=== PATIENT | female | born 1940 | race Caucasian/White ===

== ENCOUNTER 2019-09-17 11:35 | Outpatient (CLI) | payer MEDICARE, SELFPAY ==
[2019-09-17 11:57] LABS: Basophils Absolute Auto 0.03 K/mm3 (0.00-0.10); Basophils Percent Auto 0.5 % (0.0-1.0); Eosinophils Absolute Auto 0.06 K/mm3 (0.02-0.50); Hematocrit 37.1 % (35.0-42.0); Hemoglobin 12.6 g/dL (11.7-13.8); Immature Granulocyte Absolute 0.01 K/mm3 (0.00-0.00); Immature Granulocyte Percent A 0.2 % (0.0-0.0); Lymphocytes Absolute Auto 1.56 K/mm3 (1.10-4.50); Lymphocytes Percent Auto 24.7 % (18.0-42.0); Mean Corpuscular Hemoglobin 31.2 pg (27.0-31.0); Mean Corpuscular Volume 91.8 fL (78.0-102.0); Monocytes Percent Auto 7.9 % (2.0-11.0); Neutrophils Absolute Auto 4.2 K/mm3 (1.7-7.2); Neutrophils Percent Auto 65.7 % (50.0-70.0); Platelet Count Result 191 K/mm3 (150-420); Red Blood Count 4.04 M/mm3 (4.20-5.40); Red Cell Distribution Width 16.2 % (11.6-14.4); White Blood Count 6.3 K/mm3 (4.8-10.8)
[2019-09-17 12:44] LABS: Albumin Level 4.3 g/dL (3.4-5.0); Anion Gap 12.1 mmol/L (7-16); Blood Urea Nitrogen 23 mg/dL (7-18); Calcium 9.8 mg/dL (8.5-10.1); Carbon Dioxide 33 mmol/L (21-32); Chloride 103 mmol/L (98-108); Cholesterol 160 mg/dL (0-200); Estimated Glomerular Filt Rate 40; HDL Direct 60 mg/dL (40-60); LDL Cholesterol Calculated 82 mg/dL (<130); Phosphorus 3.5 mg/dL (2.6-4.7); Potassium 4.1 mmol/L (3.5-5.1); Sodium 144 mmol/L (136-145); Triglycerides 92 mg/dL (0-150)
[2019-09-17 12:50] LABS: Hemoglobin A1C 5.8 % (<5.7)
[2019-09-17 12:52] LABS: Osmolality Calculated 298 mOsm/kg (285-295)
[2019-09-17 12:58] LABS: Glucose 38 mg/dL (70-99)
[2019-09-17 12:59] LABS: Free T4 Free Thyroxine Reflex 1.03 ng/dL (0.76-1.46); Thyroid Stimulating Hormone Reflex 4.49 u/IU/mL (0.36-3.74)
[2019-09-17 14:35] LABS: Microalbumin Urine Random 43.3 mg/L
[2019-09-22 10:00] LABS: Vitamin D 25 Hydroxy 42 ng/mL (30-100)
== END 2019-09-17 11:36 | disposition home or self-care (01) ==
LOC: CHSLAB 11:41
DX: E55.9 Vitamin D deficiency, unspecified (principal); E03.9 Hypothyroidism, unspecified; E78.5 Hyperlipidemia, unspecified; E11.42 Type 2 diabetes mellitus with diabetic polyneuropathy; N18.2 Chronic kidney disease, stage 2 (mild); R60.9 Edema, unspecified; I12.9 Hypertensive chronic kidney disease with stage 1 through stage 4 chronic kidney disease, or unspecified chronic kidney disease
CPT/HCPCS: 36415; 80061; 80069; 82043; 82306; 83036; 84439; 84443; 85025

== ENCOUNTER 2019-10-28 11:00 | Outpatient (CLI) | payer MEDICARE, SELFPAY ==
--- NOTE | ~2019-10-28 | US_ITS ---
EXAMINATION:US venous doppler LE RT INDICATION:Right leg pain. DVT right leg. TECHNIQUE: Multiple grayscale, color flow and Doppler images of the right lower extremity deep venous systems were obtained and reviewed. COMPARISON:No prior studies for comparison. FINDINGS: The common femoral, superficial femoral and popliteal veins demonstrate normal respiratory variation, augmentation and compressibility. Color flow is also seen within the posterior tibial, pe roneal, greater saphenous and profunda veins. IMPRESSION: 1: No lower extremity deep venous thrombosis. Reviewed, dictated and finalized at location A.
[2019-10-28 13:00] LABS: Magnesium 1.9 mg/dL (1.8-2.4)
== END 2019-10-28 11:01 | disposition home or self-care (01) ==
PROVIDERS: Visit Provider Podiatrist Foot & Ankle Surgery
DX: I82.401 Acute embolism and thrombosis of unspecified deep veins of right lower extremity (principal); R26.81 Unsteadiness on feet; M79.10 Myalgia, unspecified site; G20 Parkinson's disease
CPT/HCPCS: 36415; 83735; 93971

== ENCOUNTER 2019-11-07 18:20 | Inpatient (IN) | payer MEDICARE, SELFPAY ==
--- NOTE | ~2019-11-07 | XR_ITS ---
EXAMINATION: XR chest 2V 11/08/2019 10:41 INDICATION: Syncope. Recurrent falls. PROCEDURE: 2 view chest COMPARISON: 11/14/2017 FINDINGS: The lungs are clear. The lungs are hyperinflated which is consistent with, but not diagnost ic of chronic obstructive pulmonary disease. The cardiomediastinal silhouette is within normal limits . There are no pleural effusions. There is no pneumothorax suspected. IMPRESSION: 1: NO ACUTE CARDIOPULMONARY DISEASE. Reviewed, dictated and finalized at location A.
--- NOTE | ~2019-11-07 | US_ITS ---
EXAMINATION: US arterial ankle brachial ind DATE: 11/11/2019 13:43 INDICATION: Persistent ulcer at the right lower limb TECHNIQUE: Segmental pressures and plethysmographic and Doppler waveforms of the brachial and lower e xtremity arteries were obtained. COMPARISON: None. FINDINGS: Right and left brachial artery pressures of 134 mm Hg and 118 mm Hg, respectively, are concordant (no rmal difference <= 30 mmHg). The right ankle-brachial index (CHARLES) is 1.07 (normal >= 0.9-1.0). Arterial Doppler waveforms are trip hasic with brisk systolic upstrokes at both the right posterior tibial and dorsalis pedis arteries. The left CHARLES is 1.15. Arterial Doppler waveforms are triphasic with brisk systolic upstrokes of both the left posterior tibial and dorsalis pedis arteries. IMPRESSION: 1. No significant arterial occlusive disease to either lower limb with normal bilateral ABIs. Reviewed, dictated and finalized at location A. IMPRESSION: 1. No significant arterial occlusive disease to either lower limb with normal b ilateral ABIs.
--- NOTE | 2019-11-07 19:00 | ADMGEN ---
This patient, Hortencia Nettles, was admitted to 2nd Floor Room 204-1. Patient oriented to hospital policies and general routines including ID bracelet, bed and alarms, visiting hours, pain management, procedures, bathroom and other care routines, personal items, smoking policy, room service/diet, and visiting hours. Information on how to activate the Rapid Response Team has been discussed. Patient encouraged to report perceived risks to care and to ask questions if they do not understand what they are told or what they should do.
[2019-11-07 19:15] VITALS: BP 129/59; PULSE 71; RESP 16; TEMP 36.7; O2SAT 100
[2019-11-07 20:22] LABS: Glucose Point of Care 136 (65-105)
[2019-11-07] MEDS: CLONAZEPAM 0.5 MG TAB PO (21:19)
--- NOTE | 2019-11-07 21:45 | PC.NURSE ---
pt assisted to bathroom with walker and stand by assist, steady gait, tolerated well
[2019-11-07 23:02] VITALS: BP 123/52; PULSE 68; RESP 18; TEMP 36.8; O2SAT 98
--- NOTE | 2019-11-08 01:34 | PC.NURSE ---
pt sleeping, respirations even and regular, no evidence of distress noted.
--- NOTE | 2019-11-08 05:00 | PC.NURSE ---
pt attempted to ambulate to the bathroom, she began to feel dizzy, assisted her back to bed, sat on side of bed for approx 5 min then pt stated she was feeling better. pt ambulated to bathroom without difficulty at this time.
[2019-11-08] MEDS: LEVOTHYROXINE SODIUM 112 MCG TABLET PO (05:30)
[2019-11-08 07:30] VITALS: BP 138/62; PULSE 78; RESP 18; TEMP 36.4; O2SAT 97
[2019-11-08 08:09] LABS: Glucose Point of Care 131 (65-105)
[2019-11-08] MEDS: SENNA/DOCUSATE SODIUM TABLET 1 TAB PO (09:42)
[2019-11-08] MEDS: MAGNESIUM OXIDE 400 MG TABLET PO ×2 (09:43→16:53)
[2019-11-08] MEDS: CHOLECALCIFEROL 1,000 UNIT TABLET 1000 UNITS PO (09:43)
[2019-11-08] MEDS: GABAPENTIN 300 MG CAPSULE 600 MG PO ×4 (09:44→21:57)
[2019-11-08] MEDS: glipiZIDE 5 MG TABLET PO (09:44)
[2019-11-08] MEDS: DULOXETINE HCL 30 MG CAPSULE.DR PO (09:44)
[2019-11-08] MEDS: CARBIDOPA/LEVODOPA 25/100 MG TABLET 1 TABLET PO ×3 (09:45→16:53)
[2019-11-08] MEDS: amantadine HCL 100 MG CAPSULE PO ×2 (09:45→16:53)
[2019-11-08] MEDS: lisinopriL 2.5 MG TABLET PO (09:46)
[2019-11-08 10:22] LABS: Hemoglobin 12.2 g/dL (11.7-13.8); Mean Corpuscular HGB Conc 33.9 g/dL (32.0-36.0); Mean Corpuscular Volume 91.6 fL (78.0-102.0); Platelet Count Result 147 K/mm3 (150-420); Red Blood Count 3.93 M/mm3 (4.20-5.40); Red Cell Distribution Width 14.4 % (11.6-14.4); White Blood Count 3.9 K/mm3 (4.8-10.8)
[2019-11-08 10:40] LABS: Alanine Aminotransferase 9 U/L (14-59); Albumin Level 3.8 g/dL (3.4-5.0); Alkaline Phosphatase 49 U/L (46-116); Anion Gap 12.2 mmol/L (7-16); Aspartate Amino Transferase 20 U/L (15-37); Bilirubin,Total 0.6 mg/dL (0.00-1.00); Blood Urea Nitrogen 17 mg/dL (7-18); Carbon Dioxide 29 mmol/L (21-32); Chloride 100 mmol/L (98-108); Estimated CRCL calculation 36 ml/min; Estimated Glomerular Filt Rate 45; Glucose 234 mg/dL (70-99); Osmolality Calculated 293 mOsm/kg (285-295); Potassium 4.2 mmol/L (3.5-5.1); Sodium 137 mmol/L (136-145); Total Protein 6.9 g/dL (6.4-8.2)
[2019-11-08 10:47] LABS: Thyroid Stimulating Hormone 1.97 uIU/mL (0.36-3.74)
[2019-11-08 11:10] VITALS: BP 121/53; PULSE 78
[2019-11-08 11:12] VITALS: BP 124/52; PULSE 79
[2019-11-08 11:15] VITALS: BP 90/44; PULSE 101
[2019-11-08 12:47] LABS: Glucose Point of Care 177 (65-105)
--- NOTE | 2019-11-08 13:10 | PM.IMHP ---
H&P: HPI History of Present Illness Chief complaint: inpatient rehab Narrative: Hortencia Nettles is a 79 year old female THAT WAS ADMITTED IN TO [facility] IN [place] WITH ACUTE KIDNEY INJURY WITH ACUTE TUBULAR NECROSIS, MULTIPLE RECURRENT FALLS UNSTABLE GAIT, LIGHTHEADEDNESS, DIZZINESS WITH POSTURAL CHANGE FOUND TO BE DEHYDRATION . PATIENT HAS A PAST MEDICAL HISTORY OF CANCER, DIABETES, GERD, GOUT, KIDNEY DISEASE, PARKINSON'S DISEASE, RHEUMATOID FEVER, RESTLESS LEG SYNDROME,SHINGLES. 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 SHE WAS LAST SEEN ON OCTOBER 26, 2019DURING THESE FALLS PATIENT CARBIDOPA/LEVODOPA WAS INCREASED DUE TO HER RESTLESS LEGS SYNDROME. HER RESTLESS LEG SYNDROME IMPROVED HOWEVER SHE STARTED TO FEEL MORE UNSTEADY AND LIGHTHEADED WHEN TRYING TO STAND FROM LYING AND SITTING POSITIONS. AT THAT POINT HER CARBIDOPA LEVODOPA MEDICATION WAS REDUCED AGAIN. PATIENT EXPERIENCES LIGHTHEADEDNESS AND DIZZINESS AND LOWER EXTREMITY WEAKNESS AND HAD A NEAR SYNCOPE EPISODE PREVIOUSLY TO BEING ADMITTED IN TO [facility]. DURING HER STAY AT [facility] PATIENT CONDITION IMPROVED AND IT WAS RECOMMENDED THAT SHE DISCHARGE TO A REHABILITATION CENTER. 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 Review of Systems Review of Systems: Narrative: CONSTITUTIONAL :NO WEIGHT LOSS, FEVER, CHILLS, WEAKNESS OR FATIGUE.: HEENT: EYES: NO DIPLOPIA OR BLURRED VISION. ENT: NO EARACHE, SORE THROAT OR RUNNY NOSE. CARDIOVASCULAR: NO PRESSURE, SQUEEZING, STRANGLING, TIGHTNESS, HEAVINESS OR ACHING ABOUT THE CHEST, NECK, AXILLA OR EPIGASTRIUM. RESPIRATORY: NO COUGH, SHORTNESS OF BREATH, PND OR ORTHOPNEA. GASTROINTESTINAL: NO NAUSEA, VOMITING OR DIARRHEA. GENITOURINARY: NO DYSURIA, FREQUENCY OR URGENCY. MUSCULOSKELETAL: NO MUSCLE, BACK PAIN, JOINT PAIN OR STIFFNESS. SKIN: NO CHANGE IN SKIN, HAIR OR NAILS. PATIENT HAS A SCAB OVER QUARTER-SIZED ULCER TO THE RIGHT LOWER EXTREMITY INNER CALF WITH A SMALL AMOUNT ERYTHEMA AND TENDER TO TOUCH NEUROLOGIC: NO PARESTHESIAS, FASCICULATIONS, SEIZURES OR WEAKNESS. PSYCHIATRIC: NO DISORDER OF THOUGHT OR MOOD. ENDOCRINE: NO HEAT OR COLD INTOLERANCE, POLYURIA OR POLYDIPSIA. HEMATOLOGICAL: NO EASY BRUISING OR BLEEDING. [facility] Past Medical History Medical History (Updated 11/08/19 @ 13:48 by BERTO Ortega) Cancer JAW MOUTH AND CHIN GERD (gastroesophageal reflux disease) Gout Kidney disease Orthostatic hypotension Parkinsons Rheumatic fever Shingles Type 2 diabetes mellitus Surgical History Surgical History (Updated 11/08/19 @ 13:28 by BERTO Ortega) History of cardiac cath History of cholecystectomy History of total knee arthroplasty S/P repair of ventral hernia Status post gastroplasty Family History Family History (Updated 11/08/19 @ 13:33 by BERTO Ortega) Sibling Pancreatic cancer Breast cancer Sibling Kidney disease Mother Cancer Pancreatic cancer Father COPD (chronic obstructive pulmonary disease) Son Diabetes mellitus Social History Social History Smoking status: Never smoker Alcohol intake: never Substance use: never Gender identity (if verbalized by the patient): Female Spiritual care concerns: No Meds Home Medications and Allergies Home Medications Medication Instructions Recorded Confirmed Type amantadine HCl 100 mg PO BID 11/07/19 11/07/19 History carbidopa-levodopa [Sinemet] 1 tablet PO TIDWM 11/07/19 11/07/19 History carbidopa-levodopa [Sinemet] 2 tablet PO HS 11/07/19 11/07/19 History cholecalciferol (vitamin D3) 50 mcg PO DAILY 11/07/19 11/07/19 History clonazepam 0.5 mg PO BID PRN 11/07/19 11/07/19 History duloxetine [Cymbalta] 30 mg PO DAILY 11/07/19 11/07/19 History gabapentin 600 mg PO TID 11/07/19 11/07/19 History glipizide 5 mg PO D
[2019-11-08] MEDS: PHARMACIST COMMUNICATION ORDER 1 EACH XX (13:41)
[2019-11-08 15:45] VITALS: BP 121/61; PULSE 79; RESP 18; TEMP 37.2; O2SAT 98
[2019-11-08 16:58] LABS: Glucose Point of Care 130 (65-105)
--- NOTE | 2019-11-08 18:20 | PC.NURSE ---
Patient resting in bed with hob elevated. Denies any needs. Call paul and belongings at side.
--- NOTE | 2019-11-08 19:25 | PC.NURSE ---
pt assisted to bathroom then returned to reclining chair, walker with sba, tolerated well, denies any needs or complaints at this time
--- NOTE | 2019-11-08 20:42 | PC.NURSE ---
pt ambulated 2 laps around the nursing floor, with ww and gait belt, sba, pt tolerated well, no episode of dizziness or weakness
[2019-11-08] MEDS: MELATONIN 5 MG TABLET PO (21:57)
[2019-11-08] MEDS: CARBIDOPA/LEVODOPA 25/100 MG TABLET 2 TABLET PO (21:57)
[2019-11-08] MEDS: CLONAZEPAM 0.5 MG TAB PO (21:57)
[2019-11-08 22:21] LABS: Glucose Point of Care 223 (65-105)
[2019-11-08 23:36] VITALS: BP 116/56; PULSE 68; RESP 18; TEMP 36.2; O2SAT 99
--- NOTE | 2019-11-09 02:21 | PC.NURSE ---
pt sleeping, respirations even and regular, no evidence of distress noted at this time.
[2019-11-09] MEDS: LEVOTHYROXINE SODIUM 112 MCG TABLET PO (05:51)
[2019-11-09 07:36] LABS: Glucose Point of Care 201 (65-105)
[2019-11-09 08:00] VITALS: BP 120/71; PULSE 76; RESP 14; O2SAT 100
--- NOTE | 2019-11-09 08:00 | ECG_ITS ---
Measurements Intervals Emmons Rate: 70 P: -70 NH: 194 QRS: -11 QRSD: 98 T: 55 QT: 412 QTc: 445 Interpretive Statements ECTOPIC ATRIAL RHYTHM LOW QRS VOLTAGE IN LIMB LEADS CANNOT RULE OUT SEPTAL INFARCT, AGE INDETERMINATE ABNORMAL ECG Electronically Signed On 11-09-2019 11:27:34 CDT by Ashu Santos D.O.
[2019-11-09 08:30] VITALS: BP 90/42; PULSE 88; RESP 18; O2SAT 99
[2019-11-09 08:31] VITALS: BP 101/49; PULSE 88; RESP 18; O2SAT 96
[2019-11-09] MEDS: CARBIDOPA/LEVODOPA 25/100 MG TABLET 1 TABLET PO ×3 (08:42→16:44)
[2019-11-09] MEDS: ENOXAPARIN 40 MG/0.4 ML SYRINGE SUB-Q (08:43)
[2019-11-09] MEDS: glipiZIDE 5 MG TABLET PO (08:43)
[2019-11-09] MEDS: GABAPENTIN 300 MG CAPSULE 600 MG PO ×3 (08:43→21:03)
[2019-11-09] MEDS: CHOLECALCIFEROL 1,000 UNIT TABLET 1000 UNITS PO (08:43)
[2019-11-09] MEDS: DULOXETINE HCL 30 MG CAPSULE.DR PO (08:52)
[2019-11-09] MEDS: MAGNESIUM OXIDE 400 MG TABLET PO ×2 (08:52→16:43)
[2019-11-09] MEDS: amantadine HCL 100 MG CAPSULE PO ×2 (08:54→16:44)
[2019-11-09] MEDS: lisinopriL 5 MG TABLET 2.5 MG PO (08:54)
[2019-11-09 09:00] VITALS: BP 122/69; PULSE 72; RESP 14
[2019-11-09 09:05] VITALS: BP 114/60; PULSE 80; RESP 14
[2019-11-09] MEDS: PSYLLIUM POWDER PACKET 1 PACKET PO (09:13)
[2019-11-09 11:28] LABS: Glucose Point of Care 209 (65-105)
--- NOTE | 2019-11-09 13:15 | PC.NURSE ---
OT working with patient in room
--- NOTE | 2019-11-09 14:06 | PC.NURSE ---
1400 PT just finished working with patient
[2019-11-09 15:17] VITALS: BP 119/59; PULSE 70; RESP 18; TEMP 37; O2SAT 99
[2019-11-09] MEDS: SENNA/DOCUSATE SODIUM TABLET 1 TAB PO (16:43)
[2019-11-09 16:50] LABS: Glucose Point of Care 113 (65-105)
--- NOTE | 2019-11-09 17:40 | PC.NURSE ---
sitting up has been to chair and back to bed and up on side of bed for dinner, tolerating activity well, no light headed feeling this evening
[2019-11-09] MEDS: PANTOPRAZOLE SOD SESQUIHYDRATE 20 MG TAB 40 MG PO (21:03)
[2019-11-09] MEDS: MELATONIN 5 MG TABLET PO (21:04)
[2019-11-09] MEDS: CARBIDOPA/LEVODOPA 25/100 MG TABLET 2 TABLET PO (21:08)
[2019-11-09 23:30] LABS: Glucose Point of Care 180 (65-105)
[2019-11-10] VITALS (7 sets, daily range): BP systolic 74–123; BP diastolic 43–51; PULSE 56–75; RESP 18–20; TEMP 36–36.9; O2SAT 99–100
[2019-11-10] MEDS: LEVOTHYROXINE SODIUM 112 MCG TABLET PO (05:33)
[2019-11-10 07:46] LABS: Glucose Point of Care 221 (65-105)
[2019-11-10] MEDS: SENNA/DOCUSATE SODIUM TABLET 1 TAB PO ×2 (08:35→17:54)
[2019-11-10] MEDS: amantadine HCL 100 MG CAPSULE PO ×2 (08:35→17:54)
[2019-11-10] MEDS: GABAPENTIN 300 MG CAPSULE 600 MG PO ×3 (08:35→21:06)
[2019-11-10] MEDS: CARBIDOPA/LEVODOPA 25/100 MG TABLET 1 TABLET PO ×3 (08:35→17:54)
[2019-11-10] MEDS: ENOXAPARIN 40 MG/0.4 ML SYRINGE SUB-Q (08:36)
[2019-11-10] MEDS: glipiZIDE 5 MG TABLET PO (08:36)
[2019-11-10] MEDS: CHOLECALCIFEROL 1,000 UNIT TABLET 2000 UNITS PO (08:59)
[2019-11-10 11:21] LABS: Glucose Point of Care 174 (65-105)
[2019-11-10] MEDS: lisinopriL 5 MG TABLET 2.5 MG PO (11:32)
[2019-11-10] MEDS: MAGNESIUM OXIDE 400 MG TABLET PO ×2 (11:35→17:57)
[2019-11-10] MEDS: DULOXETINE HCL 30 MG CAPSULE.DR PO (11:35)
--- NOTE | 2019-11-10 11:58 | PM.IMPN ---
Progress Note: A&P Assessment and Plan (1) Orthostatic hypotension: Code(s): I95.1 - Orthostatic hypotension Status: Acute Assessment and Plan: intermittent occasions of lightheadedness for many months to years history of Parkinsons Disease consider stopping 2.5 mg Lisinopril started the 2.5mg TID Midodrine checking orthostatic BPs and HRs after Midodrine dosing for the first 2 days treat orthostatic hypotension with midodrine dosing, titrate as needed, while avoiding excessive hypertension while lying patient and patient's daughter educated regarding the risk of midodrine, including hypertension and stroke, also educated about not taking midodrine after 6:00 p.m. patient educated and practicing pausing to rest between each position change. ambulating with PT/OT discussed with and agreed upon by her PCP Dr.Swapna Abbott, her PCP in [place], [place] and Dany Mason, Neurologist CONTINUOUS PILLOWCASE CUTTER called and left message for her government affairs researcher Dr. Brenda Coronel Monitoring I/O's, daily weights, and weekly labs. PT/OT care plan meeting is scheduled for this Saturday. (2) Kidney disease: Code(s): N28.9 - Disorder of kidney and ureter, unspecified Status: Acute Assessment and Plan: continue her low dose 2.5 mg Lisinopril daily improve her BPs to improve renal perfusion Monitoring I/O's, daily weights, and weekly labs. Restarting her metformin prior to discharge encourage oral hydration and push fluids checking labs on Saturday. November 07 labs show a creatinine of 1.16, a normal BUN of 17, a GFR that has improved to 45. repeating labs tomorrow morning (3) Type 2 diabetes mellitus: Code(s): E11.9 - Type 2 diabetes mellitus without complications Status: Acute Assessment and Plan: patient's blood sugars are between 130 and 200 continue bedside glucose checks and sliding scale with hypoglycemic protocol continue glipizide Restarting her metformin checking labs on Saturday. on September 16, her A1c was 5.8 diabetic diet continue lisinopril for renal protection and encourage adequate daily oral hydration (4) Parkinsons: Code(s): G20 - Parkinson's disease Status: Acute Assessment and Plan: continue Carbidopa- levodopa 25-100 ( 1 tab TID) as well as Carbidopa- levodopa 25-100 ER or CR (2 tabs at bedtime) continue Gabapentin 600mg TID and Amantadine 100 mg BID consulted with her neurologist at [facility] in [facility] Dany Mason NP and patient is to Follow up with her after discharge. Monitoring I/O's, encourage oral hydration treat orthostatic hypotension with midodrine dosing, titrate as needed, while avoiding excessive hypertension while lying daily weights, weekly labs. PT/OT care plan meeting is scheduled for this Saturday. (5) Weakness: Code(s): R53.1 - Weakness Status: Acute Assessment and Plan: patient will exhibit tolerance to physical activity and maintain normal vital signs patient will be able to perform activities of daily living independently patient will take in adequate nutrition for healing and strength patient will use appropriate DME to prevent falls continue PT/OT Subjective Date/time seen: 11/10/19 11:58 Mrs. Clarke son is doing well today she ambulated quite far with PT this morning, using her 2 wheeled walker. She does have intermittent occasions of lightheadedness, especially when she quickly moves to grab the phone or to get up. I reviewed her notes from [facility], the neurologist mentioned to the patient and her daughter starting Hortencia on midodrine to treat her orthostatic hypotension , but she had not received the medication at [facility]. She appears to be well hydrated with intake >1.5L for last 2 days, and her November 07 labs show a creatinine of 1.16, a normal BUN of 17, a GFR that has improved to 45. Her lying/sitting BPs have been stable (SBPs 90-100s), but t
[2019-11-10] MEDS: MIDODRINE HCL 2.5 MG TABLET PO ×2 (13:01→17:57)
[2019-11-10 16:45] LABS: Glucose Point of Care 89 (65-105)
--- NOTE | 2019-11-10 20:43 | PM.EVENT ---
Event Note Event Note Event Note: Patient denies any complaints. States that she has some lightheadedness if she stands up rapidly. Continues to participate in physical therapy. Alert oriented. No distress. Regular rate rhythm with good distal pulses. Lungs clear to auscultation bilaterally. Extremities warm dry and pink. Orthostatics hypotension continues. We will try a low dose of midodrine and monitor closely. I have examined the patient and be the chart. I discussed the patient's care with A Bryon TEJEDA and agree with her assessment plan.
[2019-11-10 20:58] LABS: Glucose Point of Care 263 (65-105)
[2019-11-10] MEDS: CARBIDOPA/LEVODOPA 25/100 MG CR TABLET 2 TABLET PO (21:05)
[2019-11-10] MEDS: MELATONIN 5 MG TABLET PO (21:08)
[2019-11-10] MEDS: PANTOPRAZOLE SOD SESQUIHYDRATE 20 MG TAB 40 MG PO (21:11)
[2019-11-10] MEDS: CLONAZEPAM 0.5 MG TAB PO (21:22)
[2019-11-11] VITALS (10 sets, daily range): BP systolic 82–139; BP diastolic 38–69; PULSE 63–114; RESP 16–20; TEMP 36.8–37.2; O2SAT 96–98
[2019-11-11 05:36] LABS: Basophils Absolute Auto 0.02 K/mm3 (0.00-0.10); Basophils Percent Auto 0.5 % (0.0-1.0); Eosinophils Absolute Auto 0.09 K/mm3 (0.02-0.50); Eosinophils Percent Auto 2.2 % (1.0-6.0); Hemoglobin 12.7 g/dL (11.7-13.8); Immature Granulocyte Absolute 0.01 K/mm3 (0.00-0.00); Immature Granulocyte Percent A 0.2 % (0.0-0.0); Lymphocytes Percent Auto 37.1 % (18.0-42.0); Mean Corpuscular HGB Conc 34.3 g/dL (32.0-36.0); Mean Corpuscular Hemoglobin 31.6 pg (27.0-31.0); Mean Platelet Volume 8.4 fl (9.2-11.8); Monocytes Absolute Auto 0.39 K/mm3 (0.10-0.90); Monocytes Percent Auto 9.7 % (2.0-11.0); Neutrophils Percent Auto 50.3 % (50.0-70.0); Platelet Count Result 149 K/mm3 (150-420); Red Blood Count 4.02 M/mm3 (4.20-5.40); Red Cell Distribution Width 14.6 % (11.6-14.4)
[2019-11-11 05:56] LABS: BNP 51.6 pg/mL (0-100)
[2019-11-11 05:58] LABS: Alanine Aminotransferase 12 U/L (14-59); Albumin Level 3.9 g/dL (3.4-5.0); Alkaline Phosphatase 47 U/L (46-116); Anion Gap 12.3 mmol/L (7-16); Aspartate Amino Transferase 42 U/L (15-37); Bilirubin,Total 0.7 mg/dL (0.00-1.00); Blood Urea Nitrogen 23 mg/dL (7-18); Calcium 9.2 mg/dL (8.5-10.1); Carbon Dioxide 31 mmol/L (21-32); Chloride 99 mmol/L (98-108); Estimated CRCL calculation 39 ml/min; Estimated Glomerular Filt Rate 49; Glucose 190 mg/dL (70-99); Osmolality Calculated 294 mOsm/kg (285-295); Potassium 4.3 mmol/L (3.5-5.1); Sodium 138 mmol/L (136-145); Total Protein 7.2 g/dL (6.4-8.2)
[2019-11-11] MEDS: MIDODRINE HCL 2.5 MG TABLET PO ×3 (06:05→17:10)
[2019-11-11] MEDS: LEVOTHYROXINE SODIUM 112 MCG TABLET PO (06:05)
[2019-11-11] MEDS: SENNA/DOCUSATE SODIUM TABLET 1 TAB PO ×2 (09:01→17:10)
[2019-11-11] MEDS: GABAPENTIN 300 MG CAPSULE 600 MG PO ×3 (09:02→20:21)
[2019-11-11] MEDS: CHOLECALCIFEROL 1,000 UNIT TABLET 2000 UNITS PO (09:02)
[2019-11-11] MEDS: glipiZIDE 5 MG TABLET PO (09:02)
[2019-11-11] MEDS: ENOXAPARIN 40 MG/0.4 ML SYRINGE SUB-Q (09:02)
[2019-11-11] MEDS: CARBIDOPA/LEVODOPA 25/100 MG TABLET 1 TABLET PO ×3 (09:02→17:11)
[2019-11-11] MEDS: polyethylene glycoL 3350 17 GM POWD.PACK PO (09:03)
[2019-11-11] MEDS: amantadine HCL 100 MG CAPSULE PO ×2 (09:03→17:11)
--- NOTE | 2019-11-11 09:21 | PC.NURSE ---
Patient light headed. Had to sit down. . Tabby PARHAM notified.
[2019-11-11] MEDS: metFORMIN HCL 500 MG TABLET PO ×2 (09:30→17:11)
[2019-11-11 11:35] LABS: Glucose Point of Care 253 (65-105)
[2019-11-11] MEDS: lisinopriL 5 MG TABLET 2.5 MG PO (11:46)
[2019-11-11] MEDS: DULOXETINE HCL 30 MG CAPSULE.DR PO (11:46)
[2019-11-11] MEDS: MAGNESIUM OXIDE 400 MG TABLET PO ×2 (11:47→17:11)
[2019-11-11 17:41] LABS: Glucose Point of Care 102 (65-105)
[2019-11-11] MEDS: MELATONIN 5 MG TABLET PO (20:22)
[2019-11-11] MEDS: PANTOPRAZOLE SOD SESQUIHYDRATE 20 MG TAB 40 MG PO (20:22)
[2019-11-11] MEDS: CARBIDOPA/LEVODOPA 25/100 MG CR TABLET 2 TABLET PO (20:22)
[2019-11-11 20:36] LABS: Glucose Point of Care 121 (65-105)
[2019-11-12] VITALS (8 sets, daily range): BP systolic 77–119; BP diastolic 35–61; PULSE 71–97; RESP 18; TEMP 36.2–36.7; O2SAT 99
--- NOTE | 2019-11-12 05:33 | PC.NURSE ---
Patient reporting having restless legs and wanting to walk in the halls. She walked about one and a half laps around the nurses station with stand by assist and a walker.
[2019-11-12] MEDS: MIDODRINE HCL 2.5 MG TABLET PO ×3 (05:42→17:02)
[2019-11-12] MEDS: LEVOTHYROXINE SODIUM 112 MCG TABLET PO (05:43)
--- NOTE | 2019-11-12 06:50 | PC.NURSE ---
Blood pressure rechecked after receiving morning dose of Midodrine. Sitting blood pressure was 107/38 in the left arm Standing was 77/38 in the left arm. Patient reports feeling slightly light headed. Charge nurse notified.
[2019-11-12 08:24] LABS: Glucose Point of Care 197 (65-105)
[2019-11-12] MEDS: metFORMIN HCL 500 MG TABLET PO ×2 (08:39→17:01)
[2019-11-12] MEDS: CHOLECALCIFEROL 1,000 UNIT TABLET 2000 UNITS PO (08:39)
[2019-11-12] MEDS: CARBIDOPA/LEVODOPA 25/100 MG TABLET 1 TABLET PO ×3 (08:39→17:01)
[2019-11-12] MEDS: ENOXAPARIN 40 MG/0.4 ML SYRINGE SUB-Q (08:40)
[2019-11-12] MEDS: amantadine HCL 100 MG CAPSULE PO ×2 (08:40→17:02)
[2019-11-12] MEDS: glipiZIDE 5 MG TABLET PO (08:40)
[2019-11-12] MEDS: SENNA/DOCUSATE SODIUM TABLET 1 TAB PO (08:40)
[2019-11-12] MEDS: GABAPENTIN 300 MG CAPSULE 600 MG PO ×3 (08:42→21:04)
[2019-11-12] MEDS: DOCUSATE SODIUM 100 MG CAPSULE PO ×2 (09:58→21:04)
[2019-11-12] MEDS: polyethylene glycoL 3350 17 GM POWD.PACK PO (09:58)
[2019-11-12] MEDS: DULOXETINE HCL 30 MG CAPSULE.DR PO (11:42)
[2019-11-12] MEDS: MAGNESIUM OXIDE 400 MG TABLET PO ×2 (11:46→17:02)
--- NOTE | 2019-11-12 11:53 | P.PN_ITS ---
Progress Note: A&P Assessment and Plan (1) Orthostatic hypotension: Code(s): I95.1 - Orthostatic hypotension Status: Acute Assessment and Plan: * possibly secondary to Parkinson's disease * patient blood pressure this a.m. 77/33 repeat BP readings standing 94/41 and sitting 110/49 * intermittent occasions of lightheadedness for many months to years * continue 2.5mg TID Midodrine * patient's primary care physician and neurologist updated current treatment * physical metallurgist Dr. Brenda Coronel return call agrees with the discontinuation lisinopril * PT/OT care plan meeting is scheduled for this Saturday. * patient will need to discharge home with family members for the 1st week (2) Kidney disease: Code(s): N28.9 - Disorder of kidney and ureter, unspecified Status: Acute Assessment and Plan: * physical metallurgist agrees to discontinue the use of lisinopril * improve her BPs to improve renal perfusion * I/O's, daily weights, review * encourage oral hydration and push fluids * creatinine improved to 1.07 . (3) Type 2 diabetes mellitus: Code(s): E11.9 - Type 2 diabetes mellitus without complications Status: Acute Assessment and Plan: * patient's blood sugars below 200 * continue bedside glucose checks and sliding scale with hypoglycemic protocol * continue glipizide and metformin * A1c was 5.8 * continue diabetic diet (4) Parkinsons: Code(s): G20 - Parkinson's disease Status: Acute Assessment and Plan: * continue Carbidopa- levodopa 25-100 ( 1 tab TID) as well as Carbidopa- levodopa 25-100 ER or CR (2 tabs at bedtime) * consulted with her neurologist at [facility] in [facility] Dany Mason NP and patient is to Follow up with her after discharge. * continue PT/OT. (5) Weakness: Code(s): R53.1 - Weakness Status: Acute Assessment and Plan: * patient will exhibit tolerance to physical activity and maintain normal vital signs * patient will be able to perform activities of daily living independently * patient will take in adequate nutrition for healing and strength * patient will use appropriate DME to prevent falls * continue PT/OT Review of Systems Review of Systems: Narrative: CONSTITUTIONAL :No weight loss, fever, chills, weakness or fatigue.: HEENT: Eyes: No diplopia or blurred vision. ENT: No earache, sore throat or runny nose. CARDIOVASCULAR: No pressure, squeezing, strangling, tightness, heaviness or aching about the chest, neck, axilla or epigastrium. RESPIRATORY: No cough, shortness of breath, PND or orthopnea. GASTROINTESTINAL: No nausea, vomiting or diarrhea. patient does complain of constipation. only 1 bowel movement since her admission into the swing bed. GENITOURINARY: No dysuria, frequency or urgency. MUSCULOSKELETAL: No muscle, back pain, joint pain or stiffness. SKIN: small improving ulcer to right lowers leg NEUROLOGIC: No paresthesias, fasciculations, seizures or weakness. PSYCHIATRIC: No disorder of thought or mood. ENDOCRINE: No heat or cold intolerance, polyuria or polydipsia. HEMATOLOGICAL: No easy bruising or bleeding. Exam Narrative: Exam Narrative: General: A well-developed, well-nourished female sitting up in bed no acute distress. HEENT: Normocephalic, atraumatic. PERRL, EOMI. Sclerae anicteric. Oral mucosa moist. Oropharynx clear. Neck: Supple. Respiratory: Lungs are clear to auscultation bilaterally. Cardiovascular: Regular rate and rhythm with S
--- NOTE | 2019-11-12 11:53 | WPDPN ---
Progress Note: A&P Assessment and Plan (1) Orthostatic hypotension: Code(s): I95.1 - Orthostatic hypotension Status: Acute Assessment and Plan: possibly secondary to Parkinson's disease patient blood pressure this a.m. 77/33 repeat BP readings standing 94/41 and sitting 110/49 intermittent occasions of lightheadedness for many months to years continue 2.5mg TID Midodrine patient's primary care physician and neurologist updated current treatment rework machine operator Dr. Brenda Coronel return call agrees with the discontinuation lisinopril PT/OT care plan meeting is scheduled for this Saturday. patient will need to discharge home with family members for the 1st week (2) Kidney disease: Code(s): N28.9 - Disorder of kidney and ureter, unspecified Status: Acute Assessment and Plan: rework machine operator agrees to discontinue the use of lisinopril improve her BPs to improve renal perfusion I/O's, daily weights, review encourage oral hydration and push fluids creatinine improved to 1.07 . (3) Type 2 diabetes mellitus: Code(s): E11.9 - Type 2 diabetes mellitus without complications Status: Acute Assessment and Plan: patient's blood sugars below 200 continue bedside glucose checks and sliding scale with hypoglycemic protocol continue glipizide and metformin A1c was 5.8 continue diabetic diet (4) Parkinsons: Code(s): G20 - Parkinson's disease Status: Acute Assessment and Plan: continue Carbidopa- levodopa 25-100 ( 1 tab TID) as well as Carbidopa- levodopa 25-100 ER or CR (2 tabs at bedtime) consulted with her neurologist at [facility] in [facility] Dany Mason NP and patient is to Follow up with her after discharge. continue PT/OT. (5) Weakness: Code(s): R53.1 - Weakness Status: Acute Assessment and Plan: patient will exhibit tolerance to physical activity and maintain normal vital signs patient will be able to perform activities of daily living independently patient will take in adequate nutrition for healing and strength patient will use appropriate DME to prevent falls continue PT/OT Review of Systems Review of Systems: Narrative: CONSTITUTIONAL :No weight loss, fever, chills, weakness or fatigue.: HEENT: Eyes: No diplopia or blurred vision. ENT: No earache, sore throat or runny nose. CARDIOVASCULAR: No pressure, squeezing, strangling, tightness, heaviness or aching about the chest, neck, axilla or epigastrium. RESPIRATORY: No cough, shortness of breath, PND or orthopnea. GASTROINTESTINAL: No nausea, vomiting or diarrhea. patient does complain of constipation. only 1 bowel movement since her admission into the swing bed. GENITOURINARY: No dysuria, frequency or urgency. MUSCULOSKELETAL: No muscle, back pain, joint pain or stiffness. SKIN: small improving ulcer to right lowers leg NEUROLOGIC: No paresthesias, fasciculations, seizures or weakness. PSYCHIATRIC: No disorder of thought or mood. ENDOCRINE: No heat or cold intolerance, polyuria or polydipsia. HEMATOLOGICAL: No easy bruising or bleeding. Exam Narrative: Exam Narrative: General: A well-developed, well-nourished female sitting up in bed no acute distress. HEENT: Normocephalic, atraumatic. PERRL, EOMI. Sclerae anicteric. Oral mucosa moist. Oropharynx clear. Neck: Supple. Respiratory: Lungs are clear to auscultation bilaterally. Cardiovascular: Regular rate and rhythm with S1-S2. Gastrointestinal: Abdomen is soft, nontender, and nondistended with positive bowel sounds. No organomegaly. Skin: Warm, dry, and slightly pale.. lesion to the left lower extremity no signs and symptoms and of infection noted. tender upon palpation Extremities: No cyanosis, clubbing, or edema. Radial and pedal pulses intact. Neurological: Alert. Cranial nerves 2-12 are grossly intact. No gross focal deficits to ca
[2019-11-12 11:57] LABS: Glucose Point of Care 185 (65-105)
--- NOTE | 2019-11-12 15:55 | PC.NURSE ---
pt walking the floor with Josh from PT
[2019-11-12 16:28] LABS: Glucose Point of Care 136 (65-105)
[2019-11-12] MEDS: PANTOPRAZOLE SOD SESQUIHYDRATE 20 MG TAB 40 MG PO (21:03)
[2019-11-12] MEDS: MELATONIN 5 MG TABLET PO (21:04)
[2019-11-12] MEDS: CARBIDOPA/LEVODOPA 25/100 MG CR TABLET 2 TABLET PO (21:04)
[2019-11-12] MEDS: CLONAZEPAM 0.5 MG TAB PO (21:08)
[2019-11-12 21:14] LABS: Glucose Point of Care 217 (65-105)
[2019-11-13] VITALS (8 sets, daily range): BP systolic 101–129; BP diastolic 44–54; PULSE 42–94; RESP 16–18; TEMP 36.1–36.9; O2SAT 98–100
[2019-11-13] MEDS: LEVOTHYROXINE SODIUM 112 MCG TABLET PO (06:32)
[2019-11-13] MEDS: MIDODRINE HCL 2.5 MG TABLET PO ×3 (06:32→16:35)
[2019-11-13 07:55] LABS: Glucose Point of Care 233 (65-105)
[2019-11-13] MEDS: polyethylene glycoL 3350 17 GM POWD.PACK PO (08:55)
[2019-11-13] MEDS: CARBIDOPA/LEVODOPA 25/100 MG TABLET 1 TABLET PO ×3 (08:55→16:36)
[2019-11-13] MEDS: amantadine HCL 100 MG CAPSULE PO ×2 (08:55→16:35)
[2019-11-13] MEDS: ENOXAPARIN 40 MG/0.4 ML SYRINGE SUB-Q (08:55)
[2019-11-13] MEDS: DOCUSATE SODIUM 100 MG CAPSULE PO ×2 (08:56→20:59)
[2019-11-13] MEDS: glipiZIDE 5 MG TABLET PO (08:56)
[2019-11-13] MEDS: GABAPENTIN 300 MG CAPSULE 600 MG PO ×3 (08:56→20:58)
[2019-11-13] MEDS: metFORMIN HCL 500 MG TABLET PO (08:56)
[2019-11-13] MEDS: CHOLECALCIFEROL 1,000 UNIT TABLET 2000 UNITS PO (08:56)
[2019-11-13] MEDS: MAGNESIUM OXIDE 400 MG TABLET PO ×2 (11:50→16:36)
[2019-11-13] MEDS: DULOXETINE HCL 30 MG CAPSULE.DR PO (11:51)
--- NOTE | 2019-11-13 14:22 | PC.NURSE ---
Patient called out states she feels shaky . Blood sugar 68. Gave patient ice cream and 4 small candy bars.
[2019-11-13 14:27] LABS: Glucose Point of Care 67 (65-105)
--- NOTE | 2019-11-13 14:35 | PC.NURSE ---
Checked blood sugar. 73
[2019-11-13 14:39] LABS: Glucose Point of Care 71 (65-105)
--- NOTE | 2019-11-13 14:45 | PM.EVENT ---
Event Note Event Note Event Note: patient blood sugar dropped in the 60 today. will hold the glipizide and metformin and continue sliding scale
[2019-11-13 15:41] LABS: Glucose Point of Care 43 (65-105)
[2019-11-13 15:41] LABS: Glucose Point of Care 84 (65-105)
[2019-11-13 16:55] LABS: Glucose Point of Care 99 (65-105)
[2019-11-13] MEDS: MELATONIN 5 MG TABLET PO (20:59)
[2019-11-13] MEDS: PANTOPRAZOLE SOD SESQUIHYDRATE 20 MG TAB 40 MG PO (20:59)
[2019-11-13] MEDS: CLONAZEPAM 0.5 MG TAB PO (20:59)
--- NOTE | 2019-11-13 21:00 | PC.NURSE ---
Patient requested/given PRN Clonazepam for complaint of anxiety and restless legs.
[2019-11-13] MEDS: CARBIDOPA/LEVODOPA 25/100 MG CR TABLET 2 TABLET PO (21:03)
[2019-11-13 21:13] LABS: Glucose Point of Care 229 (65-105)
--- NOTE | 2019-11-13 23:40 | PC.NURSE ---
Patient requested PRN Tramadol for restless pain to BLE's. Patient says her legs just won't hold still and they're jumping constantly.
[2019-11-14] VITALS (8 sets, daily range): BP systolic 71–131; BP diastolic 36–61; PULSE 65–98; RESP 14–18; TEMP 36.6–36.9; O2SAT 97–98
[2019-11-14 00:10] LABS: Glucose Point of Care 237 (65-105)
--- NOTE | 2019-11-14 00:35 | PC.NURSE ---
Patient says the Tramadol has helped some but not much. Patient reports her legs still won't hold still and still hurt.
--- NOTE | 2019-11-14 01:23 | PC.NURSE ---
Patient still awake and says her legs have gotten worse, they won't hold still and are hurting bad. Charge nurse notified and will notify .
--- NOTE | 2019-11-14 01:25 | PC.NURSE ---
Call placed to Dr Nichole regarding pt pain and restlessness in bilateral legs, states he will call back, no orders at this time
--- NOTE | 2019-11-14 01:40 | PC.NURSE ---
Dr Nichole returned call, will put in a med order of one time dose at this time.
[2019-11-14] MEDS: CLONAZEPAM 0.5 MG TAB PO ×2 (01:44→21:00)
--- NOTE | 2019-11-14 01:46 | PC.NURSE ---
Patient given PRN Clonazepam as ordered by Dr Nichole. When nurse entered room patient was standing @ sink with her book on the counter and stepping/moving her legs still.
--- NOTE | 2019-11-14 02:29 | PC.NURSE ---
Patient's legs still moving a little bit but patient appears to be sleeping and did not answer when nurse spoke her name. Respirations even and unlabored. No distress noted. Call light in reach.
--- NOTE | 2019-11-14 03:16 | PC.NURSE ---
Patient appears to be sleeping by the rise and fall of her chest. Respirations even and unlabored. Legs still. No distress noted. Call light in reach.
[2019-11-14] MEDS: MIDODRINE HCL 2.5 MG TABLET PO ×2 (06:04→13:02)
[2019-11-14] MEDS: LEVOTHYROXINE SODIUM 112 MCG TABLET PO (06:04)
--- NOTE | 2019-11-14 07:49 | P.PN_ITS ---
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 agrees with the discontinuation lisinopril * continue PT/OT * patient will need to discharge home with family members for the 1st week on Saturday11/16/2019 <BERTO Ortega - Last Filed: 11/14/19 08:05> (2) Kidney disease: Code(s): N28.9 - Disorder of kidney and ureter, unspecified <BERTO Ortega - Last Filed: 11/14/19 08:05> Status: Acute <BERTO Ortega - Last Filed: 11/14/19 08:05> Assessment and Plan: * level vial setter agrees to discontinue the use of lisinopril * improve her BPs to improve renal perfusion * I/O's, daily weights, review * encourage oral hydration and push fluids * creatinine improved to 1.07 . <BERTO Ortega - Last Filed: 11/14/19 08:05> (3) Type 2 diabetes mellitus: Code(s): E11.9 - Type 2 diabetes mellitus without complications <BERTO Ortega - Last Filed: 11/14/19 08:05> Status: Acute <BERTO Ortega - Last Filed: 11/14/19 08:05> Assessment and Plan: * patient's blood sugars below 200 * patient was hypoglycemic episode yesterday treated per protocol * continue bedside glucose checks and sliding scale with hypoglycemic protocol * discontinue use glipizide and metformin due to hypoglycemic episode * A1c was 5.8 * continue diabetic diet <BERTO Ortega - Last Filed: 11/14/19 08:05> (4) Parkinsons: Code(s): G20 - Parkinson's disease <Carlos Amin BERTO Hayes - Last Filed: 11/14/19 08:05> Status: Acute <Carlos Amin BERTO Hayes - Last Filed: 11/14/19 08:05> Assessment and Plan: * continue Carbidopa- levodopa 25-100 ( 1 tab TID) as well as Carbidopa- levodopa 25-100 ER or CR (2 tabs at bedtime) * consulted with her neurologist at [facility] in [facility] Dany Mason NP and patient is to Follow up with her after discharge. * continue PT/OT. <BERTO Ortega - Last Filed: 11/14/19 08:05> (5) Weakness: Code(s): R53.1 - Weakness <SaqibBERTO Kincaid - Last Filed: 11/14/19 08:05> Status: Acute <Carlos Amin BERTO Hayes - Last Filed: 11/14/19 08:05> Assessment and Plan: * patient will exhibit tolerance to physical activity and maintain normal vital signs * patient will be able to perform activities of daily living independently * patient will take in adequate nutrition for healing and strength * patient will use appropriate DME to prevent falls * continue PT/OT <BERTO Ortega - Last Filed: 11/14/19 08:05> Review of Systems Review of Systems: Narrative: CONSTITUTIONAL : fatigue due to lack of sleep overnight, alert orientated x3 HEENT: Eyes: No diplopia or blurred vision. ENT: No earache, sore throat or runny nose. CARDIOVASCULAR: No pressure, squeezing, strangling, tightness, heaviness or aching about the chest, neck, axilla or epigastrium. RESPIRATORY: No cough, shortness of breath, PND or orthopnea. GASTROINTESTINAL: compl
--- NOTE | 2019-11-14 07:49 | WPDPN ---
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 <BERTO Ortega - Last Filed: 11/14/19 08:05> (3) Type 2 diabetes mellitus: Code(s): E11.9 - Type 2 diabetes mellitus without complications <BERTO Ortega - Last Filed: 11/14/19 08:05> Status: Acute <BERTO Ortega - Last Filed: 11/14/19 08:05> Assessment and Plan: patient's blood sugars below 200 patient was hypoglycemic episode yesterday treated per protocol continue bedside glucose checks and sliding scale with hypoglycemic protocol discontinue use glipizide and metformin due to hypoglycemic episode A1c was 5.8 continue diabetic diet <BERTO Ortega - Last Filed: 11/14/19 08:05> (4) Parkinsons: Code(s): G20 - Parkinson's disease <BERTO Ortega - Last Filed: 11/14/19 08:05> Status: Acute <BERTO Ortega - Last Filed: 11/14/19 08:05> Assessment and Plan: continue Carbidopa- levodopa 25-100 ( 1 tab TID) as well as Carbidopa- levodopa 25-100 ER or CR (2 tabs at bedtime) consulted with her neurologist at [facility] in [facility] Dany Mason, DIONE and patient is to Follow up with her after discharge. continue PT/OT. <BERTO Ortega - Last Filed: 11/14/19 08:05> (5) Weakness: Code(s): R53.1 - Weakness <BERTO Ortega - Last Filed: 11/14/19 08:05> Status: Acute <BERTO Ortega - Last Filed: 11/14/19 08:05> Assessment and Plan: patient will exhibit tolerance to physical activity and maintain normal vital signs patient will be able to perform activities of daily living independently patient will take in adequate nutrition for healing and strength patient will use appropriate DME to prevent falls continue PT/OT <BERTO Ortega - Last Filed: 11/14/19 08:05> Review of Systems Review of Systems: Narrative: CONSTITUTIONAL : fatigue due to lack of sleep overnight, alert orientated x3 HEENT: Eyes: No diplopia or blurred vision. ENT: No earache, sore throat or runny nose. CARDIOVASCULAR: No pressure, squeezing, strangling, tightness, heaviness or aching about the chest, neck, axilla or epigastrium. RESPIRATORY: No cough, shortness of breath, PND or orthopnea. GASTROINTESTINAL: complains of constipation,No nausea, vomiting or diarrhea. GENITOURINARY: No dysuria, frequency or urgency. MUSCULOSKELETAL: No muscle, back pain, joint pain or stiffness. SKIN: No change in skin, hair or nails. NEUROLOGIC: over active lower extremity movement No paresthesias, fasciculations, seizures or weakness. PSYCHIATRIC: No disorder of thought or mood. ENDOCRINE: N
[2019-11-14 07:51] LABS: Glucose Point of Care 244 (65-105)
[2019-11-14] MEDS: ENOXAPARIN 40 MG/0.4 ML SYRINGE SUB-Q (09:18)
[2019-11-14] MEDS: polyethylene glycoL 3350 17 GM POWD.PACK PO (09:19)
[2019-11-14] MEDS: metFORMIN HCL 500 MG TABLET PO ×2 (09:19→17:00)
[2019-11-14] MEDS: GABAPENTIN 300 MG CAPSULE 600 MG PO ×3 (09:19→20:51)
[2019-11-14] MEDS: CARBIDOPA/LEVODOPA 25/100 MG TABLET 1 TABLET PO ×3 (09:20→17:00)
[2019-11-14] MEDS: CHOLECALCIFEROL 1,000 UNIT TABLET 2000 UNITS PO (09:20)
[2019-11-14] MEDS: BISACODYL 10 MG SUPPOSITORY RECTAL (09:20)
[2019-11-14] MEDS: glipiZIDE 5 MG TABLET PO (09:20)
[2019-11-14] MEDS: DOCUSATE SODIUM 100 MG CAPSULE PO (09:20)
[2019-11-14] MEDS: amantadine HCL 100 MG CAPSULE PO ×2 (09:26→17:02)
[2019-11-14 11:34] LABS: Hemoglobin A1C 6.1 % (<5.7)
[2019-11-14 11:49] LABS: Glucose Point of Care 165 (65-105)
[2019-11-14] MEDS: MAGNESIUM OXIDE 400 MG TABLET PO ×2 (13:02→17:00)
[2019-11-14] MEDS: DULOXETINE HCL 30 MG CAPSULE.DR PO (13:03)
[2019-11-14] MEDS: MIDODRINE HCL 2.5 MG TABLET 5 MG PO (17:01)
[2019-11-14 17:04] LABS: Glucose Point of Care 192 (65-105)
[2019-11-14] MEDS: SENNA/DOCUSATE SODIUM TABLET 1 TAB PO (20:50)
[2019-11-14] MEDS: PANTOPRAZOLE SOD SESQUIHYDRATE 20 MG TAB 40 MG PO (20:52)
[2019-11-14] MEDS: CARBIDOPA/LEVODOPA 25/100 MG CR TABLET 2 TABLET PO (20:52)
[2019-11-14] MEDS: MELATONIN 5 MG TABLET PO (20:52)
[2019-11-15] VITALS (8 sets, daily range): BP systolic 85–121; BP diastolic 36–55; PULSE 66–100; RESP 14–18; TEMP 36.5–36.9; O2SAT 97–98
[2019-11-15] MEDS: MIDODRINE HCL 2.5 MG TABLET 5 MG PO ×3 (06:26→16:58)
[2019-11-15] MEDS: LEVOTHYROXINE SODIUM 112 MCG TABLET PO (06:26)
[2019-11-15] MEDS: ENOXAPARIN 40 MG/0.4 ML SYRINGE SUB-Q (09:53)
[2019-11-15] MEDS: polyethylene glycoL 3350 17 GM POWD.PACK PO (09:53)
[2019-11-15] MEDS: CHOLECALCIFEROL 1,000 UNIT TABLET 2000 UNITS PO (09:54)
[2019-11-15] MEDS: DOCUSATE SODIUM 100 MG CAPSULE PO (09:54)
[2019-11-15] MEDS: GABAPENTIN 300 MG CAPSULE 600 MG PO ×3 (09:56→20:58)
[2019-11-15] MEDS: CARBIDOPA/LEVODOPA 25/100 MG TABLET 1 TABLET PO ×3 (09:56→16:56)
[2019-11-15] MEDS: amantadine HCL 100 MG CAPSULE PO ×2 (09:56→16:56)
[2019-11-15 11:40] LABS: Glucose Point of Care 276 (65-105)
[2019-11-15] MEDS: DULOXETINE HCL 30 MG CAPSULE.DR PO (11:49)
[2019-11-15] MEDS: MAGNESIUM OXIDE 400 MG TABLET PO ×2 (11:49→16:57)
[2019-11-15] MEDS: metFORMIN HCL 500 MG TABLET PO (16:57)
[2019-11-15 17:06] LABS: Glucose Point of Care 184 (65-105)
[2019-11-15] MEDS: MELATONIN 5 MG TABLET PO (20:59)
[2019-11-15] MEDS: PANTOPRAZOLE SOD SESQUIHYDRATE 20 MG TAB 40 MG PO (20:59)
[2019-11-15] MEDS: SENNA/DOCUSATE SODIUM TABLET 1 TAB PO (20:59)
[2019-11-15] MEDS: CARBIDOPA/LEVODOPA 25/100 MG CR TABLET 2 TABLET PO (20:59)
[2019-11-15] MEDS: CLONAZEPAM 0.5 MG TAB PO ×2 (21:00→23:45)
[2019-11-16] VITALS: BP 84/38; PULSE 73; RESP 14; TEMP 36.5; O2SAT 97
[2019-11-16 05:48] LABS: Hematocrit 33.7 % (35.0-42.0); Hemoglobin 11.4 g/dL (11.7-13.8); Mean Corpuscular HGB Conc 33.8 g/dL (32.0-36.0); Mean Corpuscular Hemoglobin 31.1 pg (27.0-31.0); Mean Corpuscular Volume 92.1 fL (78.0-102.0); Mean Platelet Volume 9.4 fl (9.2-11.8); Platelet Count Result 118 K/mm3 (150-420); Red Blood Count 3.66 M/mm3 (4.20-5.40); Red Cell Distribution Width 14.7 % (11.6-14.4)
[2019-11-16 06:11] LABS: Alanine Aminotransferase 13 U/L (14-59); Albumin Level 3.8 g/dL (3.4-5.0); Alkaline Phosphatase 45 U/L (46-116); Anion Gap 9.7 mmol/L (7-16); Aspartate Amino Transferase 17 U/L (15-37); Bilirubin,Total 0.5 mg/dL (0.00-1.00); Blood Urea Nitrogen 15 mg/dL (7-18); Calcium 9.2 mg/dL (8.5-10.1); Carbon Dioxide 31 mmol/L (21-32); Chloride 101 mmol/L (98-108); Estimated CRCL calculation 43 ml/min; Estimated Glomerular Filt Rate 56; Glucose 194 mg/dL (70-99); Osmolality Calculated 291 mOsm/kg (285-295); Potassium 3.7 mmol/L (3.5-5.1); Sodium 138 mmol/L (136-145); Total Protein 6.4 g/dL (6.4-8.2)
[2019-11-16] MEDS: LEVOTHYROXINE SODIUM 112 MCG TABLET PO (06:24)
[2019-11-16] MEDS: MIDODRINE HCL 2.5 MG TABLET 5 MG PO ×2 (06:24→11:46)
[2019-11-16 08:00] VITALS: BP 124/54; PULSE 80; RESP 18; TEMP 37.1; O2SAT 98
[2019-11-16 09:00] VITALS: BP 124/54; PULSE 80
[2019-11-16] MEDS: GABAPENTIN 300 MG CAPSULE 600 MG PO (09:10)
[2019-11-16] MEDS: ENOXAPARIN 40 MG/0.4 ML SYRINGE SUB-Q (09:10)
[2019-11-16] MEDS: CHOLECALCIFEROL 1,000 UNIT TABLET 2000 UNITS PO (09:10)
[2019-11-16] MEDS: CARBIDOPA/LEVODOPA 25/100 MG TABLET 1 TABLET PO ×2 (09:10→11:47)
[2019-11-16] MEDS: DOCUSATE SODIUM 100 MG CAPSULE PO (09:10)
[2019-11-16] MEDS: polyethylene glycoL 3350 17 GM POWD.PACK PO (09:11)
[2019-11-16] MEDS: amantadine HCL 100 MG CAPSULE PO (09:11)
[2019-11-16 10:32] VITALS: BP 80/41; BP 94/41; PULSE 85; PULSE 99
[2019-11-16 11:44] LABS: Glucose Point of Care 158 (65-105)
[2019-11-16] MEDS: DULOXETINE HCL 30 MG CAPSULE.DR PO (11:47)
[2019-11-16] MEDS: MAGNESIUM OXIDE 400 MG TABLET PO (11:47)
--- NOTE | 2019-11-16 13:12 | P.DS_ITS ---
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 (3) Type 2 diabetes mellitus: Code(s): E11.9 - Type 2 diabetes mellitus without complications Status: Acute Assessment and Plan: * patient's blood sugars below 200 * continue bedside glucose checks and sliding scale with hypoglycemic protocol * discontinue use glipizide and due to hypoglycemic episode * PATIENT WILL CONTINUE THE USE OF METFORMIN * * A1c 6.1 (4) Parkinsons: Code(s): G20 - Parkinson's disease Status: Acute Assessment and Plan: * continue Carbidopa- levodopa 25-100 ( 1 tab TID) as well as Carbidopa- levodopa 25-100 ER or CR (2 tabs at bedtime) * consulted with her neurologist at [facility] in [facility] Dany Mason NP and patient is to Follow up with her after discharge. * continue PT/OT. (5) Weakness: Code(s): R53.1 - Weakness Status: Acute Assessment and Plan: * patient will exhibit tolerance to physical activity and maintain normal vital signs * patient will be able to perform activities of daily living independently * patient will take in adequate nutrition for healing and strength * patient will use appropriate DME to prevent falls * continue PT/OT OUTPATIENT * PATIENT'S SUCCESSFULLY COMPLETED PROGRAM DS: Summary Hospital Course Hospital Course: Hortencia Nettles is a 79 year old female THAT WAS ADMITTED IN TO [facility] IN [place] WITH ACUTE KIDNEY INJURY WITH ACUTE TUBULAR NECROSIS, MULTIPLE RECURRENT FALLS UNSTABLE GAIT, LIGHTHEADEDNESS, DIZZINESS WITH POSTURAL CHANGE FOUND TO BE DEHYDRATION . PATIENT HAS A PAST MEDICAL HISTORY OF CANCER, DIABETES, GERD, GOUT, KIDNEY DISEASE, PARKINSON'S DISEASE, RHEUMATOID FEVER, RESTLESS LEG SYNDROME,SHINGLES. PATIENT NEUROLOGIST IS AT [facility] DOCTOR ADDI , SHE IS SEEN BY GUSTABO(DIONE). SHE WAS LAST SEEN ON OCTOBER 26, 2019DURING THESE FALLS PATIENT CARBIDOPA/LEVODOPA WAS INCREASED DUE TO HER RESTLESS LEGS SYNDROME. HER RESTLESS LEG SYNDROME IMPROVED HOWEVER SHE STARTED TO FEEL MORE UNSTEADY AND LIGHTHEADED WHEN TRYING TO STAND FROM LYING AND SITTING POSITIONS. AT THAT POINT HER CARBIDOPA LEVODOPA MEDICATION WAS REDUCED AGAIN. PATIENT EXPERIENCES LIGHTHEADEDNESS AND DIZZINESS AND LOWER EXTREMITY WEAKNESS AND HAD A NEAR SYNCOPE EPISODE PREVIOUSLY TO BEING ADMITTED IN TO [facility]. DURING HER STAY AT [facility] PATIENT CONDITION IMPROVED AND IT WAS RECOMMENDED THAT SHE DISCHARGE TO A REHABILITATION CENTER. PATIENT ADMITTED IN SWING BED FOR REHABILIT
--- NOTE | 2019-11-16 13:12 | PM.DS ---
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 (3) Type 2 diabetes mellitus: Code(s): E11.9 - Type 2 diabetes mellitus without complications Status: Acute Assessment and Plan: patient's blood sugars below 200 continue bedside glucose checks and sliding scale with hypoglycemic protocol discontinue use glipizide and due to hypoglycemic episode PATIENT WILL CONTINUE THE USE OF METFORMIN A1c 6.1 (4) Parkinsons: Code(s): G20 - Parkinson's disease Status: Acute Assessment and Plan: continue Carbidopa- levodopa 25-100 ( 1 tab TID) as well as Carbidopa- levodopa 25-100 ER or CR (2 tabs at bedtime) consulted with her neurologist at [facility] in [facility] Dany Mason NP and patient is to Follow up with her after discharge. continue PT/OT. (5) Weakness: Code(s): R53.1 - Weakness Status: Acute Assessment and Plan: patient will exhibit tolerance to physical activity and maintain normal vital signs patient will be able to perform activities of daily living independently patient will take in adequate nutrition for healing and strength patient will use appropriate DME to prevent falls continue PT/OT OUTPATIENT PATIENT'S SUCCESSFULLY COMPLETED PROGRAM DS: Summary Hospital Course Hospital Course: Hortencia Nettles is a 79 year old female THAT WAS ADMITTED IN TO [facility] IN [place] WITH ACUTE KIDNEY INJURY WITH ACUTE TUBULAR NECROSIS, MULTIPLE RECURRENT FALLS UNSTABLE GAIT, LIGHTHEADEDNESS, DIZZINESS WITH POSTURAL CHANGE FOUND TO BE DEHYDRATION . PATIENT HAS A PAST MEDICAL HISTORY OF CANCER, DIABETES, GERD, GOUT, KIDNEY DISEASE, PARKINSON'S DISEASE, RHEUMATOID FEVER, RESTLESS LEG SYNDROME,SHINGLES. PATIENT NEUROLOGIST IS AT [facility] DOCTOR ADDI , SHE IS SEEN BY GUSTABO(DIONE). SHE WAS LAST SEEN ON OCTOBER 26, 2019DURING THESE FALLS PATIENT CARBIDOPA/LEVODOPA WAS INCREASED DUE TO HER RESTLESS LEGS SYNDROME. HER RESTLESS LEG SYNDROME IMPROVED HOWEVER SHE STARTED TO FEEL MORE UNSTEADY AND LIGHTHEADED WHEN TRYING TO STAND FROM LYING AND SITTING POSITIONS. AT THAT POINT HER CARBIDOPA LEVODOPA MEDICATION WAS REDUCED AGAIN. PATIENT EXPERIENCES LIGHTHEADEDNESS AND DIZZINESS AND LOWER EXTREMITY WEAKNESS AND HAD A NEAR SYNCOPE EPISODE PREVIOUSLY TO BEING ADMITTED IN TO [facility]. DURING HER STAY AT [facility] PATIENT CONDITION IMPROVED AND IT WAS RECOMMENDED THAT SHE DISCHARGE TO A REHABILITATION CENTER. 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 PATIENT HAS COMPLETED REHAB THERAPY AND WILL DISCHARGE TODAY. PATIENT ABLE TO TOLERATE ALL MEALS , SLEPT WELL AND AMBULATE AT BASELINE. PATIENT DENIES SOB, CP, PALPITATION, EXTREMITY NUMBNESS, LIGHTHEADNESS, DIZZINESS, CONSTIPATION, DIARRHEA, CHILLS OR FEVER. PATIENT AGREE THAT THE
[2019-11-17 08:58] LABS: Glucose Point of Care 229 (65-105)
[2019-11-17 08:58] LABS: Glucose Point of Care 218 (65-105)
[2019-11-17 08:58] LABS: Glucose Point of Care 239 (65-105)
[2019-11-17 08:58] LABS: Glucose Point of Care 208 (65-105)
== END 2019-11-16 13:00 | disposition home or self-care (01) | DRG 57 ==
PROVIDERS: Nurse Practitioner; Admitting Provider Family Medicine; Visit Provider Family Medicine
DX: G20 Parkinson's disease (principal); R26.9 Unspecified abnormalities of gait and mobility; R53.1 Weakness; I95.1 Orthostatic hypotension; E11.649 Type 2 diabetes mellitus with hypoglycemia without coma; G25.81 Restless legs syndrome; K21.9 Gastro-esophageal reflux disease without esophagitis; N28.9 Disorder of kidney and ureter, unspecified; Z91.81 History of falling; Z96.659 Presence of unspecified artificial knee joint
CPT/HCPCS: 36415; 71046; 80053; 83036; 83735; 83880; 84443; 85025; 85027; 93005; 93922; 97110; 97116; 97161; 97165; 97530; 97535; A9270; J1650; J1815

== ENCOUNTER 2019-11-23 13:49 | Outpatient (RCR) | payer MEDICARE, SELFPAY ==
--- NOTE | 2019-11-23 15:03 | PTOPEVAL ---
Thank you for referring Hortencia Nettles to [facility]. Please review, sign, date and return this plan of care YEN. I agree with and certify that the following plan of care is medically necessary. Referring Physician Date Admitting Provider: Attending Provider: PHYSICIAN NOT ON STAFF Referring Provider: *PT Outpatient Evaluation Start: 11/23/19 14:04 Freq: Status: Active Protocol: Document 11/23/19 14:04 TAMRA (Rec: 11/23/19 14:48 TAMRA [id number]) Therapy Assessment Status Assessment Status Assessment Status Evaluation Outpatient Past Medical History Neurological History Hx Parkinson's Disease Yes Cardiovascular History Hx Hypertension Yes Respiratory History Hx Respiratory Disorders No Significant History Gastrointestinal History Hx Cholecystectomy Yes Hx Gall Bladder Disease Yes Hx Gastric Bypass Surgery Yes Hx Gastroesophageal Reflux Disease Yes Genitourinary History Hx Renal Disease Yes: stage 2 Musculoskeletal History Hx Back Pain Yes Endocrine History Hx Diabetes Yes Hx Hypothyroidism Yes HEENT History Hx Cataracts Yes Reproductive History Hx Post Menopausal Yes Other History Hx Cancer Yes: skin cancer Evaluation Information Problem Diagnosis gait instability, parkinsons disease Onset 10/26/19 Subjective Information Pt. reports that she has had Query Text:As Reported By Patient/ several falls in the past Family couple months. She reports that she was to begin OP therapy about 3-4 weeks ago, but fell and was hospitalized. She reports she was released from the hospital last week. She states that she has no episodes of dizziness since being out of the hospital. She reports that she has been using her walker. she states that she is now by herself at home. She reports she has not returned to driving since returning home. She report that her goal is to be able to walk without an AD. Prior Level of Function Activity Level (Last 3 Months) Occupation retired Hand Dominance Right Activity of Daily Living Ability Independent [employer]
== END 2019-12-23 17:00 | disposition home or self-care (01) ==
LOC: CHSPT 13:49
PROVIDERS: PCP Family Medicine
DX: R26.81 Unsteadiness on feet (principal); G20 Parkinson's disease
CPT/HCPCS: 97110; 97112; 97116; 97161; 97530

== ENCOUNTER 2019-12-29 09:41 | Outpatient (CLI) | payer MEDICARE, SELFPAY ==
[2019-12-29 09:50] LABS: Basophils Absolute Auto 0.02 K/mm3 (0.00-0.10); Basophils Percent Auto 0.4 % (0.0-1.0); Eosinophils Absolute Auto 0.06 K/mm3 (0.02-0.50); Eosinophils Percent Auto 1.1 % (1.0-6.0); Hematocrit 37.8 % (35.0-42.0); Hemoglobin 12.8 g/dL (11.7-13.8); Immature Granulocyte Absolute 0.01 K/mm3 (0.00-0.00); Immature Granulocyte Percent A 0.2 % (0.0-0.0); Lymphocytes Absolute Auto 1.47 K/mm3 (1.10-4.50); Lymphocytes Percent Auto 26.6 % (18.0-42.0); Mean Corpuscular HGB Conc 33.9 g/dL (32.0-36.0); Mean Corpuscular Hemoglobin 31.1 pg (27.0-31.0); Mean Platelet Volume 8.9 fl (9.2-11.8); Monocytes Percent Auto 7.2 % (2.0-11.0); Neutrophils Absolute Auto 3.6 K/mm3 (1.7-7.2); Neutrophils Percent Auto 64.5 % (50.0-70.0); Platelet Count Result 166 K/mm3 (150-420); Red Blood Count 4.11 M/mm3 (4.20-5.40); Red Cell Distribution Width 14.6 % (11.6-14.4); White Blood Count 5.5 K/mm3 (4.8-10.8)
[2019-12-29 10:27] LABS: Creatinine Urine 157.85 mg/dL (40-278)
[2019-12-29 10:43] LABS: Albumin Level 4.2 g/dL (3.4-5.0); Anion Gap 6 mmol/L (8-16); Blood Urea Nitrogen 20 mg/dL (7-18); Calcium 9.6 mg/dL (8.5-10.1); Carbon Dioxide 32 mmol/L (21-32); Chloride 102 mmol/L (98-108); Estimated Glomerular Filt Rate 44; Glucose 90 mg/dL (70-99); Osmolality Calculated 292 mOsm/kg (285-295); Phosphorus 3.9 mg/dL (2.6-4.7); Potassium 4.3 mmol/L (3.5-5.1); Sodium 140 mmol/L (136-145)
[2019-12-29 11:00] LABS: MALB Creatinine Ratio 34.8 mg/g (0-30)
== END 2019-12-29 09:42 | disposition home or self-care (01) ==
LOC: CHSLAB 09:42
PROVIDERS: PCP Family Medicine; Visit Provider Internal Medicine Nephrology
DX: N18.2 Chronic kidney disease, stage 2 (mild) (principal)
CPT/HCPCS: 36415; 80069; 82043; 85025

== ENCOUNTER 2020-03-05 10:58 | Emergency (ER) | payer MEDICARE, SELFPAY ==
[2020-03-05 11:12] VITALS: BP 137/53; PULSE 81; RESP 20; TEMP 36.6; O2SAT 98
--- NOTE | 2020-03-05 11:22 | ED.UPPEXIN ---
HPI - Extremity Injury (Upper) General Chief Complaint: Skin/Abscess/Foreign Body Stated Complaint: swollen left hand/arm Time Seen by Provider: 03/05/20 11:22 Source: patient and RN notes reviewed Mode of arrival: ambulatory Limitations: no limitations History of Present Illness HPI narrative: 80-year-old female presents with concern for left arm, hand swelling that started this morning. She reports several days ago she fell causing an abrasion to the back of the left hand. Reports no swelling at the time of the fall. Denies bruising, pain in the hand, digits, arm, wrist. Reports this morning she woke up with swelling in the hand, wrist, arm. Reports swelling has improved with some movement and elevation, however has not resolved. Denies any current pain. Denies fever, malaise. Reports she is having cataract surgery on . MD complaint: injury to: left and hand Related Data Home Medications Medication Instructions Recorded Confirmed amantadine HCl 100 mg PO BID 11/07/19 12/25/19 carbidopa-levodopa [Sinemet] 2 tablet PO HS 11/07/19 12/25/19 magnesium oxide 400 mg PO BID 11/07/19 12/25/19 metformin 1,000 mg PO BID 11/07/19 12/25/19 sennosides-docusate sodium 1 tab-cap PO BID 11/07/19 12/25/19 [Senokot-S] Allergies Allergy/AdvReac Type Severity Reaction Status Date / Time meperidine [From Demerol] AdvReac Other Verified 12/25/19 11:41 metoclopramide [From Reglan] AdvReac Other Verified 12/25/19 11:41 Review of Systems Review of Systems: Narrative: CONSTITUTIONAL: Denies malaise, chills, sweats, or fever. CARDIOVASCULAR: Denies chest pain, palpitations RESPIRATORY: Denies cough or dyspnea. SKIN: Denies rash or itching. Reports scab on the dorsal aspect of the left hand, left hand, wrist, arm swelling MUSCULOSKELETAL: Denies arm pain, hand pain, wrist pain. Denies myalgia. All systems reviewed & are unremarkable except as noted in HPI and below PMFSH Past Medical History Medical History (Updated 03/05/20 @ 11:35 by Brianna Foy NP) Cancer JAW MOUTH AND CHIN GERD (gastroesophageal reflux disease) Gout Kidney disease Orthostatic hypotension Parkinsons Rheumatic fever Shingles Type 2 diabetes mellitus Surgical History Surgical History History of cardiac cath History of cholecystectomy History of total knee arthroplasty S/P repair of ventral hernia Status post gastroplasty Family History Family History Sibling Pancreatic cancer Breast cancer Sibling Kidney disease Mother Cancer Pancreatic cancer Father COPD (chronic obstructive pulmonary disease) Son Diabetes mellitus Social History Social History Smoking status: Never smoker Alcohol intake: never Substance use: never Gender identity (if verbalized by the patient): Female Spiritual care concerns: No Comments At time of signature, agree with nursing past medical, surgical, social and family history. There is no relevant family history pertinent to the presenting complaint Exam Narrative: Exam Narrative: GENERAL: Well-appearing, well-nourished, and in no acute distress. HEAD: Normocephalic EYES: PERRLA, conjunctivae clear NECK: Supple. CHEST: Speaks in full sentences. No respiratory distress. HEART: Regular rate and rhythm. Normal and equal peripheral pulses. EXTREMITIES: Right arm, hand, digits of right hand have normal strength and sensation, normal range of motion. Mild nonpitting edema noted to the dorsal aspect of the hand no ecchymosis. 5/5 strength with digit and wrist flexion and extension. Normal sensation with sensitivity to light touch and pain. No skin tenting, no devitalized tissue or atrophy, no trophic changes, no obvious deformity, alignment normal, no point tenderness, no generalized tenderness, nearby joints and structur
== END 2020-03-05 12:02 | disposition home or self-care (01) ==
PROVIDERS: Emergency Provider Nurse Practitioner; PCP Family Medicine
DX: L03.114 Cellulitis of left upper limb (principal); K21.9 Gastro-esophageal reflux disease without esophagitis; M10.9 Gout, unspecified; G20 Parkinson's disease; Z85.828 Personal history of other malignant neoplasm of skin; I12.9 Hypertensive chronic kidney disease with stage 1 through stage 4 chronic kidney disease, or unspecified chronic kidney disease; E11.22 Type 2 diabetes mellitus with diabetic chronic kidney disease; N18.2 Chronic kidney disease, stage 2 (mild)
CPT/HCPCS: 99213; G0463

== ENCOUNTER 2020-03-14 15:19 | Outpatient (CLI) | payer MEDICARE, SELFPAY ==
--- NOTE | ~2020-03-14 | XR_ITS ---
EXAMINATION: XR wrist LT w scaphoid DATE: 03/14/2020 15:38 INDICATION: Left hand swelling and fusion post laceration 3-4 weeks prior TECHNIQUE: Posteroanterior, ulnar deviation, oblique, and lateral views of the left wrist were obtain ed. COMPARISON: 06/11/2011 FINDINGS: The prior distal left radial fracture has healed with residual posterior impaction resulting in 20 de grees dorsal tilt of the distal articular surface. No acute fracture. Severe osteoarthritis at the fi rst carpometacarpal joint. Mild osteoarthritis at the wrist, midcarpal, triscaphe and minimal osteoar thritis at the metacarpophalangeal joints. Diffuse osteopenia. No cortical erosions or periosteal silvio ction. Soft tissues are unremarkable with no soft tissue gas or radiopaque foreign bodies. IMPRESSION: 1. Old healed distal left radial fracture with 20 degrees dorsal tilt of the distal articular surface . 2. 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 3. Diffuse osteopenia. No findings to suggest osteomyelitis. Reviewed, dictated and finalized at location B. IMPRESSION: 1. Old healed distal left radial fracture with 20 degrees dorsal tilt of the di stal articular surface. 2. 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 3. Diffuse osteopenia. No findings to suggest osteomyelitis.
[2020-03-14 15:50] LABS: BNP 136 pg/mL (0-100)
[2020-03-14 16:03] LABS: Alanine Aminotransferase 12 U/L (14-59); Albumin Level 4.3 g/dL (3.4-5.0); Alkaline Phosphatase 80 U/L (46-116); Anion Gap 9 mmol/L (8-16); Aspartate Amino Transferase 16 U/L (15-37); Bilirubin,Total 0.6 mg/dL (0.00-1.00); Blood Urea Nitrogen 20 mg/dL (7-18); Calcium 9.9 mg/dL (8.5-10.1); Carbon Dioxide 32 mmol/L (21-32); Chloride 102 mmol/L (98-108); Estimated Glomerular Filt Rate 53; Glucose 71 mg/dL (70-99); Osmolality Calculated 296 mOsm/kg (285-295); Potassium 3.7 mmol/L (3.5-5.1); Sodium 143 mmol/L (136-145); Total Protein 7.6 g/dL (6.4-8.2)
== END 2020-03-14 15:20 | disposition home or self-care (01) ==
LOC: CHSLAB 15:22
PROVIDERS: PCP Family Medicine; Visit Provider Family Medicine
DX: M25.432 Effusion, left wrist (principal); R60.0 Localized edema
CPT/HCPCS: 36415; 73110; 80053; 83880

== ENCOUNTER 2020-03-25 08:51 | Outpatient (CLI) | payer MEDICARE, SELFPAY ==
[2020-03-25 09:07] LABS: Basophils Absolute Auto 0.06 K/mm3 (0.00-0.10); Basophils Percent Auto 1.1 % (0.0-1.0); Eosinophils Absolute Auto 0.15 K/mm3 (0.02-0.50); Eosinophils Percent Auto 2.8 % (1.0-6.0); Hematocrit 37.8 % (35.0-42.0); Hemoglobin 11.9 g/dL (11.7-13.8); Immature Granulocyte Absolute 0.02 K/mm3 (0.00-0.00); Immature Granulocyte Percent A 0.4 % (0.0-0.0); Lymphocytes Absolute Auto 1.32 K/mm3 (1.10-4.50); Lymphocytes Percent Auto 24.7 % (18.0-42.0); Mean Corpuscular HGB Conc 31.5 g/dL (32.0-36.0); Mean Corpuscular Volume 95.2 fL (78.0-102.0); Mean Platelet Volume 9.3 fl (9.2-11.8); Monocytes Absolute Auto 0.46 K/mm3 (0.10-0.90); Monocytes Percent Auto 8.6 % (2.0-11.0); Neutrophils Absolute Auto 3.3 K/mm3 (1.7-7.2); Neutrophils Percent Auto 62.4 % (50.0-70.0); Platelet Count Result 198 K/mm3 (150-420); Red Blood Count 3.97 M/mm3 (4.20-5.40); Red Cell Distribution Width 14.3 % (11.6-14.4); White Blood Count 5.4 K/mm3 (4.8-10.8)
[2020-03-25 09:20] LABS: Creatinine Urine 207.46 mg/dL (40-278); MALB Creatinine Ratio 20.2 mg/g (0-30)
[2020-03-25 10:10] LABS: Albumin Level 4.1 g/dL (3.4-5.0); Anion Gap 6 mmol/L (8-16); Blood Urea Nitrogen 19 mg/dL (7-18); Calcium 9.6 mg/dL (8.5-10.1); Carbon Dioxide 33 mmol/L (21-32); Chloride 103 mmol/L (98-108); Estimated Glomerular Filt Rate 48; Glucose 83 mg/dL (70-99); Osmolality Calculated 295 mOsm/kg (285-295); Phosphorus 4.1 mg/dL (2.6-4.7); Potassium 4.3 mmol/L (3.5-5.1); Sodium 142 mmol/L (136-145); Vitamin B12 287 pg/mL (193-986)
[2020-03-25 10:35] LABS: Thyroid Stimulating Hormone Reflex 2.51 u/IU/mL (0.36-3.74)
[2020-03-30 07:44] LABS: Vitamin D 25 Hydroxy 42 ng/mL (30-100)
[2020-03-30 14:20] LABS: Parathyroid Intact 24 pg/mL (14-64)
== END 2020-03-25 08:52 | disposition home or self-care (01) ==
LOC: CHSLAB 08:53
PROVIDERS: PCP Family Medicine; Visit Provider Internal Medicine Nephrology
DX: N18.2 Chronic kidney disease, stage 2 (mild) (principal); E55.9 Vitamin D deficiency, unspecified; E11.21 Type 2 diabetes mellitus with diabetic nephropathy
CPT/HCPCS: 36415; 80069; 82043; 82306; 82607; 83970; 84443; 85025

== ENCOUNTER 2020-04-29 08:08 | Outpatient (CLI) | payer MEDICARE, SELFPAY ==
[2020-04-29 23:21] LABS: SARS-CoV-2 RNA PCR Positive
== END 2020-04-29 08:09 | disposition home or self-care (01) ==
LOC: CHSLAB 08:11
PROVIDERS: PCP Family Medicine; Visit Provider Family Medicine
DX: U07.1 COVID-19 (principal)
CPT/HCPCS: 87635; C9803; U0003

== ENCOUNTER 2020-05-16 21:41 | Observation (INO) | payer MEDICARE, SELFPAY ==
--- NOTE | ~2020-05-16 | CT_ITS ---
EXAMINATION: CT brain wo con INDICATION: Slurred speech and left-sided weakness COMPARISON: None TECHNIQUE: Standard unenhanced head CT. The dose-length product (DLP) was 605.33 mGy-cm. The mA was a djusted according to patient size. Iterative reconstruction technique was employed. FINDINGS: There is no acute intraparenchymal hemorrhage. No evidence of mass lesion. No evidence of a cute infarction. 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 There is mild periventri cular and subcortical hypodensity probably related to small vessel ischemic disease. There is mild pr ominence of the sulci and ventricles related to cerebral atrophy. Intracranial calcified cerebral ath erosclerosis is noted. There are no extra-axial collections. There is no mass effect or midline shift . Changes in the globes are likely from ocular lens surgery. The visualized sinuses and mastoid air cells are well aerated. IMPRESSION: 1. No acute intracranial abnormality. 2. Age related findings. Reviewed, dictated and finalized at location A. 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
--- NOTE | ~2020-05-16 | MR_ITS ---
EXAMINATION: MR brain/brain stem wo/w con EXAM DATE: 05/18/2020 10:35 INDICATION: r/o CVA, speech difficulty headache and slurred speech . TECHNIQUE: Magnetic resonance imaging (MRI) of the brain/brain stem obtained without contrast. Sagit leslee T1, axial diffusion, gradient echo (T2*), T1, T2, FLAIR sequences obtained. Patient was then inj ected with 12 cc intravenous Multihance contrast. Axial and coronal postcontrast T1 weighted sequence s obtained. Correlation is made to head CT from yesterday. FINDINGS: There are no areas of restricted diffusion to suggest acute infarction. There is no acute hemorrhage seen on the T2*, a hemosiderin sensitive sequence. Mild microangiopathy and cerebral atrop hy. No intraparenchymal brain mass. The ventricles are normal in size. There are no extra-axial treasure ections. Flow voids are seen in the cerebral arteries on the T2-weighted sequences consistent with t heir expected patency. The orbits are unremarkable. Soft tissue is unremarkable. There are no are as of abnormal enhancement on the postcontrast images. IMPRESSION: 1. No acute intracranial findings. 2. Mild age-related findings. Reviewed, dictated and finalized at location B. 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
--- NOTE | ~2020-05-16 | US_ITS ---
EXAMINATION: US carotid duplex BI DATE: 05/17/2020 16:03 INDICATION: Slurred speech TECHNIQUE: Grayscale, color Doppler, and pulsed Doppler images of the cervical carotid arteries were obtained. The degree of vessel stenosis is placed in one of the following categories: normal, <50%, 5 0-69%, >=70% but less than near-occlusion, near-occlusion, or total occlusion. Note that percent sten osis relative to normal distal artery lumen diameter is indirectly measured from velocity measurement s as described by Morgan, et al. Radiology 2003; 229:340-346. COMPARISON: None. FINDINGS: RIGHT: The right common carotid artery (CCA) peak systolic velocity (PSV) is 62 cm/s. The right internal car otid artery (ICA) PSV is 80 cm/s. The right ICA end-diastolic velocity (EDV) is 18 cm/s. The right IC A/CCA PSV ratio is 1.3. Grayscale and color Doppler images yield an estimate of less than 50% diamete r reduction from plaque in the ICA. The external carotid artery (ECA) PSV is 77 cm/s. There is antegr stella flow in the right vertebral artery. LEFT: The left CCA PSV is 72 cm/s. The left ICA PSV is 75 cm/s. The left ICA EDV is 19 cm/s. The left ICA/C CA PSV ratio is 1.0. Grayscale and color Doppler images yield an estimate of less than 50% diameter r eduction from plaque in the ICA. The ECA PSV is 69 cm/s. There is antegrade flow in the left vertebra l artery. IMPRESSION: 1. <50% stenosis in the right internal carotid artery. 2. <50% stenosis in the left internal carotid artery. Reviewed, dictated and finalized at location A. 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
[2020-05-16 21:41] VITALS: BP 130/52; PULSE 75; RESP 11; TEMP 37.2; O2SAT 100
[2020-05-16 22:09] VITALS: PULSE 77; RESP 11
[2020-05-16 22:15] VITALS: PULSE 76; RESP 13
--- NOTE | 2020-05-16 22:17 | ECG_ITS ---
Measurements Intervals [place] Rate: 74 P: 71 NC: 194 QRS: -12 QRSD: 101 T: 53 QT: 423 QTc: 471 Interpretive Statements SINUS RHYTHM FREQUENT VENTRICULAR PREMATURE COMPLEXES BASELINE ARTIFACT- II, III, AVF ABNORMAL ECG Electronically Signed On 05-17-2020 7:32:02 [employer] by Ashu Santos D.O.
--- NOTE | 2020-05-16 22:21 | ED.GENADULT ---
HPI - General Adult General Chief complaint: Headache Stated complaint: shivering,headache,not drinking, confused speech Source: patient Mode of arrival: ambulatory Limitations: no limitations History of Present Illness HPI narrative: Hortencia is a 80F with a PMH of DMII, Parkinsons, GERD, CKD and recent COVID infection (off isolation for a week) that presented to the ED for a headache and slurred speech. She was last normal 24 hours ago then started having the headache and symptoms. Throughout today she has had a constant pounding FREDERICK in her whole head. She is also slurring some of her speech. No photo/phonophobia, N/V or abdominal pain. No CP, SOB or syncope/near-syncope. Related Data Home Medications Medication Instructions Recorded Confirmed amantadine HCl 100 mg PO BID 11/07/19 05/16/20 carbidopa-levodopa [Sinemet] 2 tablet PO HS 11/07/19 05/16/20 magnesium oxide 400 mg PO BID 11/07/19 05/16/20 metformin 1,000 mg PO BID 11/07/19 05/16/20 sennosides-docusate sodium 1 tab-cap PO BID 11/07/19 05/16/20 [Senokot-S] Allergies Allergy/AdvReac Type Severity Reaction Status Date / Time meperidine [From Demerol] AdvReac Other Verified 03/14/20 10:28 metoclopramide [From Reglan] AdvReac Other Verified 03/14/20 10:28 Review of Systems Constitutional: Constitutional: Reports chills, Reports fatigue, Denies fever(s) and Reports weakness Eyes: Eyes: Reports no additional eye complaints ENT: Reports system reviewed and no additional complaints, except as documented Cardiovascular: Cardiovascular: Reports no additional cardiovascular complaints Respiratory: Respiratory: Reports no additional respiratory complaints Gastrointestinal: Gastrointestinal: Reports no additional gastrointestinal complaints Genitourinary: Genitourinary: Reports no additional female genitourinary complaints Musculoskeletal: Musculoskeletal: Reports no additional musculoskeletal complaints Integumentary/Breasts: Skin/Breast: Reports system reviewed and no additional complaints, except as docu Neurologic: Reports as per HPI Psychiatric: Psychiatric: Reports no additional psychiatric complaints Endocrine: Endocrine: Reports no additional endocrine complaints Hematologic/Lymphatic: Hematologic/Lymphatic: Reports no additional hematologic/lymphatic complaints Allergic/Immunologic: Allergic/Immunologic: Reports no additional allergic/immunologic complaints PMFSH Past Medical History Medical History (Updated 05/17/20 @ 00:18 by Samuel Huerta DO) Cancer JAW MOUTH AND CHIN GERD (gastroesophageal reflux disease) Gout Kidney disease Orthostatic hypotension Parkinsons Rheumatic fever Shingles Type 2 diabetes mellitus Surgical History Surgical History History of cardiac cath History of cholecystectomy History of total knee arthroplasty S/P repair of ventral hernia Status post gastroplasty Family History Family History Sibling Pancreatic cancer Breast cancer Sibling Kidney disease Mother Cancer Pancreatic cancer Father COPD (chronic obstructive pulmonary disease) Son Diabetes mellitus Social History Social History Smoking status: Never smoker Alcohol intake: never Substance use: never Gender identity (if verbalized by the patient): Female Spiritual care concerns: No Exam Const: General: no acute distress and alert Orientation/consciousness: patient oriented x3 HENMT: Other: Normocephalic, atraumatic, EOMI Eyes: Conjunctivae: conjunctivae normal Pupils: Equal, round and reactive pupils present Neck: Neck: normal visual inspection Chest: Chest palpation & inspection: normal inspection of the chest Resp: Effort & Inspection: normal respiratory effort, not labored and no retractions Auscultation: clear to auscultation bi
[2020-05-16 23:02] LABS: Basophils Absolute Auto 0.02 K/mm3 (0.00-0.10); Basophils Percent Auto 0.3 % (0.0-1.0); Eosinophils Absolute Auto 0.02 K/mm3 (0.02-0.50); Eosinophils Percent Auto 0.3 % (1.0-6.0); Hematocrit 33.7 % (35.0-42.0); Immature Granulocyte Absolute 0.03 K/mm3 (0.00-0.00); Immature Granulocyte Percent A 0.5 % (0.0-0.0); Lymphocytes Absolute Auto 1.41 K/mm3 (1.10-4.50); Lymphocytes Percent Auto 22.5 % (18.0-42.0); Mean Corpuscular HGB Conc 32.6 g/dL (32.0-36.0); Mean Corpuscular Hemoglobin 28.4 pg (27.0-31.0); Mean Corpuscular Volume 87.1 fL (78.0-102.0); Mean Platelet Volume 9.1 fl (9.2-11.8); Monocytes Absolute Auto 0.39 K/mm3 (0.10-0.90); Monocytes Percent Auto 6.2 % (2.0-11.0); Neutrophils Absolute Auto 4.4 K/mm3 (1.7-7.2); Neutrophils Percent Auto 70.2 % (50.0-70.0); Platelet Count Result 195 K/mm3 (150-420); Red Blood Count 3.87 M/mm3 (4.20-5.40); White Blood Count 6.3 K/mm3 (4.8-10.8)
[2020-05-16 23:15] LABS: Prothrombin Time 11.4 Seconds (9.50-12.10)
[2020-05-16 23:25] LABS: Add Urine Microscopic? YES; Appearance Urine Clear (Clear); Bilirubin Urine Negative (Negative); Blood Urine Negative (Negative); Color Urine Yellow (Yellow); Glucose Urine UA Trace (Negative); Ketones Urine Trace (Negative); Leukocyte Esterase Ur Negative (Negative); Nitrate Urine Negative (Negative); Protein Urine Negative (Negative); Specific Grav Ur 1.025 (1.010-1.020); Urobilinogen Urine 0.2 mg/dL (0.2-1.0); pH Urine 5.5 (5.0-8.0)
[2020-05-16 23:26] LABS: Alanine Aminotransferase 9 U/L (14-59); Albumin Level 3.5 g/dL (3.4-5.0); Alkaline Phosphatase 58 U/L (46-116); Anion Gap 7 mmol/L (8-16); Aspartate Amino Transferase 14 U/L (15-37); BNP 215 pg/mL (0-100); Bilirubin,Total 0.5 mg/dL (0.00-1.00); Blood Urea Nitrogen 17 mg/dL (7-18); Calcium 9.2 mg/dL (8.5-10.1); Carbon Dioxide 29 mmol/L (21-32); Chloride 96 mmol/L (98-108); Estimated CRCL calculation 36 ml/min; Estimated Glomerular Filt Rate 46; Glucose 230 mg/dL (70-99); Magnesium 1.4 mg/dL (1.8-2.4); Osmolality Calculated 282 mOsm/kg (285-295); Potassium 3.8 mmol/L (3.5-5.1); Sodium 132 mmol/L (136-145); Thyroid Stimulating Hormone 0.97 uIU/mL (0.36-3.74); Total Protein 6.9 g/dL (6.4-8.2); Troponin I 9.4 ng/L (0.00-60.4)
[2020-05-16] MEDS: HYDROcodone/acetaminophen (*CRX) 5-325 MG TABLET 1 TAB PO (23:29)
[2020-05-16 23:31] LABS: Amphetamine Screen Urine Negative (Negative); Barbiturate Screen Urine Negative (Negative); Benzodiazepines Screen Urine Negative (Negative); Cannabinoid Screen Urine Negative (Negative); Cocaine Screen Urine Negative (Negative); Methadone Screen Urine Negative (Negative); Opiate Screen Urine Negative (Negative); Phencyclidine Screen Urine Negative (Negative)
[2020-05-16 23:32] LABS: Bacteria Urine None seen /hpf; RBC Urine 0-2 /hpf (0-2); Squamous Epithelial Cell Urine Rare /hpf (Few); WBC Urine 0-3 /hpf (0-3)
[2020-05-16] MEDS: KETOROLAC 30 MG/ML VIAL (*BKC) IM (23:34)
[2020-05-16] MEDS: MAGNESIUM SULF 2 GM/WATER 50ML 2 GM/50 ML BAG IVPB (23:53)
[2020-05-16] MEDS: SODIUM CHLORIDE 0.9% IV 500 ML 999 ML IV CONT (23:53)
--- NOTE | 2020-05-16 23:57 | PC.NURSE ---
ERP in discussing POC c pt. and pts. daughter. Discussed neuro status and neg. head CT. Pt. stands per self unassisted and helps to change clothing s difficulty. Mon. continues to show SR c occasional bigeminy rythym. Pt. remains A&Ox3 c occasional confusion.
[2020-05-17] VITALS (10 sets, daily range): BP systolic 103–131; BP diastolic 44–71; PULSE 70–84; RESP 16–20; TEMP 36.2–36.9; O2SAT 94–99; BMI 21.7
[2020-05-17] MEDS: PANTOPRAZOLE SOD SESQUIHYDRATE 20 MG TAB PO ×2 (01:32→20:45)
[2020-05-17] MEDS: clonazePAM (*CRX) 0.5 MG TABLET PO ×2 (03:22→20:45)
[2020-05-17] MEDS: LEVOTHYROXINE SODIUM 112 MCG TABLET PO (05:29)
--- NOTE | 2020-05-17 07:32 | PM.IMHP ---
H&P: HPI History of Present Illness Date/Time: 05/17/20 07:32 Chief Complaint: Difficulty formulating words. Narrative: Hortencia Nettles is a 80 year old female with a history of left-sided weakness and left-sided facial droop presented to the ER with severe headache and difficulty formulating her words. Patient denies any chest pain difficulty breathing changes in vision or hearing. Review of Systems Constitutional: Constitutional: Reports no additional constitutional complaints, Denies body ache(s), Denies chills, Denies fatigue, Denies fever(s) and Reports headache(s) Eyes: Comments: left eyelid drooping not a new finding Cardiovascular: Cardiovascular: Reports no additional cardiovascular complaints, Denies chest pain, Denies chest pain at rest and Denies chest pain with activity Respiratory: Respiratory: Reports no additional respiratory complaints, Denies dyspnea and Denies dyspnea on exertion Gastrointestinal: Gastrointestinal: Reports no additional gastrointestinal complaints Musculoskeletal: Musculoskeletal: Reports muscle weakness (left-side not new) [facility] Past Medical History Medical History (Updated 05/17/20 @ 09:11 by RIVKA Shabazz) Cancer JAW MOUTH AND CHIN GERD (gastroesophageal reflux disease) Gout Kidney disease Orthostatic hypotension Parkinsons Rheumatic fever Shingles Type 2 diabetes mellitus Surgical History Surgical History History of cardiac cath History of cholecystectomy History of total knee arthroplasty S/P repair of ventral hernia Status post gastroplasty Family History Family History Sibling Pancreatic cancer Breast cancer Sibling Kidney disease Mother Cancer Pancreatic cancer Father COPD (chronic obstructive pulmonary disease) Son Diabetes mellitus Social History Social History Smoking status: Never smoker Alcohol intake: never Substance use: never Gender identity (if verbalized by the patient): Female Spiritual care concerns: No Meds Home Medications and Allergies Home Medications Medication Instructions Recorded Confirmed Type amantadine HCl 100 mg PO BID 11/07/19 05/16/20 History carbidopa-levodopa [Sinemet] 2 tablet PO HS 11/07/19 05/16/20 History magnesium oxide 400 mg PO BID 11/07/19 05/16/20 History metformin 1,000 mg PO BID 11/07/19 05/16/20 History sennosides-docusate sodium 1 tab-cap PO BID 11/07/19 05/16/20 History [Senokot-S] docusate sodium 100 mg PO DAILY #30 cap 11/15/19 05/16/20 Rx polyethylene glycol 3350 [Miralax] 17 g PO QAM #30 ea 11/15/19 05/16/20 Rx cholecalciferol (vitamin D3) 50 50 mcg PO DAILY 30 Days #30 tablet 12/25/19 05/16/20 Rx mcg (2,000 unit) tablet clonazepam 0.5 mg tablet 0.5 mg PO .qhs #30 tablet 12/25/19 05/16/20 Rx duloxetine 30 mg capsule,delayed 30 mg PO DAILY 30 Days #30 cap 12/25/19 05/16/20 Rx release gabapentin 300 mg capsule 600 mg PO TID 30 Days #180 cap 12/25/19 05/16/20 Rx levothyroxine 112 mcg tablet 112 mcg PO DAILY #30 tablet 12/25/19 05/16/20 Rx pantoprazole 20 mg tablet,delayed 40 mg PO HS 30 Days #60 tablet 12/25/19 05/16/20 Rx release carbidopa 25 mg-levodopa 100 mg 1 tablet PO TIDWM #90 tablet 12/28/19 05/16/20 Rx tablet cephalexin 500 mg PO QID 5 Days #20 cap 03/05/20 05/16/20 Rx diclofenac sodium 1 % topical gel 2 g TOPICAL QID #100 g 03/15/20 05/16/20 Rx midodrine 5 mg tablet 5 mg PO TID #180 tablet 03/24/20 05/16/20 Rx insulin aspart U-100 [Novolog See Rx Instructions .ROUTE .COMPLEX 05/17/20 05/17/20 History U-100 Insulin aspart] insulin detemir U-100 [Levemir 4 unit SUBCUT HS 05/17/20 05/17/20 History U-100 Insulin] Allergies Allergy/AdvReac Type Severity Reaction Status Date / Time meperidine [From Demerol] AdvReac Other Verified 03/14/20 10:28 metoclopramide [From
[2020-05-17] MEDS: metFORMIN HCL 500 MG TABLET 1000 MG PO ×2 (08:37→16:28)
[2020-05-17] MEDS: ENOXAPARIN 40 MG/0.4 ML SYRINGE SUB-Q (08:37)
[2020-05-17] MEDS: MIDODRINE HCL 2.5 MG TABLET 5 MG PO ×3 (08:37→16:27)
[2020-05-17] MEDS: polyethylene glycoL 3350 17 GM POWD.PACK PO (08:37)
[2020-05-17] MEDS: DULoxetine HCL 30 MG CAPSULE.DR PO (08:38)
[2020-05-17] MEDS: GABAPENTIN 300 MG CAPSULE 600 MG PO ×3 (08:38→16:27)
[2020-05-17] MEDS: MAGNESIUM OXIDE 400 MG TABLET PO ×2 (08:38→16:28)
[2020-05-17] MEDS: CARBIDOPA/LEVODOPA 25/100 MG TABLET 1 TABLET PO ×3 (08:38→16:28)
[2020-05-17] MEDS: amantadine HCL 100 MG CAPSULE PO ×2 (08:39→16:26)
[2020-05-17] MEDS: SENNA/DOCUSATE SODIUM TABLET 1 TAB PO ×2 (08:39→16:33)
--- NOTE | 2020-05-17 09:21 | ECHO_ITS ---
Patient Info Name: Hortencia Nettles Age: 80 years : 1940 Gender: Female Ht: 69 in Wt: 147 lbs BSA: 1.80 m2 HR: 76 bpm BP: 113 / 44 mmHg Technical Quality: Good Exam Date: 05/17/2020 2:49 PM Exam Location: [facility] Patient Status: Outpatient Admit Date: 05/17/2020 Staff Ordering Physician: Davion Morales Glass Bulb Machine Adjuster: Virginia Bermudez RDCS Attending Provider: Samuel Huerta DO Referring Physician: Andrew SMITH; Exam Type: CA echo doppler color flow Study Info Indications I63.239 - Cerebral infarction due to unspecified occlusion or stenosis of unspecified carotid arteries I49.8 - Other specified cardiac arrhythmias Complete two-dimensional, color flow and Doppler transthoracic echocardiogram is performed. Strain analysis performed. History/Risk Factors Hypertension: No Dyslipidemia: No Congenital Heart Disease (CHD): No Diabetic Therapy: Oral Chronic Lung Disease: No Obesity: No Renal Disease: Yes Coronary Artery Disease (CAD) Yes Cardiomyopathy/LV Systolic Dysfunction: No Diabetes Mellitus: Type II Tobacco Use: Never Cerebrovascular Disease: CVA Family History: Diabetes Mellitus Frailty Scale (CSHA): 4: Vulnerable Cardiac Arrest: No Summary 1. Complete two-dimensional, color flow and Doppler transthoracic echocardiogram is performed. 2. Left ventricular chamber dimension is normal. 3. Left ventricular systolic function is normal, estimated at 55-60%. 4. The left ventricular diastolic function is grade I diastolic dysfunction. 5. E/e' 10 is mildly elevated. 6. Global longitudinal strain is abnormal at -13.7%. 7. Left atrial chamber dimension is mildly enlarged. 8. There is mild to moderate aortic valve regurgitation. 9. The mitral valve has moderately calcified annulus. 10. There is mild mitral valve regurgitation. 11. There is trace tricuspid valve regurgitation. 12. Mild pulmonary hypertension, estimated pulmonary arterial systolic pressure is 46 mmHg. 13. Dilated inferior vena cava with >50% collapse upon inspiration consistent with elevated right atrial pressure, 10 mmHg. Recommendations * Continue medical therapy for diabetes. Left Ventricle E/e' 10 is mildly elevated. Global longitudinal strain is abnormal at -13.7%. Left ventricular chamber dimension is normal. Left ventricular systolic function is normal, estimated at 55-60%. The left ventricular diastolic function is grade I diastolic dysfunction. Right Ventricle Right ventricular chamber dimension is normal. Right ventricular systolic function is normal. Left Atria Left atrial chamber dimension is mildly enlarged. Right Atria Right atrial chamber dimension is normal. Aortic Valve The aortic valve is trileaflet. There is no aortic valve stenosis. There is mild to moderate aortic valve regurgitation. Pulmonic Valve There is no pulmonic regurgitation. Mitral Valve The mitral valve has moderately calcified annulus. There is no mitral valve stenosis. There is mild mitral valve regurgitation. Tricuspid Valve There is trace tricuspid valve regurgitation. Mild pulmonary hypertension, estimated pulmonary arterial systolic pressure is 46 mmHg. Pericardium/Pleural There is no pericardial effusion. Inferior Vena Cava Dilated inferior vena cava with >50% collapse upon inspiration consistent with elevated right atrial pressure, 10 mmHg. Aorta The aortic root s
[2020-05-17] MEDS: ACETAMINOPHEN 325 MG TABLET 650 MG PO ×2 (16:27→23:17)
[2020-05-17 17:12] LABS: Glucose Point of Care 170 (65-105)
[2020-05-17] MEDS: CARBIDOPA/LEVODOPA 25/100 MG TABLET 2 TABLET PO (20:44)
[2020-05-17] MEDS: CARBIDOPA/LEVODOPA 25/100 MG TABLET 0.5 TABLET PO (20:44)
[2020-05-17 20:58] LABS: Glucose Point of Care 148 (65-105)
[2020-05-17] MEDS: INSULIN GLARGINE (*BKC) 100 UNITS/ML SUB-Q (20:58)
[2020-05-18] VITALS: BP 127/76; PULSE 61; RESP 16; TEMP 36.7; O2SAT 98
[2020-05-18 03:44] VITALS: PULSE 78
[2020-05-18] MEDS: LEVOTHYROXINE SODIUM 112 MCG TABLET PO (05:37)
[2020-05-18 05:41] LABS: Hematocrit 35.4 % (35.0-42.0); Hemoglobin 11.7 g/dL (11.7-13.8); Mean Corpuscular HGB Conc 33.1 g/dL (32.0-36.0); Mean Corpuscular Hemoglobin 28.7 pg (27.0-31.0); Mean Corpuscular Volume 86.8 fL (78.0-102.0); Mean Platelet Volume 8.9 fl (9.2-11.8); Platelet Count Result 183 K/mm3 (150-420); Red Blood Count 4.08 M/mm3 (4.20-5.40); White Blood Count 4.4 K/mm3 (4.8-10.8)
[2020-05-18] MEDS: ACETAMINOPHEN 325 MG TABLET 650 MG PO (05:43)
[2020-05-18 05:52] LABS: Anion Gap 8 mmol/L (8-16); Blood Urea Nitrogen 18 mg/dL (7-18); Carbon Dioxide 30 mmol/L (21-32); Chloride 100 mmol/L (98-108); Estimated CRCL calculation 45 ml/min; Estimated Glomerular Filt Rate > 60; Glucose 135 mg/dL (70-99); Osmolality Calculated 289 mOsm/kg (285-295); Potassium 3.8 mmol/L (3.5-5.1); Sodium 138 mmol/L (136-145)
[2020-05-18 07:59] LABS: Glucose Point of Care 149 (65-105)
[2020-05-18 08:00] VITALS: BP 126/74; PULSE 80; RESP 18; TEMP 36.8; O2SAT 98
[2020-05-18] MEDS: ENOXAPARIN 40 MG/0.4 ML SYRINGE SUB-Q (09:15)
[2020-05-18] MEDS: polyethylene glycoL 3350 17 GM POWD.PACK PO (09:15)
[2020-05-18] MEDS: GABAPENTIN 300 MG CAPSULE 600 MG PO ×2 (09:16→12:39)
[2020-05-18] MEDS: CARBIDOPA/LEVODOPA 25/100 MG TABLET 1 TABLET PO ×2 (09:17→11:45)
[2020-05-18] MEDS: ASPIRIN 81 MG ENTERIC TABLET PO (09:18)
[2020-05-18] MEDS: metFORMIN HCL 500 MG TABLET 1000 MG PO (09:18)
[2020-05-18] MEDS: DULoxetine HCL 30 MG CAPSULE.DR PO (09:18)
[2020-05-18] MEDS: MIDODRINE HCL 2.5 MG TABLET 5 MG PO ×2 (09:19→12:39)
[2020-05-18] MEDS: MAGNESIUM OXIDE 400 MG TABLET PO (09:19)
[2020-05-18] MEDS: SENNA/DOCUSATE SODIUM TABLET 1 TAB PO (09:27)
[2020-05-18] MEDS: amantadine HCL 100 MG CAPSULE PO (09:44)
--- NOTE | 2020-05-18 10:46 | PM.DS ---
DS: Admitting Diagnosis Admitting Diagnosis Admitting Diagnosis: Left sided weakness <Davion NgoziTAY WatsonC - Last Filed: 05/18/20 11:04> DS: Discharge Diagnosis Discharge Diagnosis (1) Difficulty with speech: Code(s): R47.9 - Unspecified speech disturbances <Davion NgoziRIVKA Watson - Last Filed: 05/18/20 11:04> Status: Acute <Davion NgoziRIVKA Watson - Last Filed: 05/18/20 11:04> Assessment and Plan: 05/17/2020 radiology reading of head CT shows 1. No acute intracranial abnormality, 2. Age related findings, further plan is to obtain MRI echocardiogram and carotid Doppler, neuro checks Q6H 05/18/2020 Reading of MRI brain pending at this time, report states: 1. No acute intracranial findings. 2. Mild age-related findings. <RIVKA Shabazz - Last Filed: 05/18/20 11:04> (2) Frequent PVCs: Code(s): I49.3 - Ventricular premature depolarization <TAY ShabazzC - Last Filed: 05/18/20 11:04> Status: Acute <Davion Morales APN-Abisai - Last Filed: 05/18/20 11:04> Assessment and Plan: 05/17/2020 cardiac monitoring, echocardiogram, hold beta-blockers this time 05/18/2020 Pt has not had any issues with light headedness, dizziness, recurrent speech issues, would benefit with f/u with PCP/Retread Supervisor <RIVKA Shabazz - Last Filed: 05/18/20 11:04> (3) Type 2 diabetes mellitus: Code(s): E11.9 - Type 2 diabetes mellitus without complications <RIVKA Shabazz - Last Filed: 05/18/20 11:04> Status: Acute <RIVKA Shabazz - Last Filed: 05/18/20 11:04> Assessment and Plan: 05/17/2020 continue metformin, change Levemir to Lantus per our formulary, Accu-Cheks, SSI, hypoglycemic protocols in place 05/18/2020 continue home medications on DC home <RIVKA Shabazz - Last Filed: 05/18/20 11:04> (4) Parkinsons: Code(s): G20 - Parkinson's disease <Davion ChavezTAY briggsC - Last Filed: 05/18/20 11:04> Status: Acute <Davion ChavezTAY briggsC - Last Filed: 05/18/20 11:04> Assessment and Plan: 05/17/2020 continue home medications 05/18/2020 Continue home medications on DC home <Davion MelvinTAY WatsonC - Last Filed: 05/18/20 11:04> (5) Orthostatic hypotension: Code(s): I95.1 - Orthostatic hypotension <Davion MelvinRIVKA Watson - Last Filed: 05/18/20 11:04> Status: Acute <Davion MelvinShelia Morales APNDariaC - Last Filed: 05/18/20 11:04> Assessment and Plan: 05/17/2020 continue midodrine, monitor vital signs 05/18/2020 no issues while hospitalized <Davion MelvinTAY WatsonC - Last Filed: 05/18/20 11:04> (6) Mood disorder: Code(s): F39 - Unspecified mood [affective] disorder <Davion MelvinTAY WatsonC - Last Filed: 05/18/20 11:04> Status: Acute <Davion MelvinTAY WatsonC - Last Filed: 05/18/20 11:04> Assessment and Plan: 05/17/2020 continue duloxetine and clonazepam 05/18/2020 continue medication on DC home <Davion MelvinTAY WatsonC - Last Filed: 05/18/20 11:04> (7) Hypothyroidism: Code(s): E03.9 - Hypothyroidism, unspecified <Davion MelvinShelia Morales APN-C - Last Filed: 05/18/20 11:04> Status: Acute <Davion MelvinShelia Morales APN-C - Last Filed: 05/18/20 11:04> Assessment and Plan: 05/17/2020 continue levothyroxine 112 mcg daily 05/18/2020 continue medications on DC home and f/u with PCP if you need hormone levels checked. <RIVKA Shabazz - Last Filed: 05/18/20 11:04> DS: Summary Hospital Course Hospital Course: Pt does not have any more speech issues at this time. She is neurologically sound. <RIVKA Shabazz - Last Filed: 05/18/20 11:04> Time Spent with Patient Time attestation: Total time spent providing and/or coordinating discharge services: < 30 Minutes <RIVKA Shabazz - Last Filed: 05/18/20 11:04> Exam Const: General: cooperative, comfortable, no acute di
[2020-05-20 04:45] LABS: Ionized Calcium 5.3 mg/dL (4.8-5.6)
[2020-05-23 10:30] LABS: Glucose Point of Care 199 (65-105)
[2020-05-23 10:30] LABS: Glucose Point of Care 204 (65-105)
[2020-05-23 10:39] LABS: Glucose Point of Care 239 (65-105)
--- NOTE | 2020-05-26 11:36 | PCDIET ---
Unable to contact for discharge call back.
== END 2020-05-18 14:00 | disposition home or self-care (01) ==
LOC: CHSED 05-17 00:18 → CHS2ND 05-17 07:20
PROVIDERS: Nurse Practitioner Family; Admitting Provider Family Medicine; Emergency Provider Family Medicine; PCP Family Medicine; Visit Provider Family Medicine
DX: R47.81 Slurred speech (principal); R51.9 Headache, unspecified; E83.42 Hypomagnesemia; I95.9 Hypotension, unspecified; I49.3 Ventricular premature depolarization; I08.0 Rheumatic disorders of both mitral and aortic valves; I27.20 Pulmonary hypertension, unspecified; E11.22 Type 2 diabetes mellitus with diabetic chronic kidney disease; N18.9 Chronic kidney disease, unspecified; K21.9 Gastro-esophageal reflux disease without esophagitis; G20 Parkinson's disease; M10.9 Gout, unspecified; F39 Unspecified mood [affective] disorder; Z96.659 Presence of unspecified artificial knee joint; Z86.19 Personal history of other infectious and parasitic diseases; Z79.899 Other long term (current) drug therapy
CPT/HCPCS: 36415; 70450; 70553; 80048; 80053; 80307; 81001; 82330; 83735; 83880; 84443; 84484; 85025; 85027; 85610; 93005; 93306; 93880; 96365; 96372; 99285; A9270; A9577; G0378; J1650; J1815; J1885; J3475; J7040

== ENCOUNTER 2020-05-23 16:57 | Outpatient (CLI) | payer MEDICARE, SELFPAY ==
[2020-05-25 17:42] LABS: SARS-CoV-2 RNA PCR Negative
== END 2020-05-23 16:58 | disposition home or self-care (01) ==
LOC: CHSLAB 17:00
PROVIDERS: PCP Family Medicine; Visit Provider Family Medicine
DX: Z20.822 Contact with and (suspected) exposure to COVID-19 (principal)
CPT/HCPCS: C9803; U0003

== ENCOUNTER 2020-05-30 14:56 | Outpatient (RCR) | payer MEDICARE, SELFPAY ==
--- NOTE | 2020-05-30 15:24 | PTOPEVAL ---
Thank you for referring Hortencia Nettles to [facility].? The patient is scheduled to be seen for therapy? ____x/week for ___ weeks. Please review, sign, date and return this plan of care YEN. I agree with and certify that the following plan of care is medically necessary. Referring Physician Date Admitting Provider: Attending Provider: Dany Mason Referring Provider: *PT Outpatient Evaluation Start: 05/30/20 14:13 Freq: Status: Active Protocol: Document 05/30/20 14:13 [facility] (Rec: 05/30/20 15:20 [facility] [id number]) Therapy Assessment Status Assessment Status Assessment Status Evaluation Outpatient Past Medical History Neurological History Hx Parkinson's Disease Yes Cardiovascular History Hx Hypertension Yes Hx Other Cardiac Disorders Yes: ORTHOSTATIC HYPOTENSION Respiratory History Hx Respiratory Disorders No Significant History Gastrointestinal History Hx Cholecystectomy Yes Hx Gall Bladder Disease Yes Hx Gastric Bypass Surgery Yes Hx Gastroesophageal Reflux Disease Yes Genitourinary History Hx Renal Disease Yes: stage 2 Musculoskeletal History Hx Back Pain Yes Hx Crutches or Walker Use Yes: wheeled walker Query Text:If Yes, Enter Crutches, Walker, or Both in the Comment Endocrine History Hx Diabetes Yes Hx Hypothyroidism Yes HEENT History Hx Cataracts Yes Reproductive History Hx Post Menopausal Yes Other History Hx Cancer Yes: skin cancer Evaluation Information Problem Diagnosis weakness, unsteady gait Onset 05/26/20 Subjective Information patient reports she is seeking Query Text:As Reported By Patient/ skilled PT evaluation and Family treatment for weakness and unsteady gait. she reports she has had a stent in the hospital recently from ID- . she reports she was tested her for a few days for fear of a TIA. she reports she has had no lopez. she reports she has had about 25 falls in the last year. she reports she reports she lives alone in a house. she reports she has steps to get up and down the basement. she reports she owns a rollator walker, wheeled walker, and cane. she reports she will use a walker
--- NOTE | 2020-06-24 13:06 | PTOPEVAL ---
Thank you for referring Hortencia Nettles to [facility].? The patient is scheduled to be seen for therapy? ____x/week for ___ weeks. Please review, sign, date and return this plan of care YEN. I agree with and certify that the following plan of care is medically necessary. Referring Physician Date Admitting Provider: Attending Provider: Dany Mason Referring Provider: DEEDEE Outpatient Evaluation Start: 05/30/20 14:13 Freq: Status: Active Protocol: Document 06/24/20 11:00 [facility] (Rec: 06/24/20 13:06 [facility] [id number]) Therapy Assessment Status Assessment Status Assessment Status Re-evaluation Outpatient Past Medical History Neurological History Hx Parkinson's Disease Yes Cardiovascular History Hx Hypertension Yes Hx Other Cardiac Disorders Yes: ORTHOSTATIC HYPOTENSION Respiratory History Hx Respiratory Disorders No Significant History Gastrointestinal History Hx Cholecystectomy Yes Hx Gall Bladder Disease Yes Hx Gastric Bypass Surgery Yes Hx Gastroesophageal Reflux Disease Yes Genitourinary History Hx Renal Disease Yes: stage 2 Musculoskeletal History Hx Back Pain Yes Hx Crutches or Walker Use Yes: wheeled walker Query Text:If Yes, Enter Crutches, Walker, or Both in the Comment Endocrine History Hx Diabetes Yes Hx Hypothyroidism Yes HEENT History Hx Cataracts Yes Reproductive History Hx Post Menopausal Yes Other History Hx Cancer Yes: skin cancer Evaluation Information Problem Diagnosis weakness, unsteady gait Onset 05/26/20 Subjective Information patient reports she feels Query Text:As Reported By Patient/ alrigkiran this date. she Family reports she has had 3 falls in the last 3 weeks. she reports one fall she was on the ground unable to get up for nearly 3 hours. she reports she has not called or used her life alert buttons because she is scare of telling her kids about her falls. she reports she is using a rollator at home, but trips over the wheels or pushes it to the side to do a task and then falls. she reports she uses a cane in the community becuase she does not want to use a walker. Pain Assessment
--- NOTE | 2020-07-20 17:52 | PTOPEVAL ---
Thank you for referring Hortencia Nettles to [facility].? The patient is scheduled to be seen for therapy? ____x/week for ___ weeks. Please review, sign, date and return this plan of care YEN. I agree with and certify that the following plan of care is medically necessary. Referring Physician Date Admitting Provider: Attending Provider: Dany Mason Referring Provider: *PT Outpatient Evaluation Start: 05/30/20 14:13 Freq: Status: Active Protocol: Document 07/20/20 16:02 ACR (Rec: 07/20/20 17:46 ACR [id number]) Therapy Assessment Status Assessment Status Assessment Status Re-evaluation Outpatient Past Medical History Neurological History Hx Parkinson's Disease Yes Hx Transient Ischemic Attacks (TIA) Yes Cardiovascular History Hx Hypertension Yes Hx Other Cardiac Disorders Yes: ORTHOSTATIC HYPOTENSION Respiratory History Hx Other Respiratory Disorders Yes: hx of COVID April 2020 Gastrointestinal History Hx Cholecystectomy Yes Hx Gall Bladder Disease Yes Hx Gastric Bypass Surgery Yes Hx Gastroesophageal Reflux Disease Yes Genitourinary History Hx Renal Disease Yes: stage 2 Musculoskeletal History Hx Back Pain Yes Endocrine History Hx Diabetes Yes Hx Hypothyroidism Yes HEENT History Hx Cataracts Yes Reproductive History Hx Post Menopausal Yes Other History Hx Cancer Yes: skin cancer Evaluation Information Problem Diagnosis weakness, unsteady gait Onset 05/26/20 Subjective Information Patient reports no falls Query Text:As Reported By Patient/ recently. She reports since Family the beginning of therapy, she is about 40% improved. She continues to feel unsteady and catches her balance on the diamond at her home. Patient states that she continues to use her rollator at home and is being more cautious so she does not trip on it as often. Pain Assessment Timing of Pain Assessment Timing of Pain Assessment Pre-Treatment Self Report Self Report Pain Level 0 Pain Score Pain Score 0: Self Report Lower Extremity Muscle Strength Testing Hip Strength Right Hip Flexion Strength 3+ Fair + Hip Abduction Strength 4- Good - Hip Adduction Strength 4 Good Left Hip Flexion Strength 4- Good - Hip Abduction Strength 4 Good Hip Adduction Strength 4 Good Knee Strength Right
== END 2020-07-20 13:52 | disposition home or self-care (01) ==
LOC: CHSPT 14:56
DX: R26.81 Unsteadiness on feet (principal)
CPT/HCPCS: 97110; 97112; 97116; 97161; 97530

== ENCOUNTER 2020-07-01 07:40 | Outpatient (CLI) | payer MEDICARE, SELFPAY ==
--- NOTE | ~2020-07-01 | XR_ITS ---
MODIFIED ESOPHAGRAM HISTORY: Dysphagia with Parkinson's TECHNIQUE: Modified barium esophagram was performed by speech pathologist under radiologist fluorosco pic guidance. This was recorded on tape. The exam was reviewed on the. The DAP for this procedure was 1.37 Gycm2. Fluoroscopy time is 2.5 minutes. FINDINGS: Lateral projection of the cervical spine demonstrates prominent ventral osteophytes at mu ltiple levels.. There is premature spill into the pharynx with all consistencies. There is laryngeal penetration with thin liquids. Aspiration is identified with large bolus which was silent. There is v allecular residue with all consistencies.. IMPRESSION: 1: Laryngeal penetration with aspiration. 2: Please refer to speech pathologist report for additional detail. Reviewed, dictated and finalized at location B. [employer]
--- NOTE | 2020-07-01 09:05 | PCSTNOTE ---
Please refer to the Modified Barium Swallow Evaluation in the EMR. Completed 07-01-20.
--- NOTE | 2020-07-01 09:58 | STOPEVAL ---
MODIFIED BARIUM SWALLOW STUDY Thank you for referring Hortenica Nettles to [facility].? Referring Physician Date Admitting Provider: Attending Provider: Chava Mo MD Referring Provider: VIRGILIO Outpatient Evaluation Start: 07/01/20 09:05 Freq: Status: Active Protocol: Document 07/01/20 09:06 DAVID (Rec: 07/01/20 09:58 DAVID [email or web address]) Therapy Assessment Status Assessment Status Assessment Status Evaluation Outpatient Past Medical History Past Medical History Source of Past Medical History Patient,Family/Significant Other Neurological History Hx Parkinson's Disease Yes Hx Transient Ischemic Attacks (TIA) Yes Cardiovascular History Hx Hypertension Yes Hx Other Cardiac Disorders Yes: ORTHOSTATIC HYPOTENSION Respiratory History Hx Other Respiratory Disorders Yes: hx of COVID April 2020 Gastrointestinal History Hx Cholecystectomy Yes Hx Gall Bladder Disease Yes Hx Gastric Bypass Surgery Yes Hx Gastroesophageal Reflux Disease Yes Genitourinary History Hx Renal Disease Yes: stage 2 Musculoskeletal History Hx Back Pain Yes Endocrine History Hx Diabetes Yes Hx Hypothyroidism Yes HEENT History Hx Cataracts Yes Reproductive History Hx Post Menopausal Yes Other History Hx Cancer Yes: skin cancer Prior Level of Function Medications Home Meds (Include: OTC, RX, Vitamins, Patient reports that she takes Herbals, Dose, Route,and Frequency) a lot of medication and has Query Text:Home Med Entries Will No some difficulty swallowing the Longer Recall From Past Visits. Home pills. Meds Must Be Re-entered With Each Visit. Home Setting Mobility Assistive Devices (Used Last 3 Cane Months) Prior Swallow Level Prior Intake Method Oral Prior Diet Regular (Level 7 Diet) Prior Liquid Consistency Thin (Level 0 Diet) Comments Additional Prior Level of Function Patient and daughter were Comments present during the study. They reported increased difficulty tolerating thin fluids and difficulty swallowing pills. Pain Assessment Timing of Pain Assessment Timing of Pain Assessment Assessment Self Report Self Report Pain Level 0 Pain Score Pain Score 0: Self Report Modified Barium Swallow Evaluation Recent Swallowing History Reports Dysphagia Yes Onset of Dysphagia Over past few months. Patient has lost 26 lbs since November 06
== END 2020-07-01 07:41 | disposition home or self-care (01) ==
LOC: CHSIMG 07:42
PROVIDERS: PCP Family Medicine; Visit Provider Family Medicine
DX: I69.391 Dysphagia following cerebral infarction (principal)
CPT/HCPCS: 92611

== ENCOUNTER 2020-07-11 12:03 | Outpatient (CLI) | payer MEDICARE, SELFPAY ==
[2020-07-11 12:19] LABS: Basophils Absolute Auto 0.03 K/mm3 (0.00-0.10); Basophils Percent Auto 0.5 % (0.0-1.0); Eosinophils Absolute Auto 0.11 K/mm3 (0.02-0.50); Hematocrit 37.8 % (35.0-42.0); Hemoglobin 12.4 g/dL (11.7-13.8); Immature Granulocyte Absolute 0.02 K/mm3 (0.00-0.00); Immature Granulocyte Percent A 0.4 % (0.0-0.0); Lymphocytes Absolute Auto 1.46 K/mm3 (1.10-4.50); Lymphocytes Percent Auto 25.9 % (18.0-42.0); Mean Corpuscular HGB Conc 32.8 g/dL (32.0-36.0); Mean Corpuscular Hemoglobin 29.7 pg (27.0-31.0); Mean Corpuscular Volume 90.4 fL (78.0-102.0); Mean Platelet Volume 9.2 fl (9.2-11.8); Monocytes Absolute Auto 0.33 K/mm3 (0.10-0.90); Monocytes Percent Auto 5.9 % (2.0-11.0); Neutrophils Absolute Auto 3.7 K/mm3 (1.7-7.2); Neutrophils Percent Auto 65.3 % (50.0-70.0); Platelet Count Result 164 K/mm3 (150-420); Red Blood Count 4.18 M/mm3 (4.20-5.40); Red Cell Distribution Width 15.7 % (11.6-14.4); White Blood Count 5.6 K/mm3 (4.8-10.8)
[2020-07-11 12:26] LABS: Creatinine Urine 136.39 mg/dL (40-278); MALB Creatinine Ratio 27.4 mg/g (0-30); Microalbumin Urine Random 37.5 mg/L
[2020-07-11 12:28] LABS: Hemoglobin A1C 6.7 % (<5.7)
[2020-07-11 13:03] LABS: Anion Gap 7 mmol/L (8-16); Blood Urea Nitrogen 18 mg/dL (7-18); Calcium 9.4 mg/dL (8.5-10.1); Carbon Dioxide 34 mmol/L (21-32); Chloride 100 mmol/L (98-108); Cholesterol 167 mg/dL (0-200); Estimated Glomerular Filt Rate 58; Glucose 155 mg/dL (70-99); HDL Direct 74 mg/dL (40-60); LDL Cholesterol Calculated 79 mg/dL (<130); Osmolality Calculated 296 mOsm/kg (285-295); Potassium 4.1 mmol/L (3.5-5.1); Sodium 141 mmol/L (136-145); Triglycerides 70 mg/dL (0-150)
== END 2020-07-11 12:04 | disposition home or self-care (01) ==
PROVIDERS: PCP Family Medicine; Visit Provider Internal Medicine Endocrinology, Diabetes & Metabolism
DX: E11.21 Type 2 diabetes mellitus with diabetic nephropathy (principal); N18.2 Chronic kidney disease, stage 2 (mild)
CPT/HCPCS: 36415; 80061; 80069; 82043; 83036; 85025

== ENCOUNTER 2020-09-05 07:33 | Outpatient (CLI) | payer MEDICARE, SELFPAY ==
--- NOTE | 2020-09-05 16:56 | WPDCARIOSTRE ---
Nuclear Stress Test INDICATIONS Indications: Abnormal EKG, Hypertension PROCEDURE Procedure Performed: Myocardial Perf Spect-Multi Procedure: Patient underwent a lexiscan stress test and immediately after the bolus, patient was injected with 33.4 mCi of cardiolyte. Multiple tomographic images were obtained. These are of good quality. There is evidence of a moderate size and moderate severity anterior and apical perfusion defects. A separate resting images were obtained after patient was injected with 10.6 mCi of cardiolyte. Multiple tomographic images were obtained. These are of good quality. There is evidence of a moderate size, moderate severity anterior perfusion defect. CONCLUSION Conclusion: 1. Abnormal myocardial perfusion imaging demonstrating a moderate size, moderate severity apical perfusion defect during stress imaging suggestive of reversible ischemia. In addition, there is a fixed moderate size, moderate severity anterior perfusion defects suggestive of breast attenuation artifact. 2. Left ventriculogram demonstrates normal ejection fraction measured at 57%. No wall motion abnormalities. 3. TID score is normal at 0.94.
== END 2020-09-05 07:34 | disposition home or self-care (01) ==
PROVIDERS: PCP Family Medicine
DX: I49.3 Ventricular premature depolarization (principal); R94.31 Abnormal electrocardiogram [ECG] [EKG]
CPT/HCPCS: 78452; 93017; A9502; J2785

== ENCOUNTER 2020-10-05 13:03 | Outpatient (CLI) | payer MEDICARE, SELFPAY ==
[2020-10-05 13:26] LABS: Anion Gap 6 mmol/L (8-16); Blood Urea Nitrogen 20 mg/dL (7-18); Calcium 8.9 mg/dL (8.5-10.1); Carbon Dioxide 33 mmol/L (21-32); Chloride 101 mmol/L (98-108); Estimated Glomerular Filt Rate 57; Glucose 111 mg/dL (70-99); Osmolality Calculated 293 mOsm/kg (285-295); Potassium 3.7 mmol/L (3.5-5.1); Sodium 140 mmol/L (136-145)
== END 2020-10-05 13:04 | disposition home or self-care (01) ==
PROVIDERS: PCP Family Medicine
DX: N28.9 Disorder of kidney and ureter, unspecified (principal)
CPT/HCPCS: 36415; 80048

== ENCOUNTER 2020-12-06 09:39 | Outpatient (CLI) | payer MEDICARE, SELFPAY ==
[2020-12-06 10:33] LABS: Hemoglobin A1C 6.3 % (<5.7)
[2020-12-06 11:14] LABS: Anion Gap 9 mmol/L (8-16); Blood Urea Nitrogen 21 mg/dL (7-18); Calcium 9.3 mg/dL (8.5-10.1); Carbon Dioxide 33 mmol/L (21-32); Chloride 103 mmol/L (98-108); Estimated Glomerular Filt Rate 56; Glucose 86 mg/dL (70-99); Osmolality Calculated 302 mOsm/kg (285-295); Potassium 3.9 mmol/L (3.5-5.1); Sodium 145 mmol/L (136-145); Vitamin B12 273 pg/mL (193-986)
== END 2020-12-06 09:40 | disposition home or self-care (01) ==
LOC: CHSLAB 09:41
PROVIDERS: PCP Family Medicine; Visit Provider Internal Medicine Endocrinology, Diabetes & Metabolism
DX: E11.21 Type 2 diabetes mellitus with diabetic nephropathy (principal)
CPT/HCPCS: 36415; 80048; 82607; 83036

== ENCOUNTER 2020-12-12 04:11 | Emergency (ER) | payer MEDICARE, SELFPAY ==
--- NOTE | ~2020-12-12 | CT_ITS ---
EXAMINATION: CT brain wo con DATE: 12/12/2020 04:50 INDICATION: Status post fall. Trauma to the head. Headache and bruising. TECHNIQUE: Computed tomography (CT) of the head was performed without intravenous contrast. The dose- length product was 605.33 mGy-cm. Automated exposure control and iterative reconstruction technique w ere employed. COMPARISON: CT dated 05/16/2020 FINDINGS: Mild generalized atrophy. There are scattered mild periventricular and subcortical white ma tter changes, most likely related to small vessel ischemic disease (microangiopathy). No ventriculome michael or midline shift. Basilar cisterns are patent. Paranasal sinuses and mastoids are pneumatized. N o depressed skull fractures. Left parietal scalp hematoma. IMPRESSION: 1. No acute intracranial abnormality. Reviewed, dictated and finalized at location A.
[2020-12-12 04:11] VITALS: BP 142/70; PULSE 67; RESP 20; TEMP 36.3; O2SAT 99
--- NOTE | 2020-12-12 05:07 | ED.HEATRA ---
HPI - Head Injury General Chief complaint: Head Injury Stated complaint: fall Source: patient and RN notes reviewed Mode of arrival: ambulatory Limitations: no limitations History of Present Illness Complaint: head injury Onset (ago): minute(s) (10) Mechanism of Injury: fall Place: home Loss of Consciousness: no Location of injury: occipital Severity: moderate Quality: dull and aching Radiation: none Other Injuries: none Associated symptoms: denies other symptoms Related Data Home Medications Medication Instructions Recorded Confirmed amantadine HCl 100 mg PO BID 11/07/19 09/23/20 carbidopa-levodopa [Sinemet] 2 tablet PO HS 11/07/19 09/23/20 magnesium oxide 400 mg PO BID 11/07/19 09/23/20 metformin 1,000 mg PO BID 11/07/19 09/23/20 sennosides-docusate sodium 1 tab-cap PO BID 11/07/19 09/23/20 [Senokot-S] Levemir U-100 Insulin 4 unit SUBCUT HS 05/17/20 09/23/20 insulin aspart U-100 [Novolog See Rx Instructions .ROUTE .COMPLEX 05/17/20 09/23/20 U-100 Insulin aspart] Allergies Allergy/AdvReac Type Severity Reaction Status Date / Time meperidine [From Demerol] AdvReac Other Verified 09/23/20 08:13 metoclopramide [From Reglan] AdvReac Other Verified 09/23/20 08:13 Review of Systems Review of Systems: All systems reviewed & are unremarkable except as noted in HPI and below Constitutional: Constitutional: Denies chills and Denies fever(s) PMFSH Past Medical History Medical History 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) GERD (gastroesophageal reflux disease) Gout Hypothyroidism Kidney disease Orthostatic hypotension Parkinsons Rheumatic fever Shingles TIA (transient ischemic attack) Type 2 diabetes mellitus Surgical History Surgical History History of cardiac cath History of cholecystectomy History of total knee arthroplasty S/P repair of ventral hernia Status post gastroplasty Family History Family History Sibling Pancreatic cancer Breast cancer Sibling Kidney disease Mother Cancer Pancreatic cancer Father COPD (chronic obstructive pulmonary disease) Son Diabetes mellitus Social History Social History Smoking status: Never smoker Alcohol intake: never Substance use: never Gender identity (if verbalized by the patient): Female Spiritual care concerns: No Exam Const: General: healthy appearing, no acute distress and alert Nutritional Appearance: well nourished and thin Orientation/consciousness: patient oriented x3 HENMT: Head: normal to inspection and hematoma left occipital 1.5 cm Ears: external ears normal General nose exam: Normal external nose present Face and sinus: normal facial exam Mouth: Yes moist mucous membranes Eyes: Pupils: Equal, round and reactive pupils present EOM: EOMs intact bilaterally Neck: Neck: normal visual inspection Resp: Effort & Inspection: normal respiratory effort Auscultation: clear to auscultation bilaterally Cardio: Rate: regular rate Rhythm: abnormal rhythm irregularly irregular GI: GI Palp: Yes Soft to palpation and No Tenderness to palpation present (GI) Auscultation: normal bowel sounds Back/Spine/Pelvis: Cervical Spine: cervical ROM normal Thoracic/Lumbar Spine: thoraco-lumbar ROM normal Skin: General skin exam: normal color Rashes: no rashes Wounds: wounds noted (abrasion) left posterior occipital region size (1 cm) Neuro: General: patient oriented x3, moves all extremities and no focal motor deficits Speech: normal speech Extrem: General: normal to inspection and no clubbing, cyanosis or edema Psych: Appearance: grossly normal and well kempt Mental Status: mental status grossly normal Affect: normal affect Attitude: cooperative Thought
[2020-12-12 05:12] VITALS: BP 121/71; PULSE 64; RESP 20; TEMP 36.3; O2SAT 97
== END 2020-12-12 05:32 | disposition home or self-care (01) ==
PROVIDERS: Emergency Provider Emergency Medicine; PCP Family Medicine
DX: S00.03XA Contusion of scalp, initial encounter (principal); W19.XXXA Unspecified fall, initial encounter
CPT/HCPCS: 70450; 99282; 99284

== ENCOUNTER 2021-01-12 10:43 | Outpatient (CLI) | payer MEDICARE, SELFPAY ==
[2021-01-12 11:03] LABS: Hematocrit 37.2 % (35.0-42.0); Hemoglobin 12.3 g/dL (11.7-13.8); Mean Corpuscular HGB Conc 33.1 g/dL (32.0-36.0); Mean Corpuscular Hemoglobin 30.8 pg (27.0-31.0); Mean Platelet Volume 8.8 fl (9.2-11.8); Platelet Count Result 158 K/mm3 (150-420); Red Cell Distribution Width 14.9 % (11.6-14.4); White Blood Count 4.2 K/mm3 (4.8-10.8)
[2021-01-12 11:30] LABS: Creatinine Urine 135.18 mg/dL (40-278); MALB Creatinine Ratio 65.3 mg/g (0-30); Microalbumin Urine Random 88.4 mg/L
[2021-01-12 12:21] LABS: Albumin Level 4.1 g/dL (3.4-5.0); Anion Gap 9 mmol/L (8-16); Blood Urea Nitrogen 19 mg/dL (7-18); Calcium 9.3 mg/dL (8.5-10.1); Carbon Dioxide 31 mmol/L (21-32); Chloride 103 mmol/L (98-108); Estimated Glomerular Filt Rate 54; Glucose 188 mg/dL (70-99); Osmolality Calculated 303 mOsm/kg (285-295); Phosphorus 3.5 mg/dL (2.6-4.7); Potassium 3.9 mmol/L (3.5-5.1); Sodium 143 mmol/L (136-145)
[2021-01-15 18:00] LABS: Parathyroid Intact 42 pg/mL (14-64)
[2021-01-17 12:10] LABS: Vitamin D 25 Hydroxy 38 ng/mL (30-100)
== END 2021-01-12 10:44 | disposition home or self-care (01) ==
LOC: CHSLAB 10:45
PROVIDERS: PCP Family Medicine; Visit Provider Internal Medicine Nephrology
DX: I12.9 Hypertensive chronic kidney disease with stage 1 through stage 4 chronic kidney disease, or unspecified chronic kidney disease (principal); N18.2 Chronic kidney disease, stage 2 (mild); R60.9 Edema, unspecified; Z79.899 Other long term (current) drug therapy
CPT/HCPCS: 36415; 80069; 82043; 82306; 83970; 85027

== ENCOUNTER 2021-02-03 10:24 | Outpatient (CLI) | payer MEDICARE, SELFPAY ==
--- NOTE | ~2021-02-03 | CT_ITS ---
EXAMINATION: CT brain wo con EXAM DATE: 02/03/2021 11:04 INDICATION: gait instability off/on headaches with severe dizziness x 6 mo. TECHNIQUE: Spiral CT of the head was performed without contrast. Axial, coronal and sagittal images were reviewed. The dose-length product (DLP) for this examination was 605.33 mGy-cm. The exposure w as tailored according to patient size, and iterative reconstruction (ASIR) was used as additional dos e reduction technique. Comparison is made to prior examination from 12/12/2020. FINDINGS: There is no acute intraparenchymal hemorrhage. No evidence of intraparenchymal brain mass lesion. No evidence of acute infarction. Please note that initial head CT has limited sensitivity f or small or acute infarctions. There is mild periventricular and subcortical hypodensity, nonspecific but probably related to small vessel ischemic disease. There is mild prominence of the sulci and v entricles related to cerebral atrophy. There is intracranial carotid arteriosclerosis. There are n o extra-axial collections. There is no mass effect or midline shift. Patient has had bilateral ocul ar lens surgery. Soft tissue is unremarkable. The visualized sinuses and mastoid air cells are well aerated. IMPRESSION: 1. No acute intracranial findings. 2. Chronic age related findings. Reviewed, dictated and finalized at location B.
== END 2021-02-03 10:25 | disposition home or self-care (01) ==
LOC: CHSIMG 10:26
PROVIDERS: PCP Family Medicine
DX: R26.81 Unsteadiness on feet (principal)
CPT/HCPCS: 70450

== ENCOUNTER 2021-02-15 13:05 | Outpatient (RCR) | payer MEDICARE, SELFPAY ==
--- NOTE | 2021-02-15 14:10 | PTOPEVAL ---
Thank you for referring Hortencia Nettles to [facility].? The patient is scheduled to be seen for therapy? ____x/week for ___ weeks. Please review, sign, date and return this plan of care YEN. I agree with and certify that the following plan of care is medically necessary. Referring Physician Date Admitting Provider: Attending Provider: YU MONTEJO Referring Provider: *PT Outpatient Evaluation Start: 02/15/21 13:06 Freq: Status: Active Protocol: Document 02/15/21 13:06 [facility] (Rec: 02/15/21 14:07 [facility] [id number]) Therapy Assessment Status Assessment Status Assessment Status Evaluation Outpatient Past Medical History Neurological History Hx Parkinson's Disease Yes Hx Transient Ischemic Attacks (TIA) Yes Cardiovascular History Hx Hypertension Yes Hx Other Cardiac Disorders Yes: ORTHOSTATIC HYPOTENSION Respiratory History Hx Other Respiratory Disorders Yes: hx of COVID April 2020 Gastrointestinal History Hx Cholecystectomy Yes Hx Gall Bladder Disease Yes Hx Gastric Bypass Surgery Yes Hx Gastroesophageal Reflux Disease Yes Genitourinary History Hx Renal Disease Yes: stage 2 Musculoskeletal History Hx Back Pain Yes Hx Crutches or Walker Use Yes: cane Query Text:If Yes, Enter Crutches, Walker, or Both in the Comment Hx Orthopedic Surgery Yes: jacques knees Endocrine History Hx Diabetes Yes Hx Hypothyroidism Yes HEENT History Hx Cataracts Yes Reproductive History Hx Post Menopausal Yes Other History Hx Cancer Yes: skin cancer, oral cancer Evaluation Information Problem Diagnosis unsteady gait, frequent falls Onset 01/31/21 Subjective Information patient reports she is Query Text:As Reported By Patient/ returning to therapy for her Family balance and falls. she reports she is losing her balance more. she reports she fell a few days ago. she reports she lives alone. she reports she has family who lives in [place]. she reports she does drives. she reports she is going to balance class and parkinsons class. she reports she has fallen 10-12 times since her therapy ended in july. she reports when she falls she is not tripping on things very often but just
--- NOTE | 2021-03-14 16:13 | PTOPEVAL ---
Thank you for referring Hortencia Nettles to [facility].? The patient is scheduled to be seen for therapy? ____x/week for ___ weeks. Please review, sign, date and return this plan of care YEN. I agree with and certify that the following plan of care is medically necessary. Referring Physician Date Admitting Provider: Attending Provider: YU MONTEJO Referring Provider: *PT Outpatient Evaluation Start: 02/15/21 13:06 Freq: Status: Active Protocol: Document 03/14/21 15:01 ACR (Rec: 03/14/21 16:12 ACR [id number]) Therapy Assessment Status Assessment Status Assessment Status Progress Outpatient Past Medical History Neurological History Hx Parkinson's Disease Yes Hx Transient Ischemic Attacks (TIA) Yes Cardiovascular History Hx Hypertension Yes Hx Other Cardiac Disorders Yes: ORTHOSTATIC HYPOTENSION Respiratory History Hx Other Respiratory Disorders Yes: hx of COVID April 2020 Gastrointestinal History Hx Cholecystectomy Yes Hx Gall Bladder Disease Yes Hx Gastric Bypass Surgery Yes Hx Gastroesophageal Reflux Disease Yes Genitourinary History Hx Renal Disease Yes: stage 2 Musculoskeletal History Hx Back Pain Yes Hx Crutches or Walker Use Yes: cane Query Text:If Yes, Enter Crutches, Walker, or Both in the Comment Hx Orthopedic Surgery Yes: jacques knees Endocrine History Hx Diabetes Yes Hx Hypothyroidism Yes HEENT History Hx Cataracts Yes Reproductive History Hx Post Menopausal Yes Other History Hx Cancer Yes: skin cancer, oral cancer Evaluation Information Problem Diagnosis unsteady gait, frequent falls Onset 02/03/21 Subjective Information Patient states that she is Query Text:As Reported By Patient/ unsure how she will feel one Family day to the next. She has not had any falls since she started this round of therapy. Patient states that she goes to a parkinson's class and they do a lot of stretching but not as much balance that she feels she needs. She states that she would like to continue because she needs to work on her balance more. Pain Assessment Timing of Pain Assessment Timing of Pain Assessment Assessment Self Report Self Report Pain Level 0 Pain Score Pain Score 0: Self Report Lower Extremity Muscle Strength Testing Hip Strength Left
--- NOTE | 2021-04-24 15:59 | PTOPEVAL ---
Thank you for referring Hortencia Nettles to [facility].? The patient is scheduled to be seen for therapy? __2__x/week for 4 visits. Please review, sign, date and return this plan of care YEN. I agree with and certify that the following plan of care is medically necessary. Referring Physician Date Admitting Provider: Attending Provider: YU MONTEJO Referring Provider: *PT Outpatient Evaluation Start: 02/15/21 13:06 Freq: Status: Active Protocol: Document 04/24/21 15:18 [facility] (Rec: 04/24/21 15:59 [facility] [id number]) Therapy Assessment Status Assessment Status Assessment Status Progress Outpatient Past Medical History Neurological History Hx Parkinson's Disease Yes Hx Transient Ischemic Attacks (TIA) Yes Cardiovascular History Hx Hypertension Yes Hx Other Cardiac Disorders Yes: ORTHOSTATIC HYPOTENSION Respiratory History Hx Other Respiratory Disorders Yes: hx of COVID April 2020 Gastrointestinal History Hx Cholecystectomy Yes Hx Gall Bladder Disease Yes Hx Gastric Bypass Surgery Yes Hx Gastroesophageal Reflux Disease Yes Genitourinary History Hx Renal Disease Yes: stage 2 Musculoskeletal History Hx Back Pain Yes Hx Crutches or Walker Use Yes: cane Query Text:If Yes, Enter Crutches, Walker, or Both in the Comment Hx Orthopedic Surgery Yes: jacques knees Endocrine History Hx Diabetes Yes Hx Hypothyroidism Yes HEENT History Hx Cataracts Yes Reproductive History Hx Post Menopausal Yes Other History Hx Cancer Yes: skin cancer, oral cancer Evaluation Information Problem Diagnosis unsteady gait, frequent falls Subjective Information Pt. reports that she has Query Text:As Reported By Patient/ noticed less frequent falls Family since beginning therapy. She reports that she had not fallen for a long time, until last week, when she had a fall at home. She reports that prior to beginning therapy she was falling multiple times a week, but only recalls one falling episode in the past 6- 8 weeks. She reports that she has been doing better with therapy and would like to continue to pariticipate in treatment. Pain Assessment Timing of Pain Assessment Timing of Pain Assessment Pre-Treatment Self Report Self Report Pain Level
== END 2021-05-18 23:59 | disposition home or self-care (01) ==
LOC: CHSPT 13:05
PROVIDERS: PCP Family Medicine
DX: R26.81 Unsteadiness on feet (principal)
CPT/HCPCS: 97110; 97112; 97161; 97530

== ENCOUNTER 2021-03-22 13:16 | Outpatient (CLI) | payer MEDICARE, SELFPAY ==
--- NOTE | ~2021-03-22 | XR_ITS ---
XR chest 2V DATE: 03/22/2021 13:34 INDICATION: Sternal chest pain, cough TECHNIQUE: 2 views COMPARISON: 11/08/2019 2 view chest FINDINGS: Normal heart size. Is aortic calcification and mild tortuosity. No hilar or mediastinal enl argement. The lungs are moderately hyperinflated but clear of infiltrate or consolidation. No pleural effusion or pulmonary vascular congestion or pneumothorax. Diffuse osteopenia. Diffuse idiopathic skeletal hyperostosis of the thoracic spine. Probable old fracture deformity of the right scapula. IMPRESSION: Moderate hyperinflation; no active cardiopulmonary disease Aortic atherosclerosis Reviewed, dictated and finalized at location A.
== END 2021-03-22 13:17 | disposition home or self-care (01) ==
LOC: CHSIMG 13:19
PROVIDERS: PCP Family Medicine; Visit Provider Family Medicine
DX: J06.9 Acute upper respiratory infection, unspecified (principal)
CPT/HCPCS: 71046

== ENCOUNTER 2021-05-01 12:11 | Outpatient (RCR) | payer MEDICARE, SELFPAY | END 2021-05-31 23:59 | disposition home or self-care (01) | LOC: CHSWOUND 12:11 | PROVIDERS: PCP Nurse Practitioner Family | DX: S61.232D Puncture wound without foreign body of right middle finger without damage to nail, subsequent encounter (principal); L08.9 Local infection of the skin and subcutaneous tissue, unspecified; I73.00 Raynaud's syndrome without gangrene; E03.9 Hypothyroidism, unspecified; E11.22 Type 2 diabetes mellitus with diabetic chronic kidney disease; N18.2 Chronic kidney disease, stage 2 (mild); G20 Parkinson's disease | CPT/HCPCS: 99211; G0463 ==

== ENCOUNTER 2021-06-07 09:14 | Outpatient (CLI) | payer MEDICARE, SELFPAY ==
[2021-06-07 10:02] LABS: Hemoglobin A1C 6.5 % (<5.7)
[2021-06-07 10:21] LABS: Alanine Aminotransferase 9 U/L (14-59); Alkaline Phosphatase 57 U/L (46-116); Anion Gap 8 mmol/L (8-16); Aspartate Amino Transferase 15 U/L (15-37); Bilirubin,Total 0.6 mg/dL (0.00-1.00); Blood Urea Nitrogen 17 mg/dL (7-18); Calcium 9.5 mg/dL (8.5-10.1); Carbon Dioxide 34 mmol/L (21-32); Chloride 99 mmol/L (98-108); Cholesterol 181 mg/dL (0-200); Estimated Glomerular Filt Rate > 60; Glucose 54 mg/dL (70-99); HDL Direct 84 mg/dL (40-60); LDL Cholesterol Calculated 79 mg/dL (<130); Osmolality Calculated 291 mOsm/kg (285-295); Potassium 3.5 mmol/L (3.5-5.1); Sodium 141 mmol/L (136-145); Total Protein 7.1 g/dL (6.4-8.2); Triglycerides 88 mg/dL (0-150)
[2021-06-07 10:28] LABS: Free T4 Free Thyroxine Reflex 0.97 ng/dL (0.76-1.46); Thyroid Stimulating Hormone Reflex 4.92 u/IU/mL (0.36-3.74)
== END 2021-06-07 09:15 | disposition home or self-care (01) ==
LOC: CHSLAB 09:17
PROVIDERS: PCP Family Medicine; Visit Provider Internal Medicine Endocrinology, Diabetes & Metabolism
DX: E11.21 Type 2 diabetes mellitus with diabetic nephropathy (principal)
CPT/HCPCS: 36415; 80053; 80061; 83036; 84439; 84443

== ENCOUNTER 2021-08-21 08:33 | Outpatient (CLI) | payer MEDICARE, SELFPAY ==
[2021-08-21 08:47] LABS: Hematocrit 35.4 % (35.0-42.0); Mean Corpuscular HGB Conc 31.1 g/dL (32.0-36.0); Mean Corpuscular Hemoglobin 29.3 pg (27.0-31.0); Mean Corpuscular Volume 94.4 fL (78.0-102.0); Mean Platelet Volume 8.6 fl (9.2-11.8); Platelet Count Result 173 K/mm3 (150-420); Red Blood Count 3.75 M/mm3 (4.20-5.40)
[2021-08-21 09:02] LABS: Creatinine Urine 95.25 mg/dL (40-278); MALB Creatinine Ratio 59.2 mg/g (0-30); Microalbumin Urine Random 56.4 mg/L
[2021-08-21 09:26] LABS: Albumin Level 3.7 g/dL (3.4-5.0); Anion Gap 7 mmol/L (8-16); Blood Urea Nitrogen 13 mg/dL (7-18); Calcium 8.8 mg/dL (8.5-10.1); Carbon Dioxide 34 mmol/L (21-32); Chloride 102 mmol/L (98-108); Estimated Glomerular Filt Rate > 60; Glucose 86 mg/dL (70-99); Osmolality Calculated 295 mOsm/kg (285-295); Phosphorus 3.8 mg/dL (2.6-4.7); Potassium 3.6 mmol/L (3.5-5.1); Sodium 143 mmol/L (136-145)
[2021-08-21 16:06] LABS: NT Pro B Type Natriuretic Pept 3374 pg/mL (0-450)
== END 2021-08-21 08:34 | disposition home or self-care (01) ==
LOC: CHSLAB 08:36
PROVIDERS: Nurse Practitioner Family; PCP Family Medicine; Visit Provider Internal Medicine Nephrology
DX: N18.2 Chronic kidney disease, stage 2 (mild) (principal); I50.9 Heart failure, unspecified
CPT/HCPCS: 36415; 80069; 82043; 83880; 85027

== ENCOUNTER 2021-09-27 14:59 | Inpatient (IN) | payer MEDICARE, SELFPAY ==
--- NOTE | ~2021-09-27 | XR_ITS ---
EXAMINATION: XR chest 1V portable Exam Date/Time: 10/04/2021 19:35 CDT HISTORY: chest pains Comparison: 03/22/2021. RESULT: Lines, tubes, and devices: None. Lungs and pleura: Peripheral reticular and ground glass opacities in the mid and lower lungs. Cardiomediastinal silhouette: Stable cardiomediastinal silhouette. Other: No acute osseous or upper abdominal finding. IMPRESSION: Pulmonary findings may reflect atypical/viral pneumonia versus interstitial edema. Reviewed, dictated and finalized at location K. IMPRESSION: Pulmonary findings may reflect atypical/viral pneumonia versus interstitial radha
--- NOTE | ~2021-09-27 | XR_ITS ---
XR chest 1V portable 10/05/2021 08:53 Indication: Fever Procedure: AP portable chest Comparison: Comparison to multiple prior studies sequentially, with oldest reviewed study dated 11/14. Findings: Borderline heart size. No focal air space disease, pulmonary edema, pleural effusion or alec pected pneumothorax. Generalized osteopenia. There are cholecystectomy clips. No acute osseous abnorm ality. Impression: 1: No acute cardiopulmonary disease. Reviewed, dictated and finalized at location B. Impression: 1: No acute cardiopulmonary disease.
[2021-09-27 15:59] VITALS: BP 112/78; PULSE 86; RESP 18; TEMP 36.9; O2SAT 94
--- NOTE | 2021-09-27 16:08 | ADMGEN ---
1099 This patient, Hortencia Nettles, was admitted to 2nd Floor Room 208-2 for skilled swing bed for weakness d/t uti. admitted from [facility] [place]. Patient/family oriented to hospital policies and general routines including ID bracelet, bed and alarms, visiting hours, pain management, procedures, bathroom and other care routines, personal items, smoking policy, room service/diet, and visiting hours. Information on how to activate the Rapid Response Team has been discussed. Patient/Family are encouraged to report perceived risks to care and to ask questions if they do not understand what they are told or what they should do.
[2021-09-27 16:11] VITALS: BMI 25.3
[2021-09-27 16:42] LABS: Glucose Point of Care 174 mg/dl (65-105)
[2021-09-27] MEDS: CARBIDOPA/LEVODOPA 25/100 MG TABLET 2 TABLET PO ×2 (18:00→21:14)
[2021-09-27] MEDS: metFORMIN HCL 500 MG TABLET 1000 MG PO (18:10)
[2021-09-27] MEDS: MAGNESIUM OXIDE 400 MG TABLET PO (18:10)
[2021-09-27] MEDS: GABAPENTIN 300 MG CAPSULE PO (18:10)
[2021-09-27] MEDS: AMANTADINE HCL 100 MG CAPSULE PO (20:26)
[2021-09-27] MEDS: CARBIDOPA/LEVODOPA 25/100 MG CR TABLET 2 TABLET PO (21:14)
[2021-09-27] MEDS: INSULIN DETEMIR 100 UNITS/ML 8 UNITS SUB-Q (21:14)
[2021-09-27] MEDS: AMOXICILLIN 500 MG CAPSULE BY MOUTH (21:16)
[2021-09-28] VITALS: BP 132/100; PULSE 91; RESP 18; TEMP 36.1; O2SAT 90
[2021-09-28] MEDS: AMOXICILLIN 500 MG CAPSULE BY MOUTH ×3 (06:12→21:08)
[2021-09-28] MEDS: LEVOTHYROXINE SODIUM 112 MCG TABLET PO (06:12)
[2021-09-28 08:00] VITALS: BP 136/93; PULSE 83; RESP 17; TEMP 36.6; O2SAT 100
--- NOTE | 2021-09-28 08:00 | PC.NURSE ---
Blood sugar on pt freestyle device is 73. Pt refused 4u of insulin with breakfast.
[2021-09-28] MEDS: metFORMIN HCL 500 MG TABLET 1000 MG PO (09:05)
[2021-09-28] MEDS: AMANTADINE HCL 100 MG CAPSULE PO ×2 (09:05→21:08)
[2021-09-28] MEDS: FUROSEMIDE 40 MG TABLET PO (09:05)
[2021-09-28] MEDS: CHOLECALCIFEROL 1,000 UNITS TABLET 2000 UNITS PO (09:05)
[2021-09-28] MEDS: CARBIDOPA/LEVODOPA 25/100 MG TABLET 2 TABLET PO ×4 (09:05→21:08)
[2021-09-28] MEDS: GABAPENTIN 300 MG CAPSULE PO ×3 (09:06→17:41)
[2021-09-28] MEDS: DULoxetine HCL 30 MG CAPSULE.DR PO (09:06)
[2021-09-28] MEDS: MAGNESIUM OXIDE 400 MG TABLET PO ×2 (09:06→17:41)
[2021-09-28] MEDS: FLUDROCORTISONE ACETATE 0.1 MG TABLET PO (09:06)
--- NOTE | 2021-09-28 09:34 | PM.IMHP ---
H&P: HPI History of Present Illness Date/Time: 09/28/21 09:34 this is a 81-year-old female that was admitted into the hospital at [facility] in [facility] with acute kidney injury was found to have a urinary tract infection. Patient previously has been having some weakness with staying with her family for approximately 6 weeks. Patient has a past medical history of cancer, diabetes, GERD, gout, kidney disease, Parkinson's disease, lightheadedness, dizziness with posterior changes Patient is on Xarelto for A. fib, CHF, type 2 diabetes, neurogenic orthostatic hypotension. Patient reported that her weakness was been ongoing for a long time however prior to going to the hospital she got Acutely weaker and confused. According to patient she has been hallucinating and seeing things that have not been there for a while patient denies any abdominal pain she has chronic constipation and takes MiraLAX denies any fever no hematuria or dysuria. Patient was diagnosed approximately 6 weeks ago with atrial fibrillation she has been taking Lasix twice a day lost 30 pounds. Patient has been admitted here due to weakness she is here for physical therapy patient will be seen by physical therapy and we will plan care for her accordingly. Chief Complaint: Weakness, UtI, Parkinson Review of Systems Review of Systems: Weakness, urinary tract infection All systems reviewed & are unremarkable except as noted in HPI and below PMFSH Past Medical History Medical History Abrasion of right middle finger Acute sinusitis 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) GERD (gastroesophageal reflux disease) Gout Hypothyroidism Kidney disease Orthostatic hypotension Parkinsons Raynauds phenomenon Rheumatic fever Shingles TIA (transient ischemic attack) Type 2 diabetes mellitus Viral upper respiratory illness Surgical History Surgical History History of cardiac cath History of cholecystectomy History of total knee arthroplasty S/P repair of ventral hernia Status post gastroplasty Family History Family History Sibling Pancreatic cancer Breast cancer Sibling Kidney disease Mother Cancer Pancreatic cancer Father COPD (chronic obstructive pulmonary disease) Son Diabetes mellitus Social History Social History Smoking status: Never smoker Alcohol intake: never Substance use: never Gender identity (if verbalized by the patient): Female Spiritual care concerns: No Comments At time as signature, I have reviewed and agree with nursing past medical, social, surgical and family history. Please see nursing chart for further information. There is no relevant family history pertinent to the presenting complaint. Meds Home Medications and Allergies Home Medications Medication Instructions Recorded Confirmed Type amantadine HCl 100 mg PO BID 11/07/19 09/27/21 History magnesium oxide 400 mg PO BID 11/07/19 09/27/21 History metformin 1,000 mg PO BID 11/07/19 09/27/21 History cholecalciferol (vitamin D3) 50 50 mcg PO DAILY 30 Days #30 tablet 12/25/19 09/27/21 Rx mcg (2,000 unit) tablet Levemir U-100 Insulin 8 unit SUBCUT HS 05/17/20 09/27/21 History insulin aspart U-100 [Novolog 4 unit SUBCUT TIDWMEAL 05/17/20 09/27/21 History U-100 Insulin aspart] levothyroxine 112 mcg tablet 112 mcg PO DAILY #30 tablet 04/10/21 09/27/21 Rx carbidopa 25 mg-levodopa 100 mg 2 tablet PO QID tablet 04/19/21 09/27/21 History tablet fludrocortisone 0.1 mg tablet 0.1 mg PO DAILY 04/28/21 09/27/21 History duloxetine 30 mg capsule,delayed 30 mg PO DAILY 90 Days #90 cap 08/21/21 09/27/21 Rx release amoxicillin 500 mg BYMOUTH TID MDD for 10 days 09/27/21 09/27/21 History ca
--- NOTE | 2021-09-28 11:52 | PC.NURSE ---
Pt blood sugar 146 per freestyle device.
[2021-09-28 16:00] VITALS: BP 128/84; PULSE 84; RESP 18; TEMP 36.6; O2SAT 100
--- NOTE | 2021-09-28 17:06 | PC.NURSE ---
Pt blood sugar 67 on pts freestyle device. Pt asymptomatic and supper tray given.
[2021-09-28] MEDS: RIVAROXABAN 15 MG TABLET PO (17:41)
[2021-09-28] MEDS: CARBIDOPA/LEVODOPA 25/100 MG CR TABLET 2 TABLET PO (21:08)
[2021-09-28] MEDS: INSULIN DETEMIR 100 UNITS/ML 8 UNITS SUB-Q (21:14)
[2021-09-28 23:04] VITALS: BP 123/74; PULSE 100; RESP 19; TEMP 37; O2SAT 91
[2021-09-29] MEDS: AMOXICILLIN 500 MG CAPSULE BY MOUTH ×3 (06:43→21:27)
[2021-09-29] MEDS: LEVOTHYROXINE SODIUM 112 MCG TABLET PO (06:43)
--- NOTE | 2021-09-29 07:45 | PC.NURSE ---
Pt blood glucose 77 per freestyle device.
[2021-09-29 08:00] VITALS: BP 130/88; PULSE 96; RESP 17; TEMP 36.3; O2SAT 96
[2021-09-29] MEDS: CARBIDOPA/LEVODOPA 25/100 MG TABLET 2 TABLET PO ×4 (08:54→21:26)
[2021-09-29] MEDS: CHOLECALCIFEROL 1,000 UNITS TABLET 2000 UNITS PO (08:54)
[2021-09-29] MEDS: GABAPENTIN 300 MG CAPSULE PO ×3 (08:54→17:11)
[2021-09-29] MEDS: FLUDROCORTISONE ACETATE 0.1 MG TABLET PO (08:55)
[2021-09-29] MEDS: DULoxetine HCL 30 MG CAPSULE.DR PO (08:55)
[2021-09-29] MEDS: AMANTADINE HCL 100 MG CAPSULE PO ×2 (08:55→21:27)
[2021-09-29] MEDS: FUROSEMIDE 40 MG TABLET PO (08:55)
[2021-09-29] MEDS: MAGNESIUM OXIDE 400 MG TABLET PO ×2 (08:55→17:11)
--- NOTE | 2021-09-29 11:35 | PC.NURSE ---
Pt blood glucose 107 on freestyle device.
[2021-09-29 16:00] VITALS: BP 129/84; PULSE 104; RESP 17; TEMP 36.1; O2SAT 92
[2021-09-29] MEDS: RIVAROXABAN 15 MG TABLET PO (17:10)
--- NOTE | 2021-09-29 17:14 | PC.NURSE ---
Pt blood glucose 129 on freestyle device.
[2021-09-29] MEDS: CARBIDOPA/LEVODOPA 25/100 MG CR TABLET 2 TABLET PO (21:26)
[2021-09-29] MEDS: INSULIN DETEMIR 100 UNITS/ML 8 UNITS SUB-Q (21:27)
--- NOTE | 2021-09-29 21:30 | PC.NURSE ---
Patient scanned her freestyle meter again and blood glucose is 166.
[2021-09-29 23:45] VITALS: BP 126/84; PULSE 71; RESP 20; TEMP 36.3; O2SAT 95
[2021-09-30] MEDS: AMOXICILLIN 500 MG CAPSULE BY MOUTH ×4 (06:08→21:24)
[2021-09-30] MEDS: LEVOTHYROXINE SODIUM 112 MCG TABLET PO (06:08)
[2021-09-30 07:31] LABS: Glucose Point of Care < 33 mg/dl (65-105)
--- NOTE | 2021-09-30 07:44 | PCAUD ---
Patient's blood glucose at 30 on our monitor and 60 on her glucose monitor. Patient was asymptomatic. Juice administered. Will reassess in 15 min.
[2021-09-30 07:51] VITALS: BP 114/72; PULSE 98; RESP 16; TEMP 36.4; O2SAT 94
--- NOTE | 2021-09-30 07:56 | PC.NURSE ---
Patient blood glucose at 65. AIRPORT TOWER CONTROLLER aware and stated to wait until breakfast in 5 min.
--- NOTE | 2021-09-30 08:15 | PC.NURSE ---
Patient's blood glucose at 87.
[2021-09-30] MEDS: DULoxetine HCL 30 MG CAPSULE.DR PO (08:21)
[2021-09-30] MEDS: CHOLECALCIFEROL 1,000 UNITS TABLET 2000 UNITS PO (08:21)
[2021-09-30] MEDS: FUROSEMIDE 40 MG TABLET PO (08:21)
[2021-09-30] MEDS: AMANTADINE HCL 100 MG CAPSULE PO ×2 (08:22→21:23)
[2021-09-30] MEDS: MAGNESIUM OXIDE 400 MG TABLET PO ×2 (08:22→17:11)
[2021-09-30] MEDS: GABAPENTIN 300 MG CAPSULE PO ×3 (08:22→17:24)
[2021-09-30] MEDS: CARBIDOPA/LEVODOPA 25/100 MG TABLET 2 TABLET PO ×4 (08:22→21:17)
[2021-09-30] MEDS: FLUDROCORTISONE ACETATE 0.1 MG TABLET PO (08:23)
--- NOTE | 2021-09-30 11:39 | PC.NURSE ---
Patient blood glucose 179 per patient's monitor.
[2021-09-30 16:00] VITALS: BP 122/75; PULSE 80; RESP 16; TEMP 37.2; O2SAT 95
--- NOTE | 2021-09-30 17:09 | PC.NURSE ---
Patient's blood glucose 174 at dinner per her monitor.
[2021-09-30] MEDS: RIVAROXABAN 15 MG TABLET PO (17:18)
--- NOTE | 2021-09-30 18:20 | PC.NURSE ---
Patient's daughter Wilfred here to visit and began questioning caption writer about changes made to patient's medication for diabetes. Wilfred stated that they were upset because Kasa had taken patient off metformin and increased levemir at hs. Supervisor [employer] explained that it is the responsibility of the LABOR CUSTODIAN to make those decision, and that caption writer would make sure that the LABOR CUSTODIAN and charge nurse were notified of her concerns. Supervisor [employer] Storage notified charge nurse and charge nurse called LABOR CUSTODIAN to address the concerns. LABOR CUSTODIAN called hospital and spoke directly to Wilfred at length about the changes made. LABOR CUSTODIAN ordered levemir to be changed to 6 units at hs and ordered a 2 am acu-check, as well as a lab draw for glucose in am. Wilfred then, after speaking with LABOR CUSTODIAN, told caption writer that she wanted to go over patient's night medications with caption writer. Supervisor [employer] Storage took computer and discharge orders from [place] into room and discussed hs meds. Wilfred told caption writer that she had 2 more medications on her list that her mother was supposed to be getting at bedtime. Supervisor [employer] explained that one of the medications was ordered 3 times daily and that the times were just different, and the other medication was ordered PRN for anxiety and would only be given to patient if there were signs of anxiety or patient requested medication for anxiety, per the way the medication is ordered. Wilfred voiced understanding, and explained to caption writer that they have a set way of giving patient's medication at home, complete with am medication, late am medication, noon medication, supper medication and bedtime medication, and that she would like to see us stick to that as closely as possible as so patient gets the best results. Wilfred then changed the subject to therapy, asking caption writer if there is no therapy on the weekend, mother is not ALLOWED to walk unless it's to and from the bathroom? Supervisor [employer] explained that anytime patient asks to go for a walk, nursing staff will be glad to walk with her at our earliest convenience. Wilfred also addressed showering, asking if mother could have a shower tonight. Supervisor [employer] assured Wilfred that patient had had a sponge bath and oral care this am and if patient wanted a shower we would do that at our earliest convenience. Wilfred then asked if she was allowed to walk her mother in the roth. Supervisor [employer] stated that we encourage family to participate safely in care, and instructed Wilfred on use of a gait belt.
[2021-09-30] MEDS: CARBIDOPA/LEVODOPA 25/100 MG CR TABLET 2 TABLET PO (21:18)
[2021-09-30] MEDS: INSULIN DETEMIR 100 UNITS/ML 6 UNITS SUB-Q (21:19)
[2021-09-30 21:23] LABS: Glucose Point of Care 116 mg/dl (65-105)
[2021-09-30] MEDS: clonazePAM (*CRX) 0.5 MG TABLET PO (21:24)
[2021-10-01] VITALS: BP 129/86; PULSE 97; RESP 18; TEMP 36.7; O2SAT 92
[2021-10-01 04:31] LABS: Glucose Point of Care 78 mg/dl (65-105)
[2021-10-01 05:09] LABS: Hematocrit 35.7 % (35.0-42.0); Hemoglobin 11.1 g/dL (11.7-13.8); Mean Corpuscular HGB Conc 31.1 g/dL (32.0-36.0); Mean Corpuscular Hemoglobin 28.1 pg (27.0-31.0); Mean Corpuscular Volume 90.4 fL (78.0-102.0); Mean Platelet Volume 9.2 fl (9.2-11.8); Platelet Count Result 139 K/mm3 (150-420); Red Blood Count 3.95 M/mm3 (4.20-5.40); White Blood Count 3.9 K/mm3 (4.8-10.8)
[2021-10-01 05:18] LABS: Anion Gap 5 mmol/L (8-16); Blood Urea Nitrogen 23 mg/dL (7-18); Carbon Dioxide 37 mmol/L (21-32); Chloride 99 mmol/L (98-108); Estimated CRCL calculation 35 ml/min; Estimated Glomerular Filt Rate 49; Glucose 81 mg/dL (70-99); Osmolality Calculated 294 mOsm/kg (285-295); Potassium 3.2 mmol/L (3.5-5.1); Sodium 141 mmol/L (136-145)
[2021-10-01] MEDS: LEVOTHYROXINE SODIUM 112 MCG TABLET PO (06:27)
[2021-10-01] MEDS: AMOXICILLIN 500 MG CAPSULE BY MOUTH ×3 (06:27→21:12)
[2021-10-01 08:00] VITALS: BP 119/67; PULSE 89; RESP 16; TEMP 36.5; O2SAT 92
[2021-10-01] MEDS: DULoxetine HCL 30 MG CAPSULE.DR PO (08:18)
[2021-10-01] MEDS: GABAPENTIN 300 MG CAPSULE PO ×3 (08:18→17:28)
[2021-10-01] MEDS: CHOLECALCIFEROL 1,000 UNITS TABLET 2000 UNITS PO (08:18)
[2021-10-01] MEDS: CARBIDOPA/LEVODOPA 25/100 MG TABLET 2 TABLET PO ×4 (08:22→21:11)
[2021-10-01] MEDS: MAGNESIUM OXIDE 400 MG TABLET PO ×2 (08:23→17:29)
[2021-10-01] MEDS: FLUDROCORTISONE ACETATE 0.1 MG TABLET PO (08:23)
[2021-10-01] MEDS: AMANTADINE HCL 100 MG CAPSULE PO ×2 (08:24→21:12)
[2021-10-01] MEDS: POTASSIUM CHLORIDE 20 MEQ TABLET PO (08:28)
[2021-10-01] MEDS: FUROSEMIDE 20 MG TABLET PO (08:28)
--- NOTE | 2021-10-01 08:28 | PM.EVENT ---
Event Note Event Note Event Note: Spoke with Wilfred last night as she is concerned that we are not giving the medication the way they give medication at home. I did explain to Wilfred we will not be giving all the mediations the way they give at home as we are a hospital and when they return home they can resume the way they normally give at home. I also explained to Wilfred that I would call Dr Galindo and we would discuss what the lasix dosage he wants . I also explained to Wilfred that I could not take a order from her.
--- NOTE | 2021-10-01 08:40 | PC.NURSE ---
Patient's blood glucose 82 per her glucometer.
--- NOTE | 2021-10-01 12:01 | PC.NURSE ---
Patient's blood glucose 100 per her glucometer.
[2021-10-01 16:00] VITALS: BP 121/72; PULSE 81; RESP 18; TEMP 37.1; O2SAT 93
--- NOTE | 2021-10-01 16:40 | PC.NURSE ---
Patient's blood glucose 146 per her glucometer.
[2021-10-01] MEDS: RIVAROXABAN 15 MG TABLET PO (17:28)
[2021-10-01] MEDS: CARBIDOPA/LEVODOPA 25/100 MG CR TABLET 2 TABLET PO (21:11)
[2021-10-01] MEDS: INSULIN DETEMIR 100 UNITS/ML SUB-Q (21:12)
[2021-10-01] MEDS: clonazePAM (*CRX) 0.5 MG TABLET PO (21:12)
--- NOTE | 2021-10-01 21:30 | PC.NURSE ---
Patient's blood glucose level was 210 at 2110 according to her freestyle Priscila.
[2021-10-02] VITALS: BP 100/72; PULSE 87; RESP 18; TEMP 37.1; O2SAT 94
[2021-10-02] MEDS: LEVOTHYROXINE SODIUM 112 MCG TABLET PO (06:15)
[2021-10-02] MEDS: AMOXICILLIN 500 MG CAPSULE BY MOUTH ×3 (06:15→21:06)
[2021-10-02 08:00] VITALS: BP 122/74; PULSE 94; RESP 16; TEMP 36.3; O2SAT 96
[2021-10-02] MEDS: CHOLECALCIFEROL 1,000 UNITS TABLET 2000 UNITS PO (08:34)
[2021-10-02] MEDS: polyethylene glycoL 3350 17 GM POWD.PACK PO (08:34)
[2021-10-02] MEDS: DULoxetine HCL 30 MG CAPSULE.DR PO (08:34)
[2021-10-02] MEDS: GABAPENTIN 300 MG CAPSULE PO ×3 (08:35→17:14)
[2021-10-02] MEDS: POTASSIUM CHLORIDE 20 MEQ TABLET PO (08:35)
[2021-10-02] MEDS: MAGNESIUM OXIDE 400 MG TABLET PO ×2 (08:35→17:14)
[2021-10-02] MEDS: CARBIDOPA/LEVODOPA 25/100 MG TABLET 2 TABLET PO ×4 (08:35→21:07)
[2021-10-02] MEDS: FUROSEMIDE 20 MG TABLET PO (08:35)
[2021-10-02] MEDS: FLUDROCORTISONE ACETATE 0.1 MG TABLET PO (08:36)
[2021-10-02] MEDS: AMANTADINE HCL 100 MG CAPSULE PO ×2 (08:36→21:06)
[2021-10-02 16:00] VITALS: BP 127/73; PULSE 86; RESP 16; TEMP 37.4; O2SAT 92
--- NOTE | 2021-10-02 16:50 | PC.NURSE ---
Patient's blood glucose 154 per patient's glucometer.
[2021-10-02] MEDS: RIVAROXABAN 15 MG TABLET PO (17:15)
[2021-10-02] MEDS: CARBIDOPA/LEVODOPA 25/100 MG CR TABLET 2 TABLET PO (21:06)
[2021-10-02] MEDS: clonazePAM (*CRX) 0.5 MG TABLET PO (21:06)
[2021-10-02] MEDS: INSULIN DETEMIR 100 UNITS/ML SUB-Q (21:09)
[2021-10-02 23:11] VITALS: BP 141/84; PULSE 78; RESP 17; TEMP 37.2; O2SAT 93
[2021-10-03] MEDS: LEVOTHYROXINE SODIUM 112 MCG TABLET PO (06:11)
[2021-10-03] MEDS: AMOXICILLIN 500 MG CAPSULE BY MOUTH ×3 (06:11→21:16)
[2021-10-03 08:00] VITALS: BP 112/60; PULSE 102; RESP 14; TEMP 36.9; O2SAT 97
[2021-10-03] MEDS: POTASSIUM CHLORIDE 20 MEQ TABLET PO (08:00)
[2021-10-03] MEDS: CHOLECALCIFEROL 1,000 UNITS TABLET 2000 UNITS PO (09:02)
[2021-10-03] MEDS: CARBIDOPA/LEVODOPA 25/100 MG TABLET 2 TABLET PO ×4 (09:03→21:15)
[2021-10-03] MEDS: MAGNESIUM OXIDE 400 MG TABLET PO ×2 (09:03→17:30)
[2021-10-03] MEDS: GABAPENTIN 300 MG CAPSULE PO ×3 (09:03→17:29)
[2021-10-03] MEDS: FUROSEMIDE 20 MG TABLET PO (09:03)
[2021-10-03] MEDS: DULoxetine HCL 30 MG CAPSULE.DR PO (09:04)
[2021-10-03] MEDS: FLUDROCORTISONE ACETATE 0.1 MG TABLET PO (09:04)
[2021-10-03] MEDS: AMANTADINE HCL 100 MG CAPSULE PO ×2 (09:12→21:15)
[2021-10-03 10:15] LABS: Hematocrit 34.5 % (35.0-42.0); Hemoglobin 10.9 g/dL (11.7-13.8); Mean Corpuscular HGB Conc 31.6 g/dL (32.0-36.0); Mean Corpuscular Volume 91.8 fL (78.0-102.0); Mean Platelet Volume 9.3 fl (9.2-11.8); Platelet Count Result 149 K/mm3 (150-420); Red Blood Count 3.76 M/mm3 (4.20-5.40); Red Cell Distribution Width 16.1 % (11.6-14.4); White Blood Count 4.2 K/mm3 (4.8-10.8)
[2021-10-03 10:23] LABS: Anion Gap 5 mmol/L (8-16); Blood Urea Nitrogen 22 mg/dL (7-18); Carbon Dioxide 33 mmol/L (21-32); Chloride 100 mmol/L (98-108); Estimated CRCL calculation 32 ml/min; Estimated Glomerular Filt Rate 44; Glucose 187 mg/dL (70-99); Osmolality Calculated 294 mOsm/kg (285-295); Potassium 3.9 mmol/L (3.5-5.1); Sodium 138 mmol/L (136-145)
--- NOTE | 2021-10-03 10:34 | PM.EVENT ---
Event Note Event Note Event Note: Patient potassium today is 4.0 we will recheck levels in a few days. Patient labs have been drawn some acute kidney injury we will continue with 20 of lasix and not increase dosage I will place patient back on her ARUNA hose to assist with decreasing swelling.
--- NOTE | 2021-10-03 11:07 | PC.NURSE ---
ARUNA knee high hose placed on pt. Pt used her sock device and needed only a small amount of assistance. Pt feels the ARUNA hose will help her.
--- NOTE | 2021-10-03 11:10 | PC.NURSE ---
Knee high TEDS applied by pt , using her Sock device . Pt did very well. Medium knee high fit very well.
--- NOTE | 2021-10-03 16:11 | PM.EVENT ---
Event Note Event Note Event Note: Mrs Nettles is in need of a 2 wheeled walker as she has a significant impaired mobility requiring a walker to safely do ADL at home . This is necessary to reduce risk of injury with performing ADL at home. Mrs Nettles is Alert and able to safely use walker to resolve this mobility deficit
[2021-10-03 16:40] VITALS: BP 136/85; PULSE 101; RESP 18; TEMP 36.5; O2SAT 96
--- NOTE | 2021-10-03 16:50 | PC.NURSE ---
Patients blood glucose 131 per freestyle monitor.
[2021-10-03] MEDS: RIVAROXABAN 15 MG TABLET PO (17:30)
[2021-10-03] MEDS: polyethylene glycoL 3350 17 GM POWD.PACK PO (18:39)
[2021-10-03] MEDS: CARBIDOPA/LEVODOPA 25/100 MG CR TABLET 2 TABLET PO (21:15)
[2021-10-03] MEDS: clonazePAM (*CRX) 0.5 MG TABLET PO (21:16)
[2021-10-03] MEDS: INSULIN DETEMIR 100 UNITS/ML SUB-Q (21:17)
[2021-10-03 23:04] VITALS: BP 124/85; PULSE 98; RESP 17; TEMP 37.3; O2SAT 100
[2021-10-04] VITALS (7 sets, daily range): BP systolic 108–126; BP diastolic 74–87; PULSE 92–118; RESP 16–18; TEMP 36.6–39.5; O2SAT 93–98
[2021-10-04] MEDS: AMOXICILLIN 500 MG CAPSULE BY MOUTH ×2 (06:40→22:44)
[2021-10-04] MEDS: LEVOTHYROXINE SODIUM 112 MCG TABLET PO (06:40)
[2021-10-04] MEDS: POTASSIUM CHLORIDE 20 MEQ TABLET PO (08:13)
[2021-10-04] MEDS: CARBIDOPA/LEVODOPA 25/100 MG TABLET 2 TABLET PO ×4 (09:10→22:43)
[2021-10-04] MEDS: MAGNESIUM OXIDE 400 MG TABLET PO ×2 (09:14→19:55)
[2021-10-04] MEDS: DULoxetine HCL 30 MG CAPSULE.DR PO (09:14)
[2021-10-04] MEDS: GABAPENTIN 300 MG CAPSULE PO ×3 (09:14→19:55)
[2021-10-04] MEDS: CHOLECALCIFEROL 1,000 UNITS TABLET 2000 UNITS PO (09:15)
[2021-10-04] MEDS: FUROSEMIDE 20 MG TABLET PO ×2 (09:15→22:44)
[2021-10-04] MEDS: FLUDROCORTISONE ACETATE 0.1 MG TABLET PO (09:15)
[2021-10-04] MEDS: AMANTADINE HCL 100 MG CAPSULE PO ×2 (09:15→20:56)
--- NOTE | 2021-10-04 19:18 | ECG_ITS ---
Measurements Intervals [place] Rate: 116 P: [place]: 0 QRS: 201 QRSD: 145 T: 159 QT: 355 QTc: 494 Interpretive Statements ATRIAL FIBRILLATION WITH RAPID VENTRICULAR RESPONSE FREQUENT VENTRICULAR PREMATURE COMPLEXES RIGHT AXIS DEVIATION IVCD, FEATURES OF BOTH RBBB/LBBB BASELINE ARTIFACT- I, II, AVR ABNORMAL ECG Electronically Signed On 10-04-2021 20:12:28 CDT by Ashu Santos D.O.
--- NOTE | 2021-10-04 19:22 | PC.NURSE ---
1630 patient sleeping in bed. alert and orient when asked to wake up. claims she is tired and does not want out of bed or supper. bs from her device is 110. kv rn 1710 still sleeping arouses but will not open eyes. claims she is to tired. claims she will not get up. will not eat dinner and will not take meds at this time. kv rn 1740 still claims she will not get up. asks what for dinner, claims sounds good and when she wakes up later she will eat and take meds. denies any c/o besides being tired. kv rn 183 still says she is not hungry and will get up later. vs [id number]/70-95% ra. denies anything but being tired. claims give me a little longer and I will eat and take meds then. kv rn 1900 family here. explained that she refuses to get up, eat , or take meds. claims she is tired. patient agrees with nurse. daughter questions patient several times and finally she claims she is having chest pains that started several hours ago. TUBE BUILDING MACHINE OPERATOR aware of and new orders rec'd. kv rn 0 lab, xray and cardio here. ant waters 1944 103.1 -118-20-108/74-93% ra. daughter remains. prn tyl being given. ant waters
[2021-10-04 19:34] LABS: Basophils Absolute Auto 0.02 K/mm3 (0.00-0.10); Basophils Percent Auto 0.3 % (0.0-1.0); Eosinophils Absolute Auto 0.01 K/mm3 (0.02-0.50); Eosinophils Percent Auto 0.1 % (1.0-6.0); Hematocrit 31.8 % (35.0-42.0); Hemoglobin 10.1 g/dL (11.7-13.8); Immature Granulocyte Absolute 0.02 K/mm3 (0.00-0.00); Immature Granulocyte Percent A 0.3 % (0.0-0.0); Lymphocytes Percent Auto 5.4 % (18.0-42.0); Mean Corpuscular HGB Conc 31.8 g/dL (32.0-36.0); Mean Corpuscular Hemoglobin 29.1 pg (27.0-31.0); Mean Corpuscular Volume 91.6 fL (78.0-102.0); Mean Platelet Volume 9.2 fl (9.2-11.8); Monocytes Absolute Auto 0.56 K/mm3 (0.10-0.90); Monocytes Percent Auto 7.6 % (2.0-11.0); Neutrophils Absolute Auto 6.4 K/mm3 (1.7-7.2); Neutrophils Percent Auto 86.3 % (50.0-70.0); Platelet Count Result 144 K/mm3 (150-420); Red Blood Count 3.47 M/mm3 (4.20-5.40); Red Cell Distribution Width 16.4 % (11.6-14.4); White Blood Count 7.4 K/mm3 (4.8-10.8)
[2021-10-04 19:50] LABS: Alanine Aminotransferase 8 U/L (14-59); Albumin Level 3.3 g/dL (3.4-5.0); Alkaline Phosphatase 77 U/L (46-116); Anion Gap 9 mmol/L (8-16); Aspartate Amino Transferase 21 U/L (15-37); Bilirubin,Total 1.1 mg/dL (0.00-1.00); Blood Urea Nitrogen 19 mg/dL (7-18); Calcium 8.9 mg/dL (8.5-10.1); Carbon Dioxide 28 mmol/L (21-32); Chloride 99 mmol/L (98-108); Estimated CRCL calculation 39 ml/min; Estimated Glomerular Filt Rate 56; Glucose 146 mg/dL (70-99); Osmolality Calculated 287 mOsm/kg (285-295); Sodium 136 mmol/L (136-145); Total Protein 6.6 g/dL (6.4-8.2)
[2021-10-04] MEDS: ACETAMINOPHEN 325 MG TABLET 650 MG PO (19:52)
[2021-10-04] MEDS: RIVAROXABAN 15 MG TABLET PO (19:55)
--- NOTE | 2021-10-04 20:13 | PC.NURSE ---
patient did take supper meds. drowsy does open eyes when spoke to then closes them. still has pain in mid chest sternum when asked and then rubs. drinks diet cola. temp now 102.3 daughter still at bedside.----ant waters
[2021-10-04 20:14] LABS: Troponin I 22.8 ng/L (0.00-60.4)
--- NOTE | 2021-10-04 20:44 | PC.NURSE ---
Charge nurse updated DIONE Lloyd/Hospitalist, on patient's status. New orders received for Covid test and Influenza A&B. Lab notified.
[2021-10-04] MEDS: clonazePAM (*CRX) 0.5 MG TABLET PO (20:56)
[2021-10-04 20:57] LABS: Influenza Control Valid (Valid)
[2021-10-04 20:57] LABS: SARS-CoV-2 Ag Negative (Negative)
[2021-10-04] MEDS: dilTIAZem HCL 30 MG TABLET 60 MG PO (20:57)
--- NOTE | 2021-10-04 21:22 | PC.NURSE ---
patient is more alert and sits on side of bed. still does not want dinner but eats 2 sherberts. did use bsc due to not feeling well. daughter remains. labs work looking good and she is aware. ant waters
--- NOTE | 2021-10-04 21:27 | PC.NURSE ---
Order received to do follow up EKG 6hours after Cardizem is given. Order placed for EKG at 0300. Resp Therapy notified.
[2021-10-04] MEDS: INSULIN DETEMIR 100 UNITS/ML SUB-Q (22:04)
[2021-10-04] MEDS: CARBIDOPA/LEVODOPA 25/100 MG CR TABLET 2 TABLET PO (22:44)
[2021-10-05] VITALS (12 sets, daily range): BP systolic 88–111; BP diastolic 53–96; PULSE 88–106; RESP 18; TEMP 36.7–37.8; O2SAT 94–96
--- NOTE | 2021-10-05 00:05 | PC.NURSE ---
Upon assessment of pt c rounding, pt. is noted to be very lethargic and will awaken c voice. Pt. has some incontinence in depends, pt cooperates to turn and change into new depends, but then will fall asleep again very easily, she reports feeling very tired and weak . BP noted to be 88/57 in Lt arm and retaken in Rt arm at 77/47. Pt will answer short questions and then doze off to sleep again. HR noted 110 at this time. Charge nurse notified to call hospitalist SILVERWARE BUFFER and new orders received.
--- NOTE | 2021-10-05 00:22 | PC.NURSE ---
Notified Susu Hayes about pt's low blood pressure; New orders received and noted.
[2021-10-05] MEDS: SODIUM CHLORIDE 0.9% IV 1,000 ML 75 ML IV CONT (00:42)
--- NOTE | 2021-10-05 00:45 | PC.NURSE ---
IV initiated in Rt. FA and fluids running at controlled rate of 75ml/hr per order. Pt tolerated well, president & ceo [employer] in place c AFIb noted and rate of 93 at this time. Call paul within pt reach.
--- NOTE | 2021-10-05 03:00 | ECG_ITS ---
Measurements Intervals [place] Rate: 90 P: NE: 0 QRS: -19 QRSD: 153 T: 15 QT: 418 QTc: 514 Interpretive Statements ATRIAL FIBRILLATION FREQUENT VENTRICULAR PREMATURE COMPLEXES RIGHT BUNDLE BRANCH BLOCK ABNORMAL ECG Electronically Signed On 10-05-2021 6:46:05 CDT by Ashu Santos D.O.
--- NOTE | 2021-10-05 04:19 | PC.NURSE ---
Upon rounding, pt. noted to still be somewhat lethargic and drowsy, will awaken easily c voice and is able to follow all commands but then will fall asleep again. BP remains soft at 92/54, RR 18, even and nonlabored, Pt. is A&O x3 and answers questions appropriately. NS infusing as per order, monitor continues to show AFib. Call paul within pt reach and verbalizes understanding of use if needed.
[2021-10-05] MEDS: AMOXICILLIN 500 MG CAPSULE BY MOUTH (05:57)
--- NOTE | 2021-10-05 06:05 | PC.NURSE ---
Pt is more awake and alert at this time, pt. asking to use restroom, pt assisted c SBA x2 and use of gait belt and walker to BR, pt. tolerated very well. Pt assisted back to bed, explained POC to pt. and that her daughter is coming to check on her this morning. Pt reports wanting to forget about yesterday . VSS at this time, pt. tolerating fluids well, IVF infusing as per order and pt resting in comfortable position, call paul in reach of pt and she verbalizes understanding.
[2021-10-05] MEDS: LEVOTHYROXINE SODIUM 112 MCG TABLET PO (06:29)
--- NOTE | 2021-10-05 08:07 | PC.NURSE ---
Patient's blood glucose 207 per patient's meter. Patient remains lethargic with T 100.1 temporal. Patient in chair at daughter's request for breakfast. NS continues at 75 ml/hr. IV site WNL.
[2021-10-05] MEDS: CHOLECALCIFEROL 1,000 UNITS TABLET 2000 UNITS PO (08:16)
[2021-10-05] MEDS: DULoxetine HCL 30 MG CAPSULE.DR PO (08:16)
[2021-10-05] MEDS: GABAPENTIN 300 MG CAPSULE PO (08:17)
[2021-10-05] MEDS: POTASSIUM CHLORIDE 20 MEQ TABLET PO (08:17)
[2021-10-05] MEDS: MAGNESIUM OXIDE 400 MG TABLET PO (08:19)
[2021-10-05] MEDS: FLUDROCORTISONE ACETATE 0.1 MG TABLET PO (08:19)
[2021-10-05] MEDS: CARBIDOPA/LEVODOPA 25/100 MG TABLET 2 TABLET PO (08:20)
[2021-10-05] MEDS: FUROSEMIDE 20 MG TABLET PO (08:20)
[2021-10-05] MEDS: AMANTADINE HCL 100 MG CAPSULE PO (08:21)
--- NOTE | 2021-10-05 08:21 | ECG_ITS ---
Measurements Intervals [place] Rate: 91 P: NE: 0 QRS: 87 QRSD: 150 T: 21 QT: 411 QTc: 508 Interpretive Statements ATRIAL FIBRILLATION VENTRICULAR BIGEMINY RIGHT BUNDLE BRANCH BLOCK ABNORMAL ECG Electronically Signed On 10-05-2021 9:27:51 CDT by Ashu Santos D.O.
[2021-10-05] MEDS: ACETAMINOPHEN 325 MG TABLET 650 MG PO (08:23)
--- NOTE | 2021-10-05 08:49 | PC.NURSE ---
10/05/21 08:46 - Nurse Note by Jade Salmeron RN Acct Num: [id number] : 06/17/1934 Patient Age: 87 IV fluids and telemetry removed per MP order. Patient HR converted to sinus rhythm per medication. Hat placed in toilet to collect repeat UA. Tylenol administered for T 100.1 and c/o body aches. Daughter at bedside. Repeat CXR in progress. Initialized on 10/05/21 08:46 - END OF NOTE
--- NOTE | 2021-10-05 09:25 | PC.NURSE ---
Patient T at 99.1 post tylenol and Patient still c/o neck pain.
--- NOTE | 2021-10-05 09:45 | PC.NURSE ---
Metal Moulder went into patient's room and healthcare POA was in room and questioning junior copywriter as to what we are doing to get patient better with the pneumonia. Metal Moulder attempted to explain to POA that there is no specific treatment for viral pneumonia, and that we will be treating the symptoms. POA suggested that we should be doing more, such as fluids. Metal Moulder attempted to explain that with CHF it is imperative to monitor fluid intake carefully. POJef stated, I am FULLY aware! , and dismissed junior copywriter. Metal Moulder offered to get FRONT COUNTER CLERK to explain further. POJef asked for junior copywriter's name in a manor that made junior copywriter feel as though PB was going to report to my superior.
--- NOTE | 2021-10-05 10:32 | WPDPN ---
Progress Note: A&P Assessment and Plan (1) Hypothyroidism: Code(s): E03.9 - Hypothyroidism, unspecified Status: Acute Assessment and Plan: continue your home medication stable (2) Weakness: Code(s): R53.1 - Weakness Status: Acute Assessment and Plan: patient will exhibit tolerance to physical activity and maintain normal vital signs patient will be able to perform activities of daily living independently patient will take in adequate nutrition for healing and strength patient will use appropriate DME to prevent falls (3) GERD (gastroesophageal reflux disease): Code(s): K21.9 - Gastro-esophageal reflux disease without esophagitis Status: Acute (4) Type 2 diabetes mellitus: Code(s): E11.9 - Type 2 diabetes mellitus without complications Status: Acute Assessment and Plan: patient's blood sugars below 200 patient was hypoglycemic episode yesterday treated per protocol continue bedside glucose checks and sliding scale with hypoglycemic protocol 6 units long acting and 4 unit prior to meals discontinue use glipizide and metformin due to hypoglycemic episode A1c was 5.8 last time checked in 2020 continue diabetic diet Hold oral antiglycimic (5) Parkinsons: Code(s): G20 - Parkinson's disease Status: Acute Assessment and Plan: Hallucination monitor continue Carbidopa- levodopa 25-100 ( 1 tab TID) as well as Carbidopa- levodopa 25-100 ER or CR (2 tabs at bedtime) Keep any neurologist at [facility] in [facility] Dany Mason,appointments you may have continue PT/OT. (6) UTI (urinary tract infection): Code(s): N39.0 - Urinary tract infection, site not specified Status: Acute (7) A-fib: Code(s): I48.91 - Unspecified atrial fibrillation Status: Acute Assessment and Plan: Patient followed by Dr. Galindo Per conductor orchestra continue anticoagulant patient is not a candidate for beta-jayla due to severe cardiac ischemia EKG 10/04/2021 indicates A. fib with RVR with a heart rate of 118. Carvedilol 60 mg 1 time given repeat EKG A. fib with a heart rate in the 90s(controlled) According to conductor orchestra patient has a history of going into A. fib with RVR that resolves on its own (8) PNA (pneumonia): Code(s): J18.9 - Pneumonia, unspecified organism Status: Acute Assessment and Plan: Chest x-ray on 10/04/2021 indicate possible viral atypical pneumonia versus edema. Repeat chest x-ray no acute findings WBCs within normal limits Patient febrile continue Tylenol Blood culture and UA culture pending Will continue to monitor Additional Plan I/O's, daily weights, encourage oral hydration Continue oral antibiotics Subjective Date/time seen: 10/05/21 10:32 received a call from nursing overnight that patient seemed to be more fatigued and complained of chest discomfort. EKG indicated that patient was in A. fib with RVR, carvedilol 60 mg given one-time. Repeat EKG indicates A. fib. Spoke with patient's conductor orchestra Dr. Galindo, according to conductor orchestra patient was not placed on beta-jayla due to her hx severe cardiac ischemia. It was advised against starting a beta-jayla. It was also reported by patient's cardiology that she occasionally has A. fib with RVR that resolves on its own. Patient's chest x-ray also indicated viral pneumonia versus edema repeat no acute findings, patient's WBCs troponins, influenza, COVID negative, blood culture and UA culture pending .overnight patient was placed on telemetry given a one-time dose of carvedilol. Due to carvedilol patient's blood pressure slightly dropped ,IV fluids started at a slow rate due to her history of congestive heart failure. Repeat x-ray in the a.m. does not indicate pulmonary edema. It was explained to patient's family members x2 what we were doing to resolve the situation. I printed out patient's
--- NOTE | 2021-10-05 11:53 | PM.DS ---
DS: Admitting Diagnosis Discharge Date 10/05/2021 Admitting Diagnosis Rehab DS: Discharge Diagnosis Discharge Diagnosis (1) Hypothyroidism: Code(s): E03.9 - Hypothyroidism, unspecified Status: Acute Assessment and Plan: continue your home medication stable (2) Weakness: Code(s): R53.1 - Weakness Status: Acute Assessment and Plan: patient will exhibit tolerance to physical activity and maintain normal vital signs patient will be able to perform activities of daily living independently patient will take in adequate nutrition for healing and strength patient will use appropriate DME to prevent falls (3) GERD (gastroesophageal reflux disease): Code(s): K21.9 - Gastro-esophageal reflux disease without esophagitis Status: Acute (4) Type 2 diabetes mellitus: Code(s): E11.9 - Type 2 diabetes mellitus without complications Status: Acute Assessment and Plan: patient's blood sugars below 200 patient was hypoglycemic episode yesterday treated per protocol continue bedside glucose checks and sliding scale with hypoglycemic protocol 6 units long acting and 4 unit prior to meals discontinue use glipizide and metformin due to hypoglycemic episode A1c was 5.8 last time checked in 2020 continue diabetic diet Hold oral antiglycimic (5) Parkinsons: Code(s): G20 - Parkinson's disease Status: Acute Assessment and Plan: Hallucination monitor continue Carbidopa- levodopa 25-100 ( 1 tab TID) as well as Carbidopa- levodopa 25-100 ER or CR (2 tabs at bedtime) Keep any neurologist at [facility] in [facility] Dany Mason,appointments you may have continue PT/OT. (6) UTI (urinary tract infection): Code(s): N39.0 - Urinary tract infection, site not specified Status: Acute (7) A-fib: Code(s): I48.91 - Unspecified atrial fibrillation Status: Acute Assessment and Plan: Patient followed by Dr. Galindo Per sanitary engineering teacher continue anticoagulant patient is not a candidate for beta-jayla due to severe cardiac ischemia EKG 10/04/2021 indicates A. fib with RVR with a heart rate of 118. Carvedilol 60 mg 1 time given repeat EKG A. fib with a heart rate in the 90s(controlled) According to sanitary engineering teacher patient has a history of going into A. fib with RVR that resolves on its own (8) PNA (pneumonia): Code(s): J18.9 - Pneumonia, unspecified organism Status: Acute Assessment and Plan: Chest x-ray on 10/04/2021 indicate possible viral atypical pneumonia versus edema. Repeat chest x-ray no acute findings WBCs within normal limits Patient febrile continue Tylenol Blood culture and UA culture pending Will continue to monitor (9) Mood disorder: Code(s): F39 - Unspecified mood [affective] disorder Status: Acute DS: Summary Hospital Course Reason for hospitalization: Rehab Hospital Course: 10:32 received a call from nursing overnight that patient seemed to be more fatigued and complained of chest discomfort. EKG indicated that patient was in A. fib with RVR, carvedilol 60 mg given one-time. Repeat EKG indicates A. fib. Spoke with patient's sanitary engineering teacher Dr. Galindo, according to sanitary engineering teacher patient was not placed on beta-jayla due to her hx severe cardiac ischemia. It was advised against starting a beta-jayla. It was also reported by patient's cardiology that she occasionally has A. fib with RVR that resolves on its own. Patient's chest x-ray also indicated viral pneumonia versus edema repeat no acute findings, patient's WBCs troponins, influenza, COVID negative, blood culture and UA culture pending .overnight patient was placed on telemetry given a one-time dose of carvedilol. Due to carvedilol patient's blood pressure slightly dropped ,IV fluids started at a slow rate due to her history of congestive heart failure. Repeat x-ray in the a.m. does not indicate
--- NOTE | 2021-10-05 11:53 | PC.NURSE ---
1140 called to room per pt . patient sitting on side of bed. head slumped over. drowsy but will respond. bp 174/144 and hr 170 per data scope. retaken and bp 86/43 and hr 130. manually 90/60 and hr 100. patient is lying down at this time. skin is warm and pale. will talk but not open eyes. sonda aware and is at bedside. ant waters 1145 patient is now dc from skilled swing and is now obs with tele. ant waters
--- NOTE | 2021-10-05 12:34 | PC.NURSE ---
Patient's blood glucose at 1130 was 176 per patient's glucometer.
== END 2021-10-05 11:44 | disposition short-term general hospital (02) | DRG 947 ==
PROVIDERS: Nurse Practitioner; Nurse Practitioner Family; Admitting Provider Internal Medicine; PCP Family Medicine; Visit Provider Internal Medicine
DX: R53.1 Weakness (principal); J12.9 Viral pneumonia, unspecified; N39.0 Urinary tract infection, site not specified; I48.20 Chronic atrial fibrillation, unspecified; G90.3 Multi-system degeneration of the autonomic nervous system; I50.9 Heart failure, unspecified; N18.9 Chronic kidney disease, unspecified; E11.22 Type 2 diabetes mellitus with diabetic chronic kidney disease; E03.9 Hypothyroidism, unspecified; I73.00 Raynaud's syndrome without gangrene; I69.391 Dysphagia following cerebral infarction; K21.9 Gastro-esophageal reflux disease without esophagitis; G20 Parkinson's disease; M10.9 Gout, unspecified; R42 Dizziness and giddiness; Z96.659 Presence of unspecified artificial knee joint; Z20.822 Contact with and (suspected) exposure to COVID-19; Z79.01 Long term (current) use of anticoagulants
CPT/HCPCS: 36415; 71045; 80048; 80053; 82948; 84484; 85025; 85027; 87040; 87426; 87804; 93005; 97110; 97161; 97165; 97530; 97535; A9270; C9803; J1815; J7030

== ENCOUNTER 2021-10-05 11:46 | Observation (INO) | payer MEDICARE, SELFPAY ==
--- NOTE | 2021-10-05 13:00 | PM.IMHP ---
H&P: HPI History of Present Illness Date/Time: 10/05/21 13:0010:32 received a call from nursing overnight that patient seemed to be more fatigued and complained of chest discomfort. EKG indicated that patient was in A. fib with RVR, carvedilol 60 mg given one-time. Repeat EKG indicates A. fib. Spoke with patient's education associate Dr. Galindo, according to education associate patient was not placed on beta-jayla due to her hx severe cardiac ischemia. It was advised against starting a beta-jayla. It was also reported by patient's cardiology that she occasionally has A. fib with RVR that resolves on its own. Patient's chest x-ray also indicated viral pneumonia versus edema repeat no acute findings, patient's WBCs troponins, influenza, COVID negative, blood culture and UA culture pending .overnight patient was placed on telemetry given a one-time dose of carvedilol. Due to carvedilol patient's blood pressure slightly dropped ,IV fluids started at a slow rate due to her history of congestive heart failure. Repeat x-ray in the a.m. does not indicate pulmonary edema. It was explained to patient's family members x2 what we were doing to resolve the situation. I printed out patient's lab results along with her imaging results from yesterday and repeat and informed him that her condition has improved according to diagnostic testing. Patient is due to discharge tomorrow family is concerned about her discharging in her condition. I explained to family that patient is not having any shortness of breath, or chest pain her only symptom is fatigue which is probably due to her viral infection. It was explained to them that the remedy to treat fatigue is resting. Also informed family that medically we do not have a reason to keep patients but we will reevaluate tomorrow and referred her to case management for further answers. 11:56-according to physical therapy patient blood pressure reading was extremely high and notes that her heart rate went into 130s repeat blood pressure reading indicated hypotension patient also reports of lightheadedness. Patient will transition from swing bed to a inpatient observation with telemetry in place. Chief Complaint: Lightheaded, fatigue Review of Systems Review of Systems: A 14 organ system Review of Systems was performed and pertinent positives included in the HPI, otherwise remaining ROS is negative. [facility] Past Medical History Medical History Abrasion of right middle finger Acute sinusitis 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) GERD (gastroesophageal reflux disease) Gout Hypothyroidism Kidney disease Orthostatic hypotension Parkinsons Raynauds phenomenon Rheumatic fever Shingles TIA (transient ischemic attack) Type 2 diabetes mellitus Viral upper respiratory illness Surgical History Surgical History History of cardiac cath History of cholecystectomy History of total knee arthroplasty S/P repair of ventral hernia Status post gastroplasty Family History Family History Sibling Pancreatic cancer Breast cancer Sibling Kidney disease Mother Cancer Pancreatic cancer Father COPD (chronic obstructive pulmonary disease) Son Diabetes mellitus Social History Social History Smoking status: Never smoker Alcohol intake: never Substance use: never Gender identity (if verbalized by the patient): Female Spiritual care concerns: No Meds Home Medications and Allergies Home Medications Medication Instructions Recorded Confirmed Type amantadine HCl 100 mg PO BID 11/07/19 10/05/21 History magnesium oxide 400 mg PO BID 11/07/19 09/27/21 History cholecalciferol (vitamin D3) 50 50 mcg PO DAILY 30 Days #30 tablet 12/25/19
[2021-10-05 13:22] VITALS: BMI 26.4
[2021-10-05] MEDS: CARBIDOPA/LEVODOPA 25/100 MG TABLET 2 TABLET PO ×3 (13:57→21:10)
[2021-10-05] MEDS: AMOXICILLIN 500 MG CAPSULE PO ×2 (14:06→21:09)
[2021-10-05] MEDS: GABAPENTIN 300 MG CAPSULE PO ×2 (14:07→17:32)
--- NOTE | 2021-10-05 14:47 | PHAR ---
CONFIRMED PT.'S HOME CARBIDOPA/LEVIDOPA REGIMEN WITH [facility]. SHE TAKES A 25MG/100MG IR TAB, 2 TABS QID. AND ALSO TAKES AN ER TAB 50MG/200MG QHS. TLS
[2021-10-05] MEDS: FLUDROCORTISONE ACETATE 0.1 MG TABLET PO (15:46)
[2021-10-05] MEDS: ACETAMINOPHEN 325 MG TABLET 650 MG PO (15:46)
[2021-10-05 15:59] LABS: SARS-CoV-2 RNA PCR Negative (Negative)
[2021-10-05 16:00] VITALS: BP 101/41; PULSE 81; PULSE 83; RESP 16; TEMP 37.2; O2SAT 93
[2021-10-05] MEDS: MAGNESIUM OXIDE 400 MG TABLET PO (17:32)
[2021-10-05] MEDS: DOCUSATE SODIUM 100 MG CAPSULE PO (17:33)
--- NOTE | 2021-10-05 19:07 | PC.NURSE ---
Drapery Maker attempted to administer rocephin IV to patient. Family refused and demanded that we call [employer] and find out why med was ordered. Drapery Maker spoke with [employer] and [employer] said that she would D/C the order, that it was meant to be preventative d/t elevated temperature and recent hx of UTI, but will wait until blood cultures return.
--- NOTE | 2021-10-05 19:17 | PC.NURSE ---
Family has been transferring patient to and from toilet, chair and bed.
[2021-10-05 20:00] VITALS: BP 90/46; BP 90/65; PULSE 95; RESP 16; TEMP 36.8; O2SAT 95
[2021-10-05 20:05] VITALS: BP 110/70
[2021-10-05 20:15] VITALS: BP 110/70
[2021-10-05] MEDS: CARBIDOPA/LEVODOPA 25/100 MG CR TABLET 2 TABLET PO (21:09)
[2021-10-05] MEDS: clonazePAM (*CRX) 0.5 MG TABLET PO (21:10)
[2021-10-05] MEDS: AMANTADINE HCL 100 MG CAPSULE PO (21:11)
--- NOTE | 2021-10-05 21:30 | PC.NURSE ---
Patient Blood glucose 146. 143 at 1999. Patient 's usual dose of HS levemir is not on the MAR. Charge nurse checking on status of medication
[2021-10-05] MEDS: INSULIN DETEMIR 100 UNITS/ML SUB-Q (21:59)
[2021-10-05 22:29] LABS: Add Urine Microscopic? YES; Appearance Urine Clear (Clear); Bilirubin Urine Negative (Negative); Blood Urine Negative (Negative); Color Urine Yellow (Yellow); Glucose Urine UA Negative (Negative); Ketones Urine Negative (Negative); Leukocyte Esterase Ur Trace LEU/UL (Negative); Nitrate Urine Negative (Negative); Protein Urine Negative (Negative); Urobilinogen Urine 0.2 mg/dL (0.2-1.0)
[2021-10-05 22:45] LABS: Bacteria Urine Trace /hpf; RBC Urine 0-2 /hpf (0-2); Squamous Epithelial Cell Urine Rare /hpf (Few); WBC Urine 0-3 /hpf (0-3)
[2021-10-06] VITALS: BP 93/65; PULSE 92; PULSE 95; RESP 18; TEMP 37.2; O2SAT 94
--- NOTE | 2021-10-06 00:15 | PC.NURSE ---
Pt resting comfortably, awakens easily to voice and follows commands, answers questions appropriately, VSS at this time, monitor continues to show AFib, pt. voices no c/o or discomfort at this time. Call paul within pt reach.
[2021-10-06 03:54] VITALS: PULSE 96
[2021-10-06 04:00] VITALS: BP 98/53; PULSE 96; RESP 20; TEMP 37; O2SAT 95
[2021-10-06] MEDS: AMOXICILLIN 500 MG CAPSULE PO ×2 (06:01→13:10)
[2021-10-06] MEDS: LEVOTHYROXINE SODIUM 112 MCG TABLET PO (06:30)
--- NOTE | 2021-10-06 06:32 | PC.NURSE ---
Pt awake, A&O x3, reports feeling better, TV turned on and pt repositioned herself in bed. No c/o at this time, call paul at pt side.
[2021-10-06 08:00] VITALS: BP 118/64; PULSE 113; RESP 20; TEMP 37.7; O2SAT 94
[2021-10-06] MEDS: CARBIDOPA/LEVODOPA 25/100 MG TABLET 2 TABLET PO ×3 (08:33→16:59)
[2021-10-06] MEDS: CHOLECALCIFEROL 1,000 UNITS TABLET 2000 UNITS PO (08:33)
[2021-10-06] MEDS: DULoxetine HCL 30 MG CAPSULE.DR PO (08:33)
[2021-10-06] MEDS: MAGNESIUM OXIDE 400 MG TABLET PO ×2 (08:33→16:58)
[2021-10-06] MEDS: GABAPENTIN 300 MG CAPSULE PO ×3 (08:33→16:58)
[2021-10-06] MEDS: FLUDROCORTISONE ACETATE 0.1 MG TABLET 0.2 MG PO (08:34)
[2021-10-06] MEDS: FUROSEMIDE 40 MG TABLET PO (08:34)
[2021-10-06] MEDS: AMANTADINE HCL 100 MG CAPSULE PO (08:34)
[2021-10-06] MEDS: POTASSIUM CHLORIDE 20 MEQ TABLET PO (08:34)
[2021-10-06] MEDS: DOCUSATE SODIUM 100 MG CAPSULE PO ×2 (08:34→16:59)
[2021-10-06] MEDS: RIVAROXABAN 15 MG TABLET PO (08:35)
[2021-10-06 08:49] LABS: Lactic Acid Reflex 1.1 mmol/L (0.7-2.0)
--- NOTE | 2021-10-06 12:13 | P.PN_ITS ---
Progress Note: A&P Assessment and Plan (1) PNA (pneumonia): Code(s): J18.9 - Pneumonia, unspecified organism Status: Acute Assessment and Plan: * Chest x-ray on 10/04/2021 indicate possible viral atypical pneumonia versus edema. Repeat chest x-ray no acute findings * WBCs within normal limits * Patient febrile continue Tylenol * Blood culture and UA culture pending * Will continue to monitor * Lactic acid 1. * Attempted to give patient 1 dose of Rocephin yesterday family members refuse (2) A-fib: Code(s): I48.91 - Unspecified atrial fibrillation Status: Acute Assessment and Plan: * Patient followed by Dr. Galindo * Per novelty candy maker continue anticoagulant patient is not a candidate for beta- jayla due to severe cardiac ischemia * EKG 10/04/2021 indicates A. fib with RVR with a heart rate of 118. Carvedilol 60 mg 1 time given repeat EKG A. fib with a heart rate in the 90s(controlled) * According to novelty candy maker patient has a history of going into A. fib with RVR that resolves on its own * Continue telemetry (3) UTI (urinary tract infection): Code(s): N39.0 - Urinary tract infection, site not specified Status: Acute Assessment and Plan: * Patient discharged from [facility] due to UTI * Unsure of the organism * Repeat UA does not indicate UTI (4) Raynauds phenomenon: Code(s): I73.00 - Raynaud's syndrome without gangrene Status: Acute (5) Hypothyroidism: Code(s): E03.9 - Hypothyroidism, unspecified Status: Acute Assessment and Plan: * Continue home medication (6) Orthostatic hypotension: Code(s): I95.1 - Orthostatic hypotension Status: Acute Assessment and Plan: * Chronic * 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 per family member * Will start orthostatics blood pressure readings * Will increase fludrocortisone from 0.1>0.2 (7) Kidney disease: Code(s): N28.9 - Disorder of kidney and ureter, unspecified Status: Acute Assessment and Plan: * Stable * BUN23 creatinine1.17 baseline within normal limit * Avoid nephrotoxic agent * Will renal dose medication (8) GERD (gastroesophageal reflux disease): Code(s): K21.9 - Gastro-esophageal reflux disease without esophagitis Status: Acute Assessment and Plan: * Started pantoprazole (9) Type 2 diabetes mellitus: Code(s): E11.9 - Type 2 diabetes mellitus without complications Status: Acute Assessment and Plan: * Stable * Continue home medication along with Accu-Cheks sliding scale hypoglycemic protocol * Will adjust medication as needed (10) Parkinsons: Code(s): G20 - Parkinson's disease Status: Acute Assessment and Plan: * Continue carbo levodopa (11) Febrile: Code(s): R50.9 - Fever, unspecified Status: Acute Assessment and Plan: * Possibly secondary to viral pneumonia versus viral illness * Received report from nursing staff the patient has recent exposure to COVID * COVID rapid negative, COVID PCR negative * Continue Tylenol * Blood culture pending * WBCs within normal limits * Lactic acid within normal limits * Patient on amoxicillin until Saturday for UTI Subjective Date/time seen: 10/06/21 12:13 patient is at baseline today she is up talking and does not appear to be as fatigued as the previous day. Family members was informed that once patient is discharged she will more than likely need 24-hour care. I was informed by her daughter that her novelty candy maker also told her that 2
--- NOTE | 2021-10-06 12:13 | WPDPN ---
Progress Note: A&P Assessment and Plan (1) PNA (pneumonia): Code(s): J18.9 - Pneumonia, unspecified organism Status: Acute Assessment and Plan: Chest x-ray on 10/04/2021 indicate possible viral atypical pneumonia versus edema. Repeat chest x-ray no acute findings WBCs within normal limits Patient febrile continue Tylenol Blood culture and UA culture pending Will continue to monitor Lactic acid 1. Attempted to give patient 1 dose of Rocephin yesterday family members refuse (2) A-fib: Code(s): I48.91 - Unspecified atrial fibrillation Status: Acute Assessment and Plan: Patient followed by Dr. Galindo Per blower and compressor assembler continue anticoagulant patient is not a candidate for beta-jayla due to severe cardiac ischemia EKG 10/04/2021 indicates A. fib with RVR with a heart rate of 118. Carvedilol 60 mg 1 time given repeat EKG A. fib with a heart rate in the 90s(controlled) According to blower and compressor assembler patient has a history of going into A. fib with RVR that resolves on its own Continue telemetry (3) UTI (urinary tract infection): Code(s): N39.0 - Urinary tract infection, site not specified Status: Acute Assessment and Plan: Patient discharged from [facility] due to UTI Unsure of the organism Repeat UA does not indicate UTI (4) Raynauds phenomenon: Code(s): I73.00 - Raynaud's syndrome without gangrene Status: Acute (5) Hypothyroidism: Code(s): E03.9 - Hypothyroidism, unspecified Status: Acute Assessment and Plan: Continue home medication (6) Orthostatic hypotension: Code(s): I95.1 - Orthostatic hypotension Status: Acute Assessment and Plan: Chronic 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 per family member Will start orthostatics blood pressure readings Will increase fludrocortisone from 0.1>0.2 (7) Kidney disease: Code(s): N28.9 - Disorder of kidney and ureter, unspecified Status: Acute Assessment and Plan: Stable BUN23 creatinine1.17 baseline within normal limit Avoid nephrotoxic agent Will renal dose medication (8) GERD (gastroesophageal reflux disease): Code(s): K21.9 - Gastro-esophageal reflux disease without esophagitis Status: Acute Assessment and Plan: Started pantoprazole (9) Type 2 diabetes mellitus: Code(s): E11.9 - Type 2 diabetes mellitus without complications Status: Acute Assessment and Plan: Stable Continue home medication along with Accu-Cheks sliding scale hypoglycemic protocol Will adjust medication as needed (10) Parkinsons: Code(s): G20 - Parkinson's disease Status: Acute Assessment and Plan: Continue carbo levodopa (11) Febrile: Code(s): R50.9 - Fever, unspecified Status: Acute Assessment and Plan: Possibly secondary to viral pneumonia versus viral illness Received report from nursing staff the patient has recent exposure to COVID COVID rapid negative, COVID PCR negative Continue Tylenol Blood culture pending WBCs within normal limits Lactic acid within normal limits Patient on amoxicillin until Saturday for UTI Subjective Date/time seen: 10/06/21 12:13 patient is at baseline today she is up talking and does not appear to be as fatigued as the previous day. Family members was informed that once patient is discharged she will more than likely need 24-hour care. I was informed by her daughter that her blower and compressor assembler also told her that 2 weeks ago. In the past placement has been discussed with family members and declined. It was discussed once again and apparently family needs more time to make arrangements before discharge. Although patient has been here for several weeks there is still med adjustment changes be made per family request. PT has approved for patient to remain for additional weeks. She will transition back to swing bed tomorrow. The patient denies SOB, CP, palpitati
--- NOTE | 2021-10-06 13:05 | PCPTNOTE ---
10/06/21 - patient was seen under observation status this date. she is transitioning to a skilled swing bed again tomorrow and thus no POC written under the observation. PETER
--- NOTE | 2021-10-06 15:45 | PC.NURSE ---
family requesting pt transfer to [facility] for cardiac per dr fernando, message left for sonda by charge nurse, 2 visitors in room at this time
[2021-10-06 16:00] VITALS: BP 112/76; PULSE 95; RESP 16; TEMP 37.4; O2SAT 94
--- NOTE | 2021-10-06 16:18 | PC.NURSE ---
1600 family at nurse station on their cell phone wanting to talk with tabby about having mom transferred to her child development specialist. they have child development specialist's nurse on their phone. call out raffi mcnair. tabby called back and given info and the # the family wants us to call given to her. ant waters [id number] tabby called back and has talked with will take her after we go through [facility]. tabby is is setting that up. family aware that she will be transferred when everything is set up and bed assigned to us. family asking if it has to be tonight, can it be tomorrow, explained to them that she will need to go by ambulance and we will need to send her when they assign us a bed. This may happen quickly and then it may take some time and the steps of transfer explained. informed we will keep them abreast of movement in transfer. ant waters
--- NOTE | 2021-10-06 16:30 | P.DS_ITS ---
DS: Admitting Diagnosis Discharge Date 10/06/21 Admitting Diagnosis afib with rvr DS: Discharge Diagnosis Discharge Diagnosis (1) PNA (pneumonia): Code(s): J18.9 - Pneumonia, unspecified organism Status: Acute Assessment and Plan: * Chest x-ray on 10/04/2021 indicate possible viral atypical pneumonia versus edema. Repeat chest x-ray no acute findings * WBCs within normal limits * Patient febrile continue Tylenol * Blood culture and UA culture pending * Will continue to monitor * Lactic acid 1. * Attempted to give patient 1 dose of Rocephin yesterday family members refuse (2) A-fib: Code(s): I48.91 - Unspecified atrial fibrillation Status: Acute Assessment and Plan: * controlled * Patient followed by Dr. Galindo * Per assorter continue anticoagulant patient is not a candidate for beta- jayla due to severe cardiac ischemia * EKG 10/04/2021 indicates A. fib with RVR with a heart rate of 118. Carvedilol 60 mg 1 time given repeat EKG A. fib with a heart rate in the 90s(controlled) * According to assorter patient has a history of going into A. fib with RVR that resolves on its own * Continue telemetry (3) UTI (urinary tract infection): Code(s): N39.0 - Urinary tract infection, site not specified Status: Acute Assessment and Plan: * Patient discharged from [facility] due to UTI * Unsure of the organism * Repeat UA does not indicate UTI (4) Raynauds phenomenon: Code(s): I73.00 - Raynaud's syndrome without gangrene Status: Acute (5) Hypothyroidism: Code(s): E03.9 - Hypothyroidism, unspecified Status: Acute Assessment and Plan: * Continue home medication (6) Orthostatic hypotension: Code(s): I95.1 - Orthostatic hypotension Status: Acute Assessment and Plan: * Chronic * 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 per family member * Will start orthostatics blood pressure readings * Will increase fludrocortisone from 0.1>0.2 (7) Kidney disease: Code(s): N28.9 - Disorder of kidney and ureter, unspecified Status: Acute Assessment and Plan: * Stable * BUN23 creatinine1.17 baseline within normal limit * Avoid nephrotoxic agent * Will renal dose medication (8) GERD (gastroesophageal reflux disease): Code(s): K21.9 - Gastro-esophageal reflux disease without esophagitis Status: Acute Assessment and Plan: * Started pantoprazole (9) Type 2 diabetes mellitus: Code(s): E11.9 - Type 2 diabetes mellitus without complications Status: Acute Assessment and Plan: * Stable * Continue home medication along with Accu-Cheks sliding scale hypoglycemic protocol * Will adjust medication as needed (10) Parkinsons: Code(s): G20 - Parkinson's disease Status: Acute Assessment and Plan: * Continue carbo levodopa (11) Febrile: Code(s): R50.9 - Fever, unspecified Status: Acute Assessment and Plan: * Possibly secondary to viral pneumonia versus viral illness * Received report from nursing staff the patient has recent exposure to COVID * COVID rapid negative, COVID PCR negative * Continue Tylenol * Blood culture pending * WBCs within normal limits * Lactic acid within normal limits * Patient on amoxicillin until Saturday for UTI DS: Summary Hospital Course Hospital Course: patient is at baseline today she is up talking and does not appear to be as fatigued as the previous day. Family members was informed that once patient
--- NOTE | 2021-10-06 16:30 | PM.DS ---
DS: Admitting Diagnosis Discharge Date 10/06/21 Admitting Diagnosis afib with rvr DS: Discharge Diagnosis Discharge Diagnosis (1) PNA (pneumonia): Code(s): J18.9 - Pneumonia, unspecified organism Status: Acute Assessment and Plan: Chest x-ray on 10/04/2021 indicate possible viral atypical pneumonia versus edema. Repeat chest x-ray no acute findings WBCs within normal limits Patient febrile continue Tylenol Blood culture and UA culture pending Will continue to monitor Lactic acid 1. Attempted to give patient 1 dose of Rocephin yesterday family members refuse (2) A-fib: Code(s): I48.91 - Unspecified atrial fibrillation Status: Acute Assessment and Plan: controlled Patient followed by Dr. Galindo Per paving and surfacing labourer continue anticoagulant patient is not a candidate for beta-jayla due to severe cardiac ischemia EKG 10/04/2021 indicates A. fib with RVR with a heart rate of 118. Carvedilol 60 mg 1 time given repeat EKG A. fib with a heart rate in the 90s(controlled) According to paving and surfacing labourer patient has a history of going into A. fib with RVR that resolves on its own Continue telemetry (3) UTI (urinary tract infection): Code(s): N39.0 - Urinary tract infection, site not specified Status: Acute Assessment and Plan: Patient discharged from [facility] due to UTI Unsure of the organism Repeat UA does not indicate UTI (4) Raynauds phenomenon: Code(s): I73.00 - Raynaud's syndrome without gangrene Status: Acute (5) Hypothyroidism: Code(s): E03.9 - Hypothyroidism, unspecified Status: Acute Assessment and Plan: Continue home medication (6) Orthostatic hypotension: Code(s): I95.1 - Orthostatic hypotension Status: Acute Assessment and Plan: Chronic 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 per family member Will start orthostatics blood pressure readings Will increase fludrocortisone from 0.1>0.2 (7) Kidney disease: Code(s): N28.9 - Disorder of kidney and ureter, unspecified Status: Acute Assessment and Plan: Stable BUN23 creatinine1.17 baseline within normal limit Avoid nephrotoxic agent Will renal dose medication (8) GERD (gastroesophageal reflux disease): Code(s): K21.9 - Gastro-esophageal reflux disease without esophagitis Status: Acute Assessment and Plan: Started pantoprazole (9) Type 2 diabetes mellitus: Code(s): E11.9 - Type 2 diabetes mellitus without complications Status: Acute Assessment and Plan: Stable Continue home medication along with Accu-Cheks sliding scale hypoglycemic protocol Will adjust medication as needed (10) Parkinsons: Code(s): G20 - Parkinson's disease Status: Acute Assessment and Plan: Continue carbo levodopa (11) Febrile: Code(s): R50.9 - Fever, unspecified Status: Acute Assessment and Plan: Possibly secondary to viral pneumonia versus viral illness Received report from nursing staff the patient has recent exposure to COVID COVID rapid negative, COVID PCR negative Continue Tylenol Blood culture pending WBCs within normal limits Lactic acid within normal limits Patient on amoxicillin until Saturday for UTI DS: Summary Hospital Course Hospital Course: patient is at baseline today she is up talking and does not appear to be as fatigued as the previous day. Family members was informed that once patient is discharged she will more than likely need 24-hour care. I was informed by her daughter that her paving and surfacing labourer also told her that 2 weeks ago. In the past placement has been discussed with family members and declined. It was discussed once again and apparently family needs more time to make arrangements before discharge. Although patient has been here for several weeks there is still med adjustment changes be made per family request. PT has approved for patient to remain fo
--- NOTE | 2021-10-06 17:21 | PC.NURSE ---
[address] back and dr. shen has excepted and now waiting for bed assignment. [facility]
--- NOTE | 2021-10-06 18:54 | PC.NURSE ---
report given to juan rn, nurse requests family not come up until tomorrow unless medically necessary, family is aware of this and that their visiting hours are 8-8, daughter will take belongings home and walker
--- NOTE | 2021-10-06 19:27 | PC.NURSE ---
1829 peru called for report. going to room# [id number] called for [facility] transfer. family made aware. [facility] 1924 eliza here and report given to them and care turned over. [facility]
== END 2021-10-06 19:25 | disposition short-term general hospital (02) ==
PROVIDERS: Nurse Practitioner; Admitting Provider Internal Medicine; PCP Family Medicine; Visit Provider Internal Medicine
DX: I48.20 Chronic atrial fibrillation, unspecified (principal); R50.9 Fever, unspecified; I95.1 Orthostatic hypotension; I50.9 Heart failure, unspecified; N18.9 Chronic kidney disease, unspecified; E11.22 Type 2 diabetes mellitus with diabetic chronic kidney disease; I69.391 Dysphagia following cerebral infarction; R13.10 Dysphagia, unspecified; K21.9 Gastro-esophageal reflux disease without esophagitis; I73.00 Raynaud's syndrome without gangrene; E03.9 Hypothyroidism, unspecified; M10.9 Gout, unspecified; G20 Parkinson's disease; Z20.822 Contact with and (suspected) exposure to COVID-19; Z96.659 Presence of unspecified artificial knee joint
CPT/HCPCS: 36415; 81001; 83605; 97161; 97165; A9270; C9803; G0378; G0379; J1815; U0003; U0005

== ENCOUNTER 2021-10-11 17:08 | Inpatient (IN) | payer MEDICARE, SELFPAY ==
[2021-10-11 17:25] VITALS: BP 130/50; PULSE 80; RESP 16; TEMP 36.1; O2SAT 94
--- NOTE | 2021-10-11 17:25 | ADMGEN ---
This patient, Hortencia Nettles, was admitted to 2nd Floor Room 209-1. Patient/family oriented to hospital policies and general routines including ID bracelet, bed and alarms, visiting hours, pain management, procedures, bathroom and other care routines, personal items, smoking policy, room service/diet, and visiting hours. Information on how to activate the Rapid Response Team has been discussed. Patient/Family are encouraged to report perceived risks to care and to ask questions if they do not understand what they are told or what they should do. Pt son at bedside. Pt eating dinner. No complaints. No distress.
[2021-10-11 18:21] VITALS: BP 130/50; PULSE 80; RESP 16; TEMP 36.1; O2SAT 94
[2021-10-11 22:49] VITALS: PULSE 60
[2021-10-11] MEDS: AMIODARONE HCL 200 MG TABLET 400 MG PO (22:49)
[2021-10-11] MEDS: CARBIDOPA/LEVODOPA 25/100 MG TABLET 2 TABLET PO (22:50)
[2021-10-11] MEDS: AMANTADINE HCL 100 MG CAPSULE PO (22:51)
[2021-10-11] MEDS: INSULIN DETEMIR 100 UNITS/ML SUB-Q (22:55)
[2021-10-11] MEDS: CARBIDOPA/LEVODOPA 25/100 MG CR TABLET 2 TABLET PO (22:55)
[2021-10-12] VITALS: BP 128/58; PULSE 60; RESP 16; TEMP 36.4; O2SAT 97
[2021-10-12] MEDS: LEVOTHYROXINE SODIUM 112 MCG TABLET PO (06:01)
--- NOTE | 2021-10-12 07:30 | PC.NURSE ---
Pt blood sugar 111 on freestyle device.
[2021-10-12 08:00] VITALS: BP 121/80; PULSE 64; RESP 16; TEMP 36.1; O2SAT 100
[2021-10-12 09:06] VITALS: PULSE 64
[2021-10-12] MEDS: CARBIDOPA/LEVODOPA 25/100 MG TABLET 2 TABLET PO ×4 (09:06→21:35)
[2021-10-12] MEDS: CHOLECALCIFEROL 1,000 UNITS TABLET 2000 UNITS PO (09:06)
[2021-10-12] MEDS: AMIODARONE HCL 200 MG TABLET 400 MG PO ×2 (09:06→21:35)
[2021-10-12] MEDS: MAGNESIUM OXIDE 400 MG TABLET PO ×2 (09:07→17:05)
[2021-10-12] MEDS: GABAPENTIN 300 MG CAPSULE PO ×3 (09:07→17:05)
[2021-10-12] MEDS: DULoxetine HCL 30 MG CAPSULE.DR PO (09:07)
[2021-10-12] MEDS: FLUDROCORTISONE ACETATE 0.1 MG TABLET PO (09:08)
[2021-10-12] MEDS: CYANOCOBALAMIN 1,000 MCG TABLET 1000 MCG PO (09:08)
[2021-10-12] MEDS: FUROSEMIDE 20 MG TABLET PO (09:08)
[2021-10-12] MEDS: RIVAROXABAN 15 MG TABLET PO (09:08)
[2021-10-12] MEDS: AMANTADINE HCL 100 MG CAPSULE PO ×2 (09:16→21:37)
--- NOTE | 2021-10-12 10:36 | PM.IMHP ---
H&P: HPI History of Present Illness Date/Time: 10/12/21 10:36 Chief Complaint: Weakness and Strengthening Narrative: This is a 81-year-old female that was admitted into the hospital at [facility] in [facility] A. fib with RVR which is chronic and had a cardioversion and then was transferred back for swing bed. When patient presented she was back at baseline was able to get up on her own ambulate with a walker and requires very minimal assistance. Patient has a past medical history of cancer, diabetes, GERD, gout, kidney disease, Parkinson's disease, lightheadedness, dizziness with posterior changes. At this time patient will be here for short-term stay to work with therapy just to ensure that she is back to her baseline and then she will go home with home health. Patient was started on amiodarone 400 mg twice daily in which she then will be changed to 200 mg daily on October 19. At this time patient is able to eat and drink dress cell and ambulate with walker without any difficulties patient has been afebrile. And we will continue to monitor her. Ms. Nettles is on 20 mg of Lasix which is her home dosage and her labs are at baseline. Review of Systems Review of Systems: A 14 organ system Review of Systems was performed and pertinent positives included in the HPI, otherwise remaining ROS is negative. All systems reviewed & are unremarkable except as noted in HPI and below PMFSH Past Medical History Medical History Abrasion of right middle finger Acute sinusitis 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) GERD (gastroesophageal reflux disease) Gout Hypothyroidism Kidney disease Orthostatic hypotension Parkinsons Raynauds phenomenon Rheumatic fever Shingles TIA (transient ischemic attack) Type 2 diabetes mellitus Viral upper respiratory illness Surgical History Surgical History History of cardiac cath History of cholecystectomy History of total knee arthroplasty S/P repair of ventral hernia Status post gastroplasty Family History Family History Sibling Pancreatic cancer Breast cancer Sibling Kidney disease Mother Cancer Pancreatic cancer Father COPD (chronic obstructive pulmonary disease) Son Diabetes mellitus Social History Social History Smoking status: Never smoker Alcohol intake: never Substance use: never Substance use type: does not use Gender identity (if verbalized by the patient): Female Spiritual care concerns: No Meds Home Medications and Allergies Home Medications Medication Instructions Recorded Confirmed Type amantadine HCl 100 mg capsule 100 mg PO BID 11/07/19 10/11/21 History magnesium oxide 400 mg PO BID 11/07/19 10/11/21 History insulin aspart U-100 100 unit/mL 4 unit subcut TIDWMEAL 05/17/20 10/11/21 History subcutaneous solution (Novolog U-100 Insulin aspart) insulin detemir U-100 100 unit/mL 3 unit subcut HS 05/17/20 10/11/21 History subcutaneous solution (Levemir U-100 Insulin) levothyroxine 112 mcg tablet 112 mcg PO DAILY #30 tabs 04/10/21 10/11/21 Rx carbidopa 25 mg-levodopa 100 mg 2 tablet PO QID 04/19/21 10/11/21 History tablet (Sinemet) fludrocortisone 0.1 mg tablet 0.1 mg PO DAILY 04/28/21 10/11/21 History duloxetine 30 mg capsule,delayed 30 mg PO DAILY 90 days #90 caps 08/21/21 10/11/21 Rx release (Cymbalta) carbidopa ER 50 mg-levodopa 200 mg 1 tablet PO HS 09/27/21 10/11/21 History tablet,extended release clonazepam 0.5 mg tablet 0.5 mg PO BID PRN Anxiety 09/27/21 10/11/21 History furosemide 20 mg tablet 20 mg PO DAILY 09/27/21 10/11/21 History gabapentin 300 mg capsule 300 mg PO TID 09/27/21 10/11/21 History rivaroxaban 15 mg tablet (Xare
--- NOTE | 2021-10-12 11:48 | PC.NURSE ---
Pt bs 190 v [email or web address] device.
[2021-10-12 16:00] VITALS: BP 124/76; PULSE 96; RESP 20; TEMP 36.3; O2SAT 96
--- NOTE | 2021-10-12 16:40 | PC.NURSE ---
Pt blood sugar 189 per freestyle device.
[2021-10-12] MEDS: INSULIN DETEMIR 100 UNITS/ML SUB-Q (21:33)
[2021-10-12] MEDS: CARBIDOPA/LEVODOPA 25/100 MG CR TABLET 2 TABLET PO (21:34)
[2021-10-12 21:35] VITALS: PULSE 62
[2021-10-12] MEDS: clonazePAM (*CRX) 0.5 MG TABLET PO (21:39)
[2021-10-12 23:10] VITALS: BP 137/71; PULSE 62; RESP 18; TEMP 36.4; O2SAT 99
[2021-10-13] MEDS: LEVOTHYROXINE SODIUM 112 MCG TABLET PO (06:23)
--- NOTE | 2021-10-13 07:21 | PC.NURSE ---
Pt blood sugar 140 per freestyle device.
[2021-10-13 08:00] VITALS: BP 138/62; PULSE 82; RESP 16; TEMP 36.6; O2SAT 99
[2021-10-13] MEDS: RIVAROXABAN 15 MG TABLET PO (08:48)
[2021-10-13] MEDS: polyethylene glycoL 3350 17 GM POWD.PACK PO (08:48)
[2021-10-13] MEDS: CHOLECALCIFEROL 1,000 UNITS TABLET 2000 UNITS PO (08:48)
[2021-10-13] MEDS: DULoxetine HCL 30 MG CAPSULE.DR PO (08:48)
[2021-10-13] MEDS: AMANTADINE HCL 100 MG CAPSULE PO ×2 (08:48→21:18)
[2021-10-13] MEDS: CARBIDOPA/LEVODOPA 25/100 MG TABLET 2 TABLET PO ×4 (08:48→21:16)
[2021-10-13] MEDS: MAGNESIUM OXIDE 400 MG TABLET PO ×2 (08:48→17:19)
[2021-10-13] MEDS: GABAPENTIN 300 MG CAPSULE PO ×3 (08:48→17:19)
[2021-10-13] MEDS: FLUDROCORTISONE ACETATE 0.1 MG TABLET PO (08:48)
[2021-10-13] MEDS: FUROSEMIDE 20 MG TABLET PO (08:48)
[2021-10-13 08:49] VITALS: PULSE 68
[2021-10-13] MEDS: AMIODARONE HCL 200 MG TABLET 400 MG PO ×2 (08:49→21:17)
[2021-10-13] MEDS: CYANOCOBALAMIN 1,000 MCG TABLET 500 MCG PO (08:49)
--- NOTE | 2021-10-13 10:15 | P.PNCROSS_ITS ---
Event Note Event Note Event Note: Family call and they would like to take patient home on Saturday and we will disc harge her then. Home health will come and see her on Saturday.
--- NOTE | 2021-10-13 12:00 | PC.NURSE ---
Pt blood sugar 104 via freestyle device.
[2021-10-13 12:49] LABS: Hematocrit 36.9 % (35.0-42.0); Hemoglobin 11.2 g/dL (11.7-13.8); Mean Corpuscular HGB Conc 30.4 g/dL (32.0-36.0); Mean Corpuscular Hemoglobin 27.9 pg (27.0-31.0); Mean Platelet Volume 8.8 fl (9.2-11.8); Platelet Count Result 189 K/mm3 (150-420); Red Blood Count 4.01 M/mm3 (4.20-5.40); Red Cell Distribution Width 16.1 % (11.6-14.4); White Blood Count 3.7 K/mm3 (4.8-10.8)
[2021-10-13 13:00] LABS: Anion Gap 5 mmol/L (8-16); Blood Urea Nitrogen 12 mg/dL (7-18); Calcium 9.3 mg/dL (8.5-10.1); Carbon Dioxide 32 mmol/L (21-32); Chloride 100 mmol/L (98-108); Estimated CRCL calculation 41 ml/min; Estimated Glomerular Filt Rate 54; Glucose 200 mg/dL (70-99); Osmolality Calculated 289 mOsm/kg (285-295); Sodium 137 mmol/L (136-145)
[2021-10-13 16:00] VITALS: BP 142/64; PULSE 77; RESP 17; TEMP 36.6; O2SAT 97
--- NOTE | 2021-10-13 16:45 | PC.NURSE ---
Pt blood sugar 211 per freestyle device.
--- NOTE | 2021-10-13 21:05 | PC.NURSE ---
Accucheck is 109 per patient's freestyle libbra glucose monitor, snack provided along with insulin
[2021-10-13 21:17] VITALS: PULSE 81
[2021-10-13] MEDS: CARBIDOPA/LEVODOPA 25/100 MG CR TABLET 2 TABLET PO (21:17)
[2021-10-13] MEDS: INSULIN DETEMIR 100 UNITS/ML SUB-Q (21:18)
[2021-10-14 00:23] VITALS: BP 141/50; PULSE 66; RESP 18; TEMP 36.3; O2SAT 95
--- NOTE | 2021-10-14 00:32 | PC.NURSE ---
Pt resting comfortably, awakens easily and is A&O x3. Pts. VSS at this time, deneis any c/o. Call paul at pt. side.
[2021-10-14] MEDS: LEVOTHYROXINE SODIUM 112 MCG TABLET PO (06:25)
[2021-10-14 07:40] VITALS: BP 120/52; PULSE 65; RESP 18; TEMP 36.5; O2SAT 94
--- NOTE | 2021-10-14 07:57 | PC.NURSE ---
Patient did own am care, tolerated well, up to chair for breakfast, did own oral care this am with SBA, no dizzyness with activity noted, using rollator walker with no difficulty
[2021-10-14] MEDS: AMANTADINE HCL 100 MG CAPSULE PO ×2 (08:17→21:00)
[2021-10-14 08:18] VITALS: PULSE 65
[2021-10-14] MEDS: AMIODARONE HCL 200 MG TABLET 400 MG PO ×2 (08:18→21:00)
[2021-10-14] MEDS: CHOLECALCIFEROL 1,000 UNITS TABLET 2000 UNITS PO (08:19)
[2021-10-14] MEDS: CARBIDOPA/LEVODOPA 25/100 MG TABLET 2 TABLET PO ×4 (08:19→21:00)
[2021-10-14] MEDS: CYANOCOBALAMIN 1,000 MCG TABLET 500 MCG PO (08:19)
[2021-10-14] MEDS: FLUDROCORTISONE ACETATE 0.1 MG TABLET PO (08:21)
[2021-10-14] MEDS: FUROSEMIDE 20 MG TABLET PO (08:21)
[2021-10-14] MEDS: DULoxetine HCL 30 MG CAPSULE.DR PO (08:21)
[2021-10-14] MEDS: GABAPENTIN 300 MG CAPSULE PO ×3 (08:21→17:38)
[2021-10-14] MEDS: RIVAROXABAN 15 MG TABLET PO (08:22)
[2021-10-14] MEDS: MAGNESIUM OXIDE 400 MG TABLET PO ×2 (08:22→17:39)
[2021-10-14] MEDS: polyethylene glycoL 3350 17 GM POWD.PACK PO (08:25)
[2021-10-14 16:00] VITALS: BP 137/66; PULSE 65; RESP 16; TEMP 36.2; O2SAT 95
--- NOTE | 2021-10-14 17:43 | PC.NURSE ---
AC of 196 per ramakrishna cutler
[2021-10-14 21:00] VITALS: PULSE 68
[2021-10-14] MEDS: CARBIDOPA/LEVODOPA 25/100 MG CR TABLET 2 TABLET PO (21:00)
[2021-10-14] MEDS: INSULIN DETEMIR 100 UNITS/ML SUB-Q (21:01)
[2021-10-14] MEDS: clonazePAM (*CRX) 0.5 MG TABLET PO (21:02)
--- NOTE | 2021-10-14 21:06 | PC.NURSE ---
Accucheck is 198 tonight.
[2021-10-15] VITALS: BP 132/67; PULSE 68; RESP 18; TEMP 35.9; O2SAT 95
[2021-10-15] MEDS: LEVOTHYROXINE SODIUM 112 MCG TABLET PO (06:02)
[2021-10-15 07:58] VITALS: BP 122/59; PULSE 85; RESP 18; TEMP 36.6; O2SAT 95
--- NOTE | 2021-10-15 08:00 | PC.NURSE ---
Pt up this AM, SBA to BR, pt cleaned and dressed herself, back to chair for breakfast. Pt voices readiness to return home today. Denies any c/o.
[2021-10-15] MEDS: polyethylene glycoL 3350 17 GM POWD.PACK PO (08:03)
[2021-10-15] MEDS: FLUDROCORTISONE ACETATE 0.1 MG TABLET PO (09:07)
[2021-10-15] MEDS: AMANTADINE HCL 100 MG CAPSULE PO (09:07)
[2021-10-15] MEDS: RIVAROXABAN 15 MG TABLET PO (09:07)
[2021-10-15] MEDS: DULoxetine HCL 30 MG CAPSULE.DR PO (09:09)
[2021-10-15] MEDS: CHOLECALCIFEROL 1,000 UNITS TABLET 2000 UNITS PO (09:09)
[2021-10-15] MEDS: GABAPENTIN 300 MG CAPSULE PO ×2 (09:09→13:09)
[2021-10-15] MEDS: FUROSEMIDE 20 MG TABLET PO (09:09)
[2021-10-15] MEDS: MAGNESIUM OXIDE 400 MG TABLET PO (09:10)
[2021-10-15] MEDS: CYANOCOBALAMIN 1,000 MCG TABLET 500 MCG PO (09:12)
--- NOTE | 2021-10-15 09:12 | PM.DS ---
DS: Admitting Diagnosis Discharge Date 10/15/2021 Admitting Diagnosis Weakness, rehab, A. fib with RVR has been cardioverted DS: Discharge Diagnosis Discharge Diagnosis Plan Rehab, weakness, past medical history of A. fib with RVR has been cardioverted DS: Summary Hospital Course Hospital Course: This is a 81-year-old that was admitted from [facility] was previously admitted here as a swing change to inpatient and then shipped to [facility] due to A. fib with RVR. While she was at [facility] she was cardioverted return back as a swing bed for physical therapy. Patient essentially was at her baseline and was walking with a walker was able to dress herself and eat and drink without any difficulties. Patient has remained afebrile participating with therapy she is ready to go home with home health as she was planning on going on Saturday but family is able to take her today. Patient will follow up with her urban design consultant as well as her primary care provider. Any previous scheduled appointment she will continue to keep home health will going to the home and monitor her she will take medications accordingly she will be started on amiodarone 400 mg until October 19 when she will start to take amiodarone 200 mg. It has been my pleasure to care for Ms. Nettles Time Spent with Patient Time attestation: Total time spent providing and/or coordinating discharge services: Exam Narrative: GENERAL: Frail-appearing, ,well-nourished, and in no acute distress. HEAD:Normocephalic, atraumatic. EYES: PERRLA and EOMI. ENT: Nares clear, no rhinorrhea or epistaxis. Mucous membranes moist. NECK: Supple. CHEST: Clear to auscultation. No respiratory distress. HEART: Regular rate and rhythm. Normal peripheral pulses. ABDOMEN: Soft, nontender, nondistended, normal active bowel sounds. EXTREMITIES: Decreased range of motion. 1+ edema. SKIN: Warm, dry, no rash. NEURO: No focal deficits. Alert and oriented x 3 . DS: Data Data Completed and Pending Labs on day of discharge: Labs drawn on 13 October hemoglobin is 11.2, white blood count is 3.7, platelets 189, sodium is 137, potassium is 4.0, BUN is 12, creatinine 0.98 Discharge Plan Discharge Attending physician on discharge: Samuel Whitearging Clinician: Angi Rothman Anticipated Discharge Date/Time: 10/15/21 09:12 Patient Disposition: Home Health Service Activity: may shower and as tolerated Diet: diabetic Discharge Instructions: Per Care Coordination: [facility] will provide nursing and therapy. Nurses to call [phone] at discharge and fax discharge instructions/orders to [phone] day of discharge. Home Health will call patient on Saturday afternoon/evening to set up visit time for Saturday. Patient Instructions: Amiodarone (By mouth), A-fib (Atrial Fibrillation) (DC), Urinary Tract Infection in Women (GEN), Fall Prevention for Older Adults (DC) Stand Alone Forms: General Discharge Information Follow-up/Referrals: Samuel Huerta, [Primary Care Provider] - Call for Appointment (call [facility] for follow up in [address] Couch And keep all previously schedule appointments ) Discharge Medications: New polyethylene glycol 3350 [Miralax] 17 gram Powder In Packet 17 g PO QAM PRN (Reason: Constipation) Qty: 510 0RF Continued amantadine HCl 100 mg Capsule 100 mg PO BID magnesium oxide 400 mg magnesium Tablet 400 mg PO BID cyanocobalamin (vitamin B-12) 50 mcg Tablet 50 mcg PO DAILY cholecalciferol (vitamin D3) 50 mcg (2,000 unit) Tablet 50 mcg PO DAILY amiodarone 400 mg Tablet 400 mg PO BID Qty: 7 0RF Rx Instructions: D/C after 2nd dose on 10/18/21 Levemir U-100 Insulin 100 unit/mL solution 3 unit SUBCUT HS insulin aspart U-100 [Novolog U-100 Insulin aspart] 100 unit/mL solution 4 unit subcut TIDWMEAL clonazepam 0.5 mg tablet 0.5 mg PO BID PRN (Reason: Anx
[2021-10-15 09:13] VITALS: PULSE 75
[2021-10-15] MEDS: CARBIDOPA/LEVODOPA 25/100 MG TABLET 2 TABLET PO ×2 (09:13→13:09)
[2021-10-15] MEDS: AMIODARONE HCL 200 MG TABLET 400 MG PO (09:13)
--- NOTE | 2021-10-15 13:25 | PC.NURSE ---
D/C instructions for home given in detail to pt and daughter c phone # and f/u care instructions. Pt and daughter report understanding. Pt d/c in w/c to car s difficulty.
--- NOTE | 2021-10-17 14:45 | PC.NURSE ---
Pt states she received and understood her discharge instructions. Pt also states my care was wonderful .
== END 2021-10-15 13:31 | disposition home health service (06) | DRG 948 ==
PROVIDERS: Nurse Practitioner Family; Admitting Provider Internal Medicine; PCP Family Medicine; Visit Provider Internal Medicine
DX: R53.1 Weakness (principal); I48.20 Chronic atrial fibrillation, unspecified; N39.0 Urinary tract infection, site not specified; I69.391 Dysphagia following cerebral infarction; R13.10 Dysphagia, unspecified; I95.1 Orthostatic hypotension; I73.00 Raynaud's syndrome without gangrene; K21.9 Gastro-esophageal reflux disease without esophagitis; G20 Parkinson's disease; E03.9 Hypothyroidism, unspecified; E11.9 Type 2 diabetes mellitus without complications; Z96.659 Presence of unspecified artificial knee joint; M10.9 Gout, unspecified; Z79.4 Long term (current) use of insulin; Z79.01 Long term (current) use of anticoagulants
CPT/HCPCS: 36415; 80048; 85027; 97110; 97161; 97165; 97530; A9270; J1815

== ENCOUNTER 2021-12-26 09:54 | Outpatient (NON) | payer MEDICARE, SELFPAY ==
[2021-12-26 10:21] LABS: Anion Gap 8 mmol/L (8-16); Blood Urea Nitrogen 15 mg/dL (7-18); Carbon Dioxide 32 mmol/L (21-32); Chloride 102 mmol/L (98-108); Estimated Glomerular Filt Rate 60; Glucose 102 mg/dL (70-99); Osmolality Calculated 294 mOsm/kg (285-295); Potassium 4.4 mmol/L (3.5-5.1); Sodium 142 mmol/L (136-145)
[2021-12-29 22:31] LABS: Vitamin A 43 mcg/dL (38-98)
== END 2021-12-26 09:55 | disposition home or self-care (01) ==
LOC: CHSLAB 09:56
PROVIDERS: Visit Provider Nurse Practitioner Family
DX: E50.9 Vitamin A deficiency, unspecified (principal); N18.2 Chronic kidney disease, stage 2 (mild)
CPT/HCPCS: 80048; 84590

== ENCOUNTER 2022-01-22 08:34 | Emergency (ER) | payer MEDICARE, SELFPAY ==
--- NOTE | ~2022-01-22 | XR_ITS ---
EXAMINATION: XR knee LT 3V DATE: 01/22/2022 09:10 INDICATION: Left knee pain and swelling. TECHNIQUE: 3 views of left knee were obtained. COMPARISON: None. FINDINGS: There is a total left knee arthroplasty with patellar resurfacing in near-anatomic alignmen t. There is a comminuted fracture of distal femoral metaphysis. The main distal fracture fragment dem onstrates 45 degrees posterior angulation and 14 degrees lateral angulation. IMPRESSION: 1. Comminuted fracture of distal femoral metaphysis. 2. Total left knee arthroplasty. Reviewed, dictated and finalized at location A.
[2022-01-22 08:35] VITALS: BP 110/52; PULSE 85; RESP 16; TEMP 36.4
[2022-01-22] MEDS: HYDROcodone/acetaminophen (*CRX) 5-325 MG TABLET 1 TAB PO (08:52)
--- NOTE | 2022-01-22 08:53 | ED.GENADULT ---
HPI - General Adult General Chief complaint: Extremity Injury, Lower Stated complaint: Ambulance Time Seen by Provider: 01/22/22 08:45 History of Present Illness HPI narrative: Hortencia is an 81F with a PMH of Afib, hypothyroidism, CVA, GERD, DMII, and parkinson's that presented to the ED with left sided knee pain. She was walking in her apartment when her knee gave out and she had immediate pain/swelling. After it gave out she fell on her butt. She did not hit her head or neck. Related Data Home Medications Medication Instructions Recorded Confirmed pen needle, diabetic 30 gauge x 01/10/22 5/16 (Easy Touch Pen Needle) Allergies Allergy/AdvReac Type Severity Reaction Status Date / Time amiodarone AdvReac Severe Confusion Verified 01/22/22 09:08 meperidine [From Demerol] AdvReac Other Verified 01/22/22 08:48 metoclopramide [From Reglan] AdvReac Other Verified 01/22/22 08:48 Review of Systems Review of Systems: All systems reviewed & are unremarkable except as noted in HPI and below PMFSH Past Medical History Medical History Abrasion of right middle finger Acute sinusitis Cancer [employer] Dysmetria Dysphagia as late effect of cerebrovascular accident (CVA) Febrile Finger infection GERD (gastroesophageal reflux disease) Gout Hypothyroidism Kidney disease Lower extremity weakness Orthostatic hypotension Parkinsons PNA (pneumonia) Raynauds phenomenon Rheumatic fever Shingles TIA (transient ischemic attack) Type 2 diabetes mellitus UTI (urinary tract infection) Viral upper respiratory illness Weakness Wrist swelling Surgical History Surgical History History of cardiac cath History of cholecystectomy History of total knee arthroplasty S/P repair of ventral hernia Status post gastroplasty Family History Family History Sibling Pancreatic cancer Breast cancer Sibling Kidney disease Mother Cancer Pancreatic cancer Father COPD (chronic obstructive pulmonary disease) Son Diabetes mellitus Social History Social History Smoking status: Never smoker Alcohol intake: never Substance use: never Substance use type: does not use Gender identity (if verbalized by the patient): Female Spiritual care concerns: No Exam Const: General: healthy appearing and no acute distress HENMT: Head: normal to inspection Ears: external ears normal General nose exam: Normal external nose present Eyes: Conjunctivae: conjunctivae normal Pupils: Equal, round and reactive pupils present Chest: Chest palpation & inspection: normal inspection of the chest Resp: Effort & Inspection: normal respiratory effort and not labored Cardio: Rate: regular rate Skin: General skin exam: normal color Neuro: General: patient oriented x3 and moves all extremities Extrem: Other: left knee was swollen and TTP Psych: Mental Status: mental status grossly normal Course Course Emergency Course: Ordered [place] and radiographs EXAMINATION: XR knee LT 3V DATE: 01/22/2022 09:10 INDICATION: Left knee pain and swelling. TECHNIQUE: 3 views of left knee were obtained. COMPARISON: None. FINDINGS: There is a total left knee arthroplasty with patellar resurfacing in near-anatomic alignment. There is a comminuted fracture of distal femoral metaphysis. The main distal fracture fragment demonstrates 45 degrees posterior angulation and 14 degrees lateral angulation. IMPRESSION: 1. Comminuted fracture of distal femoral metaphysis. 2. Total left knee arthroplasty. EKG showed 1st degree AV block with a rate of 88, normal axis and frequent PVC Hortencia was transferred to [facility] for orthopedics care Vital Signs Vital signs: Vital Signs Temperature 97.6 F 0
[2022-01-22] MEDS: MORPHINE SULFATE (*CRX) 4 MG/ML INJ IV PUSH (09:14)
--- NOTE | 2022-01-22 09:15 | ECG_ITS ---
Measurements Intervals [place] Rate: 88 P: 74 NV: 212 QRS: 208 QRSD: 99 T: 113 QT: 424 QTc: 514 Interpretive Statements SINUS RHYTHM WITH FIRST DEGREE AV BLOCK ATRIAL AND VENTRICULAR PREMATURE COMPLEXES LIMB LEAD REVERSAL ABNORMAL ECG COMPARED TO ECG 10/05/2021 08:39:13 SINUS RHYTHM NOW PRESENT RIGHT BUNDLE BRANCH BLOCK RESOLVED Electronically Signed On 01-22-2022 12:05:17 CDT by Ashu Santos D.O.
[2022-01-22 09:20] VITALS: BP 107/62; PULSE 79; RESP 16; O2SAT 97
[2022-01-22 09:28] LABS: Basophils Absolute Auto 0.04 K/mm3 (0.00-0.10); Basophils Percent Auto 0.5 % (0.0-1.0); Eosinophils Absolute Auto 0.16 K/mm3 (0.02-0.50); Eosinophils Percent Auto 2.2 % (1.0-6.0); Hematocrit 34.7 % (35.0-42.0); Hemoglobin 11.1 g/dL (11.7-13.8); Immature Granulocyte Absolute 0.04 K/mm3 (0.00-0.00); Immature Granulocyte Percent A 0.5 % (0.0-0.0); Lymphocytes Absolute Auto 3.14 K/mm3 (1.10-4.50); Lymphocytes Percent Auto 42.8 % (18.0-42.0); Mean Corpuscular Hemoglobin 30.7 pg (27.0-31.0); Mean Corpuscular Volume 95.9 fL (78.0-102.0); Mean Platelet Volume 8.1 fl (9.2-11.8); Monocytes Absolute Auto 0.58 K/mm3 (0.10-0.90); Monocytes Percent Auto 7.9 % (2.0-11.0); Neutrophils Absolute Auto 3.4 K/mm3 (1.7-7.2); Neutrophils Percent Auto 46.1 % (50.0-70.0); Platelet Count Result 186 K/mm3 (150-420); Red Blood Count 3.62 M/mm3 (4.20-5.40); Red Cell Distribution Width 15.5 % (11.6-14.4); White Blood Count 7.3 K/mm3 (4.8-10.8)
[2022-01-22 09:40] LABS: Prothrombin Time 11.4 Seconds (9.50-12.10)
[2022-01-22 09:43] LABS: Albumin Level 3.1 g/dL (3.4-5.0); Alkaline Phosphatase 63 U/L (46-116); Anion Gap 7 mmol/L (8-16); Aspartate Amino Transferase 16 U/L (15-37); Bilirubin,Total 0.4 mg/dL (0.00-1.00); Blood Urea Nitrogen 17 mg/dL (7-18); Calcium 8.8 mg/dL (8.5-10.1); Carbon Dioxide 31 mmol/L (21-32); Chloride 104 mmol/L (98-108); Estimated CRCL calculation 40 ml/min; Estimated Glomerular Filt Rate > 60; Glucose 72 mg/dL (70-99); Osmolality Calculated 294 mOsm/kg (285-295); Potassium 3.5 mmol/L (3.5-5.1); Sodium 142 mmol/L (136-145); Total Protein 6.3 g/dL (6.4-8.2)
[2022-01-22 09:50] VITALS: BP 113/74; PULSE 80; RESP 16; O2SAT 96
[2022-01-22 09:51] LABS: Alanine Aminotransferase 8 U/L (14-59)
[2022-01-22 10:29] VITALS: BP 122/71; PULSE 75; RESP 16; TEMP 36.7; O2SAT 97
[2022-01-22 10:54] LABS: SARS-CoV-2 Ag Negative (Negative)
[2022-01-22 11:20] VITALS: BP 130/79; PULSE 83; RESP 16; TEMP 36.6; O2SAT 98
== END 2022-01-22 11:20 | disposition short-term general hospital (02) ==
PROVIDERS: Emergency Provider Family Medicine; PCP Family Medicine
DX: S72.92XA Unspecified fracture of left femur, initial encounter for closed fracture (principal); W19.XXXA Unspecified fall, initial encounter; K21.9 Gastro-esophageal reflux disease without esophagitis; E03.9 Hypothyroidism, unspecified; G20 Parkinson's disease; E11.9 Type 2 diabetes mellitus without complications; Z20.822 Contact with and (suspected) exposure to COVID-19
CPT/HCPCS: 36415; 73562; 80053; 85025; 85610; 87426; 93005; 96374; 99285; A9270; C9803; J2270

== ENCOUNTER 2022-02-23 11:43 | Outpatient (NON) | payer MEDICARE, SELFPAY ==
[2022-02-23 12:12] LABS: Hematocrit 36.5 % (35.0-42.0); Hemoglobin 11.5 g/dL (11.7-13.8); Mean Corpuscular HGB Conc 31.5 g/dL (32.0-36.0); Mean Corpuscular Hemoglobin 30.7 pg (27.0-31.0); Mean Corpuscular Volume 97.3 fL (78.0-102.0); Mean Platelet Volume 8.9 fl (9.2-11.8); Platelet Count Result 159 K/mm3 (150-420); Red Blood Count 3.75 M/mm3 (4.20-5.40); Red Cell Distribution Width 14.8 % (11.6-14.4); White Blood Count 3.9 K/mm3 (4.8-10.8)
[2022-02-23 13:00] LABS: Albumin Level 3.6 g/dL (3.4-5.0); Anion Gap 6 mmol/L (8-16); Blood Urea Nitrogen 11 mg/dL (7-18); Calcium 8.9 mg/dL (8.5-10.1); Carbon Dioxide 33 mmol/L (21-32); Chloride 104 mmol/L (98-108); Estimated Glomerular Filt Rate > 60; Glucose 69 mg/dL (70-99); Osmolality Calculated 293 mOsm/kg (285-295); Phosphorus 4.2 mg/dL (2.6-4.7); Potassium 3.6 mmol/L (3.5-5.1); Sodium 143 mmol/L (136-145); Vitamin B12 980 pg/mL (193-986)
[2022-02-23 13:02] LABS: Free T4 Free Thyroxine Reflex 1.24 ng/dL (0.76-1.46); Thyroid Stimulating Hormone Reflex 0.24 u/IU/mL (0.36-3.74)
== END 2022-02-23 11:44 | disposition home or self-care (01) ==
LOC: CHSLAB 11:45
PROVIDERS: Visit Provider Internal Medicine Endocrinology, Diabetes & Metabolism
DX: E03.9 Hypothyroidism, unspecified (principal); E11.42 Type 2 diabetes mellitus with diabetic polyneuropathy; N18.2 Chronic kidney disease, stage 2 (mild)
CPT/HCPCS: 80069; 82607; 84439; 84443; 85027

== ENCOUNTER 2022-02-27 09:16 | Outpatient (CLI) | payer MEDICARE, SELFPAY ==
--- NOTE | 2022-03-01 12:52 | WPDHOLTEREM ---
Holter/Event Monitor Holter/Event Monitor Date of procedure: 02/27/22 Holter/Event Procedure: 24 Hr Holter Monitor Indications: Atrial fib Conclusion: 1. 24 hour holter monitor on 02/27/22. 2. Underlying rhythm is sinus rhythm. HR range 62-120 bpm; average HR 93 bpm. 3. There are 2,699 premature supraventricular complexes, 363 supraventricular couplets. There are 117 episodes of atrial tachycardia, fastest at 138 bpm and longest lasting 5 beats. 4. There are 9,888 premature ventricular complexes, 681 ventricular couplets, 20 ventricular triplets, 368 ventricular bigeminy and 961 ventricular trigeminy. No ventricular tachycardia. 5. No sinoatrial or atrioventricular blocks. No significant pauses greater than 2 seconds. 6. No symptoms available for correlation.
== END 2022-02-27 09:17 | disposition home or self-care (01) ==
LOC: CHSCARD 09:21
PROVIDERS: PCP Family Medicine
DX: I48.91 Unspecified atrial fibrillation (principal)
CPT/HCPCS: 93225; 93226

== ENCOUNTER 2022-02-28 13:55 | Outpatient (NON) | payer MEDICARE, SELFPAY ==
[2022-02-28 14:29] LABS: MALB Creatinine Ratio 125.5 mg/g (0-30); Microalbumin Urine Random 64.3 mg/L
== END 2022-02-28 13:56 | disposition home or self-care (01) ==
LOC: CHSLAB 13:57
PROVIDERS: Visit Provider Internal Medicine Endocrinology, Diabetes & Metabolism
DX: E11.21 Type 2 diabetes mellitus with diabetic nephropathy (principal)
CPT/HCPCS: 82043

== ENCOUNTER 2022-04-06 15:33 | Outpatient (NON) | payer MEDICARE, SELFPAY | END 2022-04-06 15:34 | disposition home or self-care (01) | LOC: CHSLAB 15:36 | PROVIDERS: Visit Provider Family Medicine | DX: T81.31XA Disruption of external operation (surgical) wound, not elsewhere classified, initial encounter (principal) | CPT/HCPCS: 87070; 87077; 87147; 87186; 87205 ==

== ENCOUNTER 2022-05-09 16:10 | Outpatient (CLI) | payer MEDICARE, SELFPAY ==
--- NOTE | ~2022-05-09 | XR_ITS ---
EXAMINATION: XR chest 2V DATE: 05/09/2022 16:49 INDICATION: Generalized edema and weight gain TECHNIQUE: PA and lateral views of the chest are obtained. COMPARISON: 10/05/2021 FINDINGS: The lungs are free of acute opacities. No pleural effusion or pneumothorax. The cardiomedia stinal silhouette is normal. There is moderate thoracic spondylosis. Deformity of the right scapula i s consistent with healed fracture. IMPRESSION: 1. No acute cardiopulmonary abnormality. Reviewed, dictated and finalized at location F. 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
[2022-05-09 16:49] LABS: Hematocrit 35.1 % (35.0-42.0); Hemoglobin 11.5 g/dL (11.7-13.8); Mean Corpuscular HGB Conc 32.8 g/dL (32.0-36.0); Mean Corpuscular Hemoglobin 30.1 pg (27.0-31.0); Mean Corpuscular Volume 91.9 fL (78.0-102.0); Mean Platelet Volume 9.5 fl (9.2-11.8); Platelet Count Result 181 K/mm3 (150-420); Red Blood Count 3.82 M/mm3 (4.20-5.40); Red Cell Distribution Width 14.6 % (11.6-14.4); White Blood Count 5.3 K/mm3 (4.8-10.8)
[2022-05-09 16:58] LABS: Albumin Level 3.5 g/dL (3.4-5.0); Alkaline Phosphatase 95 U/L (46-116); Anion Gap 6 mmol/L (8-16); Aspartate Amino Transferase 16 U/L (15-37); Bilirubin,Total 0.5 mg/dL (0.00-1.00); Blood Urea Nitrogen 19 mg/dL (7-18); Carbon Dioxide 33 mmol/L (21-32); Chloride 98 mmol/L (98-108); Estimated Glomerular Filt Rate 51; Glucose 361 mg/dL (70-99); NT Pro B Type Natriuretic Pept 458 pg/mL (0-450); Osmolality Calculated 301 mOsm/kg (285-295); Potassium 4.2 mmol/L (3.5-5.1); Sodium 137 mmol/L (136-145); Total Protein 7.3 g/dL (6.4-8.2); Troponin I 9.1 ng/L (0.00-60.4)
[2022-05-09 17:23] LABS: Alanine Aminotransferase 8 U/L (14-59)
[2022-05-09 17:43] LABS: Creatinine Urine 18.77 mg/dL (40-278); MALB Creatinine Ratio 69.2 mg/g (0-30); Microalbumin Urine Random < 13.0 mg/L
== END 2022-05-09 16:11 | disposition home or self-care (01) ==
LOC: CHSLAB 16:13
PROVIDERS: PCP Family Medicine; Visit Provider Family Medicine
DX: E11.9 Type 2 diabetes mellitus without complications (principal); R60.1 Generalized edema; R05.9 Cough, unspecified; I50.31 Acute diastolic (congestive) heart failure
CPT/HCPCS: 36415; 71046; 80053; 82043; 83880; 84484; 85027

== ENCOUNTER 2022-05-15 09:28 | Outpatient (NON) | payer MEDICARE, SELFPAY ==
[2022-05-15 10:01] LABS: Anion Gap 6 mmol/L (8-16); Blood Urea Nitrogen 21 mg/dL (7-18); Calcium 9.2 mg/dL (8.5-10.1); Carbon Dioxide 37 mmol/L (21-32); Chloride 99 mmol/L (98-108); Estimated Glomerular Filt Rate 56; Glucose 167 mg/dL (70-99); Osmolality Calculated 301 mOsm/kg (285-295); Potassium 3.6 mmol/L (3.5-5.1); Sodium 142 mmol/L (136-145)
== END 2022-05-15 09:29 | disposition home or self-care (01) ==
LOC: CHSLAB 09:31
DX: N18.2 Chronic kidney disease, stage 2 (mild) (principal)
CPT/HCPCS: 80048

== ENCOUNTER 2022-05-23 11:55 | Outpatient (NON) | payer MEDICARE, SELFPAY ==
[2022-05-23 12:24] LABS: Anion Gap 4 mmol/L (8-16); Blood Urea Nitrogen 28 mg/dL (7-18); Calcium 9.1 mg/dL (8.5-10.1); Carbon Dioxide 33 mmol/L (21-32); Chloride 99 mmol/L (98-108); Estimated Glomerular Filt Rate 50; Glucose 181 mg/dL (70-99); Osmolality Calculated 292 mOsm/kg (285-295); Potassium 4.7 mmol/L (3.5-5.1); Sodium 136 mmol/L (136-145)
== END 2022-05-23 11:56 | disposition home or self-care (01) ==
LOC: CHSLAB 11:58
DX: I50.9 Heart failure, unspecified (principal); I10 Essential (primary) hypertension
CPT/HCPCS: 36415; 80048

== ENCOUNTER 2022-05-28 13:00 | Outpatient (CLI) | payer MEDICARE, SELFPAY | END 2022-05-28 13:01 | disposition home or self-care (01) | LOC: CHSCARD 13:02 | PROVIDERS: PCP Family Medicine | DX: I48.91 Unspecified atrial fibrillation (principal) | CPT/HCPCS: 99199; 93225; 93226 ==

== ENCOUNTER 2022-06-04 13:06 | Outpatient (CLI) | payer MEDICARE, SELFPAY ==
--- NOTE | 2022-06-06 15:31 | WPDHOLTEREM ---
Holter/Event Monitor Holter/Event Monitor Date of procedure: 06/04/22 Holter/Event Procedure: 48 Hr Holter Monitor Indications: Palpitations Conclusion: 1. 48 hour holter monitor on 06/04/22. 2. Predominant rhythm is sinus rhythm. HR range 69-132 bpm; average HR 100 bpm. 3. There are 784 premature supraventricular complexes, 45 supraventricular couplets. There are 5 episodes of atrial tachycardia, fastest at 158 bpm and longest lasting 7 beats. 4. There are 9,088 premature ventricular complexes, 305 ventricular couplets, 12 ventricular triplets, 113 ventricular bigeminy, 709 ventricular trigeminy. No ventricular tachycardia. 5. No sinoatrial or atrioventricular blocks. No significant pauses greater than 2 seconds. 6. No symptoms available for correlation.
== END 2022-06-04 13:07 | disposition home or self-care (01) ==
LOC: CHSCARD 13:08
PROVIDERS: PCP Family Medicine
DX: I48.91 Unspecified atrial fibrillation (principal)
CPT/HCPCS: 93225; 93226

== ENCOUNTER 2022-06-08 10:26 | Outpatient (NON) | payer MEDICARE, SELFPAY ==
[2022-06-08 10:50] LABS: Hemoglobin A1C 7.3 % (<5.7)
[2022-06-08 11:05] LABS: Thyroid Stimulating Hormone Reflex 0.55 u/IU/mL (0.36-3.74)
== END 2022-06-08 10:27 | disposition home or self-care (01) ==
LOC: CHSLAB 10:31
DX: E11.42 Type 2 diabetes mellitus with diabetic polyneuropathy (principal)
CPT/HCPCS: 83036; 84443

== ENCOUNTER 2022-07-02 13:23 | Outpatient (CLI) | payer MEDICARE, SELFPAY ==
--- NOTE | 2022-07-02 01:00 | ECHO_ITS ---
Patient Info Name: Hortencia Nettles Age: 82 years : 1940 Gender: Female Ht: 69 in Wt: 170 lbs BSA: 1.95 m2 HR: 79 bpm BP: 135 / 66 mmHg Heart Rhythm: Atrial Fibrillation Technical Quality: Fair Exam Date: 07/02/2022 2:17 PM Exam Location: [facility] Patient Status: Outpatient Admit Date: 07/02/2022 Staff Ordering Physician: Bel Trotter Plywood Patcher: Verónica Wong RDCS Attending Provider: Bel Trotter Exam Type: CA echo doppler color flow Study Info Indications - mitral insuffiency Complete two-dimensional, color flow and Doppler transthoracic echocardiogram is performed. History/Risk Factors Hypertension: No Dyslipidemia: No Congenital Heart Disease (CHD): No Diabetic Therapy: Oral Chronic Lung Disease: No Obesity: No Renal Disease: Yes Coronary Artery Disease (CAD) Yes Cardiomyopathy/LV Systolic Dysfunction: No Diabetes Mellitus: Type II Tobacco Use: Never Cerebrovascular Disease: CVA Family History: Diabetes Mellitus Frailty Scale (CSHA): 4: Vulnerable Cardiac Arrest: No Summary 1. Complete two-dimensional, color flow and Doppler transthoracic echocardiogram is performed. 2. Left ventricular chamber dimension is normal. 3. Left ventricular systolic function is normal, estimated at 60-65%. 4. The left ventricular diastolic function is grade I diastolic dysfunction. 5. E/e' 13 is mildly elevated. 6. Left atrial chamber dimension is mildly enlarged. 7. There is mild aortic valve sclerosis. 8. There is mild aortic valve regurgitation. 9. There is trace tricuspid valve regurgitation. 10. No pulmonary hypertension, estimated pulmonary arterial systolic pressure is 33 mmHg. 11. There is trace pulmonic regurgitation. Recommendations * Continue medical therapy for diabetes. Left Ventricle E/e' 13 is mildly elevated. Left ventricular chamber dimension is normal. Left ventricular systolic function is normal, estimated at 60-65%. The left ventricular diastolic function is grade I diastolic dysfunction. Right Ventricle Right ventricular systolic function is normal and with normal TAPSE 2.1 cm. Right ventricular chamber dimension is normal. Left Atria Left atrial chamber dimension is mildly enlarged. Right Atria Right atrial chamber dimension is normal. Aortic Valve The aortic valve is trileaflet. There is mild aortic valve sclerosis. There is no aortic valve stenosis. There is mild aortic valve regurgitation. Pulmonic Valve There is trace pulmonic regurgitation. Mitral Valve There is no mitral valve stenosis. There is no mitral valve regurgitation. Tricuspid Valve There is trace tricuspid valve regurgitation. No pulmonary hypertension, estimated pulmonary arterial systolic pressure is 33 mmHg. Pericardium/Pleural There is no pericardial effusion. Inferior Vena Cava Normal inferior vena cava with >50% collapse upon inspiration consistent with normal right atrial pressure, 5 mmHg. Aorta The aortic root size at the sinus of Valsalva is normal. Left Ventricular Outflow Tract Name Value Normal LVOT 2D LVOT Diameter 2.1 cm LVOT Dop
== END 2022-07-02 13:24 | disposition home or self-care (01) ==
LOC: CHSIMG 13:24
PROVIDERS: PCP Family Medicine
DX: I08.2 Rheumatic disorders of both aortic and tricuspid valves (principal)
CPT/HCPCS: 93306

== ENCOUNTER 2022-07-12 09:30 | Outpatient (NON) | payer MEDICARE, SELFPAY ==
[2022-07-12 09:49] LABS: Basophils Absolute Auto 0.03 K/mm3 (0.00-0.10); Basophils Percent Auto 0.7 % (0.0-1.0); Eosinophils Absolute Auto 0.12 K/mm3 (0.02-0.50); Eosinophils Percent Auto 2.7 % (1.0-6.0); Hematocrit 37.8 % (35.0-42.0); Hemoglobin 12.1 g/dL (11.7-13.8); Immature Granulocyte Absolute 0.01 K/mm3 (0.00-0.00); Immature Granulocyte Percent A 0.2 % (0.0-0.0); Lymphocytes Absolute Auto 1.09 K/mm3 (1.10-4.50); Lymphocytes Percent Auto 24.1 % (18.0-42.0); Mean Corpuscular Hemoglobin 29.4 pg (27.0-31.0); Mean Platelet Volume 9.6 fl (9.2-11.8); Monocytes Absolute Auto 0.33 K/mm3 (0.10-0.90); Monocytes Percent Auto 7.3 % (2.0-11.0); Neutrophils Absolute Auto 2.9 K/mm3 (1.7-7.2); Platelet Count Result 195 K/mm3 (150-420); Red Blood Count 4.11 M/mm3 (4.20-5.40); Red Cell Distribution Width 14.4 % (11.6-14.4); White Blood Count 4.5 K/mm3 (4.8-10.8)
[2022-07-12 09:58] LABS: Creatinine Urine 23.16 mg/dL (40-278); MALB Creatinine Ratio 82.9 mg/g (0-30); Microalbumin Urine Random 19.2 mg/L
[2022-07-12 10:04] LABS: Albumin Level 3.5 g/dL (3.4-5.0); Anion Gap 6 mmol/L (8-16); Blood Urea Nitrogen 13 mg/dL (7-18); Calcium 8.8 mg/dL (8.5-10.1); Carbon Dioxide 36 mmol/L (21-32); Chloride 101 mmol/L (98-108); Estimated Glomerular Filt Rate > 60; Glucose 191 mg/dL (70-99); Osmolality Calculated 301 mOsm/kg (285-295); Potassium 3.9 mmol/L (3.5-5.1); Sodium 143 mmol/L (136-145)
[2022-07-15 19:16] LABS: Parathyroid Intact 36 pg/mL (14-64)
[2022-07-15 19:38] LABS: Vitamin D 25 Hydroxy 53 ng/mL (30-100)
[2022-07-16 10:55] LABS: Vitamin B12 531 pg/mL (193-986)
== END 2022-07-12 09:31 | disposition home or self-care (01) ==
LOC: CHSLAB 09:32
PROVIDERS: Visit Provider Internal Medicine Nephrology
DX: R60.9 Edema, unspecified (principal); N18.2 Chronic kidney disease, stage 2 (mild); E55.9 Vitamin D deficiency, unspecified
CPT/HCPCS: 36415; 80069; 82043; 82306; 82607; 83970; 85025

== ENCOUNTER 2022-11-05 10:31 | Outpatient (NON) | payer MEDICARE, SELFPAY ==
[2022-11-05 11:36] LABS: Cholesterol 144 mg/dL (0-200); Free T4 Free Thyroxine 0.95 ng/dL (0.76-1.46); Hemoglobin A1C 6.5 % (<5.7); LDL Cholesterol Direct 80 mg/dL (0-130); Thyroid Stimulating Hormone 2.01 uIU/mL (0.36-3.74)
== END 2022-11-05 10:32 | disposition home or self-care (01) ==
LOC: CHSLAB 10:33
PROVIDERS: Visit Provider Internal Medicine Endocrinology, Diabetes & Metabolism
DX: E11.21 Type 2 diabetes mellitus with diabetic nephropathy (principal); E11.42 Type 2 diabetes mellitus with diabetic polyneuropathy
CPT/HCPCS: 82465; 83036; 83721; 84439; 84443

== ENCOUNTER 2023-01-14 10:43 | Outpatient (NON) | payer MEDICARE, SELFPAY ==
[2023-01-14 11:27] LABS: Hemoglobin A1C 6.5 % (<5.7)
[2023-01-14 11:47] LABS: Cholesterol 149 mg/dL (0-200); LDL Cholesterol Direct 83 mg/dL (0-130); Thyroid Stimulating Hormone 0.29 uIU/mL (0.36-3.74)
== END 2023-01-14 10:44 | disposition home or self-care (01) ==
LOC: CHSLAB 10:46
PROVIDERS: Visit Provider Internal Medicine Endocrinology, Diabetes & Metabolism
DX: E11.21 Type 2 diabetes mellitus with diabetic nephropathy (principal)
CPT/HCPCS: 82465; 83036; 83721; 84439; 84443

== ENCOUNTER 2023-03-18 11:15 | Outpatient (NON) | payer MEDICARE, SELFPAY ==
[2023-03-18 11:56] LABS: Thyroid Stimulating Hormone Reflex 0.43 u/IU/mL (0.36-3.74)
== END 2023-03-18 11:16 | disposition home or self-care (01) ==
LOC: CHSLAB 11:17
PROVIDERS: Visit Provider Internal Medicine Endocrinology, Diabetes & Metabolism
DX: E11.9 Type 2 diabetes mellitus without complications (principal)
CPT/HCPCS: 84443

== ENCOUNTER 2023-06-03 07:38 | Outpatient (NON) | payer MEDICARE, SELFPAY ==
[2023-06-03 08:45] LABS: Alanine Aminotransferase 15 U/L (14-59); Albumin Level 3.8 g/dL (3.4-5.0); Alkaline Phosphatase 82 U/L (46-116); Anion Gap 7 mmol/L (8-16); Aspartate Amino Transferase 26 U/L (15-37); Bilirubin,Total 0.7 mg/dL (0.00-1.00); Blood Urea Nitrogen 29 mg/dL (7-18); Calcium 9.1 mg/dL (8.5-10.1); Carbon Dioxide 32 mmol/L (21-32); Chloride 95 mmol/L (98-108); Estimated Glomerular Filt Rate 47; Glucose 253 mg/dL (70-99); Osmolality Calculated 292 mOsm/kg (285-295); Potassium 4.5 mmol/L (3.5-5.1); Sodium 134 mmol/L (136-145); Vitamin B12 514 pg/mL (193-986)
[2023-06-03 08:47] LABS: Thyroid Stimulating Hormone Reflex 5.31 u/IU/mL (0.36-3.74)
[2023-06-03 08:49] LABS: Free T4 Free Thyroxine Reflex 0.82 ng/dL (0.76-1.46)
== END 2023-06-03 07:39 | disposition home or self-care (01) ==
LOC: CHSLAB 07:41
PROVIDERS: Visit Provider Internal Medicine Endocrinology, Diabetes & Metabolism
DX: E11.21 Type 2 diabetes mellitus with diabetic nephropathy (principal)
CPT/HCPCS: 36415; 80053; 82607; 84439; 84443

== ENCOUNTER 2023-07-17 15:46 | Outpatient (CLI) | payer MEDICARE, SELFPAY ==
--- NOTE | ~2023-07-17 | XR_ITS ---
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 Posteroanterior, oblique and lateral views of the left hand were obtained. 2. Posteroanterior, oblique and lateral views of the right hand were obtained. COMPARISON: None. FINDINGS: Left hand: Old fracture deformity at the metaphyseal region of the distal left radius which has healed with 15 d egrees dorsal tilt of the distal articular surface and one-2 mm ulnar positive variance. 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 Polyarticular osteoarthritis, severe at the first carpometacarpal joint and first interphalangeal joint, moderate severity at the second and third distal interphalangeal sophia nts and mild at the wrist, midcarpal, triscaphe and majority the remaining metacarpophalangeal and in terphalangeal joints. No erosions to suggest inflammatory arthritis. Diffuse osteopenia. Right hand: Alignment is normal. No fracture. Chondrocalcinosis in the region of the triangular fibrocartilage co mplex and lunotriquetral ligament. There is also a similar pattern of polyarticular osteoarthritis, s evere at the first carpal metacarpal, first interphalangeal and third and fourth distal interphalange al joints, moderate severity at the second and third metacarpophalangeal, third and fourth proximal i nterphalangeal and fifth distal interphalangeal joints and mild at the majority the remaining joints at the right wrist and hand. No erosions to suggest inflammatory arthritis. Diffuse osteopenia. IMPRESSION: 1. Old fracture deformity of the distal left radius. No acute osseous abnormality at either hand. 3. Relatively symmetric pattern of moderate to severe polyarticular osteoarthritis at the bilateral h ands as detailed above. 3. 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 Reviewed, dictated and finalized at location L. [employer] ARCHITECT IMPRESSION: 1. Old fracture deformity of the distal left radius. No acute osseous abnormali ty at either hand. 3. Relatively symmetric pattern of moderate to severe polyarticular osteoarthri tis at the bilateral hands as detailed above. 3. 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
== END 2023-07-17 15:47 | disposition home or self-care (01) ==
LOC: ANHIMG 15:47
PROVIDERS: PCP Family Medicine; Visit Provider Plastic Surgery
DX: M72.0 Palmar fascial fibromatosis [Dupuytren] (principal)
CPT/HCPCS: 73130

== ENCOUNTER 2023-09-16 12:44 | Outpatient (CLI) | payer MEDICARE, SELFPAY ==
--- NOTE | 2023-09-16 12:57 | ECHO_ITS ---
Patient Info Name: Hortencia Nettles Age: 83 years : 1940 Gender: Female Ht: 69 in Wt: 175 lbs BSA: 1.98 m2 HR: 75 bpm BP: 153 / 82 mmHg Heart Rhythm: Sinus Rhythm Technical Quality: Good Exam Date: 09/16/2023 12:53 PM Exam Location: [facility] Patient Status: Outpatient Admit Date: 09/16/2023 Staff Ordering Physician: Bel Trotter Bag Liner: Linwood William RDCS Attending Provider: Bel Trotter Exam Type: CA echo doppler color flow Study Info Indications - heart disease/rheumatic mitral valve disese Complete two-dimensional, color flow and Doppler transthoracic echocardiogram is performed. History/Risk Factors Hypertension: No Dyslipidemia: No Congenital Heart Disease (CHD): No Diabetic Therapy: Oral Chronic Lung Disease: No Obesity: No Renal Disease: Yes Coronary Artery Disease (CAD) Yes Cardiomyopathy/LV Systolic Dysfunction: No Diabetes Mellitus: Type II Tobacco Use: Never Cerebrovascular Disease: CVA Family History: Diabetes Mellitus Frailty Scale (CSHA): 4: Vulnerable Cardiac Arrest: No Summary 1. Complete two-dimensional, color flow and Doppler transthoracic echocardiogram is performed. 2. Left ventricular chamber dimension is normal. 3. Left ventricular systolic function is normal, estimated at 55-60%. 4. The left ventricular diastolic function is normal. 5. E/e' 9 is minimally elevated. 6. Left atrial chamber dimension is moderately enlarged. 7. Right atrial chamber dimension is moderately enlarged. 8. The mitral valve has moderately calcified annulus. 9. There is mild mitral valve regurgitation. 10. There is moderate tricuspid valve regurgitation. 11. No pulmonary hypertension, estimated pulmonary arterial systolic pressure is 32 mmHg. Recommendations * Continue medical therapy for diabetes. Left Ventricle E/e' 9 is minimally elevated. Left ventricular chamber dimension is normal. Left ventricular systolic function is normal, estimated at 55-60%. The left ventricular diastolic function is normal. Right Ventricle Right ventricular systolic function is normal and with normal TAPSE 2.2 cm. Right ventricular chamber dimension is normal. Left Atria Left atrial chamber dimension is moderately enlarged. Right Atria Right atrial chamber dimension is moderately enlarged. Aortic Valve The aortic valve is trileaflet. There is no aortic valve stenosis. There is no aortic valve regurgitation. Pulmonic Valve There is no pulmonic regurgitation. Mitral Valve The mitral valve has moderately calcified annulus. There is no mitral valve stenosis. There is mild mitral valve regurgitation. Tricuspid Valve There is moderate tricuspid valve regurgitation. No pulmonary hypertension, estimated pulmonary arterial systolic pressure is 32 mmHg. Pericardium/Pleural There is no pericardial effusion. Inferior Vena Cava Normal inferior vena cava with >50% collapse upon inspiration consistent with normal right atrial pressure, 5 mmHg. Aorta The aortic root size at the sinus of Valsalva is normal. Left Ventricular Outflow Tract Name Value Normal LVOT 2D LVOT Diameter 2.1 cm LVOT Doppler LVOT Peak Ve
== END 2023-09-16 12:45 | disposition home or self-care (01) ==
PROVIDERS: PCP Family Medicine
DX: I08.1 Rheumatic disorders of both mitral and tricuspid valves (principal)
CPT/HCPCS: 93306

== ENCOUNTER 2023-09-17 11:01 | Emergency (ER) | payer MEDICARE, SELFPAY ==
--- NOTE | ~2023-09-17 | CT_ITS ---
EXAMINATION: CT cervical spine wo con DATE: 09/17/2023 11:31 INDICATION: Head injury. TECHNIQUE: Computed tomography (CT) of the cervical spine was performed without intravenous contrast. Automated exposure control and iterative reconstruction technique were employed. The dose-length pro duct was 329.42 mGy-cm. COMPARISON: None FINDINGS: There is 2 mm anterolisthesis of C4 on C5. There is mild chronic anterior wedging of C7 and T1 vertebral bodies. There is mildly decreased disc height at C4-C5 and severely decreased disc heig ht at C5-C6 and C6-C7. The following disc levels are specifically discussed: C2-C3: There is mild bilateral uncovertebral joint osteoarthritis. There is severe bilateral facet eden int osteoarthritis. There is mild left neural foraminal stenosis. There is no central canal stenosis. C3-C4: There is mild bilateral uncovertebral joint osteoarthritis. There is moderate right and mild l eft facet joint osteoarthritis. There is mild right neural foraminal stenosis. There is mild central canal stenosis. C4-C5: There is mild bilateral uncovertebral joint osteoarthritis. There is moderate right and severe left facet joint osteoarthritis. There is mild bilateral neural foraminal stenosis. There is mild ce ntral canal stenosis. C5-C6: There is severe bilateral uncovertebral joint osteoarthritis. There is mild bilateral facet eden int osteoarthritis. There is mild bilateral neural foraminal stenosis. There is no central canal sten osis. C6-C7: There is severe bilateral uncovertebral joint osteoarthritis. There is severe right and modera te left facet joint osteoarthritis. There is mild right and moderate left neural foraminal stenosis. There is mild central canal stenosis. C7-T1: There is no uncovertebral joint osteoarthritis. There is severe bilateral facet joint osteoart hritis. There is mild bilateral neural foraminal stenosis. There is no central canal stenosis. IMPRESSION: 1. No fracture. 2. Severe cervical spondylosis. Reviewed, dictated and finalized at location A.
--- NOTE | ~2023-09-17 | CT_ITS ---
CT head without contrast Indication: Status post fall Technique: Serial scans were obtained through the brain without the administration of contrast. Dose reduction technique was used on this scan by utilizing automated exposure control and iterative recon struction technique. The dose-length product (DLP) was 329.42 mGy-cm. Findings: There is no evidence of intracranial hemorrhage, mass lesion, or acute infarct. The ventri cles and subarachnoid spaces are dilated, consistent with mild atrophy. There is no evidence of ghulam a, mass effect or midline shift. The visualized paranasal sinuses and mastoid air cells are clear. Impression: No intracranial hemorrhage, mass, or acute infarct. Mild generalized atrophy. Reviewed, dictated and finalized at location . Impression: No intracranial hemorrhage, mass, or acute infarct. Mild generalized atrophy.
[2023-09-17 11:05] VITALS: BP 115/80; PULSE 104; RESP 18; TEMP 36.3; O2SAT 93
--- NOTE | 2023-09-17 11:07 | ED.FALL ---
HPI - Fall General Chief Complaint: Fall Stated Complaint: FALL/ HEAD LAC Time Seen by Provider: 09/17/23 11:05 Source: patient Mode of arrival: ambulatory Limitations: no limitations History of Present Illness HPI Narrative: patient is an 83-year-old female who was sitting on her rolling walker backwards and was pushing herself backwards and it flipped and hit the back of her head. She did not lose consciousness. No syncope. No headache. She did hit her head and neck. MD complaint: fall Onset (ago): hour(s) (1) Fall from: wheelchair and from height (distance) ( Sitting position) Fall witnessed: yes, by bystander Place fall occurred: home Loss of consciousness: none Prolonged down time: no Symptoms prior to fall: none Context: tripped/slipped Location of injury: head and neck Severity: mild Severity scale (1-10): 1 Quality: sharp Associated symptoms (after fall): denies Related Data Home Medications Medication Instructions Recorded Confirmed acetaminophen 500 mg tablet 500 mg PO BID 09/17/23 09/17/23 duloxetine 20 mg capsule,delayed 40 mg PO DAILY 09/17/23 09/17/23 release magnesium oxide 400 mg PO DAILY 09/17/23 09/17/23 Allergies Allergy/AdvReac Type Severity Reaction Status Date / Time amiodarone AdvReac Severe Confusion Verified 07/17/23 15:08 meperidine [From Demerol] AdvReac Other Verified 07/17/23 15:08 metoclopramide [From Reglan] AdvReac Other Verified 07/17/23 15:08 Review of Systems Review of Systems: All systems reviewed & are unremarkable except as noted in HPI and below Constitutional: Constitutional: Reports no additional constitutional complaints Eyes: Eyes: Reports no additional eye complaints ENT: Reports system reviewed and no additional complaints, except as documented Cardiovascular: Cardiovascular: Reports no additional cardiovascular complaints Respiratory: Respiratory: Reports no additional respiratory complaints Gastrointestinal: Gastrointestinal: Reports no additional gastrointestinal complaints Genitourinary: Genitourinary: Reports no additional female genitourinary complaints Musculoskeletal: Musculoskeletal: Reports no additional musculoskeletal complaints Integumentary/Breasts: Skin/Breast: Reports system reviewed and no additional complaints, except as docu Neurologic: Reports system reviewed and no additional complaints, except as documented Psychiatric: Psychiatric: Reports no additional psychiatric complaints Endocrine: Endocrine: Reports no additional endocrine complaints Hematologic/Lymphatic: Hematologic/Lymphatic: Reports no additional hematologic/lymphatic complaints Allergic/Immunologic: Allergic/Immunologic: Reports no additional allergic/immunologic complaints [facility] Past Medical History Medical History Abrasion of right middle finger Acute sinusitis Cancer [employer] Dysmetria Dysphagia as late effect of cerebrovascular accident (CVA) Febrile Finger infection GERD (gastroesophageal reflux disease) Gout Hypothyroidism Kidney disease Lower extremity weakness Orthostatic hypotension Parkinsons PNA (pneumonia) Raynauds phenomenon Rheumatic fever Shingles TIA (transient ischemic attack) Type 2 diabetes mellitus UTI (urinary tract infection) Viral upper respiratory illness Weakness Wrist swelling Surgical History Surgical History History of cardiac cath History of cholecystectomy History of total knee arthroplasty S/P ORIF (open reduction internal fixation) fracture ORIF Left femur on 01/23/2022 at [facility] S/P repair of ventral hernia Status post gastroplasty Family History Family History Sibling Pancreatic cancer Breast cancer Sibling Kidney disease Mother Cancer Pancreatic cancer Father COPD (chronic obstructive pulmonary disease) Son Gabriela
--- NOTE | 2023-09-17 11:41 | PC.NURSE ---
patient returned from ct. family member at the bedside. patient asked if she could sit on the side of the bed. denies being dizzy. left side rail put down. call light in reach
--- NOTE | 2023-09-17 12:27 | PC.NURSE ---
daughter has arrived and is at the bedside. with patient permission, update was given to everyone in the room. patient states i am ready to go home . currently waiting on provider to review images. denies any other needs.
--- NOTE | 2023-09-17 12:42 | PC.NURSE ---
ER Provider at the bedside
[2023-09-17] MEDS: TETANUS,DIPHTHERIA,AC PERTUSSIS ADULT 0.5 ML (ADACEL) IM (12:56)
[2023-09-17] MEDS: NEOMYCIN/POLYMYXIN/BACITRACIN OINTMENT PACKET 1 PACKET TOPICAL (12:59)
--- NOTE | 2023-09-17 13:05 | PC.NURSE ---
Patient dressed and ready to go. declined vital signs
== END 2023-09-17 13:08 | disposition home or self-care (01) ==
PROVIDERS: Emergency Provider Emergency Medicine; PCP Family Medicine
DX: S09.90XA Unspecified injury of head, initial encounter (principal); W07.XXXA Fall from chair, initial encounter; Z23 Encounter for immunization; E03.9 Hypothyroidism, unspecified; G20.C Parkinsonism, unspecified; Z86.73 Personal history of transient ischemic attack (TIA), and cerebral infarction without residual deficits
CPT/HCPCS: 70450; 72125; 90471; 90715; 99284

== ENCOUNTER 2023-10-07 10:29 | Outpatient (NON) | payer MEDICARE, SELFPAY ==
[2023-10-08 00:20] LABS: Alanine Aminotransferase 13 U/L (14-59); Albumin Level 3.9 g/dL (3.4-5.0); Alkaline Phosphatase 82 U/L (46-116); Anion Gap 7 mmol/L (4-12); Aspartate Amino Transferase 27 U/L (15-37); Bilirubin,Total 1.3 mg/dL (0.00-1.00); Blood Urea Nitrogen 29 mg/dL (7-18); Calcium 9.1 mg/dL (8.5-10.1); Carbon Dioxide 33 mmol/L (21-32); Chloride 98 mmol/L (98-108); Cholesterol 132 mg/dL (0-200); Estimated Glomerular Filt Rate 33; Glucose 171 mg/dL (70-99); HDL Direct 53 mg/dL (40-60); LDL Cholesterol Calculated 68 mg/dL (<130); Osmolality Calculated 295 mOsm/kg (285-295); Sodium 138 mmol/L (136-145); Triglycerides 55 mg/dL (0-150); Vitamin B12 497 pg/mL (193-986)
[2023-10-08 00:31] LABS: Thyroid Stimulating Hormone Reflex 1.76 u/IU/mL (0.36-3.74)
[2023-10-11 14:32] LABS: Creatinine Urine 79.64 mg/dL (40-278); MALB Creatinine Ratio 42.9 mg/g (0-30); Microalbumin Urine Random 34.2 mg/L
== END 2023-10-07 10:30 | disposition home or self-care (01) ==
LOC: CHSLAB 10:31
PROVIDERS: Visit Provider Internal Medicine Endocrinology, Diabetes & Metabolism
DX: E11.42 Type 2 diabetes mellitus with diabetic polyneuropathy (principal)
CPT/HCPCS: 36415; 80053; 80061; 82043; 82607; 84443

== ENCOUNTER 2023-11-11 11:04 | Outpatient (CLI) | payer MEDICARE, SELFPAY ==
--- NOTE | ~2023-11-11 | XR_ITS ---
[id number] Ordering provider: Rea Flnanery APRN History: . LBP,CHRONIC,NKI,LT LEG SWELLING . Comparison: None. FINDINGS: BONES: No acute fracture or dislocation. Postoperative changes in the distal femur. Healed Fracture in the distal femur. JOINT SPACES: Total knee arthroplasty. SOFT TISSUES: Normal. IMPRESSION: No acute osseous abnormality left knee. Reviewed, dictated and finalized at location A.
--- NOTE | ~2023-11-11 | XR_ITS ---
3 VIEWS LUMBAR SPINE Ordering provider: Rea Flannery History: . LBP,CHRONIC,NKI,LT LEG SWELLING . Comparison: None. FINDINGS: VERTEBRAL BODIES:Sclerotic changes in the inferior endplate of L2 possibility of compression fracture is not excluded. Otherwise, No definite visible fracture or subluxation. Degenerative changes of th e spine. Loss of lordosis suggestive of muscle spasm. DISK SPACES: Narrowing of the disc L1-L2, L2-L3, L3-L4 and L5-S1. Multilevel facet joint disease. SOFT TISSUES: Aortic calcification. Bilateral sacroiliacs. Bilateral hip osteoarthritic changes. Pubic symphysitis. IMPRESSION: Sclerotic changes in the inferior endplate of L2. Possible compression fractures cannot be excluded. Otherwise, No definite acute osseous abnormality lumbar spine. Reviewed, dictated and finalized at location A. IMPRESSION: Sclerotic changes in the inferior endplate of L2. Possible compression fracture s cannot be excluded. Otherwise, No definite acute osseous abnormality lumbar s pine.
--- NOTE | ~2023-11-11 | XR_ITS ---
XR hip LT min 2V Ordering provider: Rea Flannery APRN History: . LBP,CHRONIC,NKI,LT LEG SWELLING . Comparison: None. FINDINGS: BONES: No acute fracture or dislocation. Postoperative changes in the femur. Small bony fragment seen near to the greater trochanter most likely old. Evaluation for tenderness in the area advised. HIP JOINT SPACES: Mild osteoarthritic changes of the left hip. SACROILIAC JOINT SPACES : The sacroiliac joint spaces shows mild osteoarthritic changes. PUBIC SYMPHYSIS: Normal. SOFT TISSUES: Normal. IMPRESSION: No definite acute osseous abnormality pelvis and left hip. Reviewed, dictated and finalized at location A.
== END 2023-11-11 11:05 | disposition home or self-care (01) ==
LOC: CHSIMG 11:06
PROVIDERS: PCP Nurse Practitioner Family; Visit Provider Nurse Practitioner Family
DX: M25.562 Pain in left knee (principal); M25.552 Pain in left hip; M54.50 Low back pain, unspecified
CPT/HCPCS: 72100; 73502; 73560

== ENCOUNTER 2023-11-13 13:26 | Outpatient (CLI) | payer MEDICARE, SELFPAY ==
--- NOTE | ~2023-11-13 | US_ITS ---
EXAMINATION: US venous doppler [facility] DATE: 11/13/2023 13:50 INDICATION: Left lower limb pain. TECHNIQUE: Grayscale ultrasound images without and with compression and Doppler ultrasound images of the left lower extremity veins were obtained. COMPARISON: None. FINDINGS: The visualized portions of left common femoral vein, profunda (deep) femoral vein, femoral vein, popl iteal vein, peroneal veins, posterior tibial veins, and greater saphenous vein outflow are patent. IMPRESSION: 1. No deep venous thrombosis. Reviewed, dictated and finalized at location A.
== END 2023-11-13 13:27 | disposition home or self-care (01) ==
LOC: CHSIMG 13:27
PROVIDERS: PCP Family Medicine; Visit Provider Nurse Practitioner Family
DX: M25.562 Pain in left knee (principal); M25.552 Pain in left hip; M54.9 Dorsalgia, unspecified; R60.1 Generalized edema
CPT/HCPCS: 93971

== ENCOUNTER 2023-12-10 11:33 | Outpatient (NON) | payer MEDICARE, SELFPAY ==
[2023-12-10 11:58] LABS: Hematocrit 36.3 % (35.0-42.0); Hemoglobin 11.8 g/dL (11.7-13.8); Mean Corpuscular HGB Conc 32.5 g/dL (32-36); Mean Corpuscular Hemoglobin 29.7 pg (27.0-31.0); Mean Corpuscular Volume 91.4 fL (78.0-102.0); Mean Platelet Volume 9.5 fl (9.2-11.8); Platelet Count Result 178 K/mm3 (150-420); Red Blood Count 3.97 M/mm3 (4.20-5.40); Red Cell Distribution Width 15.1 % (11.6-14.4); White Blood Count 5.7 K/mm3 (4.8-10.8)
[2023-12-10 12:17] LABS: Creatinine Urine 60.97 mg/dL (40-278); MALB Creatinine Ratio 33.6 mg/g (0-30); Microalbumin Urine Random 20.5 mg/L
[2023-12-10 12:29] LABS: Anion Gap 8 mmol/L (4-12); Blood Urea Nitrogen 25 mg/dL (7-18); Calcium 9.3 mg/dL (8.5-10.1); Carbon Dioxide 34 mmol/L (21-32); Chloride 99 mmol/L (98-108); Estimated Glomerular Filt Rate 43; Glucose 73 mg/dL (70-99); Osmolality Calculated 295 mOsm/kg (285-295); Phosphorus 4.3 mg/dL (2.6-4.7); Potassium 3.7 mmol/L (3.5-5.1); Sodium 141 mmol/L (136-145)
== END 2023-12-10 11:34 | disposition home or self-care (01) ==
LOC: CHSLAB 11:35
PROVIDERS: Visit Provider Internal Medicine Nephrology
DX: N18.2 Chronic kidney disease, stage 2 (mild) (principal)
CPT/HCPCS: 36415; 80069; 82043; 85027

== ENCOUNTER 2024-04-02 10:23 | Outpatient (CLI) | payer MEDICARE, SELFPAY ==
[2024-04-02 10:46] LABS: Hemoglobin A1C 6.3 % (<5.7)
== END 2024-04-02 10:24 | disposition home or self-care (01) ==
LOC: CHSLAB 10:25
PROVIDERS: PCP Family Medicine; Visit Provider Internal Medicine Endocrinology, Diabetes & Metabolism
DX: E11.65 Type 2 diabetes mellitus with hyperglycemia (principal)
CPT/HCPCS: 36415; 83036

== ENCOUNTER 2024-05-08 11:20 | Outpatient (CLI) | payer MEDICARE, SELFPAY ==
[2024-05-08 11:32] LABS: Add Urine Microscopic? YES; Bilirubin Urine Negative (Negative); Blood Urine 1+ (Negative); Color Urine Light Yellow (Yellow); Glucose Urine UA Negative (Negative); Ketones Urine Negative (Negative); Leukocyte Esterase Ur 2+ LEU/UL (Negative); Nitrate Urine Negative (Negative); Protein Urine Negative (Negative)
[2024-05-08 11:40] LABS: Appearance Urine Cloudy (Clear); Bacteria Urine 2+ /hpf; Squamous Epithelial Cell Urine Few /hpf (Few); WBC Urine >75 /hpf (0-3)
== END 2024-05-08 11:21 | disposition home or self-care (01) ==
LOC: CHSLAB 11:22
PROVIDERS: PCP Nurse Practitioner Family; Visit Provider Nurse Practitioner Family
DX: R82.90 Unspecified abnormal findings in urine (principal); N39.0 Urinary tract infection, site not specified
CPT/HCPCS: 81001; 87086; 87186

== ENCOUNTER 2024-05-21 11:10 | Outpatient (CLI) | payer MEDICARE, SELFPAY ==
[2024-05-21 11:22] LABS: Add Urine Microscopic? YES; Appearance Urine Clear (Clear); Bilirubin Urine Negative (Negative); Blood Urine Negative (Negative); Color Urine Light Yellow (Yellow); Glucose Urine UA Negative (Negative); Ketones Urine Negative (Negative); Leukocyte Esterase Ur 1+ LEU/UL (Negative); Nitrate Urine Negative (Negative); Protein Urine Negative (Negative); Urobilinogen Urine 0.2 mg/dL (0.2-1.0); pH Urine 6.5 (5.0-8.0)
[2024-05-21 11:26] LABS: Bacteria Urine 1+ /hpf; RBC Urine None seen /hpf (0-2); Squamous Epithelial Cell Urine Moderate /hpf (Few)
== END 2024-05-21 11:11 | disposition home or self-care (01) ==
LOC: CHSLAB 11:11
PROVIDERS: PCP Family Medicine; Visit Provider Nurse Practitioner Family
DX: N39.0 Urinary tract infection, site not specified (principal); A49.8 Other bacterial infections of unspecified site
CPT/HCPCS: 81001; 87086

== ENCOUNTER 2024-07-13 10:08 | Outpatient (CLI) | payer MEDICARE, SELFPAY ==
[2024-07-13 10:49] LABS: Creatinine Urine 22.86 mg/dL (40-278); MALB Creatinine Ratio 56.8 mg/g (0-30); Microalbumin Urine Random < 13.0 mg/L
--- OUTSIDE RECORDS SUMMARY | 2024-07-13 11:20 | XMS_ITS | Clinical Summary ---
Author Organization [facility] Address [facility] [place] [address] Care Team Providers Care Field Artillery Basic Name Role Phone Mary Dunne MD Unavailable [phone] Brenda Coronel MD Unavailable [phone] Sanchez Singleton MD Unavailable [phone] Dany Mason [employer] STEAMER Unavailable Samuel Huerta DO Primary Care Provider [phone] Bel Trotter [employer]- Unavailable [phone] Allergies Active Allergy Reactions Criticality Noted Date Comments Meperidine Other (see comment) 09/19/2018 Was told by her Neurologists not to take due to her Parkinson's disease Metoclopramide Other (see comment) 09/19/2018 States she was told by her neurologist not to take due to Parkinsons Medications carbidopa-levod opa 25-100 MG tabletIndicatio ns:Parkinson's Disease,am, noon, and dinner Take 2 tablets by mouth 4 (four) times daily. Indications: Parkinson's Disease, am, noon, and dinner Active Cholecalciferol (VITAMIN D3) 2000 units CapIndications: supplement Take 1 capsule by mouth daily. Active carbidopa-levod opa CR 50-200 MG tabletIndicatio ns:parkinsons Take 1 tablet by mouth nightly at bedtime. Indications: parkinsons Takes along with the caridopa 25-100 mg tablet at bedtime. 9 Active clonazePAM 0.5 MG tabletIndicatio ns:Restless leg syndrome Take 1 tablet (0.5 mg total) by mouth 2 (two) times daily as needed for Anxiety. 60 tablet 0 Active Additional Information Patient taking differently:0.5 mg OralNightly at bedtime, Reported on 09/25/2021 insulin detemir 100 UNIT/ML flextouch PEN Inject 2-3 Units into the skin nightly at bedtime. Active DULoxetine 30 MG capsule Take 30 mg by mouth daily. Active levothyroxine 112 MCG tablet Take 112 mcg by mouth every morning. Active Magnesium 200 MG Tab Take 400 mg by mouth 2 (two) times a day. Active amantadine 100 MG capsule Take 100 mg by mouth 2 (two) times daily. Active metFORMIN 1000 MG tablet 1,000 mg daily with breakfast. And 500mg at dinner 1 Active gabapentin 600 MG tablet Take 300 mg by mouth 3 (three) times a day. 2 Active NOVOLOG 100 UNIT/ML injection (VIAL) Inject 3-4 Units into the skin 3 (three) times daily with meals. Below 130- 0units 130-160- 3units Above 160 4 units 2 Active rivaroxaban 15 MG tablet Take 1 tablet (15 mg total) by mouth daily with supper. 30 tablet 5 2 Active furosemide 20 MG tablet Take 1 tablet (20 mg total) by mouth daily. 30 tablet 5 2 Active Additional Information Patient taking differently: 40 mgOral2 times daily, Reported on 10/06/2021 vitamin B-12 500 MCG tablet Take 500 mcg by mouth daily. Active amiodarone 200 MG tablet Take 1 tablet (200 mg total) by mouth in the morning. After 1 week when 400mg bid dosing is complete 60 tablet 2 Active potassium chloride 20 MEQ packet Take 2 packets by mouth daily. 60 each 2 Active Active Problems Problem Noted Date Diagnosed Date First degree AV block 10/11/2021 Right bundle branch block (RBBB) 10/11/2021 Diastolic heart failure (CMS/HCC HHS/HCC) 2021 Atrial fibrillation with RVR ([facility]) 0 10/06/2021 JUN (acute kidney injury) 09/27/2021 UTI (urinary tract infection) 09/25/2021 Abnormal cardiovascular stress test 09/08/2020 Raynaud's disease without gangrene 08/25/2020 TIA (transient ischemic attack) 06/17/2020 Frequent ventricular premature beats 06/17/2020 Dysfunction of right eustachian tube 05/27/2020 Acute kidney injury (JUN) with acute tubular nec rosis (ATN) 11/05/2019 Post-operative state 09/25/2018 Uterine prolapse 05/03/2018 Palpitations 12/27/2017 Atypical chest pain 11/14/2017 Neurogenic orthostatic hypotension ([facility]) 11/14/2017 Type 2 diabetes mellitus wit h diabetic polyneuropathy, without long-term current use of insulin ([facility]) 11/14/2017 Chronic leg pain 11/08/2017 Exposure to hepatitis C 03/21/2017 Myositis 01/11/2017 Current use of anticoagulant therapy 09/11/2016 Primary osteoarthritis of right hip 07/20/2016 Status post total bilateral knee replacement 07/2016 Trochanteric bursitis of right hip 07/20/2016 Hematemesis 03/29/2016 Syncope due to orthostatic hypotension 6 Acquired bilateral hammer toes 02/17/2016 CKD (chronic kidney disease) 02/17/2016 Tongue lesion 02/17/2016 Myalgia 10/21/2015 Arm pain, musculoskeletal, left 07/22/2015 OAB (overactive bladder) 07/22/2015 Fatigue 04/22/2015 Peripheral neuropathy 04/22/2015 Low vitamin D level 02/22/2015 Fluid retention 12/12/2014 Restless leg syndrome 12/12/2014 History of nonadherence to medical treatment Gastroparesis 08/08/2014 Overview (04/28/2018): Description: due to diabetic neuropathy treated with metoclopramide, had parkinsonism syndrome from metoclopramide. Cervical osteoarthritis 08/08/2014 Depression 08/08/2014 Diabetic neuropathy ([facility]) 08/08/2014 Overview (04/28/2018): Description: peripheral neuropathy since around 2009. Foot pain is controlled with Gabapentin. 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 Sleep apnea 08/08/2014 Overview (04/28/2018): Description: dx around 2008. On CPAP for about a month. Weight loss 08/08/2014 Overview (04/28/2018): Description: 45 lbs over 2 years 2009 to 2012. Acid reflux disease 07/30/2014 Acquired hypothyroidism 07/30/2014 Overview (04/28/2018): Description: since age 19. Fracture of right scapular body 07/30/2014 Osteoporosis 07/30/2014 Overview (04/28/2018): Description: hx left wrist fracture and fracture of the right scapular body. BOne density however is WNL 07/30/2014 Renal insufficiency syndrome 07/30/2014 Overview (04/28/2018): Description: stage 2 Urge incontinence 07/30/2014 Vitamin D insufficiency 07/30/2014 Overview (04/28/2018): Description: 25 OH Vitamin D level 22.27 11/2012. 27.2 03/24/13; 33.2 10/31;25 06/03/2014; 03/24/15 25 OH Vitamin D level 24.5, normal intact PTH (5.6), phosphorus (3.8). 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 Resolved Problems Problem Noted Date Diagnosed Date Resolved Date Atypical chest pain 09/23/2020 09/24/19 21 Encounter for hepatitis C vi tio screening test for high risk patient 01/11/2017 01/29/2020 Need for vaccination with 13 -polyvalent pneumococcal conjugate vaccine 01/11/2017 0 Syncope 03/29/2016 04/27/2021 Flu vaccine need 02/17/2016 01/29/2020 Encounter for preventive health examination 04/30/2014 01/29/2020 Immunizations Name Administration Dates Next Due Influenza Adult (Generic) 03/16/2019,02/17/2018, 03/08/2017,02/17/2016 Pneumococcal (Pneumovax 23) 03/10/2013 Pneumococcal (Prevnar 13) 01/11/2017 Family History Medical History Relation Comments Kidney Disease Brother COPD Father Cancer Mother pancreatic cancer Mother Breast Cancer Sister Diabetes Son Relation Status Comments Brother Father (Age 67) copd-emphysema Mother (Age 72) pancreatic Sister Son Social History Tobacco Use Types Packs/Day Years Used Date Smoking Tobacco: Never Smokeless Tobacco: Never Alcohol Use Standard Drinks/Week Comments No 0 (1 standard drink = 0.6 oz pur e alcohol) Humiliation, Afraid, Rape, and Kick questionnair e Answer Date Recorded Within the last year, have y ou been afraid of your partner or ex-partner? No 11/05/2019 Within the last year, have y ou been humiliated or emotionally abused in other ways by your partner or ex-partner? No Within the last year, have y ou been kicked, hit, slapped, or otherwise physically hurt by your partner or ex-partner? No 11/05/2019 Within the last year, have y ou been raped or forced to have any kind of sexual activity by your partner or ex-partner? No 11/05/2019 Social Connection and Isolat ion Panel [NHANES] Answer Date Recorded In a typical week, how many times do you talk on the phone with family, friends, or neighbors? More than three times a week 11/05/2019 How often do you get togethe r with friends or relatives? More than three times a week 11/05/2019 How often do you attend chur ch or confucianist services? More than 4 times per year 11/05/2019 Do you belong to any clubs o r organizations such as methodist groups, unions, fraternal or athletic groups, or school groups? Yes 11/05/2019 How often do you attend meet ings of the clubs or organizations you belong to? More than 4 times per year 11/05/2019 Are you , , di vorced, , never , or living with a partner? 11/05/2019 Overall Financial Resource Strain (CARDIA) Answe r Date Recorded How hard is it for you to pa y for the very basics like food, housing, medical care, and heating? Not hard at all 11/05/2019 PHQ-2 Answer Date Recorded PHQ-2 Score 0 04/14/2019 [facility] - Occupational Stress Questionnaire Answer Date Recorded Do you feel stress - tense, restless, nervous, or anxious, or unable to sleep at night because your mind is troubled all the time - these days? Only a little 11/05/2019 Exercise Vital Sign Answer Date Recorde d On average, how many days pe r week do you engage in moderate to strenuous exercise (like a brisk walk)? 2 days 11/05/2019 On average, how many minutes do you engage in exercise at this level? 40 min 11/05/2019 Hunger Vital Sign Answer Date Recorded Within the past 12 months, y ou worried that your food would run out before you got the money to buy more. Never true 11/05/19 20 Within the past 12 months, t he food you bought just didn't last and you didn't have money to get more. Never true 11/05/2019 PRAPARE - Transportation Answer Date Re corded In the past 12 months, has l ack of transportation kept you from medical appointments or from getting medications? No 10/18 In the past 12 months, has l ack of transportation kept you from meetings, work, or from getting things needed for daily living? 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 Gender Identity Female 11/05/2019 5:43 AM CDT Sexual Orientation Straight 11/05/2019 5: 43 AM CDT Last Filed Vital Signs Vital Sign Reading Time Taken Comments Blood Pressure 132/70 11/02/2021 2:10 PM CDT Pulse 56 11/02/2021 2:09 PM CDT Temperature 36.4 C (97.6 F) 10/24/2021 10:39 AM CDT Respiratory Rate 16 11/02/2021 2:09 PM CDT Oxygen Saturation 95% 11/02/2021 2:09 PM CDT Inhaled Oxygen Concentration - - Weight 71.7 kg (158 lb) 11/02/2021 2:09 PM CDT Height 172.7 cm (5' 8 ) 11/02/2021 2:09 PM CDT Body Mass Index 24.02 11/02/2021 2:09 PM CDT Plan of Treatment Health Maintenance Due Date Last Done Comments Kidney Health Evaluation 1940 Diabetes: Retinopathy Eye Exam 1957 DTaP, Tdap and Td Vaccines (1 - Tdap) 1958 Zoster Vaccines (1 of 2) 1989 RSV Immunization or 60+ Years (1 - 1-dose 75+ series) 2014 Annual Medicare Wellness Visit 04/21/2020 04/20/2019 ASCVD LDL 06/17/2021 06/17/2020, 08/19, 09/06/2016, Additional history exists Lipid Panel 06/17/2021 06/17/2020, 08/19, 09/06/2016, Additional history exists Hemoglobin A1C 07/23/2022 01/23/2022, 0709/2021, 06/07/2021, Additional history exists COVID-19 Vaccine ( season) 2024 Influenza Adult (#1) 2024 03/16/2019, 02/17/2018, 03/08/2017, Additional history exists Dexa Scan (General) Completed 07/30/2014 Pneumococcal Vaccine: 65+ Years Completed 01/11/2017, 03/10/2013 Meningococcal B Vaccine Aged Out No l onger eligible based on patient's age to complete this topic Meningococcal Vaccine Aged Out No jaime jason eligible based on patient's age to complete this topic RSV Immunizations Under 20 Months Aged Out No longer eligible based on patient's age to complete this topic Goals Goal Patient Goal Type Associated Problems Recent Progress Patient-Stated? Author Family - family caregiver with be involved in care transitions and discharge planning General No Annie Mccormack RN Medical Devices Implanted Type Area Professional Model Device Identifier Shelf Expiration Date Model / Serial / Lot Bilateral Knee Hardware Gynecare Tvt Abbrevo Continence System Implanted:Qty: 1 on 09/25/2018 by Mary Dunne MD at [facility] N/A: Bladder [employer] 01/17/2019 TVTOML / N/A / [id number] Description:MRI SAFE-NO META L Procedures Procedure Name Priority Date/Time Associated Diagnosis Comments HEMOGLOBIN, GLYCOSYLATED Routine 12/01/2021 8:40 AM CDT Type 2 diabetes mellitus with diabetic polyneuropathy, without long-term current use of insulin ([facility]) Coronary atherosclerosis of [place] coronary artery LIPID PANEL Routine 06/17/2020 10:58 AM TRUCK 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 TIA (transient ischemic attack) BONE DENSITY/DEXA Routine 07/30/2014 9:2 4 AM CDT from Last 3 Months or Most Recently Relevant to Health Maintenance Results * (ABNORMAL) HEMOGLOBIN, GLYCOSYLATED (12/01/2021 8:40 AM CDT) HGB A1C 6.4(H) <5.7 % 12/01/2021 4:40 PM CDT [facility] ESTIMATED AVG GLUCOSE 137(H) 74 - 114 MG/DL 12/01/2021 4:40 PM CDT [facility] 12/01/2021 8:40 AM CDT Aston Birmingham MD LABORATORY Final Result [facility] [address] [place] [address], * LIPID PANEL (06/17/2020 10:58 AM TRUCK 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) CHOLESTEROL 157 MG/DL 06/17/2020 11:52 AM TRUCK 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 [facility] Comment:DESIRABLE: <200 TRIGLYCERIDES 73 MG/DL 06/17/2020 11:52 AM TRUCK 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 [facility] Comment:<150 NORMAL HDL 82 >49 MG/DL 06/17/2020 11:52 AM TRUCK 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 [facility] LDL (CALCULATED) 60 MG/DL 06/17/19 11:52 AM [facility] Comment:<100 OPTIMAL VLDL CALCULATION 15 MG/DL 06/17/19 11:52 AM [facility] Comment:REFERENCE RANGE NOT ESTABLISHED CHOL/HDL RATIO 1.9 06/17/2020 11:52 AM TRUCK 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 [facility] Comment:REFERENCE RANGE NOT ESTABLISHED LDL/HDL 0.7 06/17/2020 11:52 AM [facility] Comment:REFERENCE RANGE NOT ESTABLISHED NON HDL CHOLESTEROL 75 MG/DL 06/17/2020 11:52 AM [facility] Comment:REFERENCE RANGE NOT ESTABLISHED 06/17/2020 10:5 8 AM TRUCK 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 Mateusz Gallegos MD LABORATORY Final Result Performing Organization Address City/State/[facility] Co de Phone Number [facility] [address] [place] [address], [phone] * BONE DENSITY/DEXA (07/30/2014 9:24 AM CDT) Anatomical Region Laterality Modality Bone Bone Density 07/30/2014 9:24 AM CDT 07/30/2014 9:24 AM CDT Narrative 07/30/2014 1:48 PM CDT [facility] [address] [place] [address] Name: Hortencia Nettles Ordering MD: Michelle Spears Order Number: [id number] : 1940 Sex: F Performing Location: [facility] Procedure Code: Procedure: DA Bone Density Axial NC 07/30/2014 Examination: DEXA Bone densitometry Clinical history: Prior fracture. Osteoporosis. Vitamin D insufficiency. 811.09, 733.0, 268.9, 814.0, osteoporosis, calcium supplementation, vitamin D use. Technique: DEXA bone minimal density evaluation was performed in the AP projection over the lumbar spine and over both hips in the AP projection utilizing standard imaging techniques. Assessment: The BMD measured at the AP spine L1-L4 is 1.342 g/cm2 with a T-score of 1.3 and a Z-Score of 2.4. Bone density is up to 10% below young normal. This patient is considered normal according to the World Health Organization (WHO) criteria. Fracture risk is low. The BMD measured at the femur total left is 0.945 g/cm2 with a T-score of -0.5 and a Z-Score of 0.8. Bone density is up to 10% below young normal. This patient is considered normal according to the World Health Organization (WHO) criteria. Fracture risk is low. The BMD measured at the femur total right is 0.993 g/cm2 with a T-score of -0.1 and aZ-Score of 1.2. Bone density is up to 10% below young normal. This patient is considered normal according to the World Health Organization (WHO) criteria. Fracture risk is low. Recommendations: All patients should ensure an adequate intake of dietary calcium and vitamin D. The NOF recommend adults under the age of 50 need 1000 mg of calcium and 400-800 IU of vitamin D daily. Effective therapy for the prevention and treatment of osteoporosis include biphosphonates. Follow-up: People with diagnosed cases of osteoporosis or at high risk for fracture should have regular bone mineral density test. For patients eligible for Medicare, routine testing is allowed once every 2 years. Testing frequency can be increased to one year for patients who have rapidly progressing disease, those who are receiving or discontinuing medical therapy to restore bone mass, or have additional risk factors. Based on these results, a followup exam is recommended in no earlier than 2 years. Impression: Bone mineral density at WHO category level of normal. Electronically Signed By: PARKER ODONNELL MD 07/30/14 1346 Dictated On: 07/30/14 1348 Interpreted By: PARKER ODONNELL MD Radiology image is available. Click on Image Link above. Procedure Note Michelle Spears MD - 03/12/2018 [facility] [address] [place] [address] Name: Hortencia Nettles MD: Michelle Spears Order Number: [id number] : 1940 Sex: F Performing Location: [facility] Procedure Code: Procedure: DA Bone Density Axial NC 07/30/2014 Examination: DEXA Bone densitometry Clinical history: Prior fracture. Osteoporosis. Vitamin D insufficiency.811.09, 733.0, 268.9, 814.0, osteoporosis, calcium supplementation,vitamin D use. Technique: DEXA bone minimal density evaluation was performed in the APprojection over the lumbar spine and over both hips in the AP projectionutilizing standard imaging techniques. Assessment: The BMD measured at the AP spine L1-L4 is 1.342 g/cm2 with a T-score of1.3 and a Z-Score of 2.4. Bone density is up to 10% below young normal.This patient is considered normal according to the World HealthOrganization (WHO) criteria. Fracture risk is low. The BMD measured at the femur total left is 0.945 g/cm2 with a T-score of-0.5 and a Z-Score of 0.8. Bone density is up to 10% below youngnormal. This patient is considered normal according to the World HealthOrganization (WHO) criteria. Fracture risk is low. The BMD measured at the femur total right is 0.993 g/cm2 with a T-score of-0.1 and aZ-Score of 1.2. Bone density is up to 10% below young normal.This patient is considered normal according to the World HealthOrganization (WHO) criteria. Fracture risk is low. Recommendations: All patients should ensure an adequate intake of dietary calcium andvitamin D. The NOF recommend adults under the age of 50 need 1000 mg ofcalcium and 400-800 IU of vitamin D daily. Effective therapy for theprevention and treatment of osteoporosis include biphosphonates. Follow-up: People with diagnosed cases of osteoporosis or at high risk for fractureshould have regular bone mineral density test. For patients eligible forMedicare, routine testing is allowed once every 2 years. Testing frequencycan be increased to one year for patients who have rapidly progressingdisease, those who are receiving or discontinuing medical therapy torestore bone mass, or have additional risk factors. Based on these results, a followup exam is recommended in no earlier than2 years. Impression: Bone mineral density at WHO category level of normal. Electronically Signed By: PARKER ODONNELL MD 07/30/14 1346 Dictated On: 07/30/14 1344 Interpreted By: PARKER ODONNELL MD Radiology image is available. Click on Image Link above. 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 Expl anation Power of Paralegal Legal Secretary 11/04/2021 5:43 PM [facility]ALT [facility]ARE 07/04/12 Advance Directives and Living Will 08/22/2018 9:14 AM 07/04/2012 POA FOR HEALTHCARE Advance Directives and Living Will 07/04/2012 SADVANCE DIRECTIVES * Full Code (Latest Code Status on File) Date Activated Date Inactivated Comments 10/10/2021 3:09 PM 10/11/2021 6:03 PM * Full Code Date Activated Date Inactivated Comments 10/06/2021 10:44 PM 10/10/2021 3:09 PM * Full Code Date Activated Date Inactivated Comments 09/25/2021 3:56 PM 09/27/2021 4:10 PM * Full Code Date Activated Date Inactivated Comments 10/03/2020 9:06 AM 10/03/2020 6:08 PM * Full Code Date Activated Date Inactivated Comments 11/05/2019 12:43 AM 11/07/2019 6:50 PM Care Teams Field Artillery Basic Relationship Specialty Start Date End Date Samuel Huerta DO [address] [place] [address] PCP - General FAMILY PRACTICE 06/02/21 Mary Dunne MD Consulting Physician OBGYN 09/23/18 Brenda Coronel MD Consulting Physician INTERNAL MEDICINE 06/17/20 Sanchez Singleton MD Consulting Physician ENDOCRINOLOGY 06/17/20 Dany Mason [facility] Nurse Practitioner Nurse Practitioner [facility] 06/21/20 Bel Trotter FNP- [address] [place] [address] Nurse Practitioner NURSE PRACTITIONER 01/10/22
--- OUTSIDE RECORDS SUMMARY | 2024-07-13 11:20 | XMS_ITS | Clinical Summary ---
Author Organization [facility] Address [address] [place] [address] Phone Care Team Providers Care Double Cutter Name Role Phone Deonna Abbott MD Primary Care Provide r Allergies Active Allergy Reactions Criticality Noted Date Comments Meperidine Other (see Comments) 09/19/2018 Was told by her Neurologists not to take due to her Parkinson's disease Metoclopramide Other (see Comments) 09/19/2018 States she was told by her neurologist not to take due to Parkinsons Medications potassium chloride SA (KLORCON M) 20 MEQ Tablet Controlled Release Take 20 mEq by mouth. 9 Active pantoprazole (PROTONIX) 40 MG Tablet Delayed Response Take 40 mg by mouth. Active Multiple Vitamins-Minera ls (MULTI VITAMIN/MINERAL S) Tablet Take 1 Tab by mouth. Active metFORMIN (GLUCOPHAGE) 1000 MG Tablet Take 1,000 mg by mouth. Active magnesium oxide (MAG-OX) 400 MG Tablet Take 400 mg by mouth. Active lisinopril (PRINIVIL, ZESTRIL) 2.5 MG Tablet Take 2.5 mg by mouth. 9 Active levothyroxine (SYNTHROID) 112 MCG Tablet Take 112 mcg by mouth. 9 Active GLUCOSE BLOOD True Metrix Blood Glucose Test In Vitro StripTest once daily and PRN 9 Active glipiZIDE (GLUCOTROL XL) 10 MG TABLET SR 24 HR Take 10 mg by mouth. 9 Active gabapentin (NEURONTIN) 600 MG Tablet Take 600 mg by mouth. 8 Active furosemide (LASIX) 20 MG Tablet Take 20 mg by mouth. 8 Active conjugated estrogens (PREMARIN) 0.625 MG/GM Cream 0.625 g by Vaginal route. 8 Active DULoxetine (CYMBALTA) [address] Particles Take 30 mg by mouth. 8 Active clonazePAM (KLONOPIN) 0.5 MG Tablet Take 0.5 mg by mouth. 9 Active carbidopa-levod opa (SINEMET) 25-100 MG Tablet Take 1 Tab by mouth. Active carbidopa-levod opa CR (SINEMET CR) 50-200 MG Tablet Controlled Release Take 1 Tab by mouth. 9 Active Cholecalciferol (VITAMIN D3) 2000 UNIT Capsule Take 1 Cap by mouth. Active aspirin EC 81 MG Tablet Delayed Response Take 81 mg by mouth. Active amantadine (SYMMETREL) 100 MG Capsule Take 100 mg by mouth. 8 Active acetaminophen (TYLENOL) 325 MG Tablet Take 650 mg by mouth. 9 Active NOVOLOG 100 UNIT/ML Solution 9 Active LEVEMIR 100 UNIT/ML Solution 9 Active EASY COMFORT INSULIN SYRINGE 30G X 1/2 0.5 ML Misc 9 Active Active Problems No known active problems Social History Tobacco Use Types Packs/Day Years Used Date Smoking Tobacco: Never Smokeless Tobacco: Never Comments No Sex and Gender Information Value Date Recorded Sex Assigned at Not on file Legal Sex Female 3:35 PM CDT Gender Identity Not on file Sexual Orientation Not on file Last Filed Vital Signs Vital Sign Reading Time Taken Comments Blood Pressure 96/58 01/06/2019 3:45 PM CDT Pulse 74 01/06/2019 3:45 PM CDT Temperature 36.7 C (98.1 F) 01/06/2019 3:45 PM CDT Respiratory Rate 16 01/06/2019 3:45 PM CDT Oxygen Saturation 100% 01/06/2019 3:45 PM CDT Inhaled Oxygen Concentration - - Weight 85.3 kg (188 lb) 01/06/2019 3:45 PM CDT Height 175.3 cm (5' 9 ) 01/06/2019 3:45 PM CDT s tated Body Mass Index 27.76 01/06/2019 3:45 PM CDT Plan of Treatment Health Maintenance Due Date Last Done Comments DEXA Bone Density 1940 Hepatitis C Virus (HCV) Screening 1940 TdaP Immunization 1940 Zoster Immunization (1 of 2) 1989 Respiratory Syncytial Virus (RSV) Immunization (Adult) (1 - 1-dose 75+ series) 2014 Influenza Immunization (#1) 2024 10, 02/17/2016, 04/04/2006 SARS-COV-2 Immunization ( season) 2024 03/07/2021, 08/03/2020, 07/13/2020 Pneumococcal Immunization (50+ years) Completed 01/11/2017, 03/10/2013 Pneumococcal Immunization Combined Discontinued 01/11/2017, 03/10/2013 Hepatitis B Immunization Aged Out No longer eligible based on patient's age to complete this topic Meningococcal Immunization (ACWY) Aged Out No longer eligible based on patient's age to complete this topic Rotavirus Immunization Aged Out No lo nger eligible based on patient's age to complete this topic Insurance MEDICARE [facility] Care Teams Double Cutter Relationship Specialty Start Date End Date Deonna Abbott MD [address] [place] [address] PCP - General Family Medicine 01/06/19
--- OUTSIDE RECORDS SUMMARY | 2024-07-13 11:20 | XMS_ITS | Referral Summary ---
Author Organization [facility] Address [address] [place] [address] Care Team Providers Care Molder Punch Name Role Phone Samuel Huerta DO Primary Care Provider Allergies Active Allergy Reactions Criticality Noted Date Comments Amiodarone Other (See comments) High 01/23/2022 Meperidine Other (See comments) Low 09/19/2018 Was told by her Neurologists not to take due to her Parkinson's disease Other reaction(s): GI Discomfort, Unknown Metoclopramide Other (See comments),Unknown Low 09/19/2018 States she was told by her neurologist not to take due to Parkinsons Other reaction(s): Unknown Medications levothyroxine (SYNTHROID, LEVOTHROID) 112 mcg tablet take 1 tablet by oral route every day 0 0 6 Active cholecalciferol (VITAMIN D3) 2,000 unit capsule 0 0 6 Active amantadine HCl 100 mg tablet Active multivitamin (MULTIPLE VITAMINS ORAL) Take by mouth. Active clonazePAM (KlonoPIN) 0.5 mg tablet Take 1 tablet (0.5 mg total) by mouth Active gabapentin (NEURONTIN) 600 mg tablet Take 1 tablet (600 mg total) by mouth Active metFORMIN (GLUCOPHAGE) 1,000 mg tablet Take 1,000 mg by mouth. Active DULoxetine DR (CYMBALTA) 30 mg capsule 8 Active magnesium oxide (MAG-OX) 400 mg (241.3 mg elemental magnesium) tabletIndicatio ns:hypomagnesem ia Take 1 tablet (400 mg total) by mouth daily Active NOVOLOG U-100 INSULIN ASPART 100 unit/mL injection 9 Active LEVEMIR U-100 INSULIN 100 unit/mL injection 9 Active EASY COMFORT INSULIN SYRINGE 0.5 mL 30 gauge x 1/2 syringe 9 Active blood glucose diagnostic (True Metrix Glucose Test Strip) strip True Metrix Blood Glucose Test In Vitro StripTest once daily and PRN 9 Active Easy Comfort Insulin Syringe 1 mL 30 gauge x 1/2 syringe 0 Active prednisoLONE acetate (PRED FORTE) 1 % ophthalmic suspension 0 Active fludrocortisone 0.1 mg tablet 1 Active sulfamethoxazol e-trimethoprim (BACTRIM DS) 800-160 mg per tablet 1 Active doxycycline monohydrate (MONODOX) 100 mg capsule 1 Active mupirocin (BACTROBAN) 2 % ointment Apply twice a day to wound on left feliz 22 g 2 2 Active lidocaine viscous (XYLOCAINE) 2 % solution Take 10mL and hold under tongue for 1 minute then spit out. Use every 4 hours as needed for pain 300 mL 1 3 Active nystatin 100,000 unit/mL suspension Take 5 mL (500,000 Units total) by mouth 4 (four) times a day 280 mL 3 Active acetaminophen (TYLENOL) 325 mg tablet Take 2 tablets (650 mg total) by mouth every 6 (six) hours as needed 2 Active calcium carbonate (TUMS) 500 mg (200 mg elemental) chewable tablet Take 0.4 tablet/chew tab (200 mg total) by mouth every 4 (four) hours as needed 2 Active cyanocobalamin (Vitamin B-12) 500 mcg tablet Take 500 mcg by mouth daily Active furosemide (LASIX) 40 mg tablet 3 Active insulin glargine 100 unit/mL (3 mL) pen for injection Inject 10 Units under the skin daily 2 Active insulin lispro (HumaLOG, ADMELOG) 100 unit/mL pen for injection Give immediately before meal. For BS < 70 if pt is alert and eating, give 4 oz. juice or equivalent and recheck FSBS in 15 minutes. For BS < 70 if pt is NPO or unresponsive give 50ml of Dextrose 50% slow IV push and recheck FSBS in 15 minutes. If no IV access, give Glucagon 1mg IM. If BS > 300 x 2 or > 400 x 1 or less than 70 call physician. If BS > 400 draw lab glucose. Decrease to the next lower scale for a blood glucose < 70. Hold HS insulin scale if nocturnal or fasting glucose less than 70. Low (ie. lean, CRF, elderly) IF FS IS 351 - 400 GIVE 8 UNITS IF FS IS 301 - 350 GIVE 6 UNITS IF FS IS 251 - 300 GIVE 4 UNITS IF FS IS 201 - 250 GIVE 2 UNITS IF FS IS 181 - 200 GIVE 1 UNITS IF FS IS 151 - 180 GIVE 0 UNITS IF FS IS 000 - 150 GIVE 0 UNITS [address] (PROTONIX) 40 mg EC tablet 3 Active potassium chloride ER 20 mEq CR tablet 2 Active Xarelto 20 mg tablet 3 Active spironolactone (ALDACTONE) 50 mg tablet 3 Active BD Ultra-Fine Mini Pen Needle 31 gauge x 3/16 needle 3 Active lactulose 0.67 gram/mL solution 3 Active Nephro Vitamins 0.8 mg tablet 3 Active carbidopa-levod opa CR (SINEMET CR) 50-200 mg per CR tablet 3 Active cholecalciferol (VITAMIN D-3) 50,000 unit capsule [address] (CYMBALTA) 20 mg capsule 3 Active gabapentin (NEURONTIN) 400 mg capsule 3 Active NovoLOG 100 unit/mL (3 mL) pen for injection 3 Active Active Problems Problem Noted Date Diagnosed Date Dysfunction of right eustachian tube 05/27/2020 Squamous cell carcinoma of floor of mouth 2005 Social History Tobacco Use Types Packs/Day Years Used Date Smoking Tobacco: Never Smokeless Tobacco: Never Tobacco Cessation:Counseling Given: Not Answered Comments No Sex and Gender Information Value Date Recorded Sex Assigned at Not on file 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 Gender Identity Not on file Sexual Orientation Not on file Last Filed Vital Signs Vital Sign Reading Time Taken Comments Blood Pressure 124/56 09/08/2019 2:15 PM CDT Pulse 68 09/08/2019 2:15 PM CDT Temperature 36.6 C (97.9 F) 09/08/2019 2:15 PM CDT Respiratory Rate 16 09/08/2019 2:15 PM CDT Oxygen Saturation 99% 09/08/2019 2:15 PM CDT Inhaled Oxygen Concentration - - Weight 91 kg (200 lb 9.6 oz) 11/12/2022 11:53 AM CDT Height 175.3 cm (5' 9 ) 11/12/2022 11:53 AM CDT Body Mass Index 29.62 11/12/2022 11:53 AM CDT Plan of Treatment Not on file Insurance [facility] MEDICARE MEDICARE [facility] MEDICARE A[facility] Care Teams Molder Punch Relationship Specialty Start Date End Date Samuel Huerta DO [address] [place] [address] PCP - General Family Medicine 04/28/21
--- OUTSIDE RECORDS SUMMARY | 2024-07-13 11:20 | XMS_ITS | Clinical Summary ---
Author Organization [facility] Address [address] [place] [address] Phone Care Team Providers Care Robotic Toy Inventor Name Role Phone Unavailable Primary Care Provider Unavailabl e Allergies Active Allergy Reactions Criticality Noted Date Comments Meperidine Unknown 01/31/2022 Metoclopramide Hcl Unknown 01/31/2022 Medications acetaminophen (TYLENOL) 325 mg tablet Take 2 Tablets (650 mg) by mouth every 6 hours as needed for Other (See Comment) (See admin instructions). 02/15/20 Active aluminum - magnesium - simethicone (MYLANTA) 200-200-20 mg/5 mL Suspension Take 30 mL by mouth every 4 hours as needed for Indigestion. 02/15/20 Active bisacodyL (DULCOLAX) 10 mg Suppository Insert 1 Suppository (10 mg) by rectum 1 time daily as needed for Constipation. 02/15/20 Active bisacodyL (DULCOLAX) 5 mg Delayed Release tablet Take 1 Tablet (5 mg) by mouth daily in the morning. 02/16/20 Active calcium as carbonate (TUMS) 500 mg (200 mg elemental) Tablet, Chewable Take 1 Tablet (200 mg) by mouth every 4 hours as needed for Dyspepsia. 02/15/20 Active folic acid-Vit B6-Vit B12 (FOLTX) 2.5-25-2 mg Tablet Take 1 Tablet by mouth daily. 02/16/20 Active insulin glargine-yfgn 100 unit/mL pen syringe Inject 10 Units by subcutaneous injection daily at bedtime. 15 mL 02/15/20 Active insulin lispro (HumaLOG) 100 units/mL injection Give immediately before meal. For BS [...] IS 000 - 150 GIVE 0 UNITS 3 mL 02/15/20 Active lactulose (ENULOSE) 20 gram/30 mL Take 30 mL by mouth 2 times daily. 02/15/20 Active magnesium oxide (MAG-OX) 400 mg (241.3 mg magnesium) tablet Take 1 Tablet (400 mg) by mouth daily. 02/16/20 Active melatonin 3 mg Tablet Take 1 Tablet (3 mg) by mouth daily at bedtime. 02/15/20 Active miconazole nitrate (REMEDY-AF,ZEAS ORB-AF) 2 % Powder Apply to affected area 3 times daily. 02/15/20 Active naloxone (NARCAN) 0.4 mg/mL Solution Inject 0.25 mL (0.1 mg) by intravenous injection see administration instructions. 0.1 mL 02/15/20 Active ondansetron (ZOFRAN ODT) 4 mg Tablet, Rapid Dissolve Take 1 Tablet (4 mg) by mouth every 6 hours as needed for Nausea/Emesis. Dissolve tablet on top of tongue, then swallow with saliva. 10 Tablet 02/15/20 Active prochlorperazin e maleate (COMPAZINE) 10 mg tablet Take 1 Tablet (10 mg) by mouth every 6 hours as needed for Nausea/Emesis. 10 Tablet 02/15/20 Active sodium phosphates (FLEET ADULT) 19-7 gram/118 mL Enema Insert 133 mL by rectum every 8 hours as needed for Constipation. 133 mL 02/15/20 Active thiamine mononitrate (VITAMIN B-1) 100 mg tablet Take 1 Tablet (100 mg) by mouth daily. 02/16/20 Active gabapentin (NEURONTIN) 100 mg capsule Take 2 Capsules (200 mg) by mouth every 8 hours. 90 Capsule 02/16/20 Active DULoxetine 40 mg Capsule, Delayed Release(E.C.) Take 40 mg by mouth daily. 30 Capsule 1 02/16/20 Active oxyCODONE (ROXICODONE) 5 mg tabletIndicatio ns:Closed fracture of distal end of left femur, unspecified fracture morphology, initial encounter ([facility]) Take 1 Tablet (5 mg) by mouth every 6 hours as needed for Pain, Moderate. Max Daily Amount: 20 mg 60 Tablet 02/16/20 Active oxyCODONE (ROXICODONE) 10 mg tabletIndicatio ns:Closed fracture of distal end of left femur, unspecified fracture morphology, initial encounter ([facility]) Take 1 Tablet (10 mg) by mouth every 6 hours as needed for Pain, Severe. Max Daily Amount: 40 mg 60 Tablet 02/16/20 Active Xarelto 20 mg Tablet TAKE ONE TABLET BY MOUTH DAILY WITH SUPPER 30 Tablet 05/02/20 Active Active Problems Problem Noted Date Diagnosed Date Fall 01/31/2022 Fracture of left femur 01/31/2022 Anemia 01/31/2022 UTI (urinary tract infection) 01/31/2022 Vasovagal episode 01/31/2022 CKD (chronic kidney disease) stage 2, GFR 60-89 ml/min 01/31/2022 CHF (congestive heart failure) 01/31/2022 DM (diabetes mellitus), type 2 01/31/2022 H/O oral cancer 01/31/2022 History of TIA (transient ischemic attack) and s troke 01/31/2022 Raynaud's disease 01/31/2022 Frequent falls 01/31/2022 Social History Tobacco Use Types Packs/Day Years Used Date Smoking Tobacco: Never Smokeless Tobacco: Never Tobacco Cessation:Counseling Given: Not Answered Alcohol Use Standard Drinks/Week Comments Never 0 (1 standard drink = 0.6 oz pur e alcohol) Comments Unknown Sex and Gender Information Value Date Recorded Sex Assigned at Not on file Legal Sex Female 2:37 PM CDT Gender Identity Not on file Sexual Orientation Not on file Last Filed Vital Signs Vital Sign Reading Time Taken Comments Blood Pressure 104/60 02/16/2022 5:00 AM CDT Pulse 89 02/16/2022 5:00 AM CDT Temperature 36.8 C (98.2 F) 02/16/2022 5:00 AM CDT Respiratory Rate 18 02/16/2022 5:00 AM CDT Oxygen Saturation 96% 02/16/2022 5:00 AM CDT Inhaled Oxygen Concentration - - Weight 70.5 kg (155 lb 8 oz) 02/03/2022 8:00 AM CDT Height 175.3 cm (5' 9 ) 02/03/2022 8:00 AM CDT Body Mass Index 22.96 02/03/2022 8:00 AM CDT Plan of Treatment Health Maintenance Due Date Last Done Comments DIABETES ANNUAL FOOT EXAM 1958 DIABETES ANNUAL RETINAL EXAM 1957 DIABETES MICROALBUMIN ANNUAL SCREEN 1957 LDL CHOLESTEROL ANNUAL 1957 DTAP/TDAP/TD VACCINES (1 - Tdap) 1958 ZOSTER VACCINE (1 of 2) 1989 RSV VACCINE (60+ or ) (1 - 1-dose 75+ series) 2014 DIABETES HBA1C Q 6 MONTHS 07/23/2022 01/23/2022, INFLUENZA VACCINE (#1) 2023 03/17/2021 OSTEOPOROSIS SCREENING Completed 07/30/2014 PNEUMOCOCCAL VACCINE 65+ YEARS Completed 01/11/2017 , 03/10/2013 Insurance MEDICARE PART A AND B [facility] [id number] Advance Directives For more information, please contact: [phone] Documents on File Type Date Recorded Patient Legal Billing Clerk Expl anation Advance Directive POA 03/06/2022 1:23 PM Advance Directive POA 02/05/2022 5:34 PM A dvance Directive POA * Full Code (Latest Code Status on File) Date Activated Date Inactivated Comments 01/31/2022 11:26 PM 02/16/2022 2:22 PM
--- OUTSIDE RECORDS SUMMARY | 2024-07-13 11:20 | XMS_ITS | Encounter Summary ---
Author Organization [facility] Address [address] [place] [address] Phone Care Team Providers Care Non Destructive Testing Specialist Name Role Phone Samuel Huerta DO Primary Care Provider Encounter Details Date Type Department Care Team (Late st Contact Info) Description 04/05/2022 Documentation [facility] Dermatology [address] [place] [address] [place] [phone] Christina Hayes RN Social History Tobacco Use Types Packs/Day Years Used Date Smoking Tobacco: Never Smokeless Tobacco: Never Comments No Sex and Gender Information Value Date Recorded Sex Assigned at Not on file 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
--- OUTSIDE RECORDS SUMMARY | 2024-07-13 11:20 | XMS_ITS | Clinical Summary ---
Author Organization [facility] 1 Address [address] [place] [address] Care Team Providers Care Director Of Dance Name Role Phone Samuel Huerta DO Primary [...] cell carcinoma of floor of mouth 2005 Family History Medical History Relation Name Comments Emphysema Father Emphysema; Cancer Mother Cancer, unknown ; Breast cancer Sister Ovarian cancer Neg Hx Thyroid cancer Neg Hx Relation Name Status Comments Father Mother Sister Social History Tobacco Use Types Packs/Day Years Used Date Smoking Tobacco: Never Smokeless Tobacco: Never Tobacco Cessation:Counseling Given: Not Answered Comments No Sex and Gender Information Value Date Recorded Sex Assigned at Not on file Legal Sex Female 11:53 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 Gender Identity Not on file Sexual Orientation Not on file Obstetrics History Para Term AB IAB SAB Ectopic Multiple Livin g Live Births 4 4 4 Date Outcome GA Total Labor Labor/2nd/3rd Weight Sex Type Anes PTL Ilene A1 A5 Name Clin Term Term Term Term Last Filed Vital Signs Vital Sign Reading [...] 11/12/2022 11:53 AM CDT Plan of Treatment Health Maintenance Due Date Last Done Comments Depression Screening 1940 Fall Risk Assessment 1939 DTaP/Tdap/Td Vaccine (1 - Tdap) 1950 Hepatitis B Screening 1957 Zoster Vaccine (1 of 2) 1989 Well Visit 65+ 2004 Osteoporosis Screening-Bone Density Scan 07/30/2016 07/30/2014 Influenza Vaccine (#1) 2024 9, 02/17/2018, 03/08/2017, Additional history exists Pneumococcal vaccine 65+ Completed 01/11/2017, 02/18 Insurance [facility] MEDICARE MEDICARE [facility] MEDICARE [facility] Care Teams Director Of Dance Relationship Specialty Start Date End Date Samuel Huerta DO [address] [place], [place] [id number] PCP - General Family Medicine 04/28/21
--- OUTSIDE RECORDS SUMMARY | 2024-07-13 11:21 | XMS_ITS | Clinical Summary ---
Author Organization [facility] Address [address] [place] [address] Care Team Providers Care Ad Taker Name Role Phone Clifford Ann MD Unavailable [phone] Samuel Huerta DO Primary Care Provider [phone] Source Comments [facility],non-owned Affiliates and Associated Physician Practices is amultiple site organization consisting of ambulatory clinics and hospital sitesin [place], [place], [place] and [place]. This disclosure is being madepursuant to the Care Everywhere program and may not contain all information available regarding this patient. Last updated 18.[facility] [email or web address] Allergies Active Allergy Reactions Criticality Noted Date Comments Amiodarone ELECTROCARDIOGRAPHIC TECHNICIAN Dysfunction High 01/23/2022 Meperidine GI Discomfort 01/22/2022 Metoclopramide Unknown 01/22/2022 Medications * Be aware that medications may not be up to date on this document. Alwaysverify current medications with the patient. Medication Sig Dispensed Refills Start Date End Date Status pantoprazole (PROTONIX) 40 MG packet Take 20 mg by mouth once daily Active Multiple Vitamin (MULTI VITAMIN DAILY PO) Active magnesium oxide (Mag-Ox) 400 MG tablet Take 1 (one) tablet by mouth 2 times daily 01/31/2022 Active gabapentin (Neurontin) 600 MG tablet Take 1 (one) tablet by mouth 3 times daily 01/31/2022 Active DULoxetine (Cymbalta) 30 MG capsule Take 1 (one) capsule by mouth once daily 01/31/2022 Active insulin aspart (NovoLOG) penIndications:Ty pe 2 Diabetes Mellitus Inject 2 (two) Units subcutaneously 3 times daily before meals Reasons: Type 2 Diabetes 01/31/2022 Active insulin aspart (NovoLOG) penIndications:Ty pe 2 Diabetes Mellitus Inject 0 (zero) Units to 8 (eight) Units subcutaneously 3 times daily before meals SSI 131-180=2 181-240=4 241-300=6 301-350=8 Reasons: Type 2 Diabetes 01/31/2022 Active insulin glargine (Lantus/Semglee) 100 units/mL pen Inject 12 (twelve) Units subcutaneously at bedtime 01/31/2022 Active lisinopril (Prinivil; Zestril) 2.5 MG tablet Take 1 (one) tablet by mouth once daily 01/31/2022 Active lactulose (Chronulac) 10 GM/15ML solution Take 15 mL by mouth 2 times daily, before breakfast and supper 01/31/2022 Active melatonin 3 MG tablet Take 1 (one) tablet by mouth at bedtime 01/31/2022 Active potassium chloride ER (Micro-K) 10 MEQ capsule Take 1 (one) capsule by mouth daily with breakfast 01/31/2022 Active levothyroxine (Synthroid) 125 MCG tablet Take 1 (one) tablet by mouth once daily 01/31/2022 Active vitamin D3 (Cholecalciferol) 25 MCG (1000 UNITS) tablet Take 2 (two) tablets by mouth once daily 01/31/2022 Active thiamine (Vitamin B-1) 100 MG tablet Take 1 (one) tablet by mouth once daily 01/31/2022 Active cyanocobalamin 1000 MCG Take 1 (one) tablet by mouth once daily 01/31/2022 Active acetaminophen (Tylenol) 325 MG tablet Take 2 (two) tablets by mouth every 6 hours Maximum allowable Acetaminophen amount = 4 Grams (4000 mg) / 24 hours. 01/31/2022 Active oxyCODONE, immediate release, (Roxicodone) 5 MG tablet Take 1 (one) tablet by mouth every 4 hours as needed 12 tablet 01/31/2022 Active oxyCODONE, immediate release, (Roxicodone) 5 MG tablet Take 1 (one) tablet by mouth once daily as needed 12 tablet 01/31/2022 Active oxyCODONE, immediate release, (Roxicodone) 10 MG tablet Take 1 (one) tablet by mouth every 4 hours as needed 12 tablet 01/31/2022 Active carbidopa-levodop a CR (Sinemet CR) 50-200 MG tablet Take 1 (one) tablet by mouth at bedtime 01/31/2022 Active carbidopa-levodop a (Sinemet) 25-100 MG tablet Take 2.5 (two and one-half) tablets by mouth 4 times daily 01/31/2022 Active rivaroxaban (Xarelto) 20 MG tablet Take 1 (one) tablet by mouth daily with dinner 01/31/2022 Active Active Problems Problem Noted Date Diagnosed Date Fall 01/22/2022 Closed fracture of left distal femur 01/22/2022 Status post total bilateral knee replacement 07/2016 Trochanteric bursitis of right hip 07/20/2016 Primary osteoarthritis of right hip 07/20/2016 Family History Medical History Relation Name Comments COPD - Chronic Obstructive Pulmonary Disease Father Cancer - Pancreatic Mother Cancer - Breast Sister Relation Name Status Comments Father Mother Sister Social History Tobacco Use Types Packs/Day Years Used Date Smoking Tobacco: Never Smokeless Tobacco: Never Tobacco Cessation:Counseling Given: Not Answered Alcohol Use Standard Drinks/Week Comments Never 0 (1 standard drink = 0.6 oz pur e alcohol) AUDIT-C Answer Date Recorded Q1: How often do you have a drink containing alcohol? Never 01/23/2022 Q2: How many drinks containi ng alcohol do you have on a typical day when you are drinking? Patient does not drink Q3: How often do you have si x or more drinks on one occasion? Never 01/23/2022 PHQ-2 Answer Date Recorded Patient Health Questionnaire-2 Score 1 11/20/2023 Hunger Vital Sign Answer Date Recorded Within the past 12 months, y ou worried that your food would run out before you got the money to buy more. Never true 01/24/20 22 Within the past 12 months, t he food you bought just didn't last and you didn't have money to get more. Never true 01/23/2022 Sex and Gender Information Value Date Recorded Sex Assigned at Not on file Gender Identity Not on file Sexual Orientation Not on file Last Filed Vital Signs Vital Sign Reading Time Taken Comments Blood Pressure 117/56 01/31/2022 9:06 PM CDT Pulse 89 01/31/2022 9:06 PM CDT Temperature 37.1 C (98.8 F) 01/31/2022 9:06 PM CDT Respiratory Rate 18 01/31/2022 9:06 PM CDT Oxygen Saturation 96% 01/31/2022 9:06 PM CDT Inhaled Oxygen Concentration - - Weight 72.6 kg (160 lb) 11/20/2023 11:04 AM CDT Height 172.7 cm (5' 8 ) 11/20/2023 11:04 AM CDT Body Mass Index 24.33 11/20/2023 11:04 AM CDT Plan of Treatment Health Maintenance Due Date Last Done Comments MEDICARE AWV 12 MONTHS 1939 DTAP/TDAP/TD VACCINES (1 - Tdap) 1958 PNEUMOCOCCAL VACCINE 50+ (1 of 1 - PCV) 1989 ZOSTER VACCINE (1 of 2) 1989 Respiratory Syncytial Virus (RSV) Vaccine Pt: or over 60 yrs (1 - 1-dose 75+ series) 2014 COVID-19 VACCINE ( season) 2024 11/24/2021, 03/07/2021, 08/03/2020, Additional history exists INFLUENZA VACCINE (#1) 2024 , 03/16/2019, 02/17/2018, Additional history exists DEPRESSION SCREENING 05/20/2024 11/20/2023 BONE DENSITY TESTING Completed 07/30/2014 HEPATITIS B VACCINE Aged Out No longe r eligible based on patient's age to complete this topic HIB VACCINE Aged Out No longer eligi ble based on patient's age to complete this topic HPV VACCINE Aged Out No longer eligi ble based on patient's age to complete this topic MENINGOCOCCAL (Group B) VACCINE Aged Out No longer eligible based on patient's age to complete this topic MENINGOCOCCAL VACCINE Aged Out No jaime jason eligible based on patient's age to complete this topic Medical Devices Implanted Type Area Film Masker Device Identifier Shelf Expiration Date Model / Serial / Lot 4.5mm Cortex Screws, 38mm Implanted:Qty: 1 on 01/23/2022 by Mikie Dillon MD at [facility] Left: Femur [employer] [id number] / / 5.7mm Cannulated Locking Screws, 80mm Implanted:Qty: 2 on 01/23/2022 by Mikie Dillon MD at [facility] Left: Femur [employer] [id number] / / 5.7mm Cannulated Locking Screws, 85mm Implanted:Qty: 1 on 01/23/2022 by Mikie Dillon MD at [facility] Left: Femur [employer] [id number] / / 4.5mm Distal Femur Plate, L 15h 306mm Implanted:Qty: 1 on 01/23/2022 by Mikie Dillon MD at [facility] Left: Femur [employer] [id number] / / 4.5mm Cortex Screws, 40mm Implanted:Qty: 1 on 01/23/2022 by Mikie Dillon MD at [facility] Left: Femur [employer] [id number] / / 4.5mm Cortex Screws, 42mm Implanted:Qty: 2 on 01/23/2022 by Mikie Dillon MD at [facility] Left: Femur [employer] [id number] / / 4.5mm Cortex Screws, 46mm Implanted:Qty: 1 on 01/23/2022 by Mikie Dillon MD at [facility] Left: Femur [id number] / / 4.5mm Locking Screws, 80mm Implanted:Qty: 1 on 01/23/2022 by Mikie Dillon MD at [facility] Left: Femur [employer] [id number] / / 6.7mm High Torque Screw, 70mm Implanted:Qty: 1 on 01/23/2022 by Mikie Dillon MD at [facility] Left: Femur [employer] [id number] / / 5.7mm Cannulated Locking Screws, 46mm Implanted:Qty: 1 on 01/23/2022 by Mikie Dillon MD at [facility] Left: Femur [employer] [id number] / / 5.7mm Cannulated Locking Screws, 48mm Implanted:Qty: 1 on 01/23/2022 by Mikie Dillon MD at [facility] Left: Femur [employer] [id number] / / Explanted Type Area Film Masker Device Identifier Shelf Expiration Date Model / Serial / Lot Provisional Fixation Pins, 3.5mm Explanted:Qty: 1 on 01/23/2022 by Mikie Dillon MD at [facility] Left: Femur [employer] [id number] / / 2.0 Kwire X 350mm Explanted:Qty: 2 on 01/23/2022 by Mikie Dillon MD at [facility] Left: Femur [employer] [id number] / / Advance Directives Documents on File Type Date Recorded Patient Dry Box Tender Expl anation Adv Directive/Living Will/POA 02/05/2022 1:02 PM * Full Code (Latest Code Status on File) Date Activated Date Inactivated Comments 01/22/2022 6:45 PM 02/01/2022 12:17 AM Care Teams Ad Taker Relationship Specialty Start Date End Date Samuel Huerta DO [address] [place] [address] PCP - General Family Medicine 01/22/22 Clifford Ann MD Orthopedic Surgery 07/20/16
--- OUTSIDE RECORDS SUMMARY | 2024-07-13 11:21 | XMS_ITS | Encounter Summary ---
Author Organization [facility] Address [address] [facility] [place] [address] Care Team Providers Care Corporate Paralegal Name Role Phone Clifford Ann MD Unavailable Samuel Huerta DO Primary Care Provider [phone] Encounter Details Date Type Department Care Team (Late st Contact Info) Description 04/21/2020 Lab Requisition [facility] DermPath Lab [address] [place] [address] [place] [address] [place] [address] Social History Tobacco Use Types Packs/Day Years Used Date Smoking Tobacco: Never Sex and Gender Information Value Date Recorded Sex Assigned at Not on file Gender Identity Not on file Sexual Orientation Not on file documented as of this encounter Plan of Treatment Not on file documented as of this encounter Procedures Procedure Name Priority Date/Time Associated Diagnosis Comments DERMATOPATHOLOGY Routine 04/20/2020 12:0 0 AM WATER AND FIRE TECHNICIAN documented in this encounter Results * DERMATOPATHOLOGY (04/20/2020 12:00 AM WATER AND FIRE TECHNICIAN) Case Report Dermatopathology Report Case: [id number] Authorizing Provider: Myriam Garza MD Collected: 04/20/2020 12:00 AM Ordering Location: [facility] Derm[facility] Lab Received: 04/21/2020 12:35 PM Pathologist: Monserrat Gonzalez MD Specimen: Skin, left clavicular skin 0 4:31 PM WATER AND FIRE TECHNICIAN DERMATOPATHOLOGY LABORATORY Final Diagnosis Specimen A. 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 . 0 4:31 PM WATER AND FIRE TECHNICIAN DERMATOPATHOLOGY LABORATORY Gross Description Specimen A: Received is one formalin filled container labeled with the patient's name and designated left clavicular skin. The specimen consists of a shave biopsy measuring [id number]. Jar 0. 0 4:31 PM WATER AND FIRE TECHNICIAN DERMATOPATHOLOGY LABORATORY Microscopic Description Specimen A. SKIN, left clavicular skin: Within the dermis there are aggregates of basaloid cells with a high nuclear to cytoplasmic ratio and peripheral palisading. 0 4:31 PM WATER AND FIRE TECHNICIAN DERMATOPATHOLOGY LABORATORY Disclaimer An external and internal positive and negative controls are appropriate for the histochemical, immunohistochemical and immunofluorescence stain(s) in this case (if any), except where stated explicitly. The performance characteristics of the stain(s) cited in this report were developed and its performance characteristic determined by the Dermatopathology Laboratory at [facility], directed by Dr. Martin Gonzalez. These tests need not be, and therefore are not, approved by the [place] Food and Drug Administration. The tests are used for clinical purposes. Billing Codes Specimen Charges Stain Charges 47074 1 0 4:31 PM WATER AND FIRE TECHNICIAN DERMATOPATHOLOGY LABORATORY Embedded Images 0 4:31 PM WATER AND FIRE TECHNICIAN DERMATOPATHOLOGY LABORATORY Pathology/Cytolog y TISSUE SPECIMEN FROM SKIN / Unknown 04/20/2020 04/21/2020 12:35 PM WATER AND FIRE TECHNICIAN Myriam Garza MD LAB - PATHOLOGY/C YTOLOGY ORDERABLES DERMATOPATHOLOGY LABORATORY [facility] - Department of Dermatology [address], [address] [phone] documented in this encounter Visit Diagnoses Not on filedocumented in this encounter Care Teams Corporate Paralegal Relationship Specialty Start Date End Date Samuel Huerta DO [address] [place] [address] PCP - General Family Medicine 01/22/22 Clifford Ann MD Orthopedic Surgery 07/20/16 documented as of this encounter
--- OUTSIDE RECORDS SUMMARY | 2024-07-13 11:21 | XMS_ITS | Referral Summary ---
Author Organization [facility] Address [address] [facility] [place] [address] Care Team Providers Care Leather Roller Name Role Phone Clifford Ann MD Unavailable [phone] Samuel Huerta DO Primary Care Provider [phone] Source Comments [facility],non-owned Affiliates and Associated Physician Practices is amultiple site organization consisting of ambulatory clinics and hospital sitesin [place], [place], [place] and [place]. This disclosure is being madepursuant to the Care Everywhere program and may not contain all information available regarding this patient. 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 No 01/31/2022 Is person blind or have serious difficulty seein g? No 01/31/2022 Does person have serious dif ficulty walking/climbing stairs? No 01/31/2022 Does person have difficulty dressing/bathing? No 01/31/2022 Does person have difficulty doing errands alone? Yes 01/31/2022 Cognitive Status Response Date of Assessm ent Does person have difficulty concentrating/remembering/making decisions? No 01/31/2022 Plan of Treatment Not on file Medical Devices Implanted Type Area Medical Insurance Coding Specialist Device Identifier Shelf Expiration Date Model / Serial / Lot 4.5mm Cortex Screws, 38mm Implanted:Qty: 1 on 01/23/2022 by Mikie Dillon MD at [facility] Left: Femur [employer] [id number] / / 5.7mm Cannulated Locking Screws, 80mm Implanted:Qty: 2 on 01/23/2022 by Mikie Dillon MD at [facility] Left: Femur [employer] [id number] / / 5.7mm Cannulated Locking Screws, 85mm Implanted:Qty: 1 on 01/23/2022 by Mikie Dillon MD at [facility] Left: Femur [employer] [id number] / / 4.5mm Distal Femur Plate, L 15h 306mm Implanted:Qty: 1 on 01/23/2022 by Mikie Dillon MD at [facility] Left: Femur [employer] [id number] / / 4.5mm Cortex Screws, 40mm Implanted:Qty: 1 on 01/23/2022 by Mikie Dillon MD at [facility] Left: Femur [employer] [id number] / / 4.5mm Cortex Screws, 42mm Implanted:Qty: 2 on 01/23/2022 by Mikie Dillon MD at [facility] Left: Femur [employer] [id number] / / 4.5mm Cortex Screws, 46mm Implanted:Qty: 1 on 01/23/2022 by Mikie Dillon MD at [facility] Left: Femur [id number] / / 4.5mm Locking Screws, 80mm Implanted:Qty: 1 on 01/23/2022 by Mikie Dillon MD at [facility] Left: Femur [employer] [id number] / / 6.7mm High Torque Screw, 70mm Implanted:Qty: 1 on 01/23/2022 by Mikie Dillon MD at [facility] Left: Femur [employer] [id number] / / 5.7mm Cannulated Locking Screws, 46mm Implanted:Qty: 1 on 01/23/2022 by Mikie Dillon MD at [facility] Left: Femur [employer] [id number] / / 5.7mm Cannulated Locking Screws, 48mm Implanted:Qty: 1 on 01/23/2022 by Mikie Dillon MD at [facility] Left: Femur [employer] [id number] / / Explanted Type Area Medical Insurance Coding Specialist Device Identifier Shelf Expiration Date Model / Serial / Lot Provisional Fixation Pins, 3.5mm Explanted:Qty: 1 on 01/23/2022 by Mikie Dillon MD at [facility] Left: Femur [employer] [id number] / / 2.0 Kwire X 350mm Explanted:Qty: 2 on 01/23/2022 by Mikie Dillon MD at [facility] Left: Femur [employer] [id number] / / Administered Medications Advance Directives Documents on File Type Date Recorded Patient Ground Support Agent Expl anation Adv Directive/Living Will/POA 02/05/2022 1:02 PM * Full Code (Latest Code Status on File) Date Activated Date Inactivated Comments 01/22/2022 6:45 PM 02/01/2022 12:17 AM Care Teams Leather Roller Relationship Specialty Start Date End Date Samuel Huerta DO [address] [place] [address] PCP - General Family Medicine 01/22/22 Clifford Ann MD Orthopedic Surgery 07/20/16
--- OUTSIDE RECORDS SUMMARY | 2024-07-13 11:21 | XMS_ITS | Encounter Summary ---
Author Organization [facility] Address [address] [place] [address] Care Team Providers Care Steamboat Pilot Name Role Phone Mateusz Gallegos MD Unavailable Unavailable Mary Dunne MD Unavailable [phone] Deonna Abbott MD Unavailable [phone] Annette Mock RN Unavailable [phone] Chava Mo MD Primary Care Provider Brenda Coronel MD Unavailable [phone] Sanchez Singleton MD Unavailable [phone] Dany Mason [employer] M[employer] Unavailable [phone] Florinda Galindo MD Unavailable Samuel Huerta DO Primary Care Provider [phone] Bel Trotter [employer]- Unavailable [phone] Encounter Details Date Type Department Care Team (Late st Contact Info) Description 10/26/2019 Telephone [facility] Multispecialty Care [address] [phone] Deonna Abbott MD [address] [place] [id number] Social History Tobacco Use Types Packs/Day Years Used Date Smoking Tobacco: Never Smokeless Tobacco: Never Alcohol Use Standard Drinks/Week Comments No 0 (1 standard drink = 0.6 oz pur e alcohol) PHQ-2 Answer Date Recorded PHQ-2 Score 0 04/14/2019 Comments Unknown Sex and Gender Information Value Date Recorded Sex Assigned at Female 11/05/2019 5:43 AM CDT Legal Sex Female 11:29 PM SUPERINTENDENT RENTING MANAGING Gender Identity Female 11/05/2019 5:43 AM CDT Sexual Orientation Straight 11/05/2019 5: 43 AM CDT documented as of this encounter Plan of Treatment Not on file documented as of this encounter Visit Diagnoses Not on filedocumented in this encounter Additional Health Concerns Infection Onset Date Last Indicated Resolved Time COVID-19 Rule Out Comment:Test cancelled by , Dr. Snow agrees no current concern for COVID-19 (JJ) 11/04/2019 11/04/2019 11/05/2019 10:31 AM CDT COVID-19 Rule Out 09/30/2020 09/30/2020 09/30/2020 7:46 PM CDT Assessment Noted Time PHQ-9 Depression Total Score: 0 04/20/20 19 11:06 AM SUPERINTENDENT RENTING MANAGING documented as of this encounter Care Teams Steamboat Pilot Relationship Specialty Start Date End Date Deonna Abbott MD [address] [place] [address] PCP - Med Group - [facility] Attributed Provider 05/20/15 05/19/21 Chava Mo MD [address] [place] [address] PCP - General FAMILY PRACTICE 01/08/20 06/01/21 Samuel Huerta DO [address] [place] [address] PCP - General FAMILY PRACTICE 06/02/21 Mateusz Gallegos MD INTERVENTIONAL CARDIOLOGY 11/08/17 12/13/20 Mary Dunne MD Consulting Physician OBGYN 09/23/18 Annette Mock, RN [address] [place] [address] Therapist Physical (Ambulatory) REGISTERED NURSE 11/05/19 11/16/19 Brenda Coronel MD [address] [place] [address] Consulting Physician INTERNAL MEDICINE 06/17/20 Sanchez Singleton MD [address] [place] [address] Consulting Physician ENDOCRINOLOGY 06/17/20 Dany Mason FNP [address] [place] [address] Nurse Practitioner Nurse Practitioner Family 06/21/20 Florinda Galindo MD [address] [place] [address] Consulting Physician CARDIOVASCULAR DISEASE 12/14/20 Bel Trotter FNP-MATY [address] [place] [id number] Nurse Practitioner NURSE PRACTITIONER 01/10/22 documented as of this encounter
--- OUTSIDE RECORDS SUMMARY | 2024-07-13 11:21 | XMS_ITS | Encounter Summary ---
Author Organization [facility] Address [address] [place] [address] Care Team Providers Care Miller First Name Role Phone Mateusz Gallegos MD Unavailable Unavailable Mary Dunne MD Unavailable [phone] Deonna Abbott MD Unavailable [phone] Chava Mo MD Primary Care Provider Brenda Coronel MD Unavailable [phone] Sanchez Singleton MD Unavailable [phone] Dany Mason [employer]T [employer] LINK ASSEMBLY SUPERVISOR Unavailable [phone] Florinda Galindo MD Unavailable Samuel Huerta DO Primary Care Provider [phone] Bel Trotter [employer] L[employer] ASSEMBLY SUPERVISOR- Unavailable [phone] Reason for Visit * Reason Onset Date Comments Record Request 12/25/2019 asking if reques t for records was received Encounter Details Date Type Department Care Team (Late st Contact Info) Description 12/25/2019 Telephone [facility] Multispecialty [facility] [address] [place] [address] Deonna Abbott MD [address] [place] [address] Record Request (asking if request for records was received) Social History Tobacco Use Types Packs/Day Years [...] often do you attend chur ch or moravian services? 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 Answer Date of Assessment Author Status Yes 11/05/2019 5:56 AM CDT Activ e * Do you have serious difficulty walking or climbing stairs? Answer Date of Assessment Author Status Yes 11/05/2019 5:56 AM CDT Patricia Marino RN Active * Do you have difficulty dressing or bathing? Answer Date of Assessment Author Status Yes 11/05/2019 5:56 AM CDT Patricia Marino RN Active * Because of a physical, mental, or emotional condition, do you have difficulty doing errands alone such as visiting a doctor's office or shopping? Answer Date of Assessment Author Status Yes 11/05/2019 5:56 AM CDT Brown, Patricia M, RN Active documented as of this encounter Mental Status * Because of a physical, mental, or emotional condition, do you have serious difficulty concentrating, remembering, or making decisions? Answer Entry Date Author Status Yes 11/05/2019 5:56 AM CDT Patricia Marino RN Active documented in this encounter Progress Notes * Nallely Nagel MA - 12/25/2019 2:26 PM CDT Spoke with Yadi, she said this was processed today. Iliana notified by phone. * Nancy Vanegas - 12/25/2019 12:26 PM CDT Patient's daughter, Iliana called asking if office received request of records from new physician in [place], [place]. Said they have sent two requests but have not received the records. 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 documented as of this encounter Care Teams Miller First Relationship Specialty Start Date End Date Deonna Abbott MD [address] [place] [address] PCP - Med Group - [facility] Attributed Provider 05/20/15 05/19/21 Chava Mo MD [address] [place] [address] PCP - General FAMILY PRACTICE 01/08/20 06/01/21 Samuel Huerta DO [address] [place] [address] PCP - General FAMILY PRACTICE 06/02/21 Mateusz Gallegos MD INTERVENTIONAL CARDIOLOGY 11/08/17 12/13/20 Mary Dunne MD Consulting Physician OBGYN 09/23/18 Brenda Coronel MD [address] [place] [address] Consulting Physician INTERNAL MEDICINE 06/17/20 Sanchez Singleton MD [address] [place] [address] Consulting Physician ENDOCRINOLOGY 06/17/20 Dany Mason FNP [address] [place] [address] Nurse Practitioner Nurse Practitioner Family 06/21/20 Florinda Galindo MD [address] [place] [address] Consulting Physician CARDIOVASCULAR DISEASE 12/14/20 Bel Trotter FNP-MATY [address] [place] [id number] Nurse Practitioner NURSE PRACTITIONER 01/10/22 documented as of this encounter
--- OUTSIDE RECORDS SUMMARY | 2024-07-13 11:21 | XMS_ITS | Patient Health Summary ---
Author Organization [facility] Address [address] [place] [address] Care Team Providers Care Stock Manager Name Role Phone Clifford Ann MD Unavailable [phone] Samuel Huerta DO Primary Care Provider [phone] Note from [facility],non-owned Affiliates and Associated Physician Practices is amultiple site organization consisting of ambulatory clinics and hospital sitesin [place], [place]. This disclosure is being madepursuant to the Care Everywhere program and may not contain all information available regarding this patient. Last updated 18.[facility] Allergies * Amiodarone(MICROSOFT APPLICATION DEVELOPER Dysfunction) -High Criticality * Meperidine(GI Discomfort) * Metoclopramide(Unknown) Medications * Be aware that medications may not be up to date on this document. Alwaysverify current medications with the patient. * pantoprazole (PROTONIX) 40 MG packet Take 20 mg by mouth once daily * Multiple Vitamin (MULTI VITAMIN DAILY PO) * magnesium oxide (Mag-Ox) 400 MG tablet(Started 01/31/2022) Take 1 (one) tablet by mouth 2 times daily * gabapentin (Neurontin) 600 MG tablet(Started 01/31/2022) Take 1 (one) tablet by mouth 3 times daily * DULoxetine (Cymbalta) 30 MG capsule(Started 01/31/2022) Take 1 (one) capsule by mouth once daily * insulin aspart (NovoLOG) pen(Started 01/31/2022) Inject 2 (two) Units subcutaneously 3 times daily before meals Reasons: Type 2 Diabetes * insulin aspart (NovoLOG) pen(Started 01/31/2022) Inject 0 (zero) Units to 8 (eight) Units subcutaneously 3 times daily before meals SSI 131-180=2 181-240=4 241-300=6 301-350=8 Reasons: Type 2 Diabetes * insulin glargine (Lantus/Semglee) 100 units/mL pen(Started 01/31/2022) Inject 12 (twelve) Units subcutaneously at bedtime * lisinopril (Prinivil; Zestril) 2.5 MG tablet(Started 01/31/2022) Take 1 (one) tablet by mouth once daily * lactulose (Chronulac) 10 GM/15ML solution(Started 01/31/2022) Take 15 mL by mouth 2 times daily, before breakfast and supper * melatonin 3 MG tablet(Started 01/31/2022) Take 1 (one) tablet by mouth at bedtime * potassium chloride ER (Micro-K) 10 MEQ capsule(Started 01/31/2022) Take 1 (one) capsule by mouth daily with breakfast * levothyroxine (Synthroid) 125 MCG tablet(Started 01/31/2022) Take 1 (one) tablet by mouth once daily * vitamin D3 (Cholecalciferol) 25 MCG (1000 UNITS) tablet(Started 01/31/2022) Take 2 (two) tablets by mouth once daily * thiamine (Vitamin B-1) 100 MG tablet(Started 01/31/2022) Take 1 (one) tablet by mouth once daily * cyanocobalamin 1000 MCG(Started 01/31/2022) Take 1 (one) tablet by mouth once daily * acetaminophen (Tylenol) 325 MG tablet(Started 01/31/2022) Take 2 (two) tablets by mouth every 6 hours Maximum allowable Acetaminophen amount = 4 Grams (4000 mg) / 24 hours. * oxyCODONE, immediate release, (Roxicodone) 5 MG tablet(Started 01/31/2022) Take 1 (one) tablet by mouth every 4 hours as needed * oxyCODONE, immediate release, (Roxicodone) 5 MG tablet(Started 01/31/2022) Take 1 (one) tablet by mouth once daily as needed * oxyCODONE, immediate release, (Roxicodone) 10 MG tablet(Started 01/31/2022) Take 1 (one) tablet by mouth every 4 hours as needed * carbidopa-levodopa CR (Sinemet CR) 50-200 MG tablet(Started 01/31/2022) Take 1 (one) tablet by mouth at bedtime * carbidopa-levodopa (Sinemet) 25-100 MG tablet(Started 01/31/2022) Take 2.5 (two and one-half) tablets by mouth 4 times daily * rivaroxaban (Xarelto) 20 MG tablet(Started 01/31/2022) Take 1 (one) tablet by mouth daily with dinner Active Problems Problem Noted Date Diagnosed Date [...] Mass Index 24.33 11/20/2023 11:04 AM CDT Medical Devices Implanted Type Area Mechanical Sound Technician Device Identifier Shelf Expiration Date Model / Serial / Lot 4.5mm Cortex Screws, 38mm Implanted:Qty: 1 on 01/23/2022 by Mikie Dillon MD at [facility] Left: Femur [employer] [id number] / / 5.7mm Cannulated Locking Screws, 80mm Implanted:Qty: 2 on 01/23/2022 by Mikie Dillon MD at [facility] Left: Femur [employer] [id number] / / 5.7mm Cannulated Locking Screws, 85mm Implanted:Qty: 1 on 01/23/2022 by Mikie Dillon MD at [facility] Left: Femur [employer] [id number] / / 4.5mm Distal Femur Plate, L 15h 306mm Implanted:Qty: 1 on 01/23/2022 by Mikie Dillon MD at [facility] Left: Femur [employer] [id number] / / 4.5mm Cortex Screws, 40mm Implanted:Qty: 1 on 01/23/2022 by Mikie Dillon MD at [facility] Left: Femur [employer] [id number] / / 4.5mm Cortex Screws, 42mm Implanted:Qty: 2 on 01/23/2022 by Mikie Dillon MD at [facility] Left: Femur [employer] [id number] / / 4.5mm Cortex Screws, 46mm Implanted:Qty: 1 on 01/23/2022 by Mikie Dillon MD at [facility] Left: Femur [id number] / / 4.5mm Locking Screws, 80mm Implanted:Qty: 1 on 01/23/2022 by Mikie Dillon MD at [facility] Left: Femur [employer] [id number] / / 6.7mm High Torque Screw, 70mm Implanted:Qty: 1 on 01/23/2022 by Mikie Dillon MD at [facility] Left: Femur [employer] [id number] / / 5.7mm Cannulated Locking Screws, 46mm Implanted:Qty: 1 on 01/23/2022 by Mikie Dillon MD at [facility] Left: Femur [employer] [id number] / / 5.7mm Cannulated Locking Screws, 48mm Implanted:Qty: 1 on 01/23/2022 by Mikie Dillon MD at [facility] Left: Femur [employer] [id number] / / Explanted Type Area Mechanical Sound Technician Device Identifier Shelf Expiration Date Model / Serial / Lot Provisional Fixation Pins, 3.5mm Explanted:Qty: 1 on 01/23/2022 by Mikie Dillon MD at [facility] Left: Femur [employer] [id number] / / 2.0 Kwire X 350mm Explanted:Qty: 2 on 01/23/2022 by Mikie Dillon MD at [facility] Left: Femur [employer] [id number] / / Procedures * DERMATOPATHOLOGY(Performed 12/30/2023) * XR KNEE LEFT 2VW OR LESS(Performed 11/20/2023) Performed for Closed fracture of distal end of left femur with routine healing, unspecified fracture morphology, subsequent encounter, History of total knee arthroplasty, left * XR FEMUR LEFT 2VW(Performed 11/20/2023) Performed for Closed fracture of distal end of left femur with routine healing, unspecified fracture morphology, subsequent encounter * XR FEMUR LEFT 2VW(Performed 06/06/2022) Performed for Closed fracture of distal end of left femur with routine healing, unspecified fracture morphology, subsequent encounter * XR FEMUR LEFT 2VW(Performed 04/18/2022) Performed for Closed fracture of distal end of left femur, unspecified fracture morphology, initialencounter ([facility]) * XR FEMUR LEFT 2VW(Performed 03/21/2022) Performed for Closed fracture of distal end of left femur, unspecified fracture morphology, initialencounter ([facility]) * XR FEMUR LEFT 2VW(Performed 02/07/2022) Performed for Closed fracture of distal end of left femur, unspecified fracture morphology, initialencounter ([facility]) * GLUCOSE - POINT OF CARE(Performed 01/31/2022) * XR FEMUR LEFT 2VW(Performed 01/31/2022) Performed for Closed fracture of distal end of left femur, unspecified fracture morphology, initialencounter ([facility]) * GLUCOSE - POINT OF CARE(Performed 01/31/2022) * GLUCOSE - POINT OF CARE(Performed 01/31/2022) * GLUCOSE - POINT OF CARE(Performed 01/31/2022) * GLUCOSE - POINT OF CARE(Performed 01/31/2022) * BASIC METABOLIC PANEL (CALCIUM TOTAL)(Performed 01/31/2022) * CBC W AUTO DIFFERENTIAL(Performed 01/31/2022) * GLUCOSE - POINT OF CARE(Performed 01/30/2022) * GLUCOSE - POINT OF CARE(Performed 01/30/2022) * GLUCOSE - POINT OF CARE(Performed 01/30/2022) * GLUCOSE - POINT OF CARE(Performed 01/30/2022) * GLUCOSE - POINT OF CARE(Performed 01/30/2022) * BASIC METABOLIC PANEL (CALCIUM TOTAL)(Performed 01/30/2022) * CBC W AUTO DIFFERENTIAL(Performed 01/30/2022) * GLUCOSE - POINT OF CARE(Performed 01/30/2022) * GLUCOSE - POINT OF CARE(Performed 01/30/2022) * GLUCOSE - POINT OF CARE(Performed 01/29/2022) * GLUCOSE - POINT OF CARE(Performed 01/29/2022) * GLUCOSE - POINT OF CARE(Performed 01/29/2022) * BASIC METABOLIC PANEL (CALCIUM TOTAL)(Performed 01/29/2022) * CBC W AUTO DIFFERENTIAL(Performed 01/29/2022) * GLUCOSE - POINT OF CARE(Performed 01/29/2022) * GLUCOSE - POINT OF CARE(Performed 01/29/2022) * GLUCOSE - POINT OF CARE(Performed 01/29/2022) * GLUCOSE - POINT OF CARE(Performed 01/28/2022) * EKG 12-LEAD(Performed 01/28/2022) Performed for Fall, initial encounter, Closed fracture of distal end of left femur, unspecified fracture morphology, initial encounter ([facility]) * GLUCOSE - POINT OF CARE(Performed 01/28/2022) * GLUCOSE - POINT OF CARE(Performed 01/28/2022) * GLUCOSE - POINT OF CARE(Performed 01/28/2022) * GLUCOSE - POINT OF CARE(Performed 01/28/2022) * GLUCOSE - POINT OF CARE(Performed 01/28/2022) * GLUCOSE - POINT OF CARE(Performed 01/28/2022) * GLUCOSE - POINT OF CARE(Performed 01/27/2022) * URINE MICROSCOPIC ONLY REFLEX TO CULTURE(Performed 01/27/2022) * URINALYSIS REFLEX MICROSCOPIC REFLEX CULTURE(Performed 01/27/2022) * URINALYSIS W/MICROSCOPIC NO CULTURE(Performed 01/27/2022) * CULTURE URINE(Performed 01/27/2022) * GLUCOSE - POINT OF CARE(Performed 01/27/2022) * GLUCOSE - POINT OF CARE(Performed 01/27/2022) * CBC W/O DIFFERENTIAL(Performed 01/27/2022) * GLUCOSE - POINT OF CARE(Performed 01/27/2022) * GLUCOSE - POINT OF CARE(Performed 01/27/2022) * VITAMIN D 1,25 DIHYDROXY(Performed 01/27/2022) * GLUCOSE - POINT OF CARE(Performed 01/27/2022) * GLUCOSE - POINT OF CARE(Performed 01/26/2022) * GLUCOSE - POINT OF CARE(Performed 01/26/2022) * GLUCOSE - POINT OF CARE(Performed 01/26/2022) * GLUCOSE - POINT OF CARE(Performed 01/26/2022) * GLUCOSE - POINT OF CARE(Performed 01/26/2022) * PREPARE RBC LEUKOREDUCED UNIT(Performed 01/26/2022) * PREPARE RBC LEUKOREDUCED UNIT(Performed 01/26/2022) * GLUCOSE - POINT OF CARE(Performed 01/26/2022) * GLUCOSE - POINT OF CARE(Performed 01/25/2022) * GLUCOSE - POINT OF CARE(Performed 01/25/2022) * GLUCOSE - POINT OF CARE(Performed 01/25/2022) * GLUCOSE - POINT OF CARE(Performed 01/25/2022) * CBC W/O DIFFERENTIAL(Performed 01/25/2022) * BASIC METABOLIC PANEL (CALCIUM TOTAL)(Performed 01/25/2022) * GLUCOSE - POINT OF CARE(Performed 01/25/2022) * GLUCOSE - POINT OF CARE(Performed 01/25/2022) * GLUCOSE - POINT OF CARE(Performed 01/24/2022) * GLUCOSE - POINT OF CARE(Performed 01/24/2022) * GLUCOSE - POINT OF CARE(Performed 01/24/2022) * GLUCOSE - POINT OF CARE(Performed 01/24/2022) * BASIC METABOLIC PANEL (CALCIUM TOTAL)(Performed 01/24/2022) * CBC W/O DIFFERENTIAL(Performed 01/24/2022) * GLUCOSE - POINT OF CARE(Performed 01/24/2022) * GLUCOSE - POINT OF CARE(Performed 01/24/2022) * GLUCOSE - POINT OF CARE(Performed 01/23/2022) * XR FEMUR LEFT 2VW(Performed 01/23/2022) Performed for Closed fracture of distal end of left femur, unspecified fracture morphology, initialencounter ([facility]) * GLUCOSE - POINT OF CARE(Performed 01/23/2022) * FL CODY SURGERY(Performed 01/23/2022) Performed for Closed fracture of distal end of left femur, unspecified fracture morphology, initialencounter ([facility]) * TRANSFUSE RED BLOOD CELL LEUKOREDUCED UNIT(S)(Performed 01/23/2022) * ARTERIAL LINE NOTE(Performed 01/23/2022) * OPEN REDUCTION INTERNAL FIXATION (ORIF) FEMUR(Performed 01/23/2022) Performed for Closed fracture of left femur, unspecified fracture morphology, unspecified portion of femur, initial encounter ([facility]) * ENDOTRACHEAL TUBE NOTE(Performed 01/23/2022) * GLUCOSE - POINT OF CARE(Performed 01/23/2022) * CARDIAC EKG ORDER(Performed 01/23/2022) * GLUCOSE - POINT OF CARE(Performed 01/23/2022) * GLUCOSE - POINT OF CARE(Performed 01/23/2022) * PT-INR [facility](Performed 01/23/2022) * PTT [facility](Performed 01/23/2022) * BASIC METABOLIC PANEL (CALCIUM TOTAL)(Performed 01/23/2022) * CBC W/O DIFFERENTIAL(Performed 01/23/2022) * HEMOGLOBIN A1C(Performed 01/23/2022) * BLOOD TYPE VERIFICATION(Performed 01/23/2022) * GLUCOSE - POINT OF CARE(Performed 01/23/2022) * GLUCOSE - POINT OF CARE(Performed 01/22/2022) * GLUCOSE - POINT OF CARE(Performed 01/22/2022) * XR KNEE LEFT 3VW(Performed 01/22/2022) Performed for Fall, initial encounter * EKG 12-LEAD(Performed 01/22/2022) Performed for Fall, initial encounter * CT KNEE LEFT WO CONTRAST(Performed 01/22/2022) Performed for Fall, initial encounter * CT LUMBAR SPINE WO CONTRAST(Performed 01/22/2022) Performed for Fall, initial encounter * CT THORACIC SPINE WO CONTRAST(Performed 01/22/2022) Performed for Fall, initial encounter * CT CHEST ABDOMEN PELVIS W CONT(Performed 01/22/2022) Performed for Fall, initial encounter * CT CERVICAL SPINE WO CONTRAST(Performed 01/22/2022) Performed for Fall, initial encounter * CT HEAD WO CONTRAST(Performed 01/22/2022) Performed for Fall, initial encounter * XR CHEST 1VW PORTABLE(Performed 01/22/2022) Performed for Fall, initial encounter * XR HIP LEFT 2VW OR MORE(Performed 01/22/2022) Performed for Fall, initial encounter * XR FEMUR LEFT 2VW(Performed 01/22/2022) Performed for Fall, initial encounter * XR PELVIS 1 OR 2VW(Performed 01/22/2022) Performed for Fall, initial encounter * XR KNEE LEFT 2VW OR LESS(Performed 01/22/2022) Performed for Fall, initial encounter * TYPE + SCREEN PANEL(Performed 01/22/2022) * TEG 6 GLOBAL HEMOSTASIS(Performed 01/22/2022) Performed for Fall, initial encounter * TEG 6S PLATELET MAPPING(Performed 01/22/2022) * PTT [facility](Performed 01/22/2022) * PT-INR [facility](Performed 01/22/2022) * CBC W AUTO DIFFERENTIAL(Performed 01/22/2022) * BASIC METABOLIC PANEL (CALCIUM TOTAL)(Performed 01/22/2022) * ALCOHOL ETHYL BLOOD(Performed 01/22/2022) * DERMATOPATHOLOGY(Performed 08/04/2020) * DERMATOPATHOLOGY(Performed 07/08/2020) * DERMATOPATHOLOGY(Performed 04/20/2020) * XR KNEE BILAT 3VW(Performed 07/20/2016) Performed for Pain in both knees, unspecified chronicity * XR HIP RIGHT 2VW OR MORE(Performed 07/20/2016) Performed for Right hip pain Results * DERMATOPATHOLOGY (12/30/2023 12:00 AM CDT) Only the most recent of4 resultswithin the time period is included. Case Report Dermatopathology Report Case: [id number] Authorizing Provider: Tian Dumont Jr., MD Collected: 12/30/2023 12:00 AM Ordering Location: [facility] - Received: 12/31/2023 12:48 PM DermPath Lab Pathologist: Celeste Germain MD Specimen: Skin, mid trapezial neck 1:23 PM CDT DERMATOPATHOLOGY LABORATORY Final Diagnosis Specimen A. SKIN, mid trapezial neck: BASAL CELL CARCINOMA, SUPERFICIAL MULTIFOCAL (C44.41) 1:23 PM CDT DERMATOPATHOLOGY LABORATORY Clinical History Superficial BCC 1:23 PM CDT DERMATOPATHOLOGY LABORATORY Gross Description Specimen A: Received is one formalin filled container labeled with the patient's name and designated mid trapezial neck. The specimen consists of a shave biopsy measuring 8x6x1 mm. Jar 0. 1:23 PM CDT DERMATOPATHOLOGY LABORATORY Microscopic Description Specimen A. SKIN, mid trapezial neck: Attached to the undersurface of the epidermis, there are small aggregates of basaloid cells with a high nuclear to cytoplasmic ratio and peripheral palisading. 1:23 PM CDT DERMATOPATHOLOGY LABORATORY Disclaimer An external and internal positive and negative controls are appropriate for the histochemical, immunohistochemical and immunofluorescence stain(s) in this case (if any), except where stated explicitly. The performance characteristics of the stain(s) cited in this report were developed and its performance characteristic determined by the Dermatopathology Laboratory at [facility], directed by Dr. Martin Gonzalez. These tests need not be, and therefore are not, approved by the [place] Food and Drug Administration. The tests are used for clinical purposes. Billing Codes Specimen Charges Stain Charges 43870 1 1:23 PM CDT DERMATOPATHOLOGY LABORATORY Embedded Images 1:23 PM CDT DERMATOPATHOLOGY LABORATORY Pathology/Cytolog y TISSUE SPECIMEN FROM SKIN / Unknown 12/30/2023 12/31/2023 12:48 PM CDT Tian Dumont Jr., MD LAB - PATHOLOGY /CYTOLOGY ORDERABLES DERMATOPATHOLOGY LABORATORY [facility] - Department of Dermatology [address], [address] [phone] * XR KNEE LEFT 2VW OR LESS (11/20/2023 11:42 AM CDT) Only the most recent of2 resultswithin the time period is included. Anatomical Region Laterality Modality Lower Extremity Radiographic Gail ging 11/20/2023 11:5 7 AM CDT Impressions 11/20/2023 11:59 AM CDT IMPRESSION: Limited study. > Interpreting Provider: Korey Mahmood MD on 11/20/2023 11:59 AM Narrative 11/20/2023 11:59 AM CDT PROCEDURE: XR KNEE LEFT 2VW OR LESS DATE/TIME OF EXAM: 11/20/2023 11:42 AM CLINICAL INFORMATION: None relevant/not provided if blank. Indication: S72.402D: Closed fracture of distal end of left femur with routine healing, unspecified fracture morphology, subsequent encounter Z96.652: History of total knee arthroplasty, left Additional History: COMPARISON: 01/22/2022 FINDINGS: 2 views are submitted for interpretation including lateral and sunrise and there is no AP view, therefore this is a limited study. Total knee arthroplasty is again demonstrated. There has been interval open reduction and internal fixation of a distal femoral periprosthetic fracture with a plate and screws. The proximal aspect of the hardware is not included. The distal femoral fracture appears healed with bridging bone. Procedure Note Korey Mahmood MD - 11/20/2023 PROCEDURE: XR KNEE LEFT 2VW OR LESS DATE/TIME OF EXAM: 11/20/2023 11:42 AM CLINICAL INFORMATION: None relevant/not provided if blank. Indication: S72.402D: Closed fracture of distal end of left femur with routine healing, unspecified fracture morphology, subsequent encounter Z96.652: History of total knee arthroplasty, left Additional History: COMPARISON: 01/22/2022 FINDINGS: 2 views are submitted for interpretation including lateral and sunriseand there is no AP view, therefore this is a limited study. Total knee arthroplasty is again demonstrated. There has been intervalopen reduction and internal fixation of a distal femoral periprostheticfracture with a plate and screws. The proximal aspect of the hardware is not included. The distal femoral fracture appears healed with bridging bone. IMPRESSION: Limited study. > Interpreting Provider: Korey Mahmood MD on 11/20/2023 11:59 AM Janae Myrick PA-C DIAGNOSTIC IMAGING ORDERABLES * XR FEMUR LEFT 2VW (11/20/2023 10:56 AM CDT) Only the most recent of8 resultswithin the time period is included. Anatomical Region Laterality Modality Lower Extremity Radiographic Gail ging 11/20/2023 11:0 0 AM CDT Impressions 11/20/2023 11:00 AM CDT IMPRESSION: Distal femoral fracture with fixation, unchanged in alignment. > Interpreting Provider: Korey Mahmood MD on 11/20/2023 11:00 AM Narrative 11/20/2023 11:00 AM CDT PROCEDURE: XR FEMUR LEFT 2VW DATE/TIME OF EXAM: 11/20/2023 10:56 AM CLINICAL INFORMATION: None relevant/not provided if blank. Indication: S72.402D: Closed fracture of distal end of left femur with routine healing, unspecified fracture morphology, subsequent encounter Additional History: COMPARISON: 06/06/2022. TECHNIQUE: FINDINGS: There is distal femoral fracture fixation with a lateral plate and screws. The hardware is intact and the fracture is unchanged in alignment and appears essentially healed with bridging bone. Total knee arthroplasty is noted. Procedure Note Korey Mahmood MD - 11/20/2023 PROCEDURE: XR FEMUR LEFT 2VW DATE/TIME OF EXAM: 11/20/2023 10:56 AM CLINICAL INFORMATION: None relevant/not provided if blank. Indication: S72.402D: Closed fracture of distal end of left femur with routine healing, unspecified fracture morphology, subsequent encounter Additional History: COMPARISON: 06/06/2022. TECHNIQUE: FINDINGS: There is distal femoral fracture fixation with a lateral plate andscrews. The hardware is intact and the fracture is unchanged in alignment and appears essentially healed with bridging bone. Total knee arthroplastyis noted. IMPRESSION: Distal femoral fracture with fixation, unchanged inalignment. > Interpreting Provider: Korey Mahmood MD on 11/20/2023 11:00 AM Mikie Dillon MD DIAGNOSTIC IMAGING O RDERABLES * (ABNORMAL) GLUCOSE - POINT OF CARE (01/31/2022 9:02 PM CDT) Only the most recent of57 resultswithin the time period is included. [facility] Glucose WB/POC 274(H) 70 - 115 mg/dL 01/31/2022 9:03 PM T [facility] Specimen Type Cap Fingerstick 2021 9:03 PM [facility] Blood BLOOD SPECIMEN / Unknown 01/31/2022 9:02 PM CDT 01/31/2022 9:03 PM CDT Nila Mandel MD LAB - POINT OF CARE ORDERABLES Performing Organization Address City/State/[facility] Co de Phone Number [facility] [address] [place] [address], [facility] [phone] * (ABNORMAL) CBC W AUTO DIFFERENTIAL (01/31/2022 1:24 AM CDT) Only the most recent of4 resultswithin the time period is included. [facility] WBC 4.6 3.5 - 10.5 10 3/uL [facility] 2.72(L) 3.80 - 5.20 10 6/uL 01/31/2022 2:07 AM [facility] Hemoglobin 8.2(L) 12.0 - 15.6 g/dL 01/31/2022 2:07 AM [facility] Hematocrit 25.2(L) 35.0 - 45.0 % 01/31/2022 2:07 AM [facility] MCV 92.6 80.7 - 98.3 fL 01/31/2022 2:07 AM [facility] MCH 30.1 26.7 - 34.0 pg 01/31/2022 2:07 AM [facility] MCHC 32.5 30.8 - 35.9 g/dL 01/31/2022 2:07 AM [facility] Platelet Count 222 150 - 400 10 3/uL 01/31/2022 2:07 AM [facility] RDW-SD 51.8(H) 36.0 - 50.0 fL 01/31/2022 2:07 AM [facility] RDW-CV 15.8(H) 11.2 - 14.8 % 01/31/2022 2:07 AM [facility] MPV 8.7(L) 9.4 - 12.9 fL 01/31/2022 2:07 AM [facility] nRBC Absolute 0.00 0 10 3/uL 01/31/2022 2:07 AM [facility] nRBC Auto 0.0 0 /100 WBC 01/31/2022 2:07 AM [facility] Neutrophils % 64.3 35.0 - 70.0 % 01/31/2022 2:07 AM [facility] Lymphocytes % 21.7 20.0 - 43.0 % 01/31/2022 2:07 AM [facility] Monocytes % 10.5 5.0 - 13.0 % 01/31/2022 2:07 AM [facility] Eosinophils % 2.2 0.0 - 6.0 % 01/31/2022 2:07 AM [facility] Basophil % 0.4 0.0 - 2.0 % 01/31/2022 2:07 AM [facility] Neutrophils Absolute 2.94 1.60 - 7.00 10 3/uL 01/31/2022 2:07 AM [facility] Lymphocyte Absolute 0.99(L) 1.10 - 3.90 10 3/uL 01/31/2022 2:07 AM [facility] Monocytes Absolute 0.48 0.26 - 1.07 10 3/uL 01/31/2022 2:07 AM [facility] Eosinophils Absolute 0.10 0.00 - 0.47 10 3/uL 01/31/2022 2:07 AM [facility] Basophils Absolute 0.02 0.00 - 0.08 10 3/uL 01/31/2022 2:07 AM [facility] Immature Granulocytes % 0.9 0.0 - 1.0 % 01/31/2022 2:07 AM [facility] Immature Granulocytes Absolute 0.04 01/31/2022 2:07 AM [facility] Blood BLOOD SPECIMEN / Unknown Lab Venipuncture / Unknown 01/31/2022 1:24 AM CDT 01/31/2022 1:54 AM CDT Nila Mandel MD LAB - HEMATOLOGY ORD ERABLES [address] [address], [facility] [phone] * (ABNORMAL) BASIC METABOLIC PANEL (CALCIUM TOTAL) (01/31/2022 1:24 AM CDT) Only the most recent of7 resultswithin the time period is included. BUN 11 7 - 26 mg/dL 01/31/2022 2:30 AM [facility] Creatinine 0.61 0.56 - 0.96 mg/dL 01/31/2022 2:30 AM [facility] Sodium 139 136 - 145 mmol/L 01/31/2022 2:30 AM [facility] Potassium 3.5 3.5 - 4.5 mmol/L 01/31/2022 2:30 AM [facility] Chloride 100 98 - 107 mmol/L 01/31/2022 2:30 AM [facility] CO2 27 22 - 29 mmol/L 01/31/2022 2:30 AM [facility] Glucose 138(H) 70 - 115 mg/dL 01/31/2022 2:30 AM [facility] Calcium 9.0 8.4 - 10.2 mg/dL 01/31/2022 2:30 AM [facility] Anion Gap 16 8 - 18 01/31/2022 2:30 AM CDT [facility] BUN/Creatinine Ratio 18 7 - 23 01/31/2022 2:30 AM CDT [facility] Osmolality Calculated 290 270 - 300 mOsm/kg 01/31/2022 2:30 AM CDT [facility] eGFR by CKD-EPI 89(L) >=90 mL/min/1.7 3 m2 01/31/2022 2:30 AM CDT [facility] Blood BLOOD SPECIMEN / Unknown Lab Venipuncture / Unknown 01/31/2022 1:24 AM CDT 01/31/2022 1:53 AM CDT Nila Mandel MD LAB - CHEMISTRY [place] [place] [address] [place] [address], [facility] [phone] * EKG 12-LEAD (01/28/2022 5:37 PM CDT) Only the most recent of2 resultswithin the time period is included. Ventricular Rate 102 BPM SL MUSE Atrial Rate 102 BPM [facility] MUSE P-R Interval 192 ms [facility] MUSE QRS Duration ms 98 ms [facility] MUSE Q-T Interval ms 390 ms [facility] MUSE QTC Calculation (Bezet) 508 ms [facility] MUSE Calculated P [place] 72 degrees [facility] MUSE Calculated R [place] -19 degrees [facility] MUSE Calculated T [place] 91 degrees [facility] MUSE Interpretation EKG SINUS TACHYCARDIA WITH PREMATURE ATRIAL COMPLEXES ABNORMAL ECG WHEN COMPARED WITH ECG OF 22-JAN-2022 14:05, PREMATURE VENTRICULAR COMPLEXES ARE NO LONGER PRESENT PREMATURE ATRIAL COMPLEXES Now present Confirmed by BIRGIT PAL, BJ ([id number]) on 01/30/2022 8:08:18 PM [facility] MUSE 01/28/2022 5:37 PM CDT 01/30/2022 8:08 PM CDT Nila Mandel MD ECG ORDERABLES [facility] MUSE * (ABNORMAL) URINE MICROSCOPIC ONLY REFLEX TO CULTURE (01/27/2022 6:26 PM CDT) Reflex Status Culture to follow 01/27/2022 6:53 PM CDT [facility] RBC UA 11-20(A) None Seen, 0-2, 3-5 /HPF 01/27/2022 6:53 PM CDT [facility] WBC UA >100(A) None Seen, 0-5 /HPF 01/27/2022 6:53 PM CDT [facility] WBC Clumps Many(A) None /HPF 01/27/2022 6:53 PM CDT [facility] Bacteria UA Trace(A) None /HPF 01/27/2022 6:53 PM CDT [facility] Squamous Epithelial Cells UA 11-20(A) None Seen, 0-2, 3-5 /HPF 01/27/2022 6:53 PM CDT [facility] Urine URINE SPECIMEN OBTAINED BY CLEAN CATCH PROCEDURE / Unknown Collection / Unknown 01/27/2022 6:26 PM CDT 01/27/2022 6:29 PM CDT [facility] - 01/27/2022 6:53 PM CDT Nila Mandel MD LAB - URINALYSIS ORD ERABLES [facility] [address] [place] [address], [facility] [phone] * (ABNORMAL) URINALYSIS W/MICROSCOPIC NO CULTURE (01/27/2022 6:26 PM CDT) Color UA Yellow Straw, Yellow 01/27/2022 6:53 PM T [facility] Clarity UA Cloudy(A) Clear 01/27/2022 6:53 PM CDT [facility] Specific [place] UA 1.020 1.005 - 1.030 01/27/2022 6:53 PM T [facility] pH UA 6.0 5.0 - 8.0 pH 01/27/2022 6:53 PM CDT [facility] Protein UA 1+(A) Negative 01/27/2022 6:53 PM T [facility] Glucose UA Trace(A) Negative 01/27/2022 6:53 PM T [facility] Ketone UA 1+(A) Negative 01/27/2022 6:53 PM [facility] Bilirubin UA Negative Negative 01/27/2022 6:53 PM [facility] Blood UA Trace(A) Negative 01/27/2022 6:53 PM [facility] Nitrite UA Positive(A) Negative 01/27/2022 6:53 PM [facility] Leukocyte Esterase 1+(A) Negative 01/27/2022 6:53 PM [facility] Urobilinogen UA 2.0(A) Negative mg/dL 01/27/2022 6:53 PM [facility] RBC UA 11-20(A) None Seen, 0-2, 3-5 /HPF 01/27/2022 6:53 PM [facility] WBC UA >100(A) None Seen, 0-5 /HPF 01/27/2022 6:53 PM [facility] WBC Clumps Many(A) None /HPF 01/27/2022 6:53 PM [facility] Bacteria UA Trace(A) None /HPF 01/27/2022 6:53 PM [facility] Squamous Epithelial Cells UA 11-20(A) None Seen, 0-2, 3-5 /HPF 01/27/2022 6:53 PM [facility] Comment UA Microscopic to follow. 01/27/2022 6:53 PM [facility] Urine URINE SPECIMEN OBTAINED BY CLEAN CATCH PROCEDURE / Unknown Collection / Unknown 01/27/2022 6:26 PM CDT 01/27/2022 6:29 PM CDT Sima Carranza MD LAB - URINALYSIS ORD ERABLES [address] [address], [facility] [phone] * (ABNORMAL) URINALYSIS REFLEX MICROSCOPIC REFLEX CULTURE (01/27/2022 6:26 PM CDT) Color UA Yellow Straw, Yellow 01/27/2022 6:53 PM T [facility] Clarity UA Cloudy(A) Clear 01/27/2022 6:53 PM T [facility] Specific [place] UA 1.020 1.005 - 1.030 01/27/2022 6:53 PM [facility] pH UA 6.0 5.0 - 8.0 pH 01/27/2022 6:53 PM [facility] Protein UA 1+(A) Negative 01/27/2022 6:53 PM [facility] Glucose UA Trace(A) Negative 01/27/2022 6:53 PM [facility] Ketone UA 1+(A) Negative 01/27/2022 6:53 PM [facility] Bilirubin UA Negative Negative 01/27/2022 6:53 PM [facility] Blood UA Trace(A) Negative 01/27/2022 6:53 PM [facility] Nitrite UA Positive(A) Negative 01/27/2022 6:53 PM [facility] Leukocyte Esterase 1+(A) Negative 01/27/2022 6:53 PM [facility] Urobilinogen UA 2.0(A) Negative mg/dL 01/27/2022 6:53 PM [facility] Comment UA Microscopic to follow. 01/27/2022 6:53 PM [facility] Urine URINE SPECIMEN OBTAINED BY CLEAN CATCH PROCEDURE / Unknown Collection / Unknown 01/27/2022 6:26 PM CDT 01/27/2022 6:29 PM CDT Nila Mandel MD LAB - URINALYSIS ORD ERABLES [facility] [address] [place] [address], [facility] [phone] * (ABNORMAL) CULTURE URINE (01/27/2022 6:26 PM CDT) Culture Urine >100,000 CFU/mL Escherichia coli(A) LAURA 01/29/2022 5:52 AM CDT [facility] Urine URINE SPECIMEN OBTAINED BY CLEAN CATCH PROCEDURE / Unknown Collection / Unknown 01/27/2022 6:26 PM CDT 01/27/2022 6:50 PM CDT Narrative Organism Antibiotic Method Susceptibility Escherichia coli Amikacin LAURA <=2 ug/mL: Susceptible Escherichia coli Ampicillin LAURA <=2 ug/mL: Susceptible Escherichia coli Ampicillin-sulbactam LAURA <=2 ug/mL: Susceptible Escherichia coli Cefazolin LAURA <=4 ug/mL: See Comment* Escherichia coli Cefazolin-Urine (uncomplicated infections ONLY) LAURA <=4 ug/mL: Susceptible Escherichia coli Cefepime LAURA <=1 ug/mL: Susceptible Escherichia coli Ceftriaxone LAURA <=1 ug/mL: Susceptible Escherichia coli Ciprofloxacin LAURA <=0.25 ug/mL: Susceptible Escherichia coli Extended-Spectrum Beta-Lactamase LAURA NEG ug/mL: Neg Escherichia coli Gentamicin LAURA <=1 ug/mL: Susceptible Escherichia coli Meropenem LAURA <=0.25 ug/mL: Susceptible Escherichia coli Nitrofurantoin LAURA <=16 ug/mL: Susceptible Escherichia coli Piperacillin-tazobactam LAURA <=4 ug/mL: Susceptible Escherichia coli Tobramycin LAURA <=1 ug/mL: Susceptible Escherichia coli Trimethoprim-sulfame thoxaz ole LAURA <=20 ug/mL: Susceptible Comment: *Cefazolin LAURA of </=4 cannot distinguish between susceptible or intermediate for systemic breakpoints. If further defined interpretation is needed, call Microbiology and a disk diffusion test will be performed. Urine breakpoints for cefazolin should only be used when treating uncomplicated UTIs including men and women without urologic abnormality, kidney stones, stents, nephrostomy tubes, signs/symptoms of systemic illness, or pelvic/perineal pain in men. Cefazolin results can be used to predict susceptibility to oral cephalosporins - cephalexin, cefprozil, cefaclor, cefuroxime, cefdinir, and cefpodoxime. For complicated UTIs, use alternative cefazolin susceptibility result above. Nila Mandel MD LAB - MICROBIOLOGY O RDERABLES [facility] [address] [place], [place] [address], [facility] [phone] * (ABNORMAL) CBC W/O DIFFERENTIAL (01/27/2022 9:03 AM CDT) Only the most recent of4 resultswithin the time period is included. WBC 5.3 3.5 - 10.5 10 3/uL 01/27/2022 10:38 AM [facility] RBC 2.86(L) 3.80 - 5.20 10 6/uL 01/27/2022 10:38 AM [facility] Hemoglobin 8.7(L) 12.0 - 15.6 g/dL 01/27/2022 10:38 AM [facility] Hematocrit 26.9(L) 35.0 - 45.0 % 01/27/2022 10:38 AM [facility] MCV 94.1 80.7 - 98.3 fL 01/27/2022 10:38 AM [facility] MCH 30.4 26.7 - 34.0 pg 01/27/2022 10:38 AM [facility] MCHC 32.3 30.8 - 35.9 g/dL 01/27/2022 10:38 AM [facility] Platelet Count 158 150 - 400 10 3/uL 01/27/2022 10:38 AM [facility] RDW-SD 50.4(H) 36.0 - 50.0 fL 01/27/2022 10:38 AM [facility] RDW-CV 14.8 11.2 - 14.8 % 01/27/2022 10:38 AM [facility] MPV 9.0(L) 9.4 - 12.9 fL 01/27/2022 10:38 AM [facility] nRBC Absolute 0.00 0 10 3/uL 01/27/2022 10:38 AM [facility] nRBC Auto 0.0 0 /100 WBC 01/27/2022 10:38 AM [facility] Blood BLOOD SPECIMEN / Unknown Lab Venipuncture / Unknown 01/27/2022 9:03 AM CDT 01/27/2022 10:28 AM T Nila Mandel MD LAB - HEMATOLOGY ORD ERABLES [facility] [address] [place] [address], [facility] [phone] * VITAMIN D 1,25 DIHYDROXY (01/27/2022 1:34 AM CDT) [facility] Vitamin D, 1,25 Dihydroxy 51.4 19.9 - 79.3 pg/mL 01/29/2022 6:12 PM CDT [employer] ([facility]) Comment: INTERPRETIVE INFORMATION: Vitamin D, 1,25-Dihydroxy This test is primarily indicated during patient evaluation for hypercalcemia and renal failure. A normal result does not rule out Vitamin D deficiency. The recommended test for diagnosing Vitamin D deficiency is Vitamin D 25-hydroxy. Performed By: [employer] [address] [place] [address] Seismic Survey Assistant: Eliecer Guzman MD, PhD Blood BLOOD SPECIMEN / Unknown Lab Venipuncture / Unknown 01/27/2022 1:34 AM CDT 01/27/2022 1:51 AM CDT Nila Mandel MD LAB - CHEMISTRY [facility] Organization Address City/State/ZIP Co de Phone Number [facility] [employer] ([facility]) [address] [place] [address] * PREPARE (CROSSMATCH) RBC UNIT(S), 2 Units (01/26/2022 1:17 AM CDT) Only the most recent of2 resultswithin the time period is included. [facility] Unit Description AS1 LR PRBC [facility] BLOOD BANK LAB Unit ABO A [facility] BLOOD BANK LAB Unit Rh NEG [facility] BLOOD BANK LAB Product Number R02 [facility] B LOOD BANK LAB Unit Donor # [id number] [facility] BLOOD BANK LAB Unit Status transfused [facility] BLO OD BANK LAB Product Code [id number] [facility] BLO OD BANK LAB Blood Type Barcode 0600 [facility] BLOOD BANK LAB Expiration Date S BLOOD BANK LAB Unit Description AS1 LR PRBC [facility] BLOOD BANK LAB Unit ABO A [facility] BLOOD BANK LAB Unit Rh NEG [facility] BLOOD BANK LAB Product Number [id number] [facility] B LOOD BANK LAB Unit Donor # [id number] [facility] BLOOD BANK LAB Unit Status released [facility] BLOO D BANK LAB Product Code [id number] [facility] BLO OD BANK LAB Blood Type Barcode 0600 [facility] BLOOD BANK LAB Expiration Date [id number] S BLOOD BANK LAB Blood Bank BLOOD SPECIMEN / Unknown 01/22/2022 12:57 PM CDT Mikie Dillon MD LAB - BLOOD BANK ORD ERABLES [facility] BLOOD BANK LAB [address] [place] [address], [facility] [phone] * FL CODY SURGERY (01/23/2022 4:46 PM CDT) Narrative [facility] RADIOLOGY - 01/23/2022 4:47 PM CDT Fluoroscopy was used for this exam in the OR. Please see the Operative report. Mikie Dillon MD FLUOROSCOPY ORDERABL ES Performing Organization Address City/[facility]/ZIP Co de Phone Number [facility] RADIOLOGY * TRANSFUSE RED BLOOD CELL LEUKOREDUCED UNIT(S) (01/23/2022 3:18 PM CDT) Mikie Dillon MD NURSING - BLOOD PROD TRANSFUSION * ARTERIAL LINE PERFORMABLE (01/23/2022 3:15 PM CDT) Narrative Doris Sam MD - 01/23/2022 3:15 PM CDT Doris Sam MD 01/23/2022 3:16 PM Arterial Line Placement Procedure Note Patient Location: OR. Procedure: Arterial Line ([id number]). Procedure Section Indications: continuous blood pressure monitoring. Skin Prep: Chloraprep. Orientation: Left. Site: radial. Site Identification: palpation. Sterile Technique: cap, mask and sterile gloves. Gauge: 20. Catheter Length: 1 and 3/4 inch. Catheter Type: Arrow. Seldinger Technique Used? Yes Line Secured with: Tegaderm and tape. Procedure Tolerance: tolerated well. Events: none. Procedure Start Time: 01/23/2022 2:45 PM. Patient Sedated? Yes Local Anesthetic Used? No Sedation Types: general anesthesia Staff Section Anesthesia Provider: Doris Sam MD, Performed the procedure Provider #1: Danitza Denis MD. Danitza Denis MD GENERAL ANESTHESIA O RDERAGALLO * ETT LINE PERFORMABLE (01/23/2022 3:11 PM CDT) Narrative Doris Sam MD - 01/23/2022 3:11 PM CDT Doris Sam MD 01/23/2022 3:13 PM Endotracheal Tube Placement: Patient Location: OR. Intubation Event Date/Time: 01/23/2022 2:39 PM Procedure: intubation ([id number]). Procedure Section: Sedation: under general anesthesia. Indications for Airway Management: anesthesia Procedure pretreatments used? No Induction: standard IV Patient Position: sniffing Mask Ventilation: easy with oral airway. Blade Type: Pan Blade Size: 2 Laryngoscopy View: grade 1 (full cords) Intubation Adjuncts: stylet Tube: endotracheal tube Placement: oral Tube type: cuff - inflated Depth of Insertion (CM): 24 Measured From: lips Cuff Inflated With: air Number of Attempts: 1. Placement Verified By: direct visualization, bilateral breath sounds, chest auscultation and CO2 monitor CXR Findings: ETT in proper place. Tube secured with: adhesive tape. Dentition unchanged? Yes Difficult Airway? No. Procedure Start Time: 01/23/2022 2:39 PM. Staff Section Anesthesia Provider: Doris Sam MD, Performed the procedure Provider #1: Danitza Denis MD. Danitza Denis MD GENERAL ANESTHESIA O RDERABLES * CARDIAC EKG ORDER (01/23/2022 11:27 AM CDT) Narrative 01/23/2022 11:27 AM CDT Ordered by an unspecified provider. Scanned Document CARDIAC SERVICES ORD ERABLES * PTT [facility] (01/23/2022 3:47 AM CDT) Only the most recent of2 resultswithin the time period is included. APTT 32.3 23.0 - 38.4 Seconds 01/23/2022 4:20 AM CDT [facility] Comment:Suggested therapeuti c range for full dose I.V. unfractionated heparin therapy for venous thromboembolism is 71 to 109 seconds. Blood BLOOD SPECIMEN / Unknown Lab Venipuncture / Unknown 01/23/2022 3:47 AM CDT 01/23/2022 3:50 AM CDT Olvin Stover MD LAB - COAGULATION OR DERABLES Performing Organization Address City/[facility]/ZIP Co de Phone Number [facility] [address] [place] [address], [facility] [phone] * PT-INR [facility] (01/23/2022 3:47 AM CDT) Only the most recent of2 resultswithin the time period is included. PT 13.1 12.1 - 14.8 Seconds 01/23/2022 4:19 AM CDT [facility] INR 1.0 See Comment 01/23/2022 4:19 AM T [facility] Comment:The suggested therap eutic range for standard coumadin (warfarin) therapy is an INR of 2.0-3.0. For high-risk patients (Mechanical Mitral Valve Prosthesis, etc.), the suggested prophylactic therapeutic range is an INR of 2.5-3.5. Blood BLOOD SPECIMEN / Unknown Lab Venipuncture / Unknown 01/23/2022 3:47 AM CDT 01/23/2022 3:50 AM CDT Olvin Stover MD LAB - COAGULATION OR DERABLES Performing Organization Address [facility] Co de Phone Number [facility] [address] [place] [address], [facility] [phone] * (ABNORMAL) HEMOGLOBIN A1C (01/23/2022 3:47 AM CDT) Hemoglobin A1c 5.7(H) <=5.6 % 01/23/2022 9:43 AM CDT [facility] Estimated Average Glucose 117 mg/dL 01/23/2022 9:43 AM T [facility] Comment: HbA1c Interpretation: Normal : < 5.7% Pre-diabetes: 5.7-6.4% Diabetes: Equal to or greater than 6.5% Test results diagnostic of diabetes should be repeated for confirmation. Treatment target values recommended by ADA and other clinical organizations should be used to evaluate metabolic control in patients. Reference: [place] [employer], Standards of Care in Diabetes -2020 In patients 70 years and older consider HbA1c target range of 7.0-7.5% (Reference: Vern Fuchs et al. JAMDA. 2012) The Sebia assay for the measurement of HbA1c is a National Glycohemoglobin Standardization Program (NGSP) certified method. Blood BLOOD SPECIMEN / Unknown Lab Venipuncture / Unknown 01/23/2022 3:47 AM CDT 01/23/2022 3:53 AM CDT Sima Carranza MD LAB - CHEMISTRY [place] [address] [place] [address], [facility] [phone] * BLOOD TYPE VERIFICATION (01/23/2022 12:22 AM CDT) ABO Rh A NEG 01/23/2022 1:1 1 AM CDT [facility] BLOOD BANK LAB Blood Bank BLOOD SPECIMEN / Unknown Lab Venipuncture / Unknown 01/23/2022 12:22 AM CDT 01/23/2022 12:55 AM CDT Sandy Hutchinson MD LAB - BLOOD BANK ORD LISSY [facility] BLOOD BANK LAB [address] [place] [address], [place] [phone] * XR KNEE LEFT 3VW (01/22/2022 3:03 PM CDT) Anatomical Region Laterality Modality Lower Extremity Radiographic Gail ging 01/22/2022 3:12 PM CDT Impressions 01/22/2022 3:15 PM CDT IMPRESSION: 1.Status post splinting without substantial change in osseous alignment of the angulated periprosthetic femoral fracture. > Interpreting Provider: MARLENA ELIZALDE MD on 01/22/2022 3:15 PM Narrative 01/22/2022 3:15 PM CDT EXAMINATION: XR KNEE LEFT 3VW HISTORY: [id number].XXXA: Fall, initial encounter COMPARISON: CT left knee without contrast dated 01/22/2022, left knee radiographs dated 01/22/2010 FINDINGS: The patient is status post splinting with no substantial change in osseous alignment of the periprosthetic femoral fracture. Redemonstrated is anterior apex angulation of the distal osseous fragment. The bones are diffusely osteopenic. Lipohemarthrosis is again noted. Procedure Note Marlena Elizalde MD - 01/22/2022 EXAMINATION: XR KNEE LEFT 3VW HISTORY: [id number]: Fall, initial encounter COMPARISON: CT left knee without contrast dated 01/22/2022, left knee radiographs dated 01/22/2010 FINDINGS: The patient is status post splinting with no substantial change inosseous alignment of the periprosthetic femoral fracture. Redemonstrated is anterior apex angulation of the distal osseous fragment. The bones are diffusely osteopenic. Lipohemarthrosis is again noted. IMPRESSION: 1.Status post splinting without substantial change in osseous alignmentof the angulated periprosthetic femoral fracture. > Interpreting Provider: MARLENA ELIZALDE MD on 01/22/2022 3:15 PM Sima Cararnza MD DIAGNOSTIC IMAGING O RDERABLES * CT KNEE LEFT WO CONTRAST (01/22/2022 1:20 PM CDT) Anatomical Region Laterality Modality Lower Extremity Computed Tomogra phy 01/22/2022 1:31 PM CDT Impressions 01/22/2022 1:36 PM CDT IMPRESSION: Total knee arthroplasty and moderately displaced periprosthetic fracture of the distal femur. > Interpreting Provider: Korey Mahmood MD on 01/22/2022 1:36 PM Narrative 01/22/2022 1:36 PM CDT PROCEDURE: CT KNEE LEFT WO CONTRAST, DATE/TIME OF EXAM: 01/22/2022 1:20 PM, LOCATION [facility] INDICATION: [id number]: Fall, initial encounter ADDITIONAL CLINICAL INFORMATION: Ordering Provider Reason For Exam: trauma Technologist Note: Additional: COMPARISON: Left knee radiographs 01/22/2022. TECHNIQUE: CT of the [knee] was performed utilizing standard protocol. CT dose reduction technique was used, including Automated Exposure Control. FINDINGS: Total knee arthroplasty is present.There is a comminuted moderately displaced periprosthetic fracture of the distal femoral shaft. There is no fracture of the visualized proximal tibia, fibula, or patella. The patella is slightly low-lying. There is an effusion with lipohemarthrosis. There is soft tissue edema/hemorrhage around the femoral fracture site. Procedure Note Korey Mahmood MD - 01/22/2022 PROCEDURE: CT KNEE LEFT WO CONTRAST, DATE/TIME OF EXAM: 01/22/2022 1:20PM, LOCATION [facility] INDICATION: [id number]: Fall, initial encounter ADDITIONAL CLINICAL INFORMATION: Ordering Provider Reason For Exam: trauma Technologist Note: Additional: COMPARISON: Left knee radiographs 01/22/2022. TECHNIQUE: CT of the [knee] was performed utilizing standard protocol. CT dose reduction technique was used, including Automated ExposureControl. FINDINGS: Total knee arthroplasty is present.There is a comminuted moderately displaced periprosthetic fracture of the distal femoral shaft. There isno fracture of the visualized proximal tibia, fibula, or patella. Thepatella is slightly low-lying. There is an effusion with lipohemarthrosis. Thereis soft tissue edema/hemorrhage around the femoral fracture site. IMPRESSION: Total knee arthroplasty and moderately displacedperiprosthetic fracture of the distal femur. > Interpreting Provider: Korey Mahmood MD on 01/22/2022 1:36 PM Sima Carranza MD CT ORDERABLES * CT CHEST ABDOMEN PELVIS W CONT - Abdomen-pelvis trauma, blunt or penetrating (01/22/2022 1:19 PM CDT) Anatomical Region Laterality Modality Chest, Abdomen, Pelvis Computed Tomography 01/22/2022 1:08 PM CDT Impressions 01/22/2022 1:47 PM CDT Impression: 1.No acute visceral, vascular, or osseus injury identified in the chest, abdomen, or pelvis. > Dictated by Birgit Benz MD (president finance company). I, Korey Mahmood MD have personally reviewed and interpreted this examination/study. > Interpreting Provider: Korey Mahmood MD on 01/22/2022 1:47 PM Narrative 01/22/2022 1:47 PM CDT EXAMINATION: CT CHEST ABDOMEN PELVIS W CONT DATE/TIME OF EXAM: 01/22/2022 1:20 PM, LOCATION [facility] HISTORY: Trauma fall COMPARISON: No prior study is available for comparison. TECHNIQUE: CT of the chest, abdomen, and pelvis was performed after the uneventful administration of 100 mL of Isovue 370 intravenous contrast according to standard protocol. Findings: Chest: Lines and tubes: None. Lower Neck and Axillae: The thyroid gland enhances homogenously. No abnormal supraclavicular or axillary lymphadenopathy is seen. Airway, Lungs and pleura: The central airway is patent. The left basilar atelectasis. The No suspicious pulmonary nodule is identified. No pleural effusion or focal pleural thickening is identified. There is no evidence of pneumothorax. Heart and Pericardium: The heart size is normal. No pericardial effusion is present. Mild calcification of the aortic valve and mitral valve annulus. Mediastinum and Dee: No enlarged lymph nodes are present. No mediastinal mass is identified. Thoracic Vasculature: There is a left-sided three-vessel aortic arch. The aorta is is normal in course and caliber. Minimal atherosclerotic calcification of thoracic aorta and branch vessels including coronary arteries. The main pulmonary artery is mildly dilated, measuring 3.2 cm in diameter, suggestive of pulmonary artery hypertension. Abdomen/pelvis: Liver: There is a 4 mm hypoattenuating lesion in inferior aspect of right hepatic lobe (series 4 image 67) that may represent a cyst. Otherwise the liver enhances homogenously. The portal vein is patent. Conventional hepatic vasculature. Gallbladder and Bile Ducts: The gallbladder is absent. The intrahepatic ducts are nondilated. The common bile duct is dilated, measuring 1.2 cm (series 4 image 50), likely related to the postcholecystectomy state. Spleen: Normal. Pancreas: Atrophic Adrenals: Normal in morphology without mass lesion. Kidneys: A few subcentimeter low attenuating lesions in the right kidney are too small to characterize but likely represent cysts. Otherwise the the right kidney enhance normally. The left kidney is atrophic. The left renal artery is diminutive in appearance. There is no evidence of renal calculus or hydronephrosis. Gastrointestinal: The distal esophagus and stomach appear normal. The small bowel and colon are normal in caliber without evidence of wall thickening or obstruction. Mesentery/Peritoneum/Retroperitoneum: Normal. Bladder: Normal. Reproductive Organs: The uterus is atrophic. Vasculature: Minimal atherosclerotic calcification of the aorta and its branch vessels. Bones: No acute fracture. Chronic fracture deformity of right anterior fifth rib and right scapula, and possibly several thoracic vertebrae, without significant height loss. Severe diffuse osteopenia. Multilevel mild to moderate degenerative changes of the spine. Trace anterolisthesis of L4 on L5 and trace retrolisthesis of L5 on S1. Advanced degenerative changes of bilateral acromioclavicular joints. Moderate degenerative changes of bilateral glenohumeral joints. Moderate degenerative changes of right sacroiliac joint, with intraosseous air in the right sacral ala. Calcification around the pubic symphysis. Soft tissues: Several fat-containing ventral hernias are present. Procedure Note Korey Mahmood MD - 01/22/2022 EXAMINATION: CT CHEST ABDOMEN PELVIS W CONT DATE/TIME OF EXAM: 01/22/2022 1:20 PM, LOCATION [facility] HISTORY: Trauma fall COMPARISON: No prior study is available for comparison. TECHNIQUE: CT of the chest, abdomen, and pelvis was performed after the uneventful administration of 100 mL of Isovue 370 intravenous contrast according to standard protocol. Findings: Chest: Lines and tubes: None. Lower Neck and Axillae: The thyroid gland enhances homogenously. No abnormal supraclavicular or axillary lymphadenopathy is seen. Airway, Lungs and pleura: The central airway is patent. The left basilar atelectasis. The No suspicious pulmonary nodule is identified. No pleural effusion or focal pleural thickening is identified. There is no evidence of pneumothorax. Heart and Pericardium: The heart size is normal. No pericardial effusion is present. Mild calcification of the aortic valve and mitral valve annulus. Mediastinum and Dee: No enlarged lymph nodes are present. No mediastinal mass is identified. Thoracic Vasculature: There is a left-sided three-vessel aortic arch. The aorta is is normalin course and caliber. Minimal atherosclerotic calcification of thoracicaorta and branch vessels including coronary arteries. The main pulmonaryartery is mildly dilated, measuring 3.2 cm in diameter, suggestive of pulmonary artery hypertension. Abdomen/pelvis: Liver: There is a 4 mm hypoattenuating lesion in inferior aspect of righthepatic lobe (series 4 image 67) that may represent a cyst. Otherwise the liver enhances homogenously. The portal vein is patent. Conventional hepatic vasculature. Gallbladder and Bile Ducts: The gallbladder is absent. The intrahepatic ducts are nondilated. The common bile duct is dilated, measuring 1.2 cm (series 4 image 50),likely related to the postcholecystectomy state. Spleen: Normal. Pancreas: Atrophic Adrenals: Normal in morphology without mass lesion. Kidneys: A few subcentimeter low attenuating lesions in the right kidney are too small to characterize but likely represent cysts. Otherwise the theright kidney enhance normally. The left kidney is atrophic. The left renalartery is diminutive in appearance. There is no evidence of renal calculus or hydronephrosis. Gastrointestinal: The distal esophagus and stomach appear normal. The small bowel andcolon are normal in caliber without evidence of wall thickening orobstruction. Mesentery/Peritoneum/Retroperitoneum: Normal. Bladder: Normal. Reproductive Organs: The uterus is atrophic. Vasculature: Minimal atherosclerotic calcification of the aorta and its branchvessels. Bones: No acute fracture. Chronic fracture deformity of right anterior fifthrib and right scapula, and possibly several thoracic vertebrae, without significant height loss. Severe diffuse osteopenia. Multilevel mild to moderate degenerative changes of the spine. Trace anterolisthesis of L4on L5 and trace retrolisthesis of L5 on S1. Advanced degenerative changesof bilateral acromioclavicular joints. Moderate degenerative changes of bilateral glenohumeral joints. Moderate degenerative changes of right sacroiliac joint, with intraosseous air in the right sacral ala. Calcification around the pubic symphysis. Soft tissues: Several fat-containing ventral hernias are present. Impression: 1.No acute visceral, vascular, or osseus injury identified in the chest, abdomen, or pelvis. > Dictated by Birgit Benz MD ([employer]). I, Korey Mahmood MD have personally reviewed and interpreted this examination/study. > Interpreting Provider: Korey Mahmood MD on 01/22/2022 1:47 PM Sima Carranza MD CT ORDERABLES * CT LUMBAR SPINE WO CONTRAST - T/L-spine trauma, Spine fracture (01/22/2022 1:19 PM CDT) Anatomical Region Laterality Modality Spine Computed Tomogra phy 01/22/2022 1:37 PM CDT Impressions 01/23/2022 6:53 AM CDT IMPRESSION: Head: 1.No acute intracranial abnormality. Cervical, thoracic and lumbar spine: No fracture of the cervical, thoracic and lumbar spine. > Dictated by Nilton Pierce MD (Resident) Please refer to the separately dictated report of CT scan of the chest, abdomen and pelvis for intrathoracic and intra-abdominal findings. I, John Zuniga MD have personally reviewed and interpreted this examination/study. > Interpreting Provider: John Zuniga MD on 01/23/2022 6:53 AM Narrative 01/23/2022 6:53 AM CDT PROCEDURE: CT HEAD WO CONTRAST, CT LUMBAR SPINE WO CONTRAST, CT THORACIC SPINE WO CONTRAST, CT CERVICAL SPINE WO CONTRAST, DATE/TIME OF EXAM: 01/22/2022 1:20 PM, LOCATION [facility] INDICATION: Trauma ADDITIONAL CLINICAL INFORMATION: Ordering Provider Reason For Exam: Technologist Note: Additional: COMPARISON: None. EXAMINATIONS: CT of the head without intravenous contrast CT of the cervical spine without intravenous contrast CT of the thoracic spine without intravenous contrast CT of the lumbar spine without intravenous contrast TECHNIQUE: CT of the head and cervical spine was performed without intravenous contrast according to standard protocol. CT images of the thoracic spine and lumbar spine were reformatted from the concurrently obtained CT scan of the chest, abdomen and pelvis with intravenous contrast. CT dose reduction technique was used, including Automated Exposure Control. FINDINGS: Head: There is no acute intracranial hemorrhage. There is no hydrocephalus, midline shift or extra-axial fluid collection. Moderate chronic microvascular ischemic changes are seen. There is moderate generalized parenchymal volume loss. The paranasal sinuses and tympanomastoid cavities are aerated.The patient is status post bilateral cataract surgery.There is no calvarial fracture. Cervical spine: There is no fracture or traumatic subluxation. The prevertebral soft tissues are within normal limits. There is severe diffuse osteopenia. There is mild anterolisthesis of C4-5 and mild residual disease is to 6 and C7. Varying levels of bilateral facet arthropathy, most severe at left C4-C5. Severe uncovertebral joint hypertrophy at C3-C4, C4-C5, C5-C6, C6-7 leading to similar degree of neural foraminal stenoses at these levels..There are no aggressive appearing lytic or sclerotic bone lesions. Thoracic spine: There is no fracture or traumatic subluxation. There is diffuse osteopenia. Moderate degenerative disc disease. Mild facet arthropathy at multiple levels. Bridging syndesmophytes and ossification of the anterior longitudinal ligament suggest diffuse idiopathic skeletal hyperostosis.There are no aggressive appearing lytic or sclerotic bone lesions. Atherosclerotic calcifications in the aorta and its major branches. Lumbar spine: There is no fracture or traumatic subluxation of the lumbar spine. The included sacrum is intact. Severe diffuse osteopenia. Grade 1 retrolisthesis of L5 on S1 and trace anterolisthesis of L4-5. Moderate multilevel degenerative disc disease noted. There is moderate diffuse year facet arthropathy, causing moderate neural foramina stenosis. 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 There are no aggressive appearing lytic or sclerotic bone lesions. Paraspinal muscle atrophy is noted. The left kidney is atrophic. Procedure Note John Zuniga MD - 01/23/2022 PROCEDURE: CT HEAD WO CONTRAST, CT LUMBAR SPINE WO CONTRAST, CTTHORACIC SPINE WO CONTRAST, CT CERVICAL SPINE WO CONTRAST, DATE/TIME OF EXAM: 01/22/2022 1:20 PM, LOCATION [facility] INDICATION: Trauma ADDITIONAL CLINICAL INFORMATION: Ordering Provider Reason For Exam: Technologist Note: Additional: COMPARISON: None. EXAMINATIONS: CT of the head without intravenous contrast CT of the cervical spine without intravenous contrast CT of the thoracic spine without intravenous contrast CT of the lumbar spine without intravenous contrast TECHNIQUE: CT of the head and cervical spine was performed without intravenous contrast according to standard protocol. CT images of the thoracic spine and lumbar spine were reformatted from the concurrently obtained CT scan of the chest, abdomen and pelvis with intravenous contrast. CT dose reduction technique was used, including Automated Exposure Control. FINDINGS: Head: There is no acute intracranial hemorrhage. There is no hydrocephalus, midline shift or extra-axial fluid collection. Moderate chronic microvascular ischemic changes are seen. There is moderate generalized parenchymal volume loss. The paranasal sinuses and tympanomastoid cavities are aerated.Thepatient is status post bilateral cataract surgery.There is no calvarialfracture. Cervical spine: There is no fracture or traumatic subluxation. The prevertebral soft tissues are within normal limits. There is severe diffuse osteopenia. There is mild anterolisthesis ofC4-5 and mild residual disease is to 6 and C7. Varying levels of bilateralfacet arthropathy, most severe at left C4-C5. Severe uncovertebral joint hypertrophy at C3-C4, C4-C5, C5-C6, C6-7 leading to similar degree of neural foraminal stenoses at these levels..There are no aggressive appearing lytic or sclerotic bone lesions. Thoracic spine: There is no fracture or traumatic subluxation. There is diffuseosteopenia. Moderate degenerative disc disease. Mild facet arthropathy at multiple levels. Bridging syndesmophytes and ossification of the anterior longitudinal ligament suggest diffuse idiopathic skeletal hyperostosis.There are no aggressive appearing lytic or sclerotic bone lesions. Atherosclerotic calcifications in the aorta and its major branches. Lumbar spine: There is no fracture or traumatic subluxation of the lumbar spine. The included sacrum is intact. Severe diffuse osteopenia. Grade 1 retrolisthesis of L5 on S1 and trace anterolisthesis of L4-5. Moderate multilevel degenerative disc disease noted. There is moderate diffuse year facet arthropathy, causing moderate neural foraminastenosis. 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 There are no aggressive appearing lytic or sclerotic bone lesions. Paraspinal muscle atrophy is noted. The leftkidney is atrophic. IMPRESSION: Head: 1.No acute intracranial abnormality. Cervical, thoracic and lumbar spine: No fracture of the cervical, thoracic and lumbar spine. > Dictated by Nilton Pierce MD (Resident) Please refer to the separately dictated report of CT scan of the chest, abdomen and pelvis for intrathoracic and intra-abdominal findings. I, John Zuniga MD have personally reviewed and interpreted this examination/study. > Interpreting Provider: John Zuniga MD on 01/23/2022 6:53 AM Sima Carranza MD CT ORDERABLES * CT THORACIC SPINE WO CONTRAST - T/L-spine trauma, spine fracture (01/22/2022 1:19 PM CDT) Anatomical Region Laterality Modality Spine Computed Tomogra phy 01/22/2022 1:37 PM CDT Impressions 01/23/2022 6:53 AM CDT IMPRESSION: Head: 1.No acute intracranial abnormality. Cervical, thoracic and lumbar spine: No fracture of the cervical, thoracic and lumbar spine. > Dictated by Nilton Pierce MD (Resident) Please refer to the separately dictated report of CT scan of the chest, abdomen and pelvis for intrathoracic and intra-abdominal findings. I, John Zuniga MD have personally reviewed and interpreted this examination/study. > Interpreting Provider: John Zuniga MD on 01/23/2022 6:53 AM Narrative 01/23/2022 6:53 AM CDT PROCEDURE: CT HEAD WO CONTRAST, CT LUMBAR SPINE WO CONTRAST, CT THORACIC SPINE WO CONTRAST, CT CERVICAL SPINE WO CONTRAST, DATE/TIME OF EXAM: 01/22/2022 1:20 PM, LOCATION [facility] INDICATION: Trauma ADDITIONAL CLINICAL INFORMATION: Ordering Provider Reason For Exam: Technologist Note: Additional: COMPARISON: None. EXAMINATIONS: CT of the head without intravenous contrast CT of the cervical spine without intravenous contrast CT of the thoracic spine without intravenous contrast CT of the lumbar spine without intravenous contrast TECHNIQUE: CT of the head and cervical spine was performed without intravenous contrast according to standard protocol. CT images of the thoracic spine and lumbar spine were reformatted from the concurrently obtained CT scan of the chest, abdomen and pelvis with intravenous contrast. CT dose reduction technique was used, including Automated Exposure Control. FINDINGS: Head: There is no acute intracranial hemorrhage. There is no hydrocephalus, midline shift or extra-axial fluid collection. Moderate chronic microvascular ischemic changes are seen. There is moderate generalized parenchymal volume loss. The paranasal sinuses and tympanomastoid cavities are aerated.The patient is status post bilateral cataract surgery.There is no calvarial fracture. Cervical spine: There is no fracture or traumatic subluxation. The prevertebral soft tissues are within normal limits. There is severe diffuse osteopenia. There is mild anterolisthesis of C4-5 and mild residual disease is to 6 and C7. Varying levels of bilateral facet arthropathy, most severe at left C4-C5. Severe uncovertebral joint hypertrophy at C3-C4, C4-C5, C5-C6, C6-7 leading to similar degree of neural foraminal stenoses at these levels..There are no aggressive appearing lytic or sclerotic bone lesions. Thoracic spine: There is no fracture or traumatic subluxation. There is diffuse osteopenia. Moderate degenerative disc disease. Mild facet arthropathy at multiple levels. Bridging syndesmophytes and ossification of the anterior longitudinal ligament suggest diffuse idiopathic skeletal hyperostosis.There are no aggressive appearing lytic or sclerotic bone lesions. Atherosclerotic calcifications in the aorta and its major branches. Lumbar spine: There is no fracture or traumatic subluxation of the lumbar spine. The included sacrum is intact. Severe diffuse osteopenia. Grade 1 retrolisthesis of L5 on S1 and trace anterolisthesis of L4-5. Moderate multilevel degenerative disc disease noted. There is moderate diffuse year facet arthropathy, causing moderate neural foramina stenosis. 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 There are no aggressive appearing lytic or sclerotic bone lesions. Paraspinal muscle atrophy is noted. The left kidney is atrophic. Procedure Note John Zuniga MD - 01/23/2022 PROCEDURE: CT HEAD WO CONTRAST, CT LUMBAR SPINE WO CONTRAST, CTTHORACIC SPINE WO CONTRAST, CT CERVICAL SPINE WO CONTRAST, DATE/TIME OF EXAM: 01/22/2022 1:20 PM, LOCATION [facility] INDICATION: Trauma ADDITIONAL CLINICAL INFORMATION: Ordering Provider Reason For Exam: Technologist Note: Additional: COMPARISON: None. EXAMINATIONS: CT of the head without intravenous contrast CT of the cervical spine without intravenous contrast CT of the thoracic spine without intravenous contrast CT of the lumbar spine without intravenous contrast TECHNIQUE: CT of the head and cervical spine was performed without intravenous contrast according to standard protocol. CT images of the thoracic spine and lumbar spine were reformatted from the concurrently obtained CT scan of the chest, abdomen and pelvis with intravenous contrast. CT dose reduction technique was used, including Automated Exposure Control. FINDINGS: Head: There is no acute intracranial hemorrhage. There is no hydrocephalus, midline shift or extra-axial fluid collection. Moderate chronic microvascular ischemic changes are seen. There is moderate generalized parenchymal volume loss. The paranasal sinuses and tympanomastoid cavities are aerated.Thepatient is status post bilateral cataract surgery.There is no calvarialfracture. Cervical spine: There is no fracture or traumatic subluxation. The prevertebral soft tissues are within normal limits. There is severe diffuse osteopenia. There is mild anterolisthesis ofC4-5 and mild residual disease is to 6 and C7. Varying levels of bilateralfacet arthropathy, most severe at left C4-C5. Severe uncovertebral joint hypertrophy at C3-C4, C4-C5, C5-C6, C6-7 leading to similar degree of neural foraminal stenoses at these levels..There are no aggressive appearing lytic or sclerotic bone lesions. Thoracic spine: There is no fracture or traumatic subluxation. There is diffuseosteopenia. Moderate degenerative disc disease. Mild facet arthropathy at multiple levels. Bridging syndesmophytes and ossification of the anterior longitudinal ligament suggest diffuse idiopathic skeletal hyperostosis.There are no aggressive appearing lytic or sclerotic bone lesions. Atherosclerotic calcifications in the aorta and its major branches. Lumbar spine: There is no fracture or traumatic subluxation of the lumbar spine. The included sacrum is intact. Severe diffuse osteopenia. Grade 1 retrolisthesis of L5 on S1 and trace anterolisthesis of L4-5. Moderate multilevel degenerative disc disease noted. There is moderate diffuse year facet arthropathy, causing moderate neural foraminastenosis. 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 There are no aggressive appearing lytic or sclerotic bone lesions. Paraspinal muscle atrophy is noted. The leftkidney is atrophic. IMPRESSION: Head: 1.No acute intracranial abnormality. Cervical, thoracic and lumbar spine: No fracture of the cervical, thoracic and lumbar spine. > Dictated by Nilton Pierce MD (Resident) Please refer to the separately dictated report of CT scan of the chest, abdomen and pelvis for intrathoracic and intra-abdominal findings. I, John Zuniga MD have personally reviewed and interpreted this examination/study. > Interpreting Provider: John Zuniga MD on 01/23/2022 6:53 AM Sima Carranza MD CT ORDERABLES * CT CERVICAL SPINE WO CONTRAST - C-Spine Trauma, Spine fracture (01/22/2022 1:19 PM CDT) Anatomical Region Laterality Modality Spine Computed Tomogra phy 01/22/2022 1:37 PM CDT Impressions 01/23/2022 6:53 AM CDT IMPRESSION: Head: 1.No acute intracranial abnormality. Cervical, thoracic and lumbar spine: No fracture of the cervical, thoracic and lumbar spine. > Dictated by Nilton Pierce MD (Resident) Please refer to the separately dictated report of CT scan of the chest, abdomen and pelvis for intrathoracic and intra-abdominal findings. I, John Zuniga MD have personally reviewed and interpreted this examination/study. > Interpreting Provider: John Zuniga MD on 01/23/2022 6:53 AM Narrative 01/23/2022 6:53 AM CDT PROCEDURE: CT HEAD WO CONTRAST, CT LUMBAR SPINE WO CONTRAST, CT THORACIC SPINE WO CONTRAST, CT CERVICAL SPINE WO CONTRAST, DATE/TIME OF EXAM: 01/22/2022 1:20 PM, LOCATION [facility] INDICATION: Trauma ADDITIONAL CLINICAL INFORMATION: Ordering Provider Reason For Exam: Technologist Note: Additional: COMPARISON: None. EXAMINATIONS: CT of the head without intravenous contrast CT of the cervical spine without intravenous contrast CT of the thoracic spine without intravenous contrast CT of the lumbar spine without intravenous contrast TECHNIQUE: CT of the head and cervical spine was performed without intravenous contrast according to standard protocol. CT images of the thoracic spine and lumbar spine were reformatted from the concurrently obtained CT scan of the chest, abdomen and pelvis with intravenous contrast. CT dose reduction technique was used, including Automated Exposure Control. FINDINGS: Head: There is no acute intracranial hemorrhage. There is no hydrocephalus, midline shift or extra-axial fluid collection. Moderate chronic microvascular ischemic changes are seen. There is moderate generalized parenchymal volume loss. The paranasal sinuses and tympanomastoid cavities are aerated.The patient is status post bilateral cataract surgery.There is no calvarial fracture. Cervical spine: There is no fracture or traumatic subluxation. The prevertebral soft tissues are within normal limits. There is severe diffuse osteopenia. There is mild anterolisthesis of C4-5 and mild residual disease is to 6 and C7. Varying levels of bilateral facet arthropathy, most severe at left C4-C5. Severe uncovertebral joint hypertrophy at C3-C4, C4-C5, C5-C6, C6-7 leading to similar degree of neural foraminal stenoses at these levels..There are no aggressive appearing lytic or sclerotic bone lesions. Thoracic spine: There is no fracture or traumatic subluxation. There is diffuse osteopenia. Moderate degenerative disc disease. Mild facet arthropathy at multiple levels. Bridging syndesmophytes and ossification of the anterior longitudinal ligament suggest diffuse idiopathic skeletal hyperostosis.There are no aggressive appearing lytic or sclerotic bone lesions. Atherosclerotic calcifications in the aorta and its major branches. Lumbar spine: There is no fracture or traumatic subluxation of the lumbar spine. The included sacrum is intact. Severe diffuse osteopenia. Grade 1 retrolisthesis of L5 on S1 and trace anterolisthesis of L4-5. Moderate multilevel degenerative disc disease noted. There is moderate diffuse year facet arthropathy, causing moderate neural foramina stenosis. 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 There are no aggressive appearing lytic or sclerotic bone lesions. Paraspinal muscle atrophy is noted. The left kidney is atrophic. Procedure Note John Zuniga MD - 01/23/2022 PROCEDURE: CT HEAD WO CONTRAST, CT LUMBAR SPINE WO CONTRAST, CTTHORACIC SPINE WO CONTRAST, CT CERVICAL SPINE WO CONTRAST, DATE/TIME OF EXAM: 01/22/2022 1:20 PM, LOCATION [facility] INDICATION: Trauma ADDITIONAL CLINICAL INFORMATION: Ordering Provider Reason For Exam: Technologist Note: Additional: COMPARISON: None. EXAMINATIONS: CT of the head without intravenous contrast CT of the cervical spine without intravenous contrast CT of the thoracic spine without intravenous contrast CT of the lumbar spine without intravenous contrast TECHNIQUE: CT of the head and cervical spine was performed without intravenous contrast according to standard protocol. CT images of the thoracic spine and lumbar spine were reformatted from the concurrently obtained CT scan of the chest, abdomen and pelvis with intravenous contrast. CT dose reduction technique was used, including Automated Exposure Control. FINDINGS: Head: There is no acute intracranial hemorrhage. There is no hydrocephalus, midline shift or extra-axial fluid collection. Moderate chronic microvascular ischemic changes are seen. There is moderate generalized parenchymal volume loss. The paranasal sinuses and tympanomastoid cavities are aerated.Thepatient is status post bilateral cataract surgery.There is no calvarialfracture. Cervical spine: There is no fracture or traumatic subluxation. The prevertebral soft tissues are within normal limits. There is severe diffuse osteopenia. There is mild anterolisthesis ofC4-5 and mild residual disease is to 6 and C7. Varying levels of bilateralfacet arthropathy, most severe at left C4-C5. Severe uncovertebral joint hypertrophy at C3-C4, C4-C5, C5-C6, C6-7 leading to similar degree of neural foraminal stenoses at these levels..There are no aggressive appearing lytic or sclerotic bone lesions. Thoracic spine: There is no fracture or traumatic subluxation. There is diffuseosteopenia. Moderate degenerative disc disease. Mild facet arthropathy at multiple levels. Bridging syndesmophytes and ossification of the anterior longitudinal ligament suggest diffuse idiopathic skeletal hyperostosis.There are no aggressive appearing lytic or sclerotic bone lesions. Atherosclerotic calcifications in the aorta and its major branches. Lumbar spine: There is no fracture or traumatic subluxation of the lumbar spine. The included sacrum is intact. Severe diffuse osteopenia. Grade 1 retrolisthesis of L5 on S1 and trace anterolisthesis of L4-5. Moderate multilevel degenerative disc disease noted. There is moderate diffuse year facet arthropathy, causing moderate neural foraminastenosis. 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 There are no aggressive appearing lytic or sclerotic bone lesions. Paraspinal muscle atrophy is noted. The leftkidney is atrophic. IMPRESSION: Head: 1.No acute intracranial abnormality. Cervical, thoracic and lumbar spine: No fracture of the cervical, thoracic and lumbar spine. > Dictated by Nilton Pierce MD (Resident) Please refer to the separately dictated report of CT scan of the chest, abdomen and pelvis for intrathoracic and intra-abdominal findings. John Cummings MD have personally reviewed and interpreted this examination/study. > Interpreting Provider: John Zuniga MD on 01/23/2022 6:53 AM Sima Carranza MD CT ORDERABLES * CT HEAD WO CONTRAST - Head Trauma, CSF leak, mental status changes (01/22/2022 1:19 PM CDT) Anatomical Region Laterality Modality Head Computed Tomogra phy 01/22/2022 1:37 PM CDT Impressions 01/23/2022 6:53 AM CDT IMPRESSION: Head: 1.No acute intracranial abnormality. Cervical, thoracic and lumbar spine: No fracture of the cervical, thoracic and lumbar spine. > Dictated by Nilton Pierce MD (Resident) Please refer to the separately dictated report of CT scan of the chest, abdomen and pelvis for intrathoracic and intra-abdominal findings. John Cummings MD have personally reviewed and interpreted this examination/study. > Interpreting Provider: John Zuniga MD on 01/23/2022 6:53 AM Narrative 01/23/2022 6:53 AM CDT PROCEDURE: CT HEAD WO CONTRAST, CT LUMBAR SPINE WO CONTRAST, CT THORACIC SPINE WO CONTRAST, CT CERVICAL SPINE WO CONTRAST, DATE/TIME OF EXAM: 01/22/2022 1:20 PM, LOCATION [facility] INDICATION: Trauma ADDITIONAL CLINICAL INFORMATION: Ordering Provider Reason For Exam: Technologist Note: Additional: COMPARISON: None. EXAMINATIONS: CT of the head without intravenous contrast CT of the cervical spine without intravenous contrast CT of the thoracic spine without intravenous contrast CT of the lumbar spine without intravenous contrast TECHNIQUE: CT of the head and cervical spine was performed without intravenous contrast according to standard protocol. CT images of the thoracic spine and lumbar spine were reformatted from the concurrently obtained CT scan of the chest, abdomen and pelvis with intravenous contrast. CT dose reduction technique was used, including Automated Exposure Control. FINDINGS: Head: There is no acute intracranial hemorrhage. There is no hydrocephalus, midline shift or extra-axial fluid collection. Moderate chronic microvascular ischemic changes are seen. There is moderate generalized parenchymal volume loss. The paranasal sinuses and tympanomastoid cavities are aerated.The patient is status post bilateral cataract surgery.There is no calvarial fracture. Cervical spine: There is no fracture or traumatic subluxation. The prevertebral soft tissues are within normal limits. There is severe diffuse osteopenia. There is mild anterolisthesis of C4-5 and mild residual disease is to 6 and C7. Varying levels of bilateral facet arthropathy, most severe at left C4-C5. Severe uncovertebral joint hypertrophy at C3-C4, C4-C5, C5-C6, C6-7 leading to similar degree of neural foraminal stenoses at these levels..There are no aggressive appearing lytic or sclerotic bone lesions. Thoracic spine: There is no fracture or traumatic subluxation. There is diffuse osteopenia. Moderate degenerative disc disease. Mild facet arthropathy at multiple levels. Bridging syndesmophytes and ossification of the anterior longitudinal ligament suggest diffuse idiopathic skeletal hyperostosis.There are no aggressive appearing lytic or sclerotic bone lesions. Atherosclerotic calcifications in the aorta and its major branches. Lumbar spine: There is no fracture or traumatic subluxation of the lumbar spine. The included sacrum is intact. Severe diffuse osteopenia. Grade 1 retrolisthesis of L5 on S1 and trace anterolisthesis of L4-5. Moderate multilevel degenerative disc disease noted. There is moderate diffuse year facet arthropathy, causing moderate neural foramina stenosis. 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 There are no aggressive appearing lytic or sclerotic bone lesions. Paraspinal muscle atrophy is noted. The left kidney is atrophic. Procedure Note John Zuniga MD - 01/23/2022 PROCEDURE: CT HEAD WO CONTRAST, CT LUMBAR SPINE WO CONTRAST, CTTHORACIC SPINE WO CONTRAST, CT CERVICAL SPINE WO CONTRAST, DATE/TIME OF EXAM: 01/22/2022 1:20 PM, LOCATION [facility] INDICATION: Trauma ADDITIONAL CLINICAL INFORMATION: Ordering Provider Reason For Exam: Technologist Note: Additional: COMPARISON: None. EXAMINATIONS: CT of the head without intravenous contrast CT of the cervical spine without intravenous contrast CT of the thoracic spine without intravenous contrast CT of the lumbar spine without intravenous contrast TECHNIQUE: CT of the head and cervical spine was performed without intravenous contrast according to standard protocol. CT images of the thoracic spine and lumbar spine were reformatted from the concurrently obtained CT scan of the chest, abdomen and pelvis with intravenous contrast. CT dose reduction technique was used, including Automated Exposure Control. FINDINGS: Head: There is no acute intracranial hemorrhage. There is no hydrocephalus, midline shift or extra-axial fluid collection. Moderate chronic microvascular ischemic changes are seen. There is moderate generalized parenchymal volume loss. The paranasal sinuses and tympanomastoid cavities are aerated.Thepatient is status post bilateral cataract surgery.There is no calvarialfracture. Cervical spine: There is no fracture or traumatic subluxation. The prevertebral soft tissues are within normal limits. There is severe diffuse osteopenia. There is mild anterolisthesis ofC4-5 and mild residual disease is to 6 and C7. Varying levels of bilateralfacet arthropathy, most severe at left C4-C5. Severe uncovertebral joint hypertrophy at C3-C4, C4-C5, C5-C6, C6-7 leading to similar degree of neural foraminal stenoses at these levels..There are no aggressive appearing lytic or sclerotic bone lesions. Thoracic spine: There is no fracture or traumatic subluxation. There is diffuseosteopenia. Moderate degenerative disc disease. Mild facet arthropathy at multiple levels. Bridging syndesmophytes and ossification of the anterior longitudinal ligament suggest diffuse idiopathic skeletal hyperostosis.There are no aggressive appearing lytic or sclerotic bone lesions. Atherosclerotic calcifications in the aorta and its major branches. Lumbar spine: There is no fracture or traumatic subluxation of the lumbar spine. The included sacrum is intact. Severe diffuse osteopenia. Grade 1 retrolisthesis of L5 on S1 and trace anterolisthesis of L4-5. Moderate multilevel degenerative disc disease noted. There is moderate diffuse year facet arthropathy, causing moderate neural foraminastenosis. 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 There are no aggressive appearing lytic or sclerotic bone lesions. Paraspinal muscle atrophy is noted. The leftkidney is atrophic. IMPRESSION: Head: 1.No acute intracranial abnormality. Cervical, thoracic and lumbar spine: No fracture of the cervical, thoracic and lumbar spine. > Dictated by Nilton Pierce MD (Resident) Please refer to the separately dictated report of CT scan of the chest, abdomen and pelvis for intrathoracic and intra-abdominal findings. John Cummings MD have personally reviewed and interpreted this examination/study. > Interpreting Provider: John Zuniga MD on 01/23/2022 6:53 AM Sima Carranza MD CT ORDERABLES * XR CHEST 1VW PORTABLE (01/22/2022 12:56 PM CDT) Anatomical Region Laterality Modality Chest Radiographic Gail ging 01/22/2022 1:09 PM CDT Narrative 01/22/2022 1:37 PM CDT PROCEDURE: XR CHEST 1VW PORTABLE, DATE/TIME OF EXAM: 01/22/2022 12:56 PM, LOCATION [facility] INDICATION: Trauma ADDITIONAL CLINICAL INFORMATION: Ordering Provider Reason For Exam: Technologist Note: Additional: COMPARISON: None. FINDINGS/IMPRESSION: There is no focal consolidation, pleural effusion, or pneumothorax. The cardiac silhouette is normal. There is mild widening of the mediastinal silhouette, correlate with chest CT. The visible bony thorax is intact. Report dictated by Nilton Piecre MD, ([employer]). MARLENA Cummings MD have personally reviewed and interpreted this examination/study. > Interpreting Provider: MARLENA ELIZALDE MD on 01/22/2022 1:37 PM Procedure Note Marlena Elizadle MD - 01/22/2022 PROCEDURE: XR CHEST 1VW PORTABLE, DATE/TIME OF EXAM: 01/22/2022 12:56PM, LOCATION [facility] INDICATION: Trauma ADDITIONAL CLINICAL INFORMATION: Ordering Provider Reason For Exam: Technologist Note: Additional: COMPARISON: None. FINDINGS/IMPRESSION: There is no focal consolidation, pleural effusion, or pneumothorax. The cardiac silhouette is normal. There is mild widening of the mediastinal silhouette, correlate with chest CT. The visible bony thorax is intact. Report dictated by Nilton Pierce MD, MD ([employer]). MARLENA Cummings MD have personally reviewed and interpreted this examination/study. > Interpreting Provider: MARLENA ELIZALDE MD on 01/22/2022 1:37 PM Sima Carranza MD DIAGNOSTIC IMAGING O RDERABLES * XR HIP LEFT 2VW OR MORE (01/22/2022 12:55 PM CDT) Anatomical Region Laterality Modality Pelvis, Lower Extremity Radiogra [facility] 01/22/2022 1:03 PM CDT Impressions 01/22/2022 1:42 PM CDT IMPRESSION: 1.No acute fracture or dislocation in the pelvis. 2.Comminuted and displaced distal femoral shaft fracture, likely with a component of the fracture plane extension into the femoral arthroplasty component. Correlation with CT knee without contrast is recommended. Report dictated by Nilton Pierce MD, MD ([employer]). MARLENA Cummings MD have personally reviewed and interpreted this examination/study. > Interpreting Provider: MARLENA ELIZALDE MD on 01/22/2022 1:42 PM Narrative 01/22/2022 1:42 PM CDT PROCEDURE: XR PELVIS 1 OR 2VW, XR FEMUR LEFT 2VW, XR HIP LEFT 2VW OR MORE, XR KNEE LEFT 2VW OR LESS, DATE/TIME OF EXAM: 01/22/2022 12:56 PM, LOCATION [facility] INDICATION: Trauma Fracture suspected ADDITIONAL CLINICAL INFORMATION: Ordering Provider Reason For Exam: fracture (accession [id number]), fall (accession [id number]), fall (accession [id number]) Technologist Note: Additional: COMPARISON: None. FINDINGS: Pelvis: No acute fracture is identified. The femoral heads are well-seated within the respective acetabula. Moderate to severe right and moderate left hip joint space narrowing are present. Associated subchondral sclerosis and small osteophyte formation noted. No widening of the pubic symphysis or sacroiliac joints. The bones are diffusely demineralized. Left hip: The osseous structures are intact and well aligned without acute fracture or dislocation. Well-corticated degenerative change/heterotopic ossification is noted over the greater trochanter. The bones are diffusely demineralized. Left femur: Acute comminuted fracture of the distal femur with anterior apex angulation of the distal fracture fragment. Fracture component extending into the femoral arthroplasty component is not excluded. Left knee: Acute comminuted fracture of the distal femur with anterior apex angulation of the distal fracture fragment. Fracture component extending into the femoral arthroplasty component is not excluded. The tibia and fibula appear intact. The tibial arthroplasty component appears intact. A joint effusion is seen with a fat-fluid level, consistent with lipohemarthrosis. The bones are diffusely demineralized. Procedure Note Marlena Elizalde MD - 01/22/2022 PROCEDURE: XR PELVIS 1 OR 2VW, XR FEMUR LEFT 2VW, XR HIP LEFT 2VW ORMORE, XR KNEE LEFT 2VW OR LESS, DATE/TIME OF EXAM: 01/22/2022 12:56 PM, LOCATION [facility] INDICATION: Trauma Fracture suspected ADDITIONAL CLINICAL INFORMATION: Ordering Provider Reason For Exam: fracture (accession [id number]), fall (accession [id number]), fall (accession [id number]) Technologist Note: Additional: COMPARISON: None. FINDINGS: Pelvis: No acute fracture is identified. The femoral heads are well-seatedwithin the respective acetabula. Moderate to severe right and moderate left hip joint space narrowing are present. Associated subchondral sclerosis and small osteophyte formation noted. No widening of the pubic symphysis or sacroiliac joints. The bones are diffusely demineralized. Left hip: The osseous structures are intact and well aligned without acutefracture or dislocation. Well-corticated degenerative change/heterotopic ossification is noted over the greater trochanter. The bones arediffusely demineralized. Left femur: Acute comminuted fracture of the distal femur with anterior apexangulation of the distal fracture fragment. Fracture component extending into the femoral arthroplasty component is not excluded. Left knee: Acute comminuted fracture of the distal femur with anterior apexangulation of the distal fracture fragment. Fracture component extending into the femoral arthroplasty component is not excluded. The tibia and fibulaappear intact. The tibial arthroplasty component appears intact. A jointeffusion is seen with a fat-fluid level, consistent with lipohemarthrosis. Thebones are diffusely demineralized. IMPRESSION: 1.No acute fracture or dislocation in the pelvis. 2.Comminuted and displaced distal femoral shaft fracture, likely with a component of the fracture plane extension into the femoral arthroplasty component. Correlation with CT knee without contrast is recommended. Report dictated by Nilton Pierce MD, MD ([employer]). MARLENA Cummings MD have personally reviewed and interpreted this examination/study. > Interpreting Provider: MARLENA ELIZALDE MD on 01/22/2022 1:42 PM Sima Carranza MD DIAGNOSTIC IMAGING O RDERABLES * XR PELVIS 1 OR 2VW (01/22/2022 12:55 PM CDT) Anatomical Region Laterality Modality Pelvis Radiographic Gail ging 01/22/2022 1:03 PM CDT Impressions 01/22/2022 1:42 PM CDT IMPRESSION: 1.No acute fracture or dislocation in the pelvis. 2.Comminuted and displaced distal femoral shaft fracture, likely with a component of the fracture plane extension into the femoral arthroplasty component. Correlation with CT knee without contrast is recommended. Report dictated by Nilton Pierce MD, (president [employer]). MARLENA Cummings MD have personally reviewed and interpreted this examination/study. > Interpreting Provider: MARLENA ELIZALDE MD on 01/22/2022 1:42 PM Narrative 01/22/2022 1:42 PM CDT PROCEDURE: XR PELVIS 1 OR 2VW, XR FEMUR LEFT 2VW, XR HIP LEFT 2VW OR MORE, XR KNEE LEFT 2VW OR LESS, DATE/TIME OF EXAM: 01/22/2022 12:56 PM, LOCATION [facility] INDICATION: Trauma Fracture suspected ADDITIONAL CLINICAL INFORMATION: Ordering Provider Reason For Exam: fracture (accession [id number]), fall (accession [id number]), fall (accession [id number]) Technologist Note: Additional: COMPARISON: None. FINDINGS: Pelvis: No acute fracture is identified. The femoral heads are well-seated within the respective acetabula. Moderate to severe right and moderate left hip joint space narrowing are present. Associated subchondral sclerosis and small osteophyte formation noted. No widening of the pubic symphysis or sacroiliac joints. The bones are diffusely demineralized. Left hip: The osseous structures are intact and well aligned without acute fracture or dislocation. Well-corticated degenerative change/heterotopic ossification is noted over the greater trochanter. The bones are diffusely demineralized. Left femur: Acute comminuted fracture of the distal femur with anterior apex angulation of the distal fracture fragment. Fracture component extending into the femoral arthroplasty component is not excluded. Left knee: Acute comminuted fracture of the distal femur with anterior apex angulation of the distal fracture fragment. Fracture component extending into the femoral arthroplasty component is not excluded. The tibia and fibula appear intact. The tibial arthroplasty component appears intact. A joint effusion is seen with a fat-fluid level, consistent with lipohemarthrosis. The bones are diffusely demineralized. Procedure Note Marlena Elizalde MD - 01/22/2022 PROCEDURE: XR PELVIS 1 OR 2VW, XR FEMUR LEFT 2VW, XR HIP LEFT 2VW ORMORE, XR KNEE LEFT 2VW OR LESS, DATE/TIME OF EXAM: 01/22/2022 12:56 PM, LOCATION [facility] INDICATION: Trauma Fracture suspected ADDITIONAL CLINICAL INFORMATION: Ordering Provider Reason For Exam: fracture (accession [id number]), fall (accession [id number]), fall (accession [id number]) Technologist Note: Additional: COMPARISON: None. FINDINGS: Pelvis: No acute fracture is identified. The femoral heads are well-seatedwithin the respective acetabula. Moderate to severe right and moderate left hip joint space narrowing are present. Associated subchondral sclerosis and small osteophyte formation noted. No widening of the pubic symphysis or sacroiliac joints. The bones are diffusely demineralized. Left hip: The osseous structures are intact and well aligned without acutefracture or dislocation. Well-corticated degenerative change/heterotopic ossification is noted over the greater trochanter. The bones arediffusely demineralized. Left femur: Acute comminuted fracture of the distal femur with anterior apexangulation of the distal fracture fragment. Fracture component extending into the femoral arthroplasty component is not excluded. Left knee: Acute comminuted fracture of the distal femur with anterior apexangulation of the distal fracture fragment. Fracture component extending into the femoral arthroplasty component is not excluded. The tibia and fibulaappear intact. The tibial arthroplasty component appears intact. A jointeffusion is seen with a fat-fluid level, consistent with lipohemarthrosis. Thebones are diffusely demineralized. IMPRESSION: 1.No acute fracture or dislocation in the pelvis. 2.Comminuted and displaced distal femoral shaft fracture, likely with a component of the fracture plane extension into the femoral arthroplasty component. Correlation with CT knee without contrast is recommended. Report dictated by Nilton Pierce MD, MD (president [employer]). I, MARLENA ELIZALDE MD have personally reviewed and interpreted this examination/study. > Interpreting Provider: MARLENA ELIZALDE MD on 01/22/2022 1:42 PM Sima Carranza MD DIAGNOSTIC IMAGING O RDERABLES * TEG 6S PLATELET MAPPING (01/22/2022 12:51 PM CDT) [facility] TEGPLM (Max Amplitude) [place] 60.4 53.0 - 68.0 mm 01/22/2022 1:50 PM CDT [facility] TEGPLM (Max Amplitude) ACTF 15.8 2.0 - 19.0 mm 01/22/2022 1:50 PM CDT [facility] TEGPLM (Max Amplitude) ADP 58.4 45.0 - 69.0 mm 01/22/2022 1:50 PM CDT [facility] TEGPLM (Max Amplitude) AA 60.3 51.0 - 71.0 mm 01/22/2022 1:50 PM T [facility] TEGPLM %Inhibition ADP 4.5 0.0 - 17.0 % 01/22/2022 1:50 PM [facility] TEGPLM %Inhibition AA 0.2 0.0 - 11.0 % 01/22/2022 1:50 PM T [facility] TEGPLM %Aggregation ADP 95.5 83.0 - 100.0 % 01/22/2022 1:50 PM [facility] TEGPLM % Aggregation AA 99.8 89.0 - 100.0 % 01/22/2022 1:50 PM [facility] Blood BLOOD SPECIMEN / Unknown Venipuncture / Unknown 01/22/2022 12:51 PM CDT 01/22/2022 12:58 PM CDT Sima Carranza MD LAB - HEMATOLOGY ORD ERABLES [address] [id number] [phone] * TEG 6 GLOBAL HEMOSTASIS (01/22/2022 12:51 PM CDT) Citrated Kaolin R (Reaction Time) 6.5 4.6 - 9.1 min 01/22/2022 1:39 PM [facility] Citrated Kaolin K (Clot Kinetics) 1.5 0.8 - 2.1 min 01/22/2022 1:39 PM [facility] Citrated Kaolin Angle 69.0 63.0 - 78.0 deg 01/22/2022 1:39 PM [facility] Citrated Kaolin MA (Max Amplitude) 58.3 52.0 - 69.0 mm 01/22/2022 1:39 PM [facility] Citrated Kaolin w/Heparinase R (Reaction Time) 6.4 4.3 - 8.3 min 01/22/2022 1:39 PM [facility] Citrated Functional Fibrinogen MA (Max Amplitude) 20.8 15.0 - 32.0 mm 01/22/2022 1:39 PM [facility] Citrated Functional Fibrinogen FLEV 379.6 278.0 - 581.0 mg/dL 01/22/2022 1:39 PM CDT [facility] Citrated RapidTEG MA (Max Amplitude) 60.5 52.0 - 69.0 mm 01/22/2022 1:39 PM CDT [facility] Blood BLOOD SPECIMEN / Unknown Venipuncture / Unknown 01/22/2022 12:51 PM CDT 01/22/2022 12:58 PM CDT Sima Carranza MD LAB - HEMATOLOGY ORD ERABLES [facility] [address] [place] [address], [place] [phone] * TYPE + SCREEN PANEL (01/22/2022 12:51 PM CDT) Antibody Screen NEG 1:35 PM CDT [facility] ABO Rh A NEG 01/22/2022 1:35 PM CDT [facility] Blood Bank BLOOD SPECIMEN / Unknown Venipuncture / Unknown 01/22/2022 12:51 PM CDT 01/22/2022 12:57 PM CDT Sima Carranza MD LAB - BLOOD BANK ORD ERABLES [facility] [address] [place] [id number], [place] [phone] * ALCOHOL ETHYL BLOOD (01/22/2022 12:51 PM CDT) Ethanol (mg/dL) <10 <10 mg/dL 1:24 PM CDT [facility] Ethanol Calculated (g/dL) <0.010 <=0.010 g/dL 01/22/2022 1:24 PM CDT [facility] Blood BLOOD SPECIMEN / Unknown Venipuncture / Unknown 01/22/2022 12:51 PM CDT 01/22/2022 12:55 PM CDT Narrative [facility] - 01/22/2022 1:24 PM CDT Ethanol Interp <10: None Detected. Depression of [employer]: >100 mg/dl Potentially Critical: >250 mg/dl Potentially Fatal >400 mg/dl Ethanol in the patient's blood will contribute to the osmolar gap. Ethanol's contribution to the osmolar gap can be estimated by dividing the concentration of ethanol in mg/dL by 4.6. This test is for clinical use only and does not equal a GREG for legal purposes. 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) Anatomical Region Laterality Modality Lower Extremity Computed Radiogr aphy Narrative 07/20/2016 10:28 AM HYDROELECTRIC PLANT OPERATOR Jahaira Fontana RT(R) 07/20/2016 10:28 AM See progress notes for results Clifford Ann MD DIAGNOSTIC IMAGING O RDERABLES * XR HIP 2+ VW RIGHT (07/20/2016 9:50 AM HYDROELECTRIC PLANT OPERATOR) Anatomical Region Laterality Modality Pelvis, Lower Extremity Computed Radiography Narrative 07/20/2016 10:28 AM HYDROELECTRIC PLANT OPERATOR Jahaira Fontana RT(R) 07/20/2016 10:28 AM See progress notes for results Clifford Ann MD DIAGNOSTIC IMAGING O RDERABLES Care Teams Stock Manager Relationship Specialty Start Date End Date Samuel Huerta DO [address] [place] [address] PCP - General Family Medicine 01/22/22 Clifford Ann MD Orthopedic Surgery 07/20/16
--- OUTSIDE RECORDS SUMMARY | 2024-07-13 11:21 | XMS_ITS | Encounter Summary ---
Author Organization [facility] Address [address] [place] [address] Care Team Providers Care Monitoring And Evaluation Advisor Name Role Phone Mary Dunne MD Unavailable [phone] Chava Mo MD Primary Care Provider Brenda Coronel MD Unavailable [phone] Sanchez Singleton MD Unavailable [phone] Dany Mason ECONOMIC ADVISER Unavailable [phone] Florinda Galindo MD Unavailable Samuel Huerta DO Primary Care Provider [phone] Bel Trotter- Unavailable [phone] Reason for Visit * Reason Onset Date Comments Results 06/01/2021 HOLTER REPORT Encounter Details Date Type Department Care Team (Latest Contact Info) Description 06/01/2021 [facility] Documentation [facility] [address] [place] [phone] Abstract, Doc Prevea Results ( HOLTER REPORT) Social History Tobacco Use Types Packs/Day Years [...] often do you attend chur ch or restorationist services? 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 documented as of this encounter Care Teams Monitoring And Evaluation Advisor Relationship Specialty Start Date End Date Chava Mo MD [address] [place] [address] PCP - General FAMILY PRACTICE 01/08/20 06/01/21 Samuel Huerta DO [address] [place] [address] PCP - General FAMILY PRACTICE 06/02/21 Mary Dunne MD Consulting Physician OBGYN 09/23/18 Brenda Coronel MD [address] [place] [address] Consulting Physician INTERNAL MEDICINE 06/17/20 Sanchez Singleton MD [address] [place] [address] Consulting Physician ENDOCRINOLOGY 06/17/20 Dany Mason [facility] [address] [place] [address] Nurse Practitioner Nurse Practitioner Family 06/21/20 Florinda Galindo MD [address] [place] [address] Consulting Physician CARDIOVASCULAR DISEASE 12/14/20 Bel Trotter FNP- [address] [place] [address] Nurse Practitioner NURSE PRACTITIONER 01/10/22 documented as of this encounter
--- OUTSIDE RECORDS SUMMARY | 2024-07-13 11:21 | XMS_ITS | Encounter Summary ---
Author Organization [facility] Health Address [address] [facility] [place] [address] Care Team Providers Care Shorthand Reporter Name Role Phone Clifford Ann MD Unavailable Samuel Huerta DO Primary Care Provider [phone] Encounter Details Date Type Department Care Team (Late st Contact Info) Description 07/12/2020 Lab Requisition [facility] DermPath Lab [address] [facility], [place] [address] Tian Dumont Jr., MD [address] [facility] [address] [place] [address] Social History Tobacco Use Types Packs/Day Years Used Date Smoking Tobacco: Never Sex and Gender Information Value Date Recorded Sex Assigned at Not on file Gender Identity Not on file Sexual Orientation Not on file documented as of this encounter Plan of Treatment Not on file documented as of this encounter Procedures Procedure Name Priority Date/Time Associated Diagnosis Comments DERMATOPATHOLOGY Routine 07/08/2020 12:0 0 AM FINE ARTS CHAIR documented in this encounter Results * DERMATOPATHOLOGY (07/08/2020 12:00 AM FINE ARTS CHAIR) Case Report Dermatopathology Report Case: [id number] Authorizing Provider: Tian Dumont Jr., MD Collected: 07/08/2020 12:00 AM Ordering Location: [facility] DermPath Lab Received: 07/12/2020 08:55 AM Pathologist: Gini Dyson MD Specimen: Skin, left central frontal scalp 4:50 PM FINE ARTS CHAIR DERMATOPATHOLOGY LABORATORY Final Diagnosis Specimen A. SKIN, left central frontal scalp: BENIGN VERRUCOUS KERATOSIS (L82.1) 4:50 PM [facility] DERMATOPATHOLOGY LABORATORY Clinical History Inflamed seborrheic keratosis vs Squamous cell carcinoma vs verruca vulgaris. 4:50 PM [facility] DERMATOPATHOLOGY LABORATORY Gross Description Specimen A: Received is one formalin filled container labeled with the patient's name and designated left central frontal scalp. The specimen consists of a shave biopsy measuring [id number]. Jar 0+. 4:50 PM [facility] DERMATOPATHOLOGY LABORATORY Microscopic Description Specimen A. SKIN, left central frontal scalp: Sections show hyperkeratosis, papillomatosis, hypergranulosis, and acanthosis. These histological findings can be seen in a verruca vulgaris or a seborrheic keratosis. 4:50 PM [facility] DERMATOPATHOLOGY LABORATORY Disclaimer An external and internal positive and negative controls are appropriate for the histochemical, immunohistochemical and immunofluorescence stain(s) in this case (if any), except where stated explicitly. The performance characteristics of the stain(s) cited in this report were developed and its performance characteristic determined by the Dermatopathology Laboratory at [facility], directed by Dr. Martin Gonzalez. These tests need not be, and therefore are not, approved by the [place] Food and Drug Administration. The tests are used for clinical purposes. Billing Codes Specimen Charges Stain Charges 12836 1 4:50 PM [facility] DERMATOPATHOLOGY LABORATORY Embedded Images 4:50 PM [facility] DERMATOPATHOLOGY LABORATORY Pathology/Cytolog y TISSUE SPECIMEN FROM SKIN / Unknown 07/08/2020 07/12/2020 8:55 AM FINE ARTS CHAIR Tian Dumont Jr., MD LAB - PATHOLOGY /CYTOLOGY ORDERABLES DERMATOPATHOLOGY LABORATORY [facility] - Department of Dermatology [address], [address] [phone] documented in this encounter Visit Diagnoses Not on filedocumented in this encounter Care Teams Shorthand Reporter Relationship Specialty Start Date End Date Samuel Huerta DO [address] [place] [address] PCP - General Family Medicine 01/22/22 Clifford Ann MD Orthopedic Surgery 07/20/16 documented as of this encounter
--- OUTSIDE RECORDS SUMMARY | 2024-07-13 11:21 | XMS_ITS | Encounter Summary ---
Author Organization [facility] Health Address [address] [place] [address] Care Team Providers Care Bus Person Dishwasher Name Role Phone Clifford Ann MD Unavailable Samuel Huerta DO Primary Care Provider [phone] Encounter Details Date Type Department Care Team (Late st Contact Info) Description 12/31/[address] [facility] - DermPath Lab [address] [facility] [place] [id number] Tian Dumont Jr., MD [address] [facility] [address] [place] [address] Social History Tobacco Use Types Packs/Day Years Used Date Smoking Tobacco: Never Smokeless Tobacco: Never Alcohol Use Standard Drinks/Week Comments Never 0 [...] on file documented as of this encounter Functional Status Functional Status Response Date of [...] person have difficulty concentrating/remembering/making decisions? No 01/31/2022 documented as of this encounter Plan of Treatment Not on file documented as of this encounter Procedures Procedure Name Priority Date/Time Associated Diagnosis Comments DERMATOPATHOLOGY Routine 12/30/2023 12:0 0 AM CDT documented in this encounter Results * DERMATOPATHOLOGY (12/30/2023 12:00 AM CDT) Case Report Dermatopathology Report Case: [id number] Authorizing Provider: Tian Dumont Jr., MD Collected: 12/30/2023 12:00 AM Ordering Location: [facility] - Received: 12/31/2023 12:48 PM [...] nuclear to cytoplasmic ratio and peripheral palisading. 4 1:23 PM CDT DERMATOPATHOLOGY LABORATORY Disclaimer An external and internal positive and negative controls are appropriate for the histochemical, immunohistochemical and immunofluorescence stain(s) in this case (if any), except where stated explicitly. The performance characteristics of the stain(s) cited in this report were developed and its performance characteristic determined by the Dermatopathology Laboratory at [facility], directed by Dr. Martin Gonzalez. These tests need not be, and therefore are not, approved by the [place] Food and Drug Administration. The tests are used for clinical purposes. Billing Codes Specimen Charges Stain Charges 52416 1 4 1:23 PM CDT DERMATOPATHOLOGY LABORATORY Embedded Images 1:23 PM CDT DERMATOPATHOLOGY LABORATORY Pathology/Cytolog y TISSUE SPECIMEN FROM SKIN / Unknown 12/30/2023 12/31/2023 12:48 PM CDT Tian Dumont Jr., MD LAB - PATHOLOGY /CYTOLOGY ORDERABLES DERMATOPATHOLOGY LABORATORY [facility] - Department of Dermatology [facility] Medicine [address] [place] [address], [address] [phone] documented in this encounter Visit Diagnoses Not on filedocumented in this encounter Care Teams Bus Person Dishwasher Relationship Specialty Start Date End Date Samuel Huerta DO [address] [place] [address] PCP - General Family Medicine 01/22/22 Clifford Ann MD Orthopedic Surgery 07/20/16 documented as of this encounter
--- OUTSIDE RECORDS SUMMARY | 2024-07-13 11:21 | XMS_ITS ---
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 - ICD-10-CM) ACTIVE 11/24/2021 TYPE 2 DIABETES MELLITUS WIT HOUT COMPLICATIONS (E11.9 - ICD-10-CM) ACTIVE 11/24/2021 UNSPECIFIED ATRIAL FIBRILLATION (I48.91 - ICD-10-CM) A CTIVE 11/24/2021 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 [facility] [address] Component Value Range Date Blood [facility] See Attachment 12/11/2021 06:21 pm EDT * Individual Tests: [facility] Performed by: [facility] [address] [employer] [facility] [address] Component Value Range Date [facility] See Attachment 12/04/2021 07:52 pm EDT * Individual Tests: [facility] [place] [facility] Performed by: [facility] [address] [employer] [facility] [address] Component Value Range Date [facility] See Attachment 12/04/2021 11:00 am EDT * Individual Tests: Blood [facility] Performed by: [facility] [address] [employer] [facility] [address] Component Value Range Date [facility] See Attachment 12/01/2021 09:28 pm EDT * Individual Tests: Blood [facility] Performed by: [facility] [address] [employer] [facility] [address] Component Value Range Date Blood Reference[facility] See Attachment 11/27/2021 06:45 pm EDT Encounters Encounter Performer Performer Role Encounter Diagnoses Location Date Discharge - Discharged-home/s elfcare/[place]/SLF/RC F/Independent Living - Private Home - Private Home [facility] 11/24/2021 11:45 am EDT - 12/16/2021 11:22 am EDT Immunizations Vaccine Date Hepatitis B Influenza 03/17/2021 01:00 am EDT TB 2 Step Mantoux Skin Test 12/04/2021 0 5:00 pm EDT TB 2 Step [place]oux Skin Test 11/24/2021 0 5:00 pm EDT Prevnar 13 01/11/2017 01:00 am EDT Pneumovax 23 Dose 1 03/10/2013 01:00 am EDT SARS-COV-2 (COVID-19) 11/24/2021 01:00 a m EDT SARS-COV-2 (COVID-19) 03/07/2021 01:00 a m EDT SARS-COV-2 (COVID-19) 08/03/2020 01:00 a m EDT SARS-COV-2 (COVID-19) 07/13/2020 01:00 a m EST Social History
--- OUTSIDE RECORDS SUMMARY | 2024-07-13 11:21 | XMS_ITS | Encounter Summary ---
Author Organization [facility] Health Address [address] [facility] [place] [address] Care Team Providers Care Software Support Engineer Name Role Phone Clifford Ann MD Unavailable Samuel Huerta DO Primary Care Provider [phone] Encounter Details Date Type Department Care Team (Late st Contact Info) Description 08/05/2020 Lab Requisition [facility] DermPath Lab [address] [facility] [place] [address] Tian Dumont Jr., MD [address] [facility] [address] [place] [address] Social History Tobacco Use Types Packs/Day Years Used Date Smoking Tobacco: Never Sex and Gender Information Value Date Recorded Sex Assigned at Not on file Gender Identity Not on file Sexual Orientation Not on file documented as of this encounter Plan of Treatment Not on file documented as of this encounter Procedures Procedure Name Priority Date/Time Associated Diagnosis Comments DERMATOPATHOLOGY Routine 08/04/2020 12:0 0 AM CDT documented in this encounter Results * DERMATOPATHOLOGY (08/04/2020 12:00 AM CDT) Case Report Dermatopathology Report Case: [id number] Authorizing Provider: Tian Dumont Jr., MD Collected: 08/04/2020 12:00 AM Ordering Location: [facility] DermPath Lab Received: 08/05/2020 12:53 PM Pathologist: Monserrat Gonzalez MD Specimen: Skin, left clavicular skin 3:37 PM CDT DERMATOPATHOLOGY LABORATORY Final Diagnosis Specimen A. SKIN, left clavicular skin: BASAL CELL CARCINOMA (C44.519) APPROXIMATES MARGIN DERMAL SCAR (L90.5) (see microscopic description) 3:37 PM [facility] DERMATOPATHOLOGY LABORATORY Clinical History Basal cell carcinoma. Check margins. . 3:37 PM [facility] DERMATOPATHOLOGY LABORATORY Gross Description Specimen A: Received is one formalin filled container labeled with the patient's name and designated left clavicular skin.The specimen consists of an ellipse measuring [id number] and is oriented with the suture at the 12 o'clock position labeled on the requisition as superior. The 12 to 6 o'clock margin is inked green. The 6 o'clock to 12 o'clock margin is inked black. The 12 o'clock tip is submitted in cassette 1. The 6 o'clock tip is submitted in cassette 2. The remainder of the ellipse is serially sectioned and submitted in cassettes 3-4. Jar 0. 3:37 PM [facility] DERMATOPATHOLOGY LABORATORY Microscopic Description Specimen A. SKIN, left clavicular skin: Within the dermis there are aggregates of basaloid cells with a high nuclear to cytoplasmic ratio and peripheral palisading. This lesion approximates the 6-to-12-o'clock (black inked) margin of the specimen in block 4. There are fibroblasts and collagen bundles oriented parallel to the skin surface with elongated blood vessels, some of which are oriented perpendicular to the skin surface. 3:37 PM [facility] DERMATOPATHOLOGY LABORATORY Disclaimer An external and internal positive and negative controls are appropriate for the histochemical, immunohistochemical and immunofluorescence stain(s) in this case (if any), except where stated explicitly. The performance characteristics of the stain(s) cited in this report were developed and its performance characteristic determined by the Dermatopathology Laboratory at [facility], directed by Dr. Martin Gonzalez. These tests need not be, and therefore are not, approved by the [place] Food and Drug Administration. The tests are used for clinical purposes. Billing Codes Specimen Charges Stain Charges 34767 1 3:37 PM [facility] DERMATOPATHOLOGY LABORATORY Embedded Images 3:37 PM CDT DERMATOPATHOLOGY LABORATORY Pathology/Cytolog y TISSUE SPECIMEN FROM SKIN / Unknown 08/04/2020 08/05/2020 12:53 PM CDT Tian Dumont Jr., MD LAB - PATHOLOGY /CYTOLOGY ORDERABLES DERMATOPATHOLOGY LABORATORY [facility] - Department of Dermatology [facility] Medicine [address] [place] [address], [address] [phone] documented in this encounter Visit Diagnoses Not on filedocumented in this encounter Care Teams Software Support Engineer Relationship Specialty Start Date End Date Samuel Huerta DO [address] [place] [address] PCP - General Family Medicine 01/22/22 Clifford Ann MD Orthopedic Surgery 07/20/16 documented as of this encounter
--- OUTSIDE RECORDS SUMMARY | 2024-07-13 11:21 | XMS_ITS | Encounter Summary ---
Author Organization [facility] Address [address] [place] [address] Care Team Providers Care Ore Smelter Name Role Phone Mateusz Gallegos MD Unavailable Unavailable Mary Dunne MD Unavailable [phone] Deonna Abbott MD Unavailable [phone] Chava Mo MD Primary Care Provider Brenda Coronel MD Unavailable [phone] Sanchez Singleton MD Unavailable [phone] Dany Mason WINDOWS SYSTEM ADMIN Unavailable [phone] Florinda Galindo MD Unavailable Samuel Huerta DO Primary Care Provider [phone] Bel Trotter WINDOWS SYSTEM ADMIN- Unavailable [phone] Encounter Details Date Type Department Care Team (Late st Contact Info) Description 09/29/2020 Prep for Procedure [facility] Child Caregiver Pre/Post [address] [place] [address] Mateusz Gallegos MD Social History Tobacco Use Types Packs/Day Years [...] 11/05/2019 How often do you attend chur or latter-day services? More than 4 times per year 11/05/2019 Do you belong to any clubs o r organizations such as muslim groups, unions, fraternal or athletic groups, or [...] Answer Date Recorded PHQ-2 Score 0 04/14/2019 [facility] [place] of Occupat ional Health - Occupational Stress [...] AM CDT Legal Sex Female 11:29 PM SUPERVISOR HIDE HOUSE Gender Identity Female 11/05/2019 5:43 AM CDT Sexual Orientation Straight 11/05/2019 5: 43 AM CDT COVID-19 Exposure Response Date Recorded In the last month, have you been in contact with someone who was confirmed or suspected to have Coronavirus / COVID-19? No / Unsure 09/30/2020 8:23 AM CDT documented as of this encounter Functional Status * RETIRED Are you deaf or do you have serious difficulty hearing Answer Date of Assessment Author Status No 11/05/2019 5:56 AM CDT Activ e * RETIRED Are you blind or do you have serious difficulty seeing, even when wearing glasses? Answer Date of Assessment Author Status Yes 11/05/2019 5:56 AM CDT Acti ve * Do you have serious difficulty walking [...] Time PHQ-9 Depression Total Score: 0 04/20/20 11:06 AM SUPERVISOR HIDE HOUSE documented as of this encounter Care Teams Ore Smelter Relationship Specialty Start Date End Date Deonna Abbott MD [address] [place] [address] PCP - Med Group - [facility] Attributed Provider 05/20/15 05/19/21 Chava Mo MD [address] [place] [address] PCP - General FAMILY PRACTICE 01/08/20 06/01/21 Samuel Huerta DO [address] [place] [address] PCP - General FAMILY PRACTICE 06/02/21 Mateusz Gallegos MD INTERVENTIONAL CARDIOLOGY 11/08/17 12/13/20 Mary Dunne MD Consulting Physician OBGYN 09/23/18 Brenda Coronel MD [address] [place] [address] Consulting Physician INTERNAL MEDICINE 06/17/20 Sanchez Singleton MD [address] [place] [address] Consulting Physician ENDOCRINOLOGY 06/17/20 Dany Mason FNP [address] [place] [address] Nurse Practitioner Nurse Practitioner [facility] 06/21/20 Florinda Galindo MD [address] [place] [address] Consulting Physician CARDIOVASCULAR DISEASE 12/14/20 Bel Trotter FNP-BC [address] [place] [phone] Nurse Practitioner NURSE PRACTITIONER 01/10/22 documented as of this encounter
[2024-07-13 11:25] LABS: Alanine Aminotransferase 12 U/L (14-59); Albumin Level 4.2 g/dL (3.4-5.0); Alkaline Phosphatase 82 U/L (46-116); Anion Gap 6 mmol/L (4-12); Aspartate Amino Transferase 28 U/L (15-37); Bilirubin,Total 0.9 mg/dL (0.00-1.00); Blood Urea Nitrogen 23 mg/dL (7-18); Calcium 9.8 mg/dL (8.5-10.1); Carbon Dioxide 37 mmol/L (21-32); Chloride 100 mmol/L (98-108); Cholesterol 154 mg/dL (0-200); Estimated Glomerular Filt Rate 37; Glucose 76 mg/dL (70-99); HDL Direct 62 mg/dL (40-60); LDL Cholesterol Calculated 79 mg/dL (<130); Osmolality Calculated 298 mOsm/kg (285-295); Sodium 143 mmol/L (136-145); Total Protein 7.6 g/dL (6.4-8.2); Triglycerides 64 mg/dL (0-150); Vitamin B12 566 pg/mL (193-986)
== END 2024-07-13 10:09 | disposition home or self-care (01) ==
LOC: CHSLAB 10:10
PROVIDERS: PCP Family Medicine; Visit Provider Internal Medicine Endocrinology, Diabetes & Metabolism
DX: E11.65 Type 2 diabetes mellitus with hyperglycemia (principal)
CPT/HCPCS: 36415; 80053; 80061; 82043; 82607

== ENCOUNTER 2024-07-21 13:36 | Outpatient (CLI) | payer MEDICARE, SELFPAY ==
--- NOTE | 2024-07-21 13:42 | ECHO_ITS ---
Patient Info Name: Hortencia Nettles Age: 84 years : 1940 Gender: Female Ht: 69 in Wt: 200 lbs BSA: 2.12 m2 HR: 103 bpm BP: 116 / 62 mmHg Heart Rhythm: Atrial Fibrillation Technical Quality: Fair Exam Date: 07/21/2024 2:08 PM Exam Location: Echo Lab Patient Status: Outpatient Admit Date: 07/21/2024 Staff Ordering Physician: Casper Carlson Clay Artisan: Verónica Wong RDCS Attending Provider: Bel Trotter Exam Type: CA echo doppler color flow Study Info Indications - Mitral insufficiency Complete two-dimensional, color flow and Doppler transthoracic echocardiogram is performed. History/Risk Factors Hypertension: No Dyslipidemia: No Congenital Heart Disease (CHD): No Diabetic Therapy: Oral Chronic Lung Disease: No Obesity: No Renal Disease: Yes Coronary Artery Disease (CAD) Yes Cardiomyopathy/LV Systolic Dysfunction: No Diabetes Mellitus: Type II Tobacco Use: Never Cerebrovascular Disease: CVA Family History: Diabetes Mellitus Frailty Scale (CSHA): 4: Vulnerable Cardiac Arrest: No Summary 1. Complete two-dimensional, color flow and Doppler transthoracic echocardiogram is performed. 2. Left ventricular chamber dimension is normal. 3. There is mild concentric increased left ventricular wall thickness. 4. Left ventricular systolic function is normal, estimated at 60-65%. 5. The left ventricular diastolic function is indeterminate as tissue doppler E/e' was not measured.. 6. Left atrial chamber dimension is mildly enlarged. 7. Right atrial chamber dimension is mildly enlarged. 8. Atrial fibrillation. 9. There is mild aortic valve sclerosis. 10. There is trace aortic valve regurgitation. 11. The mitral valve has moderately calcified annulus. 12. There is mild to moderate tricuspid valve regurgitation. 13. No pulmonary hypertension, estimated pulmonary arterial systolic pressure is 29 mmHg. Recommendations * Continue medical therapy for diabetes. Left Ventricle The left ventricular diastolic function is indeterminate as tissue doppler E/e' was not measured.. Left ventricular chamber dimension is normal. Left ventricular systolic function is normal, estimated at 60-65%. There is mild concentric increased left ventricular wall thickness. Atrial fibrillation. Right Ventricle Right ventricular systolic function is normal and wit normal TAPSE 2.1 cm. Right ventricular chamber dimension is normal. Left Atria Left atrial chamber dimension is mildly enlarged. Right Atria Right atrial chamber dimension is mildly enlarged. Aortic Valve The aortic valve is trileaflet. There is mild aortic valve sclerosis. There is no aortic valve stenosis. There is trace aortic valve regurgitation. Pulmonic Valve There is no pulmonic regurgitation. Mitral Valve The mitral valve has moderately calcified annulus. There is no mitral valve stenosis. There is no mitral valve regurgitation. Tricuspid Valve There is mild to moderate tricuspid valve regurgitation. No pulmonary hypertension, estimated pulmonary arterial systolic pressure is 29 mmHg. Pericardium/Pleural There is no pericardial effusion. Inferior Vena Cava Normal inferior vena cava with >50% collapse upon inspiration consistent with normal right atrial pressure, 5 mmHg. Aorta The aortic root size at the sinus of Valsalva is normal. Left Ventricular Outflow Tract Name Value Normal LVOT 2D LVOT Diameter 2.1 cm LVOT Doppler LVOT Peak Velocity 83 cm/s LVOT Peak Gradient 3 mmHg LVOT Mean Gradient 1 mmHg LVOT VTI 16 cm LVOT VTI/AV VTI Ratio 0.7 LVOT Stroke Volume 60 ml Pulmonic Valve Name Value Normal RVOT Doppler RVOT Peak Gradient 1 mmHg PV Doppler PV Peak Velocity 89 cm/s PV Peak Gradient 3 mmHg Tricuspid Valve Name Value Normal TV Regurgitation Doppler TR Peak Velocity 244 cm/s TR Peak Gradient 19 mmHg Estimated PAP/RSVP RA Pressure 5 mmHg <=5 PA Systolic Pressure 29 mmHg <36 RV Systolic Pressure 29 mmHg <36 Aorta Name Value Normal Ascending Aorta Ao Root Diameter (MM) 3.7 cm Ao Root Diam Index (MM) 1.7 cm/m2 Ao Sin[place] Diameter 3.2 cm 2.3-2.9 Aortic Valve Name Value Normal AV Doppler AV Peak Velocity 152 cm/s AV Peak Gradient 9 mmHg AV Mean Gradient 5 mmHg AV VTI 25 cm AV Area (Cont Eq VTI) 2.4 cm2 >=3.0 AV Area (Cont Eq Reji) 2.0 cm2 AV V1/V2 Ratio 0.54 AV Regurgitation 2D LVOT Area 3.6 cm2 Ventricles Name Value Normal LV Dimensions 2D/MM IVS Diastolic Thickness (2D) 1.0 cm 0.6-1.0 LVID Diastole (2D) 4.1 cm 3.8-5.2 LVIW Diastolic Thickness (2D) 1.0 cm 0.6-0.9 LVID Systole (2D) 2.7 cm 2.2-3.5 LVOT Diameter 2.1 cm LV Mass (2D Cubed) 130.59 g 67.00-162.00 LV Mass Index (2D Cubed) 61 g/m2 43-95 Relative Wall Thickness (2D) 0.48 LV Fractional Shortening/Ejection Fraction 2D/MM LV Fractional Shortening (2D) 34 % 27-45 LV EF (2D Teicholz) 63 % 54-74 LV Diastolic Volume (4C MOD) 61 ml LV EF (4C MOD) 60 % LV Diastolic Volume (2C MOD) 74 ml LV EF (2C MOD) 70 % LV Diastolic Volume (BP MOD) 69 ml 46-106 LV Diastolic Volume Index (BP MOD) 32 ml/m2 29-61 LV Systolic Volume (BP MOD) 24 ml 14-42 LV Systolic Volume Index (BP MOD) 11 ml/m2 8-24 LV EF (BP MOD) 66 % 54-74 LV Diastolic Length (4C) 7.3 cm LV Systolic Length (4C) 6.6 cm LV Stroke Volume (4C MOD) 37 ml Atria Name Value Normal LA Dimensions LA Dimension (MM) 4.0 cm 2.7-3.8 LA Volume (4C A-L) 66 ml LA Volume (BP A-L) 74 ml RA Dimensions RA Area (4C) 19.3 cm2 <=18.0 Report Signatures
--- OUTSIDE RECORDS SUMMARY | 2024-07-21 15:37 | XMS_ITS | Clinical Summary ---
Author Organization [facility] Address [address] [place] [address] Care Team Providers Care Track Liner Operator Name Role Phone Clifford Ann MD Unavailable [phone] Samuel Huerta DO Primary Care Provider [phone] Source Comments [facility],non-owned Affiliates and Associated Physician Practices is amultiple site organization consisting of ambulatory clinics and hospital sitesin [place], [place], [place] and [place]. This disclosure is being madepursuant to the Care Everywhere program and may not contain all information available regarding this patient. 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 High 01/23/2022 Meperidine GI Discomfort 01/22/2022 [...] this topic Medical Devices Implanted Type Area Senior Drafter Device Identifier Shelf Expiration Date Model / Serial / Lot 4.5mm Cortex Screws, 38mm Implanted:Qty: 1 on 01/23/2022 by Mikie Dillon MD at [facility] Left: Femur [employer] [id number] / / 5.7mm Cannulated Locking Screws, 80mm Implanted:Qty: 2 on 01/23/2022 by Mikie Dillon MD at [facility] Left: Femur [employer] [id number] / / 5.7mm Cannulated Locking Screws, 85mm Implanted:Qty: 1 on 01/23/2022 by Mikie Dillon MD at [facility] Left: Femur [employer] [id number] / / 4.5mm Distal Femur Plate, L 15h 306mm Implanted:Qty: 1 on 01/23/2022 by Mikie Dillon MD at [facility] Left: Femur [employer] [id number] / / 4.5mm Cortex Screws, 40mm Implanted:Qty: 1 on 01/23/2022 by Mikie Dillon MD at [facility] Left: Femur [employer] [id number] / / 4.5mm Cortex Screws, 42mm Implanted:Qty: 2 on 01/23/2022 by Mikie Dillon MD at [facility] Left: Femur [employer] [id number] / / 4.5mm Cortex Screws, 46mm Implanted:Qty: 1 on 01/23/2022 by Mikie Dillon MD at [facility] Left: Femur [id number] / / 4.5mm Locking Screws, 80mm Implanted:Qty: 1 on 01/23/2022 by Mikie Dillon MD at [facility] Left: Femur [employer] [id number] / / 6.7mm High Torque Screw, 70mm Implanted:Qty: 1 on 01/23/2022 by Mikie Dillon MD at [facility] Left: Femur [employer] [id number] / / 5.7mm Cannulated Locking Screws, 46mm Implanted:Qty: 1 on 01/23/2022 by Mikie Dillon MD at [facility] Left: Femur [employer] [id number] / / 5.7mm Cannulated Locking Screws, 48mm Implanted:Qty: 1 on 01/23/2022 by Mikie Dillon MD at [facility] Left: Femur [employer] [id number] / / Explanted Type Area Senior Drafter Device Identifier Shelf Expiration Date Model / Serial / Lot Provisional Fixation Pins, 3.5mm Explanted:Qty: 1 on 01/23/2022 by Mikie Dillon MD at [facility] Left: Femur [employer] [id number] / / 2.0 Kwire X 350mm Explanted:Qty: 2 on 01/23/2022 by Mikie Dillon MD at [facility] Left: Femur [employer] [id number] / / Advance Directives Documents on File Type Date Recorded Patient Piping Drafter Expl anation Adv Directive/Living Will/POA 02/05/2022 1:02 PM * Full Code (Latest Code Status on File) Date Activated Date Inactivated Comments 01/22/2022 6:45 PM 02/01/2022 12:17 AM Care Teams Track Liner Operator Relationship Specialty Start Date End Date Samuel Huerta DO [address] [place] [id number] PCP - General Family Medicine 01/22/22 Clifford Ann MD Orthopedic Surgery 07/20/16
--- OUTSIDE RECORDS SUMMARY | 2024-07-21 15:37 | XMS_ITS | Encounter Summary ---
Author Organization [facility] Health Address [address] [place] [address] Care Team Providers Care Training And Development Assistant Name Role Phone Clifford Ann MD Unavailable Samuel Huerta DO Primary Care Provider [phone] Encounter Details Date Type Department Care Team (Late st Contact Info) Description 04/21/2020 Lab Requisition [facility] [address] [place] [address] [place] [address] [place] [address] Social History Tobacco Use Types Packs/Day Years [...] Comments DERMATOPATHOLOGY Routine 04/20/2020 12:0 0 AM [facility] documented in this encounter Results * DERMATOPATHOLOGY (04/20/2020 12:00 AM ME[facility]) Case Report Dermatopathology Report Case: [id number] Authorizing Provider: Myriam Garza MD Collected: 04/20/2020 12:00 AM Ordering Location: [facility] Received: 04/21/2020 12:35 PM Pathologist: Monserrat Gonzalez MD Specimen: Skin, left clavicular skin 0 4:31 PM [facility] Final Diagnosis Specimen A. 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 . 0 4:31 PM [facility] Gross Description Specimen A: Received is one formalin filled container labeled with the patient's name and designated left clavicular skin. The specimen consists of a shave biopsy measuring 2o8d2qm. Jar 0. 0 4:31 PM [facility] Microscopic Description Specimen A. SKIN, left clavicular skin: Within the dermis there are aggregates of basaloid cells with a high nuclear to cytoplasmic ratio and peripheral palisading. 0 4:31 PM [facility] Disclaimer An external and internal positive and negative controls are appropriate for the histochemical, immunohistochemical and immunofluorescence stain(s) in this case (if any), except where stated explicitly. The performance characteristics of the stain(s) cited in this report were developed and its performance characteristic determined by the Dermatopathology Laboratory at [facility], directed by Dr. Martin Gonzalez. These tests need not be, and therefore are not, approved by the [place] Food and Drug Administration. The tests are used for clinical purposes. Billing Codes Specimen Charges Stain Charges 61723 1 0 4:31 PM [facility] Embedded Images 0 4:31 PM [facility] Pathology/Cytolog y TISSUE SPECIMEN FROM SKIN / Unknown 04/20/2020 04/21/2020 12:35 PM [facility] Myriam Garza MD LAB - PATHOLOGY/C YTOLOGY ORDERABLES DERMATOPATHOLOGY LABORATORY [facility] - Department of Dermatology [address] [phone] documented in this encounter Visit Diagnoses Not on filedocumented in this encounter Care Teams Training And Development Assistant Relationship Specialty Start Date End Date Samuel Huerta DO [address] [place] [address] PCP - General Family Medicine 01/22/22 Clifford Ann MD Orthopedic Surgery 07/20/16 documented as of this encounter
--- OUTSIDE RECORDS SUMMARY | 2024-07-21 15:37 | XMS_ITS | Clinical Summary ---
Author Organization [email or web address] Address [address] [place] [address] Phone Care Team Providers Care Grounds Maintenance Supervisor Name Role Phone Deonna Abbott MD Primary [...] age to complete this topic Insurance MEDICARE [employer] Care Teams Grounds Maintenance Supervisor Relationship Specialty Start Date End Date Deonna Abbott MD [address] [place] [address] PCP - General Family Medicine 01/06/19
--- OUTSIDE RECORDS SUMMARY | 2024-07-21 15:37 | XMS_ITS | Patient Health Summary ---
Author Organization [facility] Address [address] [place] [address] Care Team Providers Care Therapist Asst Name Role Phone Clifford Ann MD Unavailable [phone] Samuel Huerta DO Primary Care Provider [phone] Note from [facility],non-owned Affiliates and Associated Physician Practices is amultiple site organization consisting of ambulatory clinics and hospital sitesin [place], [place], [place] and [place]. This disclosure is being madepursuant to the Care Everywhere program and may not contain all information available regarding this patient. Last updated 18.[facility] Allergies * Amiodarone(SUPERVISOR WINTER Dysfunction) -High Criticality * Meperidine(GI Discomfort) * [...] AM CDT Medical Devices Implanted Type Area [employer] Techn[employer] Device Identifier Shelf Expiration Date Model / Serial / Lot 4.5mm Cortex Screws, 38mm Implanted:Qty: 1 on 01/23/2022 by Mikie Dillon MD at [facility] Left: Femur [employer] [id number] / / 5.7mm Cannulated Locking Screws, 80mm Implanted:Qty: 2 on 01/23/2022 by Mikie Dillon MD at [facility] Left: Femur [employer] [id number] / / 5.7mm Cannulated Locking Screws, 85mm Implanted:Qty: 1 on 01/23/2022 by Mikie Dillon MD at [facility] Left: Femur [employer] [id number] / / 4.5mm Distal Femur Plate, L 15h 306mm Implanted:Qty: 1 on 01/23/2022 by Mikie Dillon MD at [facility] Left: Femur [employer] [id number] / / 4.5mm Cortex Screws, 40mm Implanted:Qty: 1 on 01/23/2022 by Mikie Dillon MD at [facility] Left: Femur [employer] [id number] / / 4.5mm Cortex Screws, 42mm Implanted:Qty: 2 on 01/23/2022 by Mikie Dillon MD at [facility] Left: Femur [employer] [id number] / / 4.5mm Cortex Screws, 46mm Implanted:Qty: 1 on 01/23/2022 by Mikie Dillon MD at [facility] Left: Femur [id number] / / 4.5mm Locking Screws, 80mm Implanted:Qty: 1 on 01/23/2022 by Mikie Dillon MD at [facility] Left: Femur [employer] [id number] / / 6.7mm High Torque Screw, 70mm Implanted:Qty: 1 on 01/23/2022 by Mikie Dillon MD at [facility] Left: Femur [employer] [id number] / / 5.7mm Cannulated Locking Screws, 46mm Implanted:Qty: 1 on 01/23/2022 by Mikie Dillon MD at [facility] Left: Femur [employer] [id number] / / 5.7mm Cannulated Locking Screws, 48mm Implanted:Qty: 1 on 01/23/2022 by Mikie Dillon MD at [facility] Left: Femur [employer] [id number] / / Explanted Type Area [employer] Research Technician Device Identifier Shelf Expiration Date Model / Serial / Lot Provisional Fixation Pins, 3.5mm Explanted:Qty: 1 on 01/23/2022 by Mikie Dillon MD at [facility] Left: Femur [employer] [id number] / / 2.0 Kwire X 350mm Explanted:Qty: 2 on 01/23/2022 by Mikie Dillon MD at [facility] Left: Femur [employer] [id number] / / Procedures * DERMATOPATHOLOGY(Performed 12/30/2023) * [...] of left femur, unspecified fracture morphology, initialencounter ([facility]) * XR FEMUR LEFT 2VW(Performed 03/21/2022) Performed for Closed fracture of distal end of left femur, unspecified fracture morphology, initialencounter ([facility]) * XR FEMUR LEFT 2VW(Performed 02/07/2022) Performed for Closed fracture of distal end of left femur, unspecified fracture morphology, initialencounter ([facility]) * GLUCOSE - POINT OF CARE(Performed 01/31/2022) * XR FEMUR LEFT 2VW(Performed 01/31/2022) Performed for Closed fracture of distal end of left femur, unspecified fracture morphology, initialencounter ([facility]) * GLUCOSE - POINT OF CARE(Performed 01/31/2022) [...] of left femur, unspecified fracture morphology, initialencounter ([facility]) * GLUCOSE - POINT OF CARE(Performed 01/23/2022) * FL CODY SURGERY(Performed 01/23/2022) Performed for Closed fracture of distal end of left femur, unspecified fracture morphology, initialencounter ([facility]) * TRANSFUSE RED BLOOD CELL LEUKOREDUCED UNIT(S)(Performed 01/23/2022) * ARTERIAL LINE NOTE(Performed 01/23/2022) * OPEN REDUCTION INTERNAL FIXATION (ORIF) FEMUR(Performed 01/23/2022) Performed for Closed fracture of left femur, unspecified fracture morphology, unspecified portion of femur, initial encounter ([facility]) * ENDOTRACHEAL TUBE NOTE(Performed 01/23/2022) * GLUCOSE [...] is included. Case Report Dermatopathology Report Case: [id number] Authorizing Provider: Tian Dumont Jr., MD Collected: 12/30/2023 12:00 AM Ordering Location: [facility] - Received: 12/31/2023 12:48 [...] characteristic determined by the Dermatopathology Laboratory at [facility], directed by Dr. Martin Gonzalez. These tests need not be, and therefore are not, approved by the [place] Food and Drug Administration. The tests are used for clinical purposes. Billing Codes Specimen Charges Stain Charges 12002 1 1:23 PM CDT DERMATOPATHOLOGY LABORATORY Embedded Images 1:23 PM CDT DERMATOPATHOLOGY LABORATORY Pathology/Cytolog y TISSUE SPECIMEN FROM SKIN / Unknown 12/30/2023 12/31/2023 12:48 PM CDT Tian Dumont Jr., MD LAB - PATHOLOGY /CYTOLOGY ORDERABLES DERMATOPATHOLOGY LABORATORY [facility] - Department of Dermatology [address], [address] Floor [address] [phone] * XR KNEE LEFT 2VW OR LESS [...] of57 resultswithin the time period is included. [facility] Glucose WB/POC 274(H) 70 - 115 mg/dL 01/31/2022 9:03 PM T [facility] Specimen Type Cap Fingerstick 2021 9:03 PM [facility] Blood BLOOD SPECIMEN / Unknown 01/31/2022 9:02 PM CDT 01/31/2022 9:03 PM CDT Nila Mandel MD LAB - POINT OF CARE ORDERABLES Performing Organization Address City/State/[facility] Co de Phone Number [facility] [address] [place] [address], [facility] [phone] * (ABNORMAL) CBC W AUTO DIFFERENTIAL (01/31/2022 1:24 AM CDT) Only the most recent of4 resultswithin the time period is included. [facility] WBC 4.6 3.5 - 10.5 10 3/uL 01/31/2022 2:07 AM [facility] RBC 2.72(L) 3.80 - 5.20 10 6/uL 01/31/2022 2:07 AM [facility] Hemoglobin 8.2(L) 12.0 - 15.6 g/dL 01/31/2022 2:07 AM [facility] Hematocrit 25.2(L) 35.0 - 45.0 % 01/31/2022 2:07 AM [facility] MCV 92.6 80.7 - 98.3 fL 01/31/2022 2:07 AM [facility] MCH 30.1 26.7 - 34.0 pg 01/31/2022 2:07 AM [facility] MCHC 32.5 30.8 - 35.9 g/dL 01/31/2022 2:07 AM [facility] Platelet Count 222 150 - 400 10 3/uL 01/31/2022 2:07 AM [facility] RDW-SD 51.8(H) 36.0 - 50.0 fL 01/31/2022 2:07 AM [facility] RDW-CV 15.8(H) 11.2 - 14.8 % 01/31/2022 2:07 AM [facility] MPV 8.7(L) 9.4 - 12.9 fL 01/31/2022 2:07 AM [facility] nRBC Absolute 0.00 0 10 3/uL 01/31/2022 2:07 AM [facility] nRBC Auto 0.0 0 /100 WBC 01/31/2022 2:07 AM [facility] Neutrophils % 64.3 35.0 - 70.0 % 01/31/2022 2:07 AM [facility] Lymphocytes % 21.7 20.0 - 43.0 % 01/31/2022 2:07 AM [facility] Monocytes % 10.5 5.0 - 13.0 % 01/31/2022 2:07 AM [facility] Eosinophils % 2.2 0.0 - 6.0 % 01/31/2022 2:07 AM [facility] Basophil % 0.4 0.0 - 2.0 % 01/31/2022 2:07 AM [facility] Neutrophils Absolute 2.94 1.60 - 7.00 10 3/uL 01/31/2022 2:07 AM [facility] Lymphocyte Absolute 0.99(L) 1.10 - 3.90 10 3/uL 01/31/2022 2:07 AM [facility] Monocytes Absolute 0.48 0.26 - 1.07 10 3/uL 01/31/2022 2:07 AM [facility] Eosinophils Absolute 0.10 0.00 - 0.47 10 3/uL 01/31/2022 2:07 AM [facility] Basophils Absolute 0.02 0.00 - 0.08 10 3/uL 01/31/2022 2:07 AM [facility] Immature Granulocytes % 0.9 0.0 - 1.0 % 01/31/2022 2:07 AM [facility] Immature Granulocytes Absolute 0.04 01/31/2022 2:07 AM [facility] Blood BLOOD SPECIMEN / Unknown Lab Venipuncture / Unknown 01/31/2022 1:24 AM CDT 01/31/2022 1:54 AM CDT Nila Mandel MD LAB - HEMATOLOGY ORD ERABLES [address] [address], [facility] [phone] * (ABNORMAL) BASIC METABOLIC PANEL (CALCIUM TOTAL) (01/31/2022 1:24 AM CDT) Only the most recent of7 resultswithin the time period is included. BUN 11 7 - 26 mg/dL 01/31/2022 2:30 AM [facility] Creatinine 0.61 0.56 - 0.96 mg/dL 01/31/2022 2:30 AM [facility] Sodium 139 136 - 145 mmol/L 01/31/2022 2:30 AM [facility] Potassium 3.5 3.5 - 4.5 mmol/L 01/31/2022 2:30 AM [facility] Chloride 100 98 - 107 mmol/L 01/31/2022 2:30 AM [facility] CO2 27 22 - 29 mmol/L 01/31/2022 2:30 AM [facility] Glucose 138(H) 70 - 115 mg/dL 01/31/2022 2:30 AM [facility] Calcium 9.0 8.4 - 10.2 mg/dL 01/31/2022 2:30 AM [facility] Anion Gap 16 8 - 18 01/31/2022 2:30 AM CDT [facility] BUN/Creatinine Ratio 18 7 - 23 01/31/2022 2:30 AM CDT [facility] Osmolality Calculated 290 270 - 300 mOsm/kg 01/31/2022 2:30 AM CDT [facility] eGFR by CKD-EPI 89(L) >=90 mL/min/1.7 3 m2 01/31/2022 2:30 AM CDT [facility] Blood BLOOD SPECIMEN / Unknown Lab Venipuncture / Unknown 01/31/2022 1:24 AM CDT 01/31/2022 1:53 AM CDT Nila Mandel MD LAB - CHEMISTRY [facility] [address] [place] [address], [facility] [phone] * EKG 12-LEAD (01/28/2022 5:37 PM CDT) Only the most recent of2 resultswithin the time period is included. Ventricular Rate 102 BPM [facility] MUSE Atrial Rate 102 BPM [facility] MUSE P-R Interval 192 ms [facility] MUSE QRS Duration ms 98 ms [facility] MUSE Q-T Interval ms 390 ms [facility] MUSE QTC Calculation (Bezet) 508 ms [facility] MUSE Calculated P [place] 72 degrees [facility] MUSE Calculated R [place] -19 degrees [facility] MUSE Calculated T [place] 91 degrees [facility] MUSE Interpretation EKG SINUS TACHYCARDIA WITH PREMATURE ATRIAL COMPLEXES ABNORMAL ECG WHEN COMPARED WITH ECG OF 22-JAN-2022 14:05, PREMATURE VENTRICULAR COMPLEXES ARE NO LONGER PRESENT PREMATURE ATRIAL COMPLEXES Now present Confirmed by BIRGIT PAL, BJ ([id number]) on 01/30/2022 8:08:18 PM [facility] MUSE 01/28/2022 5:37 PM CDT 01/30/2022 8:08 PM CDT Nila Mandel MD ECG ORDERABLES [facility] MUSE * (ABNORMAL) URINE MICROSCOPIC ONLY REFLEX TO CULTURE (01/27/2022 6:26 PM CDT) Reflex Status Culture to follow 01/27/2022 6:53 PM CDT [facility] RBC UA 11-20(A) None Seen, 0-2, 3-5 /HPF 01/27/2022 6:53 PM CDT [facility] WBC UA >100(A) None Seen, 0-5 /HPF 01/27/2022 6:53 PM CDT [facility] WBC Clumps Many(A) None /HPF 01/27/2022 6:53 PM CDT [facility] Bacteria UA Trace(A) None /HPF 01/27/2022 6:53 PM CDT [facility] Squamous Epithelial Cells UA 11-20(A) None Seen, 0-2, 3-5 /HPF 01/27/2022 6:53 PM CDT [facility] Urine URINE SPECIMEN OBTAINED BY CLEAN CATCH PROCEDURE / Unknown Collection / Unknown 01/27/2022 6:26 PM CDT 01/27/2022 6:29 PM CDT [facility] - 01/27/2022 6:53 PM CDT Nila Mandel MD LAB - URINALYSIS ORD ERABLES [facility] [address] [place] [address], [facility] [phone] * (ABNORMAL) URINALYSIS W/MICROSCOPIC NO CULTURE (01/27/2022 6:26 PM CDT) Color UA Yellow Straw, Yellow 01/27/2022 6:53 PM T [facility] Clarity UA Cloudy(A) Clear 01/27/2022 6:53 PM CDT [facility] Specific West UA 1.020 1.005 - 1.030 01/27/2022 6:53 PM T [facility] pH UA 6.0 5.0 - 8.0 pH 01/27/2022 6:53 PM CDT [facility] Protein UA 1+(A) Negative 01/27/2022 6:53 PM T [facility] Glucose UA Trace(A) Negative 01/27/2022 6:53 PM T [facility] Ketone UA 1+(A) Negative 01/27/2022 6:53 PM [facility] Bilirubin UA Negative Negative 01/27/2022 6:53 PM [facility] Blood UA Trace(A) Negative 01/27/2022 6:53 PM [facility] Nitrite UA Positive(A) Negative 01/27/2022 6:53 PM [facility] Leukocyte Esterase 1+(A) Negative 01/27/2022 6:53 PM [facility] Urobilinogen UA 2.0(A) Negative mg/dL 01/27/2022 6:53 PM [facility] RBC UA 11-20(A) None Seen, 0-2, 3-5 /HPF 01/27/2022 6:53 PM [facility] WBC UA >100(A) None Seen, 0-5 /HPF 01/27/2022 6:53 PM [facility] WBC Clumps Many(A) None /HPF 01/27/2022 6:53 PM [facility] Bacteria UA Trace(A) None /HPF 01/27/2022 6:53 PM [facility] Squamous Epithelial Cells UA 11-20(A) None Seen, 0-2, 3-5 /HPF 01/27/2022 6:53 PM [facility] Comment UA Microscopic to follow. 01/27/2022 6:53 PM [facility] Urine URINE SPECIMEN OBTAINED BY CLEAN CATCH PROCEDURE / Unknown Collection / Unknown 01/27/2022 6:26 PM CDT 01/27/2022 6:29 PM CDT Sima Carranza MD LAB - URINALYSIS ORD ERABLES [address] [address], [facility] [phone] * (ABNORMAL) URINALYSIS REFLEX MICROSCOPIC REFLEX CULTURE (01/27/2022 6:26 PM CDT) Color UA Yellow Straw, Yellow 01/27/2022 6:53 PM T [facility] Clarity UA Cloudy(A) Clear 01/27/2022 6:53 PM T [facility] Specific West UA 1.020 1.005 - 1.030 01/27/2022 6:53 PM [facility] pH UA 6.0 5.0 - 8.0 pH 01/27/2022 6:53 PM [facility] Protein UA 1+(A) Negative 01/27/2022 6:53 PM [facility] Glucose UA Trace(A) Negative 01/27/2022 6:53 PM [facility] Ketone UA 1+(A) Negative 01/27/2022 6:53 PM [facility] Bilirubin UA Negative Negative 01/27/2022 6:53 PM [facility] Blood UA Trace(A) Negative 01/27/2022 6:53 PM [facility] Nitrite UA Positive(A) Negative 01/27/2022 6:53 PM [facility] Leukocyte Esterase 1+(A) Negative 01/27/2022 6:53 PM [facility] Urobilinogen UA 2.0(A) Negative mg/dL 01/27/2022 6:53 PM [facility] Comment UA Microscopic to follow. 01/27/2022 6:53 PM [facility] Urine URINE SPECIMEN OBTAINED BY CLEAN CATCH PROCEDURE / Unknown Collection / Unknown 01/27/2022 6:26 PM CDT 01/27/2022 6:29 PM CDT Nila Mandel MD LAB - URINALYSIS ORD ERABLES [facility] [address] [place] [address], [facility] [phone] * (ABNORMAL) CULTURE URINE (01/27/2022 6:26 PM CDT) Culture Urine >100,000 CFU/mL Escherichia coli(A) LAURA 01/29/2022 5:52 AM CDT [facility] Urine URINE SPECIMEN OBTAINED BY [...] Mandel MD LAB - MICROBIOLOGY O RDERABLES [facility] [address] [place], [place] [address], [facility] [phone] * (ABNORMAL) CBC W/O DIFFERENTIAL (01/27/2022 9:03 AM CDT) Only the most recent of4 resultswithin the time period is included. WBC 5.3 3.5 - 10.5 10 3/uL 01/27/2022 10:38 AM [facility] RBC 2.86(L) 3.80 - 5.20 10 6/uL 01/27/2022 10:38 AM [facility] Hemoglobin 8.7(L) 12.0 - 15.6 g/dL 01/27/2022 10:38 AM [facility] Hematocrit 26.9(L) 35.0 - 45.0 % 01/27/2022 10:38 AM [facility] MCV 94.1 80.7 - 98.3 fL 01/27/2022 10:38 AM [facility] MCH 30.4 26.7 - 34.0 pg 01/27/2022 10:38 AM [facility] MCHC 32.3 30.8 - 35.9 g/dL 01/27/2022 10:38 AM [facility] Platelet Count 158 150 - 400 10 3/uL 01/27/2022 10:38 AM [facility] RDW-SD 50.4(H) 36.0 - 50.0 fL 01/27/2022 10:38 AM [facility] RDW-CV 14.8 11.2 - 14.8 % 01/27/2022 10:38 AM [facility] MPV 9.0(L) 9.4 - 12.9 fL 01/27/2022 10:38 AM [facility] nRBC Absolute 0.00 0 10 3/uL 01/27/2022 10:38 AM [facility] nRBC Auto 0.0 0 /100 WBC 01/27/2022 10:38 AM [facility] Blood BLOOD SPECIMEN / Unknown Lab Venipuncture / Unknown 01/27/2022 9:03 AM CDT 01/27/2022 10:28 AM T Nila Mandel MD LAB - HEMATOLOGY ORD ERABLES [facility] [address] [place] [address], [facility] [phone] * VITAMIN D 1,25 DIHYDROXY (01/27/2022 1:34 AM CDT) [facility] Vitamin D, 1,25 Dihydroxy 51.4 19.9 - 79.3 pg/mL 01/29/2022 6:12 PM CDT [employer] ([facility]) Comment: INTERPRETIVE INFORMATION: Vitamin D, 1,25-Dihydroxy This test is primarily indicated during patient evaluation for hypercalcemia and renal failure. A normal result does not rule out Vitamin D deficiency. The recommended test for diagnosing Vitamin D deficiency is Vitamin D 25-hydroxy. Performed By: [employer] [address] [place] [address] Credit Manager: Eliecer Guzman MD, PhD Blood BLOOD SPECIMEN / Unknown Lab Venipuncture / Unknown 01/27/2022 1:34 AM CDT 01/27/2022 1:51 AM CDT Nila Mandel MD LAB - CHEMISTRY [facility] Organization Address City/State/ZIP Co de Phone Number [facility] [employer] ([facility]) [address] [place] [address] * PREPARE (CROSSMATCH) RBC UNIT(S), 2 Units (01/26/2022 1:17 AM CDT) Only the most recent of2 resultswithin the time period is included. [facility] Unit Description AS1 LR PRBC [facility] B[facility]OD [facility] Unit ABO A [facility] Unit Rh NEG [facility] Product Number R02 [facility] B LOOD BANK LAB Unit Donor # [id number] [facility] Unit Status transfused [facility] B[facility] OD [facility] Product Code [id number] [facility] Blood Type Barcode 0600 [facility] Expiration Date S BLOOD BANK LAB Unit Description AS1 LR PRBC [facility] Unit ABO A [facility] Unit Rh NEG [facility] Product Number R02 [facility] B LOOD BANK LAB Unit Donor # [id number] [facility] Unit Status released [facility] BLOO D BANK LAB Product Code [id number] [facility] BLO OD [facility]ANK LAB Blood Type Barcode 0600 [facility] Expiration Date [id number] S BLOOD BANK LAB Blood Bank BLOOD SPECIMEN / Unknown 01/22/2022 12:57 PM CDT Mikie Dillon MD LAB - BLOOD BANK ORD ERABLES [facility] [address] [place] [address], [facility] [phone] * FL CODY SURGERY (01/23/2022 4:46 PM CDT) Narrative [facility] - 01/23/2022 4:47 PM CDT Fluoroscopy was used for this exam in the OR. Please see the Operative report. Mikie Dillon MD FLUOROSCOPY ORDERABL ES Performing Organization Address City/[facility]/ZIP Co de Phone Number [facility] * TRANSFUSE RED BLOOD CELL LEUKOREDUCED UNIT(S) (01/23/2022 3:18 PM CDT) Mikie Dillon MD NURSING - BLOOD PROD TRANSFUSION * ARTERIAL LINE PERFORMABLE (01/23/2022 3:15 PM CDT) Narrative Doris Sam MD - 01/23/2022 3:15 PM CDT Doris Sam MD 01/23/2022 3:16 PM Arterial Line Placement Procedure Note Patient Location: OR. Procedure: Arterial Line (38333). Procedure Section Indications: continuous blood pressure monitoring. [...] Event Date/Time: 01/23/2022 2:39 PM Procedure: intubation ([id number]). Procedure Section: Sedation: under general anesthesia. Indications [...] Document CARDIAC SERVICES ORD ERABLES * PTT [facility] (01/23/2022 3:47 AM CDT) Only the most recent of2 resultswithin the time period is included. APTT 32.3 23.0 - 38.4 Seconds 01/23/2022 4:20 AM CDT [facility] Comment:Suggested therapeuti c range for full dose I.V. unfractionated heparin therapy for venous thromboembolism is 71 to 109 seconds. Blood BLOOD SPECIMEN / Unknown Lab Venipuncture / Unknown 01/23/2022 3:47 AM CDT 01/23/2022 3:50 AM CDT Olvin Stover MD LAB - COAGULATION OR DERABLES Performing Organization Address City/[facility]/ZIP Co de Phone Number [facility] [address] [place] [address], [facility] [phone] * PT-INR [facility] (01/23/2022 3:47 AM CDT) Only the most recent of2 resultswithin the time period is included. PT 13.1 12.1 - 14.8 Seconds 01/23/2022 4:19 AM CDT [facility] INR 1.0 See Comment 01/23/2022 4:19 AM T [facility] Comment:The suggested therap eutic range for standard coumadin (warfarin) therapy is an INR of 2.0-3.0. For high-risk patients (Mechanical Mitral Valve Prosthesis, etc.), the suggested prophylactic therapeutic range is an INR of 2.5-3.5. Blood BLOOD SPECIMEN / Unknown Lab Venipuncture / Unknown 01/23/2022 3:47 AM CDT 01/23/2022 3:50 AM CDT Olvin Stover MD LAB - COAGULATION OR DERABLES Performing Organization Address [facility] Co de Phone Number [facility] [address] [place] [address], [facility] [phone] * (ABNORMAL) HEMOGLOBIN A1C (01/23/2022 3:47 AM CDT) Hemoglobin A1c 5.7(H) <=5.6 % 01/23/2022 9:43 AM CDT [facility] Estimated Average Glucose 117 mg/dL 01/23/2022 9:43 AM T [facility] Comment: HbA1c Interpretation: Normal : < 5.7% Pre-diabetes: 5.7-6.4% Diabetes: Equal to or greater than 6.5% Test results diagnostic of diabetes should be repeated for confirmation. Treatment target values recommended by ADA and other clinical organizations should be used to evaluate metabolic control in patients. Reference: [place] [employer], Standards of Care in Diabetes [...] Carranza MD LAB - CHEMISTRY [facility] [address] [place] [address], [facility] [phone] * BLOOD TYPE VERIFICATION (01/23/2022 12:22 AM CDT) ABO Rh A NEG 01/23/2022 1:1 1 AM CDT [facility] B[facility] LAB Blood Bank BLOOD SPECIMEN / Unknown Lab Venipuncture / Unknown 01/23/2022 12:22 AM CDT 01/23/2022 12:55 AM CDT Sandy Hutchinson MD LAB - BLOOD BANK ORD LISSY [facility] [address] [place] [address], [place] [phone] * XR KNEE LEFT 3VW (01/22/2022 3:03 [...] ELIZALDE MD on 01/22/2022 3:15 PM Sima Carranza MD DIAGNOSTIC IMAGING O RDERABLES * CT [...] DATE/TIME OF EXAM: 01/22/2022 1:20 PM, LOCATION [facility] INDICATION: W19.XXXA: Fall, initial encounter ADDITIONAL CLINICAL [...] CONTRAST, DATE/TIME OF EXAM: 01/22/2022 1:20PM, LOCATION [facility] INDICATION: W19.XXXA: Fall, initial encounter ADDITIONAL CLINICAL [...] pelvis. > Dictated by Birgit Benz MD (business services vice president). I, Korey Mahmood MD have personally reviewed and interpreted this examination/study. > Interpreting Provider: Korey Mahmood MD on 01/22/2022 1:47 PM Narrative 01/22/2022 1:47 PM CDT EXAMINATION: CT CHEST ABDOMEN PELVIS W CONT DATE/TIME OF EXAM: 01/22/2022 1:20 PM, LOCATION [facility] HISTORY: Trauma fall COMPARISON: No prior study [...] DATE/TIME OF EXAM: 01/22/2022 1:20 PM, LOCATION [facility] HISTORY: Trauma fall COMPARISON: No prior study [...] pelvis. > Dictated by Birgit Benz MD (business services vice president). I, Korey Mahmood MD have personally reviewed [...] DATE/TIME OF EXAM: 01/22/2022 1:20 PM, LOCATION [facility] INDICATION: Trauma ADDITIONAL CLINICAL INFORMATION: Ordering Provider [...] DATE/TIME OF EXAM: 01/22/2022 1:20 PM, LOCATION [facility] INDICATION: Trauma ADDITIONAL CLINICAL INFORMATION: Ordering Provider [...] DATE/TIME OF EXAM: 01/22/2022 1:20 PM, LOCATION [facility] INDICATION: Trauma ADDITIONAL CLINICAL INFORMATION: Ordering Provider [...] DATE/TIME OF EXAM: 01/22/2022 1:20 PM, LOCATION [facility] INDICATION: Trauma ADDITIONAL CLINICAL INFORMATION: Ordering Provider [...] John Zuniga MD on 01/23/2022 6:53 AM iSma Carranza MD CT ORDERABLES * CT CERVICAL [...] DATE/TIME OF EXAM: 01/22/2022 1:20 PM, LOCATION [facility] INDICATION: Trauma ADDITIONAL CLINICAL INFORMATION: Ordering Provider [...] DATE/TIME OF EXAM: 01/22/2022 1:20 PM, LOCATION [facility] INDICATION: Trauma ADDITIONAL CLINICAL INFORMATION: Ordering Provider [...] DATE/TIME OF EXAM: 01/22/2022 1:20 PM, LOCATION [facility] INDICATION: Trauma ADDITIONAL CLINICAL INFORMATION: Ordering Provider [...] DATE/TIME OF EXAM: 01/22/2022 1:20 PM, LOCATION [facility] INDICATION: Trauma ADDITIONAL CLINICAL INFORMATION: Ordering Provider [...] DATE/TIME OF EXAM: 01/22/2022 12:56 PM, LOCATION [facility] INDICATION: Trauma ADDITIONAL CLINICAL INFORMATION: Ordering Provider Reason For Exam: Technologist Note: Additional: COMPARISON: None. FINDINGS/IMPRESSION: There is no focal consolidation, pleural effusion, or pneumothorax. The cardiac silhouette is normal. There is mild widening of the mediastinal silhouette, correlate with chest CT. The visible bony thorax is intact. Report dictated by Nilton Pierce MD, (business services vice president). MARLENA Cummings MD have personally reviewed and interpreted this examination/study. > Interpreting Provider: MARLENA ELIZALDE MD on 01/22/2022 1:37 PM Procedure Note Marlena Elizalde MD - 01/22/2022 PROCEDURE: XR CHEST 1VW PORTABLE, DATE/TIME OF EXAM: 01/22/2022 12:56PM, LOCATION [facility] INDICATION: Trauma ADDITIONAL CLINICAL INFORMATION: Ordering Provider Reason For Exam: Technologist Note: Additional: COMPARISON: None. FINDINGS/IMPRESSION: There is no focal consolidation, pleural effusion, or pneumothorax. The cardiac silhouette is normal. There is mild widening of the mediastinal silhouette, correlate with chest CT. The visible bony thorax is intact. Report dictated by Nilton Pierce MD, MD (business services vice president). MARLENA Cummings MD have personally reviewed and interpreted this examination/study. > Interpreting Provider: MARLENA ELIZALDE MD on 01/22/2022 1:37 PM Sima Carranza MD DIAGNOSTIC IMAGING O RDERABLES * XR HIP LEFT 2VW OR MORE (01/22/2022 12:55 PM CDT) Anatomical Region Laterality Modality Pelvis, Lower Extremity Radiogra [facility] Imaging 01/22/2022 1:03 PM CDT Impressions 01/22/2022 1:42 PM CDT IMPRESSION: 1.No acute fracture or dislocation in the pelvis. 2.Comminuted and displaced distal femoral shaft fracture, likely with a component of the fracture plane extension into the femoral arthroplasty component. Correlation with CT knee without contrast is recommended. Report dictated by Nilton Pierce MD, MD (business services vice president). MARLENA Cummings MD have personally reviewed and interpreted this examination/study. > Interpreting Provider: MARLENA ELIZALDE MD on 01/22/2022 1:42 PM Narrative 01/22/2022 1:42 PM CDT PROCEDURE: XR PELVIS 1 OR 2VW, XR FEMUR LEFT 2VW, XR HIP LEFT 2VW OR MORE, XR KNEE LEFT 2VW OR LESS, DATE/TIME OF EXAM: 01/22/2022 12:56 PM, LOCATION [facility] INDICATION: Trauma Fracture suspected ADDITIONAL CLINICAL INFORMATION: Ordering Provider Reason For Exam: fracture (accession [id number]), fall (accession [id number]), fall (accession [id number]) Technologist Note: Additional: COMPARISON: None. FINDINGS: Pelvis: [...] DATE/TIME OF EXAM: 01/22/2022 12:56 PM, LOCATION [facility] INDICATION: Trauma Fracture suspected ADDITIONAL CLINICAL INFORMATION: Ordering Provider Reason For Exam: fracture (accession [id number]), fall (accession [id number]), fall (accession [id number]) Technologist Note: Additional: COMPARISON: None. FINDINGS: Pelvis: [...] Report dictated by Nilton Pierce MD, MD (business services vice president). MARLENA Cummings MD have personally reviewed and [...] recommended. Report dictated by Nilton Pierce MD, (business services vice president). MARLENA Cummings MD have personally reviewed and interpreted this examination/study. > Interpreting Provider: MARLENA ELIZALDE MD on 01/22/2022 1:42 PM Narrative 01/22/2022 1:42 PM CDT PROCEDURE: XR PELVIS 1 OR 2VW, XR FEMUR LEFT 2VW, XR HIP LEFT 2VW OR MORE, XR KNEE LEFT 2VW OR LESS, DATE/TIME OF EXAM: 01/22/2022 12:56 PM, LOCATION [facility] INDICATION: Trauma Fracture suspected ADDITIONAL CLINICAL INFORMATION: Ordering Provider Reason For Exam: fracture (accession [id number]), fall (accession [id number]), fall (accession [id number]) Technologist Note: Additional: COMPARISON: None. FINDINGS: Pelvis: [...] DATE/TIME OF EXAM: 01/22/2022 12:56 PM, LOCATION [facility] INDICATION: Trauma Fracture suspected ADDITIONAL CLINICAL INFORMATION: Ordering Provider Reason For Exam: fracture (accession [id number]), fall (accession [id number]), fall (accession [id number]) Technologist Note: Additional: COMPARISON: None. FINDINGS: Pelvis: [...] Report dictated by Nilton Pierce MD, MD (business services vice president). I, MARLENA ELIZALDE MD have personally reviewed and interpreted this examination/study. > Interpreting Provider: MARLENA ELIZALDE MD on 01/22/2022 1:42 PM Sima Carranza MD DIAGNOSTIC IMAGING O RDERABLES * TEG 6S PLATELET MAPPING (01/22/2022 12:51 PM CDT) [facility] TEGPLM (Max Amplitude) Koalin 60.4 53.0 - 68.0 mm 01/22/2022 1:50 PM CDT [facility] TEGPLM (Max Amplitude) ACTF 15.8 2.0 - 19.0 mm 01/22/2022 1:50 PM CDT [facility] TEGPLM (Max Amplitude) ADP 58.4 45.0 - 69.0 mm 01/22/2022 1:50 PM CDT [facility] TEGPLM (Max Amplitude) AA 60.3 51.0 - 71.0 mm 01/22/2022 1:50 PM T [facility] TEGPLM %Inhibition ADP 4.5 0.0 - 17.0 % 01/22/2022 1:50 PM [facility] TEGPLM %Inhibition AA 0.2 0.0 - 11.0 % 01/22/2022 1:50 PM T [facility] TEGPLM %Aggregation ADP 95.5 83.0 - 100.0 % 01/22/2022 1:50 PM [facility] TEGPLM % Aggregation AA 99.8 89.0 - 100.0 % 01/22/2022 1:50 PM [facility] Blood BLOOD SPECIMEN / Unknown Venipuncture / Unknown 01/22/2022 12:51 PM CDT 01/22/2022 12:58 PM CDT Sima Carranza MD LAB - HEMATOLOGY ORD ERABLES [address] [address] [phone] * TEG 6 GLOBAL HEMOSTASIS (01/22/2022 12:51 PM CDT) Citrated Kaolin R (Reaction Time) 6.5 4.6 - 9.1 min 01/22/2022 1:39 PM [facility] Citrated Kaolin K (Clot Kinetics) 1.5 0.8 - 2.1 min 01/22/2022 1:39 PM [facility] Citrated Kaolin Angle 69.0 63.0 - 78.0 deg 01/22/2022 1:39 PM [facility] Citrated Kaolin MA (Max Amplitude) 58.3 52.0 - 69.0 mm 01/22/2022 1:39 PM [facility] Citrated Kaolin w/Heparinase R (Reaction Time) 6.4 4.3 - 8.3 min 01/22/2022 1:39 PM [facility] Citrated Functional Fibrinogen MA (Max Amplitude) 20.8 15.0 - 32.0 mm 01/22/2022 1:39 PM [facility] Citrated Functional Fibrinogen FLEV 379.6 278.0 - 581.0 mg/dL 01/22/2022 1:39 PM CDT [facility] Citrated RapidTEG MA (Max Amplitude) 60.5 52.0 - 69.0 mm 01/22/2022 1:39 PM CDT [facility] Blood BLOOD SPECIMEN / Unknown Venipuncture / Unknown 01/22/2022 12:51 PM CDT 01/22/2022 12:58 PM CDT Sima Carranza MD LAB - HEMATOLOGY ORD ERABLES [facility] [address] [place] [address], [place] [phone] * TYPE + SCREEN PANEL (01/22/2022 12:51 PM CDT) Antibody Screen NEG 1:35 PM CDT [facility] ABO Rh A NEG 01/22/2022 1:35 PM CDT [facility] Blood Bank BLOOD SPECIMEN / Unknown Venipuncture / Unknown 01/22/2022 12:51 PM CDT 01/22/2022 12:57 PM CDT Sima Carranza MD LAB - BLOOD BANK ORD ERABLES [facility] [address] [place] [address], [place] [phone] * ALCOHOL ETHYL BLOOD (01/22/2022 12:51 PM CDT) Ethanol (mg/dL) <10 <10 mg/dL 1:24 PM CDT [facility] Ethanol Calculated (g/dL) <0.010 <=0.010 g/dL 01/22/2022 1:24 PM CDT [facility] Blood BLOOD SPECIMEN / Unknown Venipuncture / Unknown 01/22/2022 12:51 PM CDT 01/22/2022 12:55 PM CDT Narrative [facility] - 01/22/2022 1:24 PM CDT Ethanol Interp <10: None Detected. Depression of SUPERVISOR WINTER: >100 mg/dl Potentially Critical: >250 mg/dl Potentially [...] Carranza MD LAB - CHEMISTRY [facility] Organization Address City/State/ZIP Co de Phone Number [facility] [address] [place] [phone], [facility] [phone] * XR KNEE BILAT 3 VIEWS (07/20/2016 9:50 AM STRATEGY ANALYST) Anatomical Region Laterality Modality Lower Extremity Computed Radiogr aphy Narrative 07/20/2016 10:28 AM STRATEGY ANALYST Jahaira Fontana RT(R) 07/20/2016 10:28 AM See progress notes for results Clifford Ann MD DIAGNOSTIC IMAGING O RDERABLES * XR HIP 2+ VW RIGHT (07/20/2016 9:50 AM STRATEGY ANALYST) Anatomical Region Laterality Modality Pelvis, Lower Extremity Computed Radiography Narrative 07/20/2016 10:28 AM STRATEGY ANALYST Jahaira Fontana RT(R) 07/20/2016 10:28 AM See progress notes for results Clifford Ann MD DIAGNOSTIC IMAGING O RDERABLES Care Teams Therapist Asst Relationship Specialty Start Date End Date Samuel Huerta DO [address] [place] [address] PCP - General Family Medicine 01/22/22 Clifford Ann MD Orthopedic Surgery 07/20/16
--- OUTSIDE RECORDS SUMMARY | 2024-07-21 15:37 | XMS_ITS | Referral Summary ---
Author Organization [facility] Address [address] [place] [address] Care Team Providers Care Stereotyper Helper Name Role Phone Clifford Ann MD Unavailable [phone] Samuel Huerta DO Primary Care Provider [phone] Source Comments [facility],non-owned Affiliates and Associated Physician Practices is amultiple site organization consisting of ambulatory clinics and hospital sitesin [place], [place], [place] and [place]. This disclosure is being madepursuant to the Care Everywhere program and may not contain all information available regarding this patient. Last updated 18.[facility] 6connect Allergies Active Allergy Reactions Criticality Noted Date Comments Amiodarone HANSARD REPORTER Dysfunction High 01/23/2022 Meperidine GI Discomfort 01/22/2022 [...] on file Medical Devices Implanted Type Area Hansard Reporter Device Identifier Shelf Expiration Date Model / Serial / Lot 4.5mm Cortex Screws, 38mm Implanted:Qty: 1 on 01/23/2022 by Mikie Dillon MD at [facility] Left: Femur [employer] [id number] / / 5.7mm Cannulated Locking Screws, 80mm Implanted:Qty: 2 on 01/23/2022 by Mikie Dillon MD at [facility] Left: Femur [employer] [id number] / / 5.7mm Cannulated Locking Screws, 85mm Implanted:Qty: 1 on 01/23/2022 by Mikie Dillon MD at [facility] Left: Femur [employer] [id number] / / 4.5mm Distal Femur Plate, L 15h 306mm Implanted:Qty: 1 on 01/23/2022 by Mikie Dillon MD at [facility] Left: Femur [employer] [id number] / / 4.5mm Cortex Screws, 40mm Implanted:Qty: 1 on 01/23/2022 by Mikie Dillon MD at [facility] Left: Femur [employer] [id number] / / 4.5mm Cortex Screws, 42mm Implanted:Qty: 2 on 01/23/2022 by Mikie Dillon MD at [facility] Left: Femur [employer] [id number] / / 4.5mm Cortex Screws, 46mm Implanted:Qty: 1 on 01/23/2022 by Mikie Dillon MD at [facility] Left: Femur [id number] / / 4.5mm Locking Screws, 80mm Implanted:Qty: 1 on 01/23/2022 by Mikie Dillon MD at [facility] Left: Femur [employer] [id number] / / 6.7mm High Torque Screw, 70mm Implanted:Qty: 1 on 01/23/2022 by Mikie Dillon MD at [facility] Left: Femur [employer] [id number] / / 5.7mm Cannulated Locking Screws, 46mm Implanted:Qty: 1 on 01/23/2022 by Mikie Dillon MD at [facility] Left: Femur [employer] [id number] / / 5.7mm Cannulated Locking Screws, 48mm Implanted:Qty: 1 on 01/23/2022 by Mikie Dillon MD at [facility] Left: Femur [employer] [id number] / / Explanted Type Area Hansard Reporter Device Identifier Shelf Expiration Date Model / Serial / Lot Provisional Fixation Pins, 3.5mm Explanted:Qty: 1 on 01/23/2022 by Mikie Dillon MD at [facility] Left: Femur [employer] [id number] / / 2.0 Kwire X 350mm Explanted:Qty: 2 on 01/23/2022 by Mikie Dillon MD at [facility] Left: Femur [employer] [id number] / / Administered Medications Advance Directives Documents on File Type Date Recorded Patient Customer Advocate Expl anation Adv Directive/Living Will/POA 02/05/2022 1:02 PM * Full Code (Latest Code Status on File) Date Activated Date Inactivated Comments 01/22/2022 6:45 PM 02/01/2022 12:17 AM Care Teams Stereotyper Helper Relationship Specialty Start Date End Date Samuel Huerta DO [address] [place] [address] PCP - General Family Medicine 01/22/22 Clifford Ann MD Orthopedic Surgery 07/20/16
--- OUTSIDE RECORDS SUMMARY | 2024-07-21 15:37 | XMS_ITS | Encounter Summary ---
Author Organization [facility] Address [address] [place] [address] Care Team Providers Care Sales Enablement Consultant Name Role Phone Mary Dunne MD Unavailable [phone] Chava Mo MD Primary Care Provider Brenda Coronel MD Unavailable [phone] Sanchez Singleton MD Unavailable [phone] Dany Mason CARE TEAM ASSISTANT Unavailable [phone] Florinda Galindo MD Unavailable Samuel Huerta DO Primary Care Provider [phone] Bel Trotter- Unavailable [phone] Reason for Visit * Reason Onset Date Comments Results 06/01/2021 HOLTER REPORT Encounter Details Date Type Department Care Team (Latest Contact Info) Description 06/01/2021 [facility] Documentation [facility] [address] [place] [phone] Abstract, Doc Prevea Results ( HOLTER REPORT) [...] often do you attend chur ch or roman catholic services? 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 Gender Identity Female 11/05/2019 5:43 AM CDT [...] Total Score: 0 04/20/20 19 11:06 AM CUTTING MACHINE OPERATOR HELPER documented as of this encounter Care Teams Sales Enablement Consultant Relationship Specialty Start Date End Date Chava Mo MD [address] [place] [address] PCP - General FAMILY PRACTICE 01/08/20 06/01/21 Samuel Huerta DO [address] [place] [address] PCP - General FAMILY PRACTICE 06/02/21 Mary Dunne MD Consulting Physician OBGYN 09/23/18 Brenda Coronel MD [address] [place] [address] Consulting Physician INTERNAL MEDICINE 06/17/20 Sanchez Singleton MD [address] [place] [address] Consulting Physician ENDOCRINOLOGY 06/17/20 Dany Mason [facility] [address] [place] [address] Nurse Practitioner Nurse Practitioner Family 06/21/20 Florinda Galindo MD [address] [place] [address] Consulting Physician CARDIOVASCULAR DISEASE 12/14/20 Bel Trotter FNP- [address] [place] [address] Nurse Practitioner NURSE PRACTITIONER 01/10/22 documented as of this encounter
--- OUTSIDE RECORDS SUMMARY | 2024-07-21 15:37 | XMS_ITS | Encounter Summary ---
Author Organization [facility] Address [address] [facility] [place] [address] Care Team Providers Care Microstrategy Reports Developer Name Role Phone Clifford Ann MD Unavailable Samuel Huerta DO Primary Care Provider [phone] Encounter Details Date Type Department Care Team (Late st Contact Info) Description 12/31/2023 Lab Requisition [facility] - DermPath Lab [address] [facility] [place] [id number] Tian Dumont Jr., MD [address] [facility] [address] [place] [address] Social History Tobacco Use Types Packs/Day Years [...] AM CDT) Case Report Dermatopathology Report Case: [id number] Authorizing Provider: Tian Dumont Jr., MD Collected: 12/30/2023 12:00 AM Ordering Location: [facility] - Received: 12/31/2023 12:48 PM [...] characteristic determined by the Dermatopathology Laboratory at [facility], directed by Dr. Martin Gonzalez. These tests need not be, and therefore are not, approved by the [place] Food and Drug Administration. The tests are used for clinical purposes. Billing Codes Specimen Charges Stain Charges 95071 1 4 1:23 PM CDT DERMATOPATHOLOGY LABORATORY Embedded Images 1:23 PM CDT DERMATOPATHOLOGY LABORATORY Pathology/Cytolog y TISSUE SPECIMEN FROM SKIN / Unknown 12/30/2023 12/31/2023 12:48 PM CDT Tian Dmuont Jr., MD LAB - PATHOLOGY /CYTOLOGY ORDERABLES DERMATOPATHOLOGY LABORATORY [facility] - Department of Dermatology [facility] [address] [place] [address], [address] [phone] documented in this encounter Visit Diagnoses Not on filedocumented in this encounter Care Teams Microstrategy Reports Developer Relationship Specialty Start Date End Date Samuel Huerta DO [address] [place] [address] PCP - General Family Medicine 01/22/22 Clifford Ann MD Orthopedic Surgery 07/20/16 documented as of this encounter
--- OUTSIDE RECORDS SUMMARY | 2024-07-21 15:37 | XMS_ITS | Encounter Summary ---
Author Organization [facility] Address [address] [place] [address] Care Team Providers Care Embedded Software Programmer Name Role Phone Mateusz Gallegos MD Unavailable Unavailable Mary Dunne MD Unavailable [phone] Deonna Abbott MD Unavailable [phone] Chava Mo MD Primary Care Provider Brenda Coronel MD Unavailable [phone] Sanchez Singleton MD Unavailable [phone] Dany Mason RAILROAD BRAKE OPERATOR Unavailable [phone] Florinda Galindo MD Unavailable Samuel Huerta DO Primary Care Provider [phone] Bel Trotter RAILROAD BRAKE OPERATOR- Unavailable [phone] Encounter Details Date Type Department Care Team (Late st Contact Info) Description 09/29/2020 Prep for Procedure [facility] Machine Tender Automatic Pre/Post [address] [place] [address] Mateusz Gallegos MD Social History Tobacco Use [...] How often do you attend chur or congregational services? More than 4 times per year 11/05/2019 Do you belong to any clubs o r organizations such as hoahaoism groups, unions, fraternal or athletic groups, or [...] Answer Date Recorded PHQ-2 Score 0 04/14/2019 [facility] [place] of Occupat ional Health - Occupational Stress [...] AM CDT Legal Sex Female 11:29 PM TELECOMMUNICATOR SUPERVISOR Gender Identity Female 11/05/2019 5:43 AM CDT [...] Depression Total Score: 0 04/20/20 11:06 AM TELECOMMUNICATOR SUPERVISOR documented as of this encounter Care Teams Embedded Software Programmer Relationship Specialty Start Date End Date Deonna Abbott MD [address] [place] [address] PCP - Med Group - MSSP Attributed Provider 05/20/15 05/19/21 Chava Mo MD [address] [place] [address] PCP - General FAMILY PRACTICE 01/08/20 06/01/21 Samuel Huerta DO [address] [place] [address] PCP - General FAMILY PRACTICE 06/02/21 Mateusz Gallegos MD INTERVENTIONAL CARDIOLOGY 11/08/17 12/13/20 Mary Dunne MD Consulting Physician OBGYN 09/23/18 Brenda Coronel MD [address] [place] [address] Consulting Physician INTERNAL MEDICINE 06/17/20 Sanchez Singleton MD [address] [place] [address] Consulting Physician ENDOCRINOLOGY 06/17/20 Dany Mason FNP [address] [place] [address] Nurse Practitioner Nurse Practitioner [facility] 06/21/20 Florinda Galindo MD [address] [place] [address] Consulting Physician CARDIOVASCULAR DISEASE 12/14/20 Bel Trotter FNP-BC [address] [place] [phone] Nurse Practitioner NURSE PRACTITIONER 01/10/22 documented as of this encounter
--- OUTSIDE RECORDS SUMMARY | 2024-07-21 15:37 | XMS_ITS | Encounter Summary ---
Author Organization [facility] Health Address [address] [facility] [place] [address] Care Team Providers Care Sports Health Club Membership Advisors Name Role Phone Clifford Ann MD Unavailable Samuel Huerta DO Primary Care Provider [phone] Encounter Details Date Type Department Care Team (Late st Contact Info) Description 07/12/2020 Lab Requisition [facility] DermPath Lab [address] [facility], [place] [address] Tian Dumont Jr., MD [address] [place] [address] Social History Tobacco Use Types Packs/Day Years [...] Comments DERMATOPATHOLOGY Routine 07/08/2020 12:0 0 AM BEEKEEPER FARMER documented in this encounter Results * DERMATOPATHOLOGY (07/08/2020 12:00 AM BEEKEEPER FARMER) Case Report Dermatopathology Report Case: [id number] Authorizing Provider: Tian Dumont Jr., MD Collected: 07/08/2020 12:00 AM Ordering Location: [facility] DermPath Lab Received: 07/12/2020 08:55 AM Pathologist: Gini Dyson MD Specimen: Skin, left central frontal scalp 4:50 PM BEEKEEPER FARMER DERMATOPATHOLOGY LABORATORY Final Diagnosis Specimen A. SKIN, left central frontal scalp: BENIGN VERRUCOUS KERATOSIS (L82.1) 4:50 PM [facility] DERMATOPATHOLOGY LABORATORY Clinical History Inflamed seborrheic keratosis vs Squamous cell carcinoma vs verruca vulgaris. 4:50 PM [facility] DERMATOPATHOLOGY LABORATORY Gross Description Specimen A: Received is one formalin filled container labeled with the patient's name and designated left central frontal scalp. The specimen consists of a shave biopsy measuring [id number]. Jar 0+. 4:50 PM [facility] DERMATOPATHOLOGY LABORATORY Microscopic Description Specimen A. SKIN, left central frontal scalp: Sections show hyperkeratosis, papillomatosis, hypergranulosis, and acanthosis. These histological findings can be seen in a verruca vulgaris or a seborrheic keratosis. 4:50 PM [facility] DERMATOPATHOLOGY LABORATORY Disclaimer An external and internal positive and negative controls are appropriate for the histochemical, immunohistochemical and immunofluorescence stain(s) in this case (if any), except where stated explicitly. The performance characteristics of the stain(s) cited in this report were developed and its performance characteristic determined by the Dermatopathology Laboratory at [facility], directed by Dr. Martin Gonzalez. These tests need not be, and therefore are not, approved by the [place] Food and Drug Administration. The tests are used for clinical purposes. Billing Codes Specimen Charges Stain Charges 78457 1 4:50 PM [facility] DERMATOPATHOLOGY LABORATORY Embedded Images 4:50 PM [facility] DERMATOPATHOLOGY LABORATORY Pathology/Cytolog y TISSUE SPECIMEN FROM SKIN / Unknown 07/08/2020 07/12/2020 8:55 AM BEEKEEPER FARMER Tian Dumont Jr., MD LAB - PATHOLOGY /CYTOLOGY ORDERABLES DERMATOPATHOLOGY LABORATORY [facility] - Department of Dermatology [address], [address] [phone] documented in this encounter Visit Diagnoses Not on filedocumented in this encounter Care Teams Sports Health Club Membership Advisors Relationship Specialty Start Date End Date Samuel Huerta DO [address] [place] [address] PCP - General Family Medicine 01/22/22 Clifford Ann MD Orthopedic Surgery 07/20/16 documented as of this encounter
--- OUTSIDE RECORDS SUMMARY | 2024-07-21 15:37 | XMS_ITS | Encounter Summary ---
Author Organization [facility] Address [address] [place] [address] Care Team Providers Care Physical Security Engineer Name Role Phone Mateusz Gallegos MD Unavailable Unavailable Mary Dunne MD Unavailable [phone] Deonna Abbott MD Unavailable [phone] Annette Mock RN Unavailable [phone] Chava Mo MD Primary Care Provider Brenda Coronel MD Unavailable [phone] Sanchez Singleton MD Unavailable [phone] Dany Mason STATISTICS MANAGER Unavailable [phone] Florinda Galindo MD Unavailable Samuel Huerta DO Primary Care Provider [phone] Bel Trotter STATISTICS MANAGER- Unavailable [phone] Encounter Details Date Type Department Care Team (Late st Contact Info) Description 10/26/2019 Telephone [facility] Medical [facility] Multispecialty Care [address] [address] Deonna Abbott MD [address] [place] [address] Social History Tobacco Use Types Packs/Day Years Used Date Smoking Tobacco: Never Smokeless Tobacco: Never Alcohol Use Standard Drinks/Week Comments No 0 (1 standard drink = 0.6 oz pur e alcohol) PHQ-2 Answer Date Recorded PHQ-2 Score 0 04/14/2019 Comments Unknown Sex and Gender Information Value Date Recorded Sex Assigned at Female 11/05/2019 5:43 AM CDT Legal Sex Female 11:29 PM TEACHER ASST Gender Identity Female 11/05/2019 5:43 AM CDT [...] Total Score: 0 04/20/20 19 11:06 AM TEACHER ASST documented as of this encounter Care Teams Physical Security Engineer Relationship Specialty Start Date End Date Deonna Abbott MD [address] [place] [address] PCP - Med Group - MSSP Attributed Provider 05/20/15 05/19/21 Chava Mo MD [address] [place] [address] PCP - General FAMILY PRACTICE 01/08/20 06/01/21 Samuel Huerta DO [address] [place] [address] PCP - General FAMILY PRACTICE 06/02/21 Mateusz Gallegos MD INTERVENTIONAL CARDIOLOGY 11/08/17 12/13/20 Mary Dunne MD Consulting Physician OBGYN 09/23/18 Annette Mock, RN [address] [place] [address] Toll Line Mechanic (Ambulatory) REGISTERED NURSE 11/05/19 11/16/19 Brenda Coronel MD [address] [place] [address] Consulting Physician INTERNAL MEDICINE 06/17/20 Sanchez Singleton MD [address] [place] [address] Consulting Physician ENDOCRINOLOGY 06/17/20 Dany Mason FNP [address] [place] [address] Nurse Practitioner Nurse Practitioner Family 06/21/20 Florinda Galindo MD [address] [place] [address] Consulting Physician CARDIOVASCULAR DISEASE 12/14/20 Bel Trotter FNP-MATY [address] [place] [phone] Nurse Practitioner NURSE PRACTITIONER 01/10/22 documented as of this encounter
--- OUTSIDE RECORDS SUMMARY | 2024-07-21 15:37 | XMS_ITS | Encounter Summary ---
Author Organization [facility] Address [address] [place] [address] Phone Care Team Providers Care Speed Winder Name Role Phone Samuel Huerta DO Primary Care Provider Encounter Details Date Type Department Care Team (Late st Contact Info) Description 04/05/2022 Documentation [facility] Dermatology [address] [place] [address] [address] [place] [address] Christina Hayes RN Social History Tobacco Use Types Packs/Day Years Used Date Smoking Tobacco: Never Smokeless Tobacco: Never Comments No Sex and Gender Information Value Date Recorded Sex Assigned at Not on file Legal Sex Female 11:53 PM LITHOPONE CHARGER Gender Identity Not on file Sexual Orientation Not on file documented as of this encounter Plan of Treatment Not on file documented as of this encounter Visit Diagnoses Not on filedocumented in this encounter Additional Health Concerns Infection Onset Date Last Indicated 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
--- OUTSIDE RECORDS SUMMARY | 2024-07-21 15:37 | XMS_ITS | Encounter Summary ---
Author Organization [facility] Address [address] [place] [address] Care Team Providers Care Squeegeer And Former Name Role Phone Mateusz Gallegos MD Unavailable Unavailable Mary Dunne MD Unavailable [phone] Deonna Abbott MD Unavailable [phone] Chava Mo MD Primary Care Provider Brenda Coronel MD Unavailable [phone] Sanchez Singleton MD Unavailable [phone] Dany Mason LEATHER GRAINER Unavailable [phone] Florinda Galindo MD Unavailable Samuel Huerta DO Primary Care Provider [phone] Bel Trotter LEATHER GRAINER- Unavailable [phone] Reason for Visit * Reason Onset Date Comments Record Request 12/25/2019 asking if reques t for records was received Encounter Details Date Type Department Care Team (Late st Contact Info) Description 12/25/2019 Telephone [facility] Medical Group Multispecialty Care [facility] [address] [place] [address] Deonna Abbott MD [address] [place] [address] Record Request (asking if request [...] often do you attend chur ch or jew services? 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 Said they have sent two requests but have not received the records. Please call back [phone] documented in this encounter Plan of Treatment Not on file documented as of this encounter Visit Diagnoses Not on filedocumented in this encounter Additional Health Concerns Infection Onset Date Last Indicated Resolved Time COVID-19 Rule Out 09/30/2020 09/30/2020 09/30/2020 7:46 PM CDT Assessment Noted Time PHQ-9 Depression Total Score: 0 04/20/20 19 11:06 AM ECONOMIC HISTORY TEACHER documented as of this encounter Care Teams Squeegeer And Former Relationship Specialty Start Date End Date Deonna Abbott MD [address] [place] [address] PCP - Med Group - MSSP Attributed Provider 05/20/15 05/19/21 Chava Mo MD [address] [place] [address] PCP - General FAMILY PRACTICE 01/08/20 06/01/21 Samuel Huerta DO [address] [place] [address] PCP - General FAMILY PRACTICE 06/02/21 Mateusz Gallegos MD INTERVENTIONAL CARDIOLOGY 11/08/17 12/13/20 Mary Dunne MD Consulting Physician OBGYN 09/23/18 Brenda Coronel MD [address] [place] [address] Consulting Physician INTERNAL MEDICINE 06/17/20 Sanchez Singleton MD [address] [place] [address] Consulting Physician ENDOCRINOLOGY 06/17/20 Dany Mason FNP [address] [place] [address] Nurse Practitioner Nurse Practitioner Family 06/21/20 Florinda Galindo MD [address] [place] [address] Consulting Physician CARDIOVASCULAR DISEASE 12/14/20 Bel Trotter FNP-MATY [address] [place] [address] Nurse Practitioner NURSE PRACTITIONER 01/10/22 documented as of this encounter
--- OUTSIDE RECORDS SUMMARY | 2024-07-21 15:37 | XMS_ITS | Clinical Summary ---
Author Organization [facility] Address [address] [place] [address] Phone Care Team Providers Care Heavy Equipment Operating Engineer Name Role Phone Unavailable Primary Care Provider [...] left femur, unspecified fracture morphology, initial encounter ([facility]) Take 1 Tablet (5 mg) by mouth every 6 hours as needed for Pain, Moderate. Max Daily Amount: 20 mg 60 Tablet 02/16/20 Active oxyCODONE (ROXICODONE) 10 mg tabletIndicatio ns:Closed fracture of distal end of left femur, unspecified fracture morphology, initial encounter ([facility]) Take 1 Tablet (10 mg) by mouth [...] 03/17/2021 OSTEOPOROSIS SCREENING Completed 07/30/2014 PNEUMOCOCCAL VACCINE 50+ YEARS Completed 01/11/2017 , 03/10/2013 Insurance MEDICARE PART A AND B [facility] [id number] Advance Directives For more information, please contact: [phone] Documents on File Type Date Recorded Patient Farm Equipment Maintenance Supervisor Expl anation Advance Directive POA 03/06/2022 1:23 PM Advance Directive POA 02/05/2022 5:34 PM A dvance Directive POA * Full Code (Latest Code Status on File) Date Activated Date Inactivated Comments 01/31/2022 11:26 PM 02/16/2022 2:22 PM
--- OUTSIDE RECORDS SUMMARY | 2024-07-21 15:37 | XMS_ITS | Referral Summary ---
Author Organization [facility] Address [address] [place] [address] Care Team Providers Care Wood Scrap Handler Name Role Phone Samuel Huerta DO Primary [...] on file Legal Sex Female 11:53 PM SHELL TRIM OPERATOR Gender Identity Not on file Sexual Orientation [...] Plan of Treatment Not on file Insurance [facility] MEDICARE MEDICARE [facility] MEDICARE AAR Care Teams Wood Scrap Handler Relationship Specialty Start Date End Date Samuel Huerta DO [address] [place] [address] PCP - General Family Medicine 04/28/21
--- OUTSIDE RECORDS SUMMARY | 2024-07-21 15:37 | XMS_ITS | Clinical Summary ---
Author Organization 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
--- OUTSIDE RECORDS SUMMARY | 2024-07-21 15:37 | XMS_ITS | Clinical Summary ---
Author Organization [facility] Address [facility] [place] [address] Care Team Providers Care Sales And Marketing Associate Name Role Phone Mary Dunne MD Unavailable [phone] Brenda Coronel MD Unavailable [phone] Sanchez Singleton MD Unavailable [phone] Dany Mason CHAIR LIFT OPERATOR Unavailable Samuel Huerta DO Primary Care Provider [phone] Bel Trotter CHAIR LIFT OPERATOR- Unavailable [phone] Allergies Active Allergy Reactions Criticality Noted Date [...] (CMS/HCC HHS/HCC) 2021 Atrial fibrillation with RVR ([facility]) 0 10/06/2021 JUN (acute kidney injury) 09/27/2021 [...] Atypical chest pain 11/14/2017 Neurogenic orthostatic hypotension ([facility]) 11/14/2017 Type 2 diabetes mellitus wit h diabetic polyneuropathy, without long-term current use of insulin ([facility]) 11/14/2017 Chronic leg pain 11/08/2017 Exposure to [...] Cervical osteoarthritis 08/08/2014 Depression 08/08/2014 Diabetic neuropathy ([facility]) 08/08/2014 Overview (04/28/2018): Description: peripheral neuropathy since around 2009. Foot pain is controlled with Gabapentin. 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 More than 4 times per year 11/05/2019 Do you belong to any clubs o r organizations such as taoism groups, unions, fraternal or athletic groups, or [...] Answer Date Recorded PHQ-2 Score 0 04/14/2019 [facility] of Occupat ional Health - Occupational Stress [...] AM CDT Legal Sex Female 11:29 PM DOCK PUMPER Gender Identity Female 11/05/2019 5:43 AM CDT [...] Mccormack RN Medical Devices Implanted Type Area Sandstone Inspector Repairer Device Identifier Shelf Expiration Date Model / Serial / Lot Bilateral Knee Hardware Gynecare Tvt Abbrevo Continence System Implanted:Qty: 1 on 09/25/2018 by Mary Dunne MD at [facility] N/A: Bladder [employer] 01/17/2019 TVTOML / N/A / [id number] Description:MRI SAFE-NO META L Procedures Procedure Name Priority Date/Time Associated Diagnosis Comments HEMOGLOBIN, GLYCOSYLATED Routine 12/01/2021 8:40 AM CDT Type 2 diabetes mellitus with diabetic polyneuropathy, without long-term current use of insulin ([facility]) Coronary atherosclerosis of cheesh-na coronary artery LIPID PANEL Routine 06/17/2020 10:58 AM DOCK PUMPER TIA (transient ischemic attack) BONE DENSITY/DEXA Routine 07/30/2014 9:2 4 AM CDT from Last 3 Months or Most Recently Relevant to Health Maintenance Results * (ABNORMAL) HEMOGLOBIN, GLYCOSYLATED (12/01/2021 8:40 AM CDT) HGB A1C 6.4(H) <5.7 % 12/01/2021 4:40 PM CDT [facility] ESTIMATED AVG GLUCOSE 137(H) 74 - 114 MG/DL 12/01/2021 4:40 PM CDT [facility] 12/01/2021 8:40 AM CDT Aston Birmingham MD LABORATORY Final Result [facility] [address] [place] [address], * LIPID PANEL (06/17/2020 10:58 AM DOCK PUMPER) CHOLESTEROL 157 MG/DL 06/17/2020 11:[address] [facility] Comment:DESIRABLE: <200 TRIGLYCERIDES 73 MG/DL 06/17/2020 11:[address] [facility] Comment:<150 NORMAL HDL 82 >49 MG/DL 06/17/2020 11:[address] [facility] LDL (CALCULATED) 60 MG/DL 06/17/19 11:52 AM [facility] Comment:<100 OPTIMAL VLDL CALCULATION 15 MG/DL 06/17/19 11:52 AM [facility] Comment:REFERENCE RANGE NOT ESTABLISHED CHOL/HDL RATIO 1.9 06/17/2020 11:[address] [facility] Comment:REFERENCE RANGE NOT ESTABLISHED LDL/HDL 0.7 06/17/2020 11:52 AM [facility] Comment:REFERENCE RANGE NOT ESTABLISHED NON HDL CHOLESTEROL 75 MG/DL 06/17/2020 11:52 AM [facility] Comment:REFERENCE RANGE NOT ESTABLISHED 06/17/2020 10:5 8 AM DOCK PUMPER Mateusz Gallegos MD LABORATORY Final Result Performing Organization Address City/State/[facility] Co de Phone Number [facility] [address] [place] [address], [id number] * BONE DENSITY/DEXA (07/30/2014 9:24 AM CDT) Anatomical Region Laterality Modality Bone Bone Density 07/30/2014 9:24 AM CDT 07/30/2014 9:24 AM CDT Narrative 07/30/2014 1:48 PM CDT [facility] Medical Group Multispecialty Care [address] [place] [address] Name: Hortencia Nettles Ordering MD: Michelle Spears Order Number: [id number] : 1940 Sex: F Performing Location: [facility] Procedure Code: Procedure: DA Bone Density Axial [...] ODONNELL MD 07/30/14 1346 Dictated On: 07/30/14 1343 Interpreted By: PARKER ODONNELL MD Radiology image is available. Click on Image Link above. Procedure Note Michelle Spears MD - 03/12/2018 [facility] Medical Group Multispecialty Care [address] [place] [address] Name: Hortencia Nettles MD: Michelle Spears Order Number: [id number] : 1940 Sex: F Performing Location: [facility] Procedure Code: Procedure: DA Bone Density Axial [...] Recently Relevant to Health Maintenance Insurance MEDICARE [facility] MEDICARE A[employer] Advance Directives Documents on File Type Date Recorded Patient Street Photographer Expl anation Power of Barrel Ribs Solderer 11/04/2021 5:43 PM [facility] 07/04/12 [...] 12:43 AM 11/07/2019 6:50 PM Care Teams Sales And Marketing Associate Relationship Specialty Start Date End Date Samuel Huerta DO [address] [place] [address] PCP - General FAMILY PRACTICE 06/02/21 Mary Dunne MD Consulting Physician OBGYN 09/23/18 Brenda Coronel MD Consulting Physician INTERNAL MEDICINE 06/17/20 Sanchez Singleton MD Consulting Physician ENDOCRINOLOGY 06/17/20 Dany Mason [facility] Nurse Practitioner Nurse Practitioner [facility] 06/21/20 Bel Trotter FNP- [address] [place] [address] Nurse Practitioner NURSE PRACTITIONER 01/10/22
--- OUTSIDE RECORDS SUMMARY | 2024-07-21 15:37 | XMS_ITS | Encounter Summary ---
Author Organization [facility] Health Address [address] [place] [address] Care Team Providers Care Tank Cooper Name Role Phone Clifford Ann MD Unavailable Samuel Huerta DO Primary Care Provider [phone] Encounter Details Date Type Department Care Team (Late st Contact Info) Description 08/05/2020 Lab Requisition [facility] DermPath Lab [address] [facility] [place] [address] Tian Dumont Jr., MD [address] [address] [place] [address] Social History Tobacco Use Types Packs/Day Years [...] AM CDT) Case Report Dermatopathology Report Case: [id number] Authorizing Provider: Tian Dumont Jr., MD Collected: 08/04/2020 12:00 AM Ordering Location: [facility] DermPath Lab Received: 08/05/2020 12:53 PM Pathologist: Monserrat Gonzalez MD Specimen: Skin, left clavicular skin 3:37 PM CDT DERMATOPATHOLOGY LABORATORY Final Diagnosis Specimen A. SKIN, left clavicular skin: BASAL CELL CARCINOMA (C44.519) APPROXIMATES MARGIN DERMAL SCAR (L90.5) (see microscopic description) 3:[address] [facility] DERMATOPATHOLOGY LABORATORY Clinical History Basal cell carcinoma. Check margins. . 3:[address] [facility] DERMATOPATHOLOGY LABORATORY Gross Description Specimen A: Received is one formalin filled container labeled with the patient's name and designated left clavicular skin.The specimen consists of an ellipse measuring 48x2w3te and is oriented with the suture at [...] in cassettes 3-4. Jar 0. 3:[address] [facility] DERMATOPATHOLOGY LABORATORY Microscopic Description Specimen A. SKIN, [...] perpendicular to the skin surface. 3:[address] [facility] DERMATOPATHOLOGY LABORATORY Disclaimer An external and internal positive and negative controls are appropriate for the histochemical, immunohistochemical and immunofluorescence stain(s) in this case (if any), except where stated explicitly. The performance characteristics of the stain(s) cited in this report were developed and its performance characteristic determined by the Dermatopathology Laboratory at [facility], directed by Dr. Martin Gonzalez. These tests need not be, and therefore are not, approved by the [place] Food and Drug Administration. The tests are used for clinical purposes. Billing Codes Specimen Charges Stain Charges 26964 1 3:[address] [facility] DERMATOPATHOLOGY LABORATORY Embedded Images 3:37 PM CDT DERMATOPATHOLOGY LABORATORY Pathology/Cytolog y TISSUE SPECIMEN FROM SKIN / Unknown 08/04/2020 08/05/2020 12:53 PM CDT Tian Dumont Jr., MD LAB - PATHOLOGY /CYTOLOGY ORDERABLES DERMATOPATHOLOGY LABORATORY [facility] - Department of Dermatology [facility] Medicine [address] [place] [address], [address] [phone] documented in this encounter Visit Diagnoses Not on filedocumented in this encounter Care Teams Tank Cooper Relationship Specialty Start Date End Date Samuel Huerta DO [address] [place] [address] PCP - General Family Medicine 01/22/22 Clifford Ann MD Orthopedic Surgery 07/20/16 documented as of this encounter
--- NOTE | 2024-07-24 16:10 | WPDHOLTEREM ---
Holter/Event Monitor Holter/Event Monitor Date of procedure: 07/21/24 Holter/Event Procedure: 48 Hr Holter Monitor Indications: Atrial fibrillation Conclusion: 1. 48 hour holter monitor on 07/21/24. 2. Underlying rhythm is atrial fibrillation. HR range 58-158 bpm; average HR 93 bpm. 3. There is no other supraventricular arrhythmias. 4. There are 5,846 premature ventricular complexes, 177 ventricular couplets, 2 ventricular triplets, 3 ventricular bigeminy, and 69 ventricular trigeminy. No ventricular tachycardia. 5. No significant pauses greater than 2 seconds. 6. No symptoms available for correlation.
== END 2024-07-21 13:37 | disposition home or self-care (01) ==
LOC: CHSIMG 13:37
PROVIDERS: PCP Family Medicine
DX: I48.91 Unspecified atrial fibrillation (principal); I08.3 Combined rheumatic disorders of mitral, aortic and tricuspid valves
CPT/HCPCS: 93225; 93226; 93306

== ENCOUNTER 2024-12-04 10:16 | Outpatient (CLI) | payer MEDICARE, SELFPAY ==
--- OUTSIDE RECORDS SUMMARY | 2024-12-04 10:23 | XMS_ITS | Encounter Summary ---
Author Organization [facility] Health Address [address] [place] [address] Care Team Providers Care Application Release Manager Name Role Phone Clifford Ann MD Unavailable [phone] Samuel Huerta DO Primary Care Provider Encounter Details Date Type Department Care Team (Late st Contact Info) Description 04/21/2020 Lab Requisition [facility] DermPath Lab [address] [facility], [place] [address] [place] [address] [place] [address] Social History Tobacco Use Types Packs/Day Years Used Date Smoking Tobacco: Never Comments Unknown Sex and Gender Information Value Date Recorded Sex Assigned at Not on file Legal Sex Female 6:06 AM PRODUCT DEVELOPMENT ECOLOGIST Gender Identity Not on file Sexual Orientation Not on file documented as of this encounter Plan of Treatment Not on file documented as of this encounter Procedures Procedure Name Priority Date/Time Associated Diagnosis Comments DERMATOPATHOLOGY Routine 04/20/2020 12:0 0 AM PRODUCT DEVELOPMENT ECOLOGIST documented in this encounter Results * DERMATOPATHOLOGY (04/20/2020 12:00 AM PRODUCT DEVELOPMENT ECOLOGIST) Case Report Dermatopathology Report Case: [id number] Authorizing Provider: Myriam Garza MD Collected: 04/20/2020 12:00 AM Ordering Location: [facility] DermPath Lab Received: 04/21/2020 12:35 PM Pathologist: Monserrat Gonzalez MD Specimen: Skin, left clavicular skin 0 4:31 PM PRODUCT DEVELOPMENT ECOLOGIST DERMATOPATHOLOGY LABORATORY Final Diagnosis Specimen A. SKIN, left clavicular skin: BASAL CELL CARCINOMA, NODULAR TYPE (C44.519) 0 4:31 PM PRODUCT DEVELOPMENT ECOLOGIST DERMATOPATHOLOGY LABORATORY at 1631 PRODUCT DEVELOPMENT ECOLOGIST Clinical History Scar vs basal cell carcinoma. . 0 4:31 PM PRODUCT DEVELOPMENT ECOLOGIST DERMATOPATHOLOGY LABORATORY Gross Description Specimen A: Received is one formalin filled container labeled with the patient's name and designated left clavicular skin. The specimen consists of a shave biopsy measuring [id number]. Jar 0. 0 4:31 PM PRODUCT DEVELOPMENT ECOLOGIST DERMATOPATHOLOGY LABORATORY Microscopic Description Specimen A. SKIN, left clavicular skin: Within the dermis there are aggregates of basaloid cells with a high nuclear to cytoplasmic ratio and peripheral palisading. 0 4:31 PM PRODUCT DEVELOPMENT ECOLOGIST DERMATOPATHOLOGY LABORATORY Disclaimer An external and internal positive and negative controls are appropriate for the histochemical, immunohistochemical and immunofluorescence stain(s) in this case (if any), except where stated explicitly. The performance characteristics of the stain(s) cited in this report were developed and its performance characteristic determined by the Dermatopathology Laboratory at [facility], directed by Dr. Martin Gonzalez. These tests need not be, and therefore are not, approved by the [place] Food and Drug Administration. The tests are used for clinical purposes. Billing Codes Specimen Charges Stain Charges 19292 1 0 4:31 PM PRODUCT DEVELOPMENT ECOLOGIST DERMATOPATHOLOGY LABORATORY Embedded Images 0 4:31 PM [facility] DERMATOPATHOLOGY LABORATORY Pathology/Cytolog y TISSUE SPECIMEN FROM SKIN / Unknown 04/20/2020 04/21/2020 12:35 PM PRODUCT DEVELOPMENT ECOLOGIST us Myriam Garza MD LAB - PATHOLOGY/CYTOLOGY ORDERABLES Final Result DERMATOPATHOLOGY LABORATORY [facility] - Department of Dermatology [facility] Medicine [address] [place] [address], [address] [place] [address], [facility] [phone] documented in this encounter Visit Diagnoses Not on filedocumented in this encounter Care Teams Application Release Manager Relationship Specialty Start Date End Date Samuel Huerta DO [address] [place] [address] PCP - General Family Medicine 01/22/22 Clifford Ann MD Orthopedic Surgery 07/20/16 documented as of this encounter
--- OUTSIDE RECORDS SUMMARY | 2024-12-04 10:23 | XMS_ITS | Encounter Summary ---
Author Organization [facility] Address [address] [place] [address] Care Team Providers Care Repair Electric Motor Assembler Name Role Phone Mateusz Gallegos MD Unavailable Unavailable Mary Dunne MD Unavailable [phone] Deonna Abbott MD Unavailable [phone] Chava Mo MD Primary Care Provider Brenda Coronel MD Unavailable [phone] Sanchez Singleton MD Unavailable [phone] Dany Mason INSOLE TACK PULLER HAND Unavailable [phone] Florinda Galindo MD Unavailable Samuel Huerta DO Primary Care Provider [phone] Bel Trotter INSOLE TACK PULLER HAND- Unavailable [phone] Reason for Visit * Reason Onset Date Comments Record Request 12/25/2019 asking if reques t for records was received Encounter Details Date Type Department Care Team (Late st Contact Info) Description 12/25/2019 Telephone [facility] Medical Group Multispecialty Care [facility] [address] [place] [address] Deonna Abbott MD [address] [place] [address] Record Request (asking if request [...] often do you attend chur ch or protestant services? More than 4 times per year 11/05/2019 Do you belong to any clubs o r organizations such as yarsani groups, unions, fraternal or athletic groups, or [...] Answer Date Recorded PHQ-2 Score 0 04/14/2019 [facility] [place] of Occupat ional Health - Occupational Stress [...] AM CDT Legal Sex Female 11:29 PM GEOPHYSICAL SUPPORT SPECIALIST Gender Identity Female 11/05/2019 5:43 AM CDT [...] request of records from new physician in [place], [place]. Said they have sent two requests but have not received the records. Please call back [phone] documented in this encounter Plan of Treatment Not on file documented as of this encounter Visit Diagnoses Not on filedocumented in this encounter Additional Health Concerns Infection Onset Date Last Indicated Resolved Time COVID-19 Rule Out 09/30/2020 09/30/2020 09/30/2020 7:46 PM CDT Assessment Noted Time PHQ-9 Depression Total Score: 0 04/20/20 19 11:06 AM GEOPHYSICAL SUPPORT SPECIALIST documented as of this encounter Care Teams Repair Electric Motor Assembler Relationship Specialty Start Date End Date Deonna Abbott MD [address] [place] [address] PCP - Med Group - MSSP Attributed Provider 05/20/15 05/19/21 Chava Mo MD [address] [place] [address] PCP - General FAMILY PRACTICE 01/08/20 06/01/21 Samuel Huerta DO [address] [place] [address] PCP - General FAMILY PRACTICE 06/02/21 Mateusz Gallegos MD INTERVENTIONAL CARDIOLOGY 11/08/17 12/13/20 Mary Dunne MD Consulting Physician OBGYN 09/23/18 Brenda Coronel MD [address] [place] [address] Consulting Physician INTERNAL MEDICINE 06/17/20 Sanchez Singleton MD [address] [place] [address] Consulting Physician ENDOCRINOLOGY 06/17/20 Dany Mason FNP [address] [place] [address] Nurse Practitioner Nurse Practitioner Family 06/21/20 Florinda Galindo MD [address] [place] [address] Consulting Physician CARDIOVASCULAR DISEASE 12/14/20 Bel Trotter FNP-MATY [address] [place] [address] Nurse Practitioner NURSE PRACTITIONER 01/10/22 documented as of this encounter
--- OUTSIDE RECORDS SUMMARY | 2024-12-04 10:23 | XMS_ITS | Clinical Summary ---
Author Organization [facility] Address [address] [facility] [place] [address] Care Team Providers Care Telesales Representative Name Role Phone Clifford Ann MD Unavailable [phone] Samuel Huerta DO Primary Care Provider [phone] Source Comments [facility],non-owned Affiliates and Associated Physician Practices is amultiple site organization consisting of ambulatory clinics and hospital sitesin [place], [place], [place] and [place]. This disclosure is being madepursuant to the Care Everywhere program and may not contain all information available regarding this patient. Last updated 18.[facility] [employer] Allergies Active Allergy Reactions Criticality Noted Date Comments Amiodarone TROLLEY CAR OPERATOR Dysfunction High 01/23/2022 Meperidine GI Discomfort 01/22/2022 Metoclopramide Unknown 01/22/2022 Medications * Be aware that medications may not be up to date on this document. Alwaysverify current medications with the patient. pantoprazole (PROTONIX) 40 MG packet Take 20 mg by mouth once daily Active Multiple Vitamin (MULTI VITAMIN DAILY PO) Active magnesium oxide (Mag-Ox) 400 MG tablet Take 1 (one) tablet by mouth 2 times daily 2 Active gabapentin (Neurontin) 600 MG tablet Take 1 (one) tablet by mouth 3 times daily 2 Active DULoxetine (Cymbalta) 30 MG capsule Take 1 (one) capsule by mouth once daily 2 Active insulin aspart (NovoLOG) penIndications :Type 2 Diabetes Mellitus Inject 2 (two) Units subcutaneously 3 times daily before meals Reasons: Type 2 Diabetes 2 Active insulin aspart (NovoLOG) penIndications :Type 2 Diabetes Mellitus Inject 0 (zero) Units to 8 (eight) Units subcutaneously 3 times daily before meals SSI 131-180=2 181-240=4 241-300=6 301-350=8 Reasons: Type 2 Diabetes 2 Active insulin glargine (Lantus/Semgle e) 100 units/mL pen Inject 12 (twelve) Units subcutaneously at bedtime 2 Active lisinopril (Prinivil; Zestril) 2.5 MG tablet Take 1 (one) tablet by mouth once daily 2 Active lactulose (Chronulac) 10 GM/15ML solution Take 15 mL by mouth 2 times daily, before breakfast and supper 2 Active melatonin 3 MG tablet Take 1 (one) tablet by mouth at bedtime 2 Active potassium chloride ER (Micro-K) 10 MEQ capsule Take 1 (one) capsule by mouth daily with breakfast 2 Active levothyroxine (Synthroid) 125 MCG tablet Take 1 (one) tablet by mouth once daily 2 Active vitamin D3 (Cholecalcifer ol) 25 MCG (1000 UNITS) tablet Take 2 (two) tablets by mouth once daily 2 Active thiamine (Vitamin B-1) 100 MG tablet Take 1 (one) tablet by mouth once daily 2 Active cyanocobalamin 1000 MCG Take 1 (one) tablet by mouth once daily 2 Active acetaminophen (Tylenol) 325 MG tablet Take 2 (two) tablets by mouth every 6 hours Maximum allowable Acetaminophen amount = 4 Grams (4000 mg) / 24 hours. 2 Active oxyCODONE, immediate release, (Roxicodone) 5 MG tablet Take 1 (one) tablet by mouth every 4 hours as needed 12 tablet 2 Active oxyCODONE, immediate release, (Roxicodone) 5 MG tablet Take 1 (one) tablet by mouth once daily as needed 12 tablet 2 Active oxyCODONE, immediate release, (Roxicodone) 10 MG tablet Take 1 (one) tablet by mouth every 4 hours as needed 12 tablet 2 Active carbidopa-levo dopa CR (Sinemet CR) 50-200 MG tablet Take 1 (one) tablet by mouth at bedtime 2 Active carbidopa-levo dopa (Sinemet) 25-100 MG tablet Take 2.5 (two and one-half) tablets by mouth 4 times daily 2 Active rivaroxaban (Xarelto) 20 MG tablet Take 1 (one) tablet by mouth daily with dinner 2 Active Active Problems Problem Noted Date [...] money to get more. 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 CONSULTANT Gender Identity Not on file Sexual Orientation [...] 11:04 AM CDT Height 172.7 cm (5' 8) 11/20/2023 11:04 AM CDT Body Mass Index [...] 2024 11/24/2021, 03/07/2021, 08/03/2020, Additional history exists DEPRESSION SCREENING 05/20/2024 11/20/2023 INFLUENZA VACCINE (#1) 2025 , 03/16/2019, 02/17/2018, Additional history exists BONE DENSITY TESTING Completed 07/30/2014 HEPATITIS B VACCINE Aged Out No longe r eligible based on patient's age to complete this topic HIB VACCINE Aged Out No longer eligi ble based on patient's age to complete this topic HPV VACCINE Aged Out No longer eligi ble based on patient's age to complete this topic MENINGOCOCCAL (Group B) VACCINE SHARED DECISION-MAKING Aged Out No longer eligible based on patient's age to complete this topic MENINGOCOCCAL GROUPS A/C/Y/W VACCINE Aged Out No longer eligible based on patient's age to complete this topic Medical Devices Implanted Type Area High Density Press Operator Device Identifier Shelf Expiration Date Model / Serial / Lot 4.5mm Cortex Screws, 38mm Implanted:Qty: 1 on 01/23/2022 by Mikie Dillon MD at [facility] Left: Femur [employer] [id number] / / 5.7mm Cannulated Locking Screws, 80mm Implanted:Qty: 2 on 01/23/2022 by Mikie Dillon MD at [facility] Left: Femur [employer] [id number] / / 5.7mm Cannulated Locking Screws, 85mm Implanted:Qty: 1 on 01/23/2022 by Mikie Dillon MD at [facility] Left: Femur [employer] [id number] / / 4.5mm Distal Femur Plate, L 15h 306mm Implanted:Qty: 1 on 01/23/2022 by Mikie Dillon MD at [facility] Left: Femur [employer] [id number] / / 4.5mm Cortex Screws, 40mm Implanted:Qty: 1 on 01/23/2022 by Mikie Dillon MD at [facility] Left: Femur [employer] [id number] / / 4.5mm Cortex Screws, 42mm Implanted:Qty: 2 on 01/23/2022 by Mikie Dillon MD at [facility] Left: Femur [employer] [id number] / / 4.5mm Cortex Screws, 46mm Implanted:Qty: 1 on 01/23/2022 by Mikie Dillon MD at [facility] Left: Femur [id number] / / 4.5mm Locking Screws, 80mm Implanted:Qty: 1 on 01/23/2022 by Mikie Dillon MD at [facility] Left: Femur [employer] [id number] / / 6.7mm High Torque Screw, 70mm Implanted:Qty: 1 on 01/23/2022 by Mikie Dillon MD at [facility] Left: Femur [employer] [id number] / / 5.7mm Cannulated Locking Screws, 46mm Implanted:Qty: 1 on 01/23/2022 by Mikie Dillon MD at [facility] Left: Femur [employer] [id number] / / 5.7mm Cannulated Locking Screws, 48mm Implanted:Qty: 1 on 01/23/2022 by Mikie Dillon MD at [facility] Left: Femur [employer] [id number] / / Explanted Type Area High Density Press Operator Device Identifier Shelf Expiration Date Model / Serial / Lot Provisional Fixation Pins, 3.5mm Explanted:Qty: 1 on 01/23/2022 by Mikie Dillon MD at [facility] Left: Femur [employer] [id number] / / 2.0 Kwire X 350mm Explanted:Qty: 2 on 01/23/2022 by Mikie Dillon MD at 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
--- OUTSIDE RECORDS SUMMARY | 2024-12-04 10:23 | XMS_ITS | Encounter Summary ---
Author Organization [facility] Address [address] [place] [address] Care Team Providers Care Casing Wringer Operator Name Role Phone Mateusz Gallegos MD Unavailable Unavailable Mary Dunne MD Unavailable [phone] Deonna Abbott MD Unavailable [phone] Annette Mock RN Unavailable [phone] Chava Mo MD Primary Care Provider Brenda Coronel MD Unavailable [phone] Sanchez Singleton MD Unavailable [phone] Dany Mason LIFESTYLE DIRECTOR Unavailable [phone] Florinda Galindo MD Unavailable Samuel Huerta DO Primary Care Provider [phone] Bel Trotter LIFESTYLE DIRECTOR- Unavailable [phone] Encounter Details Date Type Department Care Team (Late st Contact Info) Description 10/26/2019 Telephone [facility] Medical Group Multispecialty Care [address] [address] Deonna Abbott MD [address] [place] [address] Social History Tobacco Use Types Packs/Day Years Used Date Smoking Tobacco: Never Smokeless Tobacco: Never Alcohol Use Standard Drinks/Week Comments No 0 (1 standard drink = 0.6 oz pur e alcohol) PHQ-2 Answer Date Recorded PHQ-2 Score 0 04/14/2019 Comments Unknown Sex and Gender Information Value Date Recorded Sex Assigned at Female 11/05/2019 5:43 AM CDT Legal Sex Female 11:29 PM 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 WORKER Gender Identity Female 11/05/2019 5:43 AM CDT [...] Total Score: 0 04/20/20 19 11:06 AM 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 WORKER documented as of this encounter Care Teams Casing Wringer Operator Relationship Specialty Start Date End Date Deonna Abbott MD [address] [place] [address] PCP - Med Group - MSSP Attributed Provider 05/20/15 05/19/21 Chava Mo MD [address] [place] [address] PCP - General FAMILY PRACTICE 01/08/20 06/01/21 Samuel Huerta DO [address] [place] [address] PCP - General FAMILY PRACTICE 06/02/21 Matesuz Gallegos MD INTERVENTIONAL CARDIOLOGY 11/08/17 12/13/20 Mary Dunne MD Consulting Physician OBGYN 09/23/18 Annette Mock, RN [address] [place] [address] Casket Coverer (Ambulatory) REGISTERED NURSE 11/05/19 11/16/19 Brenda Coronel MD [address] [place] [address] Consulting Physician INTERNAL MEDICINE 06/17/20 Sanchez Singleton MD [address] [place] [address] Consulting Physician ENDOCRINOLOGY 06/17/20 Dany Mason FNP [address] [place] [address] Nurse Practitioner Nurse Practitioner Family 06/21/20 Florinda Galindo MD [address] [place] [address] Consulting Physician CARDIOVASCULAR DISEASE 12/14/20 Bel Trotter FNP-MATY [address] [place] [phone] Nurse Practitioner NURSE PRACTITIONER 01/10/22 documented as of this encounter
--- OUTSIDE RECORDS SUMMARY | 2024-12-04 10:23 | XMS_ITS | Clinical Summary ---
Author Organization [facility] Address [address] [place] [address] Phone Care Team Providers Care Engine Head Repairer Name Role Phone Deonna Abbott MD Primary [...] 3:45 PM CDT Height 175.3 cm (5' 9) 01/06/2019 3:45 PM CDT s tated Body Mass Index 27.76 01/06/2019 3:45 PM CDT Plan of Treatment Health Maintenance Due Date Last Done Comments Hepatitis C Virus (HCV) Screening 1940 TdaP Immunization 1940 Zoster Immunization (1 of 2) 1989 Respiratory Syncytial Virus (RSV) Immunization (Adult) (1 - 1-dose 75+ series) 2014 SARS-COV-2 Immunization ( season) 2024 03/07/2021, 08/03/2020, 07/13/2020 Influenza Immunization (#1) 01/18/202502/18, 02/17/2016, 04/04/2006 Pneumococcal Immunization (5 0+ years) Completed 01/11/2017, 03/10/2013 Pneumococcal Immunization Combined Discontinued 01/11/2017, 03/10/2013 Hepatitis B Immunization Aged Out No longer eligible based on patient's age to complete this topic Human Papillomavirus (HPV) Immunization Aged Out No longer eligible based on patient's age to complete this topic Meningococcal Immunization (ACWY) Aged Out No longer eligible based on patient's age to complete this topic Rotavirus Immunization Aged Out No lo nger eligible based on patient's age to complete this topic Insurance MEDICARE [facility] Care Teams Engine Head Repairer Relationship Specialty Start Date End Date Deonna Abbott MD [address] [place] [address] PCP - General Family Medicine 01/06/19
--- OUTSIDE RECORDS SUMMARY | 2024-12-04 10:23 | XMS_ITS | Encounter Summary ---
Author Organization [facility] Health Address [address] [facility] [place] [address] Care Team Providers Care Herbicide Service Sales Representative Name Role Phone Clifford Ann MD Unavailable Samuel Huerta DO Primary Care Provider Encounter Details Date Type Department Care Team (Late st Contact Info) Description 12/31/2023 Lab Requisition [facility] - DermPath Lab [address] [facility] [place] [address] Tian Dumont Jr., MD [address] [facility] [address] [place] [address] Social History Tobacco Use Types Packs/Day Years [...] on file Legal Sex Female 6:06 AM DIRECTOR OF RESPIRATORY THERAPY Gender Identity Not on file Sexual Orientation Not on file documented as of this encounter Functional Status * Is person deaf or have serious hearing difficulty? Answer Date of Assessment Author No 01/31/2022 6:13 PM Me flako Lynn RN * Is person blind or have serious difficulty seeing? Answer Date of Assessment Author No 01/31/2022 6:13 PM CDMe flako Mason RN * Does person have serious difficulty walking/climbing stairs? Answer Date of Assessment Author No 01/31/2022 6:13 PM Me flako Lynn RN * Does person have difficulty dressing/bathing? Answer Date of Assessment Author No 01/31/2022 6:13 PM Me flako Lynn RN * Does person have difficulty doing errands alone? Answer Date of Assessment Author Yes 01/31/2022 6:13 PM Me flako Lynn RN documented as of this encounter Mental Status * Does person have difficulty concentrating/remembering/making decisions? Answer Entry Date Author No 01/31/2022 6:13 PM Me flako Lynn RN documented in this encounter Plan of Treatment Not on file documented as of this encounter Procedures Procedure Name Priority Date/Time Associated Diagnosis Comments DERMATOPATHOLOGY Routine 12/30/2023 12:0 0 AM CDT documented in this encounter Results * DERMATOPATHOLOGY (12/30/2023 12:00 AM CDT) Case Report Dermatopathology Report Case: [id number] Authorizing Provider: Tian Dumont Jr., MD Collected: 12/30/2023 12:00 AM Ordering Location: [facility] - Received: 12/31/2023 12:48 PM DermPath Lab Pathologist: Celeste Germain MD Specimen: Skin, mid trapezial neck 1:23 PM CDT DERMATOPATHOLOGY LABORATORY Final Diagnosis Specimen A. SKIN, mid trapezial neck: BASAL CELL CARCINOMA, SUPERFICIAL MULTIFOCAL (C44.41) 1:23 PM CDT DERMATOPATHOLOGY LABORATORY at 1323 CDT Clinical History Superficial BCC 1:23 PM CDT [...] characteristic determined by the Dermatopathology Laboratory at [facility], directed by Dr. Martin Gonzalez. These tests need not be, and therefore are not, approved by the [place] Food and Drug Administration. The tests are used for clinical purposes. Billing Codes Specimen Charges Stain Charges 55002 1 1:23 PM CDT DERMATOPATHOLOGY LABORATORY Embedded Images 1:23 PM CDT DERMATOPATHOLOGY LABORATORY Pathology/Cytolog y TISSUE SPECIMEN FROM SKIN / Unknown 12/30/2023 12/31/2023 12:48 PM CDT us Tian Dumont Jr., MD LAB - PATHOLOGY/CYTOLOG Y ORDERABLES Final Result DERMATOPATHOLOGY LABORATORY [facility] - Department of Dermatology [address] [phone] documented in this encounter Visit Diagnoses Not on filedocumented in this encounter Care Teams Herbicide Service Sales Representative Relationship Specialty Start Date End Date Samuel Huerta DO [address] [place] [address] PCP - General Family Medicine 01/22/22 Clifford Ann MD Orthopedic Surgery 07/20/16 documented as of this encounter
--- OUTSIDE RECORDS SUMMARY | 2024-12-04 10:23 | XMS_ITS | Referral Summary ---
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
--- OUTSIDE RECORDS SUMMARY | 2024-12-04 10:23 | XMS_ITS | Encounter Summary ---
Author Organization [facility] Address [address] [place] [address] Phone Care Team Providers Care Report Checker Name Role Phone Samuel Huerta DO Primary Care Provider Encounter Details Date Type Department Care Team (Late st Contact Info) Description 04/05/2022 Documentation [facility] Dermatology [address] [place] [address] [address] [place] [address] Christina Hayes RN Social History Tobacco Use Types Packs/Day Years Used Date Smoking Tobacco: Never Smokeless Tobacco: Never Comments No Sex and Gender Information Value Date Recorded Sex Assigned at Not on file 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
--- OUTSIDE RECORDS SUMMARY | 2024-12-04 10:23 | XMS_ITS | Clinical Summary ---
Author Organization [facility] Address [facility] [place] [address] Care Team Providers Care Graphic Manager Name Role Phone Mary Dunne MD Unavailable [phone] Brenda Coronel MD Unavailable [phone] Sanchez Singleton MD Unavailable [phone] Dany Mason OFF PREMISE SERVICE REPRESENTATIVE Unavailable [phone] Samuel Huerta DO Primary Care Provider [phone] Bel Trotter OFF PREMISE SERVICE REPRESENTATIVE- Unavailable [phone] Allergies Active Allergy Reactions Criticality Noted Date [...] (CMS/HCC HHS/HCC) 2021 Atrial fibrillation with RVR ([facility]) 0 10/06/2021 JUN (acute kidney [...] Atypical chest pain 11/14/2017 Neurogenic orthostatic hypotension ([facility]) 11/14/2017 Type 2 diabetes mellitus wit h diabetic polyneuropathy, without long-term current use of insulin ([facility]) 11/14/2017 Chronic leg pain 11/08/2017 [...] Cervical osteoarthritis 08/08/2014 Depression 08/08/2014 Diabetic neuropathy ([facility]) 08/08/2014 Overview (04/28/2018): Description: peripheral neuropathy since around 2009. Foot pain is controlled with Gabapentin. 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 More than 4 times per year 11/05/2019 Do you belong to any clubs o r organizations such as yazidi groups, unions, fraternal or athletic groups, or [...] Answer Date Recorded PHQ-2 Score 0 04/14/2019 [facility] ional [facility] - [...] AM CDT Legal Sex Female 11:29 PM COMMUNITY PLANNER Gender Identity Female 11/05/2019 5:43 AM CDT [...] 2:09 PM CDT Height 172.7 cm (5' 8) 11/02/2021 2:09 PM CDT Body Mass Index [...] Additional history exists Hemoglobin A1C 07/23/2022 01/23/2022, 11/17, 06/07/2021, Additional history exists COVID-19 Vaccine ( season) 2024 Dexa Scan (General) Completed 07/30/2014 Pneumococcal Vaccine: 50+ Years Completed 01/11/2017, 03/10/2013 Meningococcal B Vaccine [...] transitions and discharge planning General No Annie Christine RN Medical Devices Implanted Type Area Couples Therapist Device Identifier Shelf Expiration Date Model / Serial / Lot Bilateral Knee Hardware Gynecare Tvt Abbrevo Continence System Implanted:Qty: 1 on 09/25/2018 by Mary Dunne MD at [facility] N/A: Bladder [employer] - A MESSI & C2FO 01/17/2019 TVTOML / N/A / [id number] Description:MRI SAFE-NO META L Procedures Procedure Name Priority Date/Time Associated Diagnosis Comments HEMOGLOBIN, GLYCOSYLATED Routine 12/01/2021 8:40 AM CDT Type 2 diabetes mellitus with diabetic polyneuropathy, without long-term current use of insulin Coronary atherosclerosis of [place]zan[place] coronary artery LIPID PANEL Routine 06/17/2020 10:58 AM COMMUNITY PLANNER TIA (transient ischemic attack) BONE DENSITY/DEXA Routine 07/30/2014 9:2 4 AM CDT from Last 3 Months or Most Recently Relevant to Health Maintenance Results * (ABNORMAL) HEMOGLOBIN, GLYCOSYLATED (12/01/2021 8:40 AM CDT) HGB A1C 6.4(H) <5.7 % 12/01/2021 4:40 PM CDT [facility] ESTIMATED AVG GLUCOSE 137(H) 74 - 114 MG/DL 12/01/2021 4:40 PM CDT [facility] 12/01/2021 8:40 AM CDT us Aston Birmingham MD LABORATORY Final Result [facility] [address] [place] [address], * LIPID PANEL (06/17/2020 10:58 AM COMMUNITY PLANNER) CHOLESTEROL 157 MG/DL 06/17/2020 11:[address] [facility] Comment:DESIRABLE: <200 TRIGLYCERIDES 73 MG/DL 06/17/2020 11:[address] [facility] Comment:<150 NORMAL HDL 82 >49 MG/DL 06/17/2020 11:[address] [facility] LDL (CALCULATED) 60 MG/DL 06/17/19 11:[address] [facility] Comment:<100 OPTIMAL VLDL CALCULATION 15 MG/DL 06/17/19 11:[address] [facility] Comment:REFERENCE RANGE NOT ESTABLISHED CHOL/HDL RATIO 1.9 06/17/2020 11:[address] [facility] Comment:REFERENCE RANGE NOT ESTABLISHED LDL/HDL 0.7 06/17/2020 11:[address] [facility] Comment:REFERENCE RANGE NOT ESTABLISHED NON HDL CHOLESTEROL 75 MG/DL 06/17/2020 11:[address] [facility] Comment:REFERENCE RANGE NOT ESTABLISHED 06/17/2020 10:5 8 AM COMMUNITY PLANNER Mateusz Gallegos MD LABORATORY Final Result Performing Organization Address City/State/[facility] Co de Phone Number [facility] [address] [phone], [phone] * BONE DENSITY/DEXA (07/30/2014 9:24 AM CDT) Anatomical Region Laterality Modality Bone Bone Density 07/30/2014 9:24 AM CDT 07/30/2014 9:24 AM CDT Narrative 07/30/2014 1:48 PM CDT [facility] [address] [place] [address] Name: Hortencia Nettles Ordering MD: Michelle Spears Order Number: [id number] : 1940 Sex: F Performing Location: [facility] Procedure Code: Procedure: DA Bone Density Axial [...] Procedure Note Michelle Spears MD - 03/12/2018 [facility] [address] [place] [address] Name: Hortencia Nettles Ordering MD: Michelle Spears Order Number: [id number] : 1940 Sex: F Performing Location: [facility] Procedure Code: Procedure: DA Bone Density Axial [...] Electronically Signed By: PARKER ODONNELL MD 07/30/14 2117 Dictated On: 07/30/14 1346 Interpreted By: PARKER ODONNELL MD Radiology image is available. Click on Image Link above. Michelle Spears MD DEXA Final Result from Last 3 Months or Most Recently Relevant to Health Maintenance Insurance MEDICARE [facility] MEDICARE [facility] Advance Directives Documents on File Type Date Recorded Patient Director Of Compliance Expl anation Power of Top Hat Body Maker 11/04/2021 5:43 PM [facility]ALT H C[facility] 07/04/12 [...] 12:43 AM 11/07/2019 6:50 PM Care Teams Graphic Manager Relationship Specialty Start Date End Date Samuel Huerta DO [address] [place] [address] PCP - General FAMILY PRACTICE 06/02/21 Mary Dunne MD Consulting Physician OBGYN 09/23/18 Brenda Coronel MD Consulting Physician INTERNAL MEDICINE 06/17/20 Sanchez Singleton MD Consulting Physician ENDOCRINOLOGY 06/17/20 Dany Mason FNP Nurse Practitioner Nurse Practitioner [facility] 06/21/20 Bel Trotter FNP- [address] [place] [address] Nurse Practitioner NURSE PRACTITIONER 01/10/22
--- OUTSIDE RECORDS SUMMARY | 2024-12-04 10:23 | XMS_ITS | Encounter Summary ---
Author Organization [facility] Address [address] [facility] [place] [address] Care Team Providers Care Energy Manager Name Role Phone Clifford Ann MD Unavailable Samuel Huerta DO Primary Care Provider Encounter Details Date Type Department Care Team (Late st Contact Info) Description 07/12/2020 Lab Requisition 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 Gender Identity Not on file Sexual Orientation Not on file documented as of this encounter Plan of Treatment Not on file documented as of this encounter Procedures Procedure Name Priority Date/Time Associated Diagnosis Comments DERMATOPATHOLOGY Routine 07/08/2020 12:0 0 AM ORNAMENTAL RAIL INSTALLER documented in this encounter Results * DERMATOPATHOLOGY (07/08/2020 12:00 AM ORNAMENTAL RAIL INSTALLER) Case Report Dermatopathology Report Case: [id number] Authorizing Provider: Tian Dumont Jr., MD Collected: 07/08/2020 12:00 AM Ordering Location: [facility] DermPath Lab Received: 07/12/2020 08:55 AM Pathologist: Gini Dyson MD Specimen: Skin, left central frontal scalp 4:50 PM [facility] DERMATOPATHOLOGY LABORATORY Final Diagnosis Specimen A. SKIN, left central frontal scalp: BENIGN VERRUCOUS KERATOSIS (L82.1) 4:50 PM [facility] DERMATOPATHOLOGY LABORATORY at 1650 ORNAMENTAL RAIL INSTALLER Clinical History Inflamed seborrheic keratosis vs Squamous cell carcinoma vs verruca vulgaris. 4:50 PM [facility] DERMATOPATHOLOGY LABORATORY Gross Description Specimen A: Received is one formalin filled container labeled with the patient's name and designated left central frontal scalp. The specimen consists of a shave biopsy measuring 34w0v2iw. Jar 0+. 4:50 PM [facility] DERMATOPATHOLOGY LABORATORY Microscopic Description Specimen A. SKIN, left central frontal scalp: Sections show hyperkeratosis, papillomatosis, hypergranulosis, and acanthosis. These histological findings can be seen in a verruca vulgaris or a seborrheic keratosis. 4:50 PM [facility] DERMATOPATHOLOGY LABORATORY Disclaimer An external and internal positive and negative controls are appropriate for the histochemical, immunohistochemical and immunofluorescence stain(s) in this case (if any), except where stated explicitly. The performance characteristics of the stain(s) cited in this report were developed and its performance characteristic determined by the Dermatopathology Laboratory at [facility], directed by Dr. Martin Gonzalez. These tests need not be, and therefore are not, approved by the [place] Food and Drug Administration. The tests are used for clinical purposes. Billing Codes Specimen Charges Stain Charges 63346 1 4:50 PM [facility] DERMATOPATHOLOGY LABORATORY Embedded Images 4:50 PM [facility] DERMATOPATHOLOGY LABORATORY Pathology/Cytolog y TISSUE SPECIMEN FROM SKIN / Unknown 07/08/2020 07/12/2020 8:55 AM [facility] Tian Dumont Jr., MD LAB - PATHOLOGY/CYTOLOG Y ORDERABLES Final Result DERMATOPATHOLOGY LABORATORY [facility] - Department of Dermatology [address], [address] [phone] documented in this encounter Visit Diagnoses Not on filedocumented in this encounter Care Teams Energy Manager Relationship Specialty Start Date End Date Samuel Huerta DO [address] [place] [address] PCP - General Family Medicine 01/22/22 Clifford Ann MD Orthopedic Surgery 07/20/16 documented as of this encounter
--- OUTSIDE RECORDS SUMMARY | 2024-12-04 10:23 | XMS_ITS | Encounter Summary ---
Author Organization [facility] Address [address] [place] [address] Care Team Providers Care Residential Finish Carpenter Name Role Phone Mateusz Gallegos MD Unavailable Unavailable Mary Dunne MD Unavailable [phone] Deonna Abbott MD Unavailable [phone] Chava Mo MD Primary Care Provider Brenda Coronel MD Unavailable [phone] Sanchez Singleton MD Unavailable [phone] Dany Mason CLAY ARTIST Unavailable [phone] Florinda Galindo MD Unavailable Samuel Huerta DO Primary Care Provider [phone] Bel Trotter CLAY ARTIST- Unavailable [phone] Encounter Details Date Type Department Care Team (Late st Contact Info) Description 09/29/2020 Prep for Procedure [place] Sales And Marketing Director Pre/Post [address] [place] [address] Mateusz Gallegos MD Social History Tobacco Use [...] How often do you attend chur or worship services? More than 4 times per year 11/05/2019 Do you belong to any clubs o r organizations such as mandaen groups, unions, fraternal or athletic groups, or [...] Answer Date Recorded PHQ-2 Score 0 04/14/2019 [facility] Occupat ional Health - Occupational Stress [...] AM CDT Legal Sex Female 11:29 PM RN EMBEDDED Gender Identity Female 11/05/2019 5:43 AM CDT [...] Depression Total Score: 0 04/20/20 11:06 AM RN EMBEDDED documented as of this encounter Care Teams Residential Finish Carpenter Relationship Specialty Start Date End Date Deonna Abbott MD [address] [place] [address] PCP - Med Group - [facility] Attributed Provider 05/20/15 05/19/21 Chava Mo MD [address] [place] [address] PCP - General FAMILY PRACTICE 01/08/20 06/01/21 Samuel Huerta DO [address] [place] [address] PCP - General FAMILY PRACTICE 06/02/21 Mateusz Gallegos MD INTERVENTIONAL CARDIOLOGY 11/08/17 12/13/20 Mary Dunne MD Consulting Physician OBGYN 09/23/18 Brenda Coronel MD [address] [place] [address] Consulting Physician INTERNAL MEDICINE 06/17/20 Sanchez Singleton MD [address] [place] [address] Consulting Physician ENDOCRINOLOGY 06/17/20 Dany Mason FNP [address] [place] [address] Nurse Practitioner Nurse Practitioner [facility] 06/21/20 Florinda Galindo MD [address] [place] [address] Consulting Physician CARDIOVASCULAR DISEASE 12/14/20 Bel Trotter FNP-BC [address] [place] [id number] Nurse Practitioner NURSE PRACTITIONER 01/10/22 documented as of this encounter
--- OUTSIDE RECORDS SUMMARY | 2024-12-04 10:23 | XMS_ITS | Clinical Summary ---
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
--- OUTSIDE RECORDS SUMMARY | 2024-12-04 10:23 | XMS_ITS | Clinical Summary ---
Author Organization [facility] Address [address] [place] [address] Phone Care Team Providers Care Health Promoter Name Role Phone Unavailable Primary Care Provider [...] left femur, unspecified fracture morphology, initial encounter ([facility]) Take 1 Tablet (5 mg) by mouth every 6 hours as needed for Pain, Moderate. Max Daily Amount: 20 mg 60 Tablet 02/16/20 Active oxyCODONE (ROXICODONE) 10 mg tabletIndicatio ns:Closed fracture of distal end of left femur, unspecified fracture morphology, initial encounter ([facility]) Take 1 Tablet (10 mg) by mouth [...] 8:00 AM CDT Height 175.3 cm (5' 9) 02/03/2022 8:00 AM CDT Body Mass Index [...] ) (1 - 1-dose 75+ series) 2014 OSTEOPOROSIS SCREENING 07/31/2019 07/30/2014 DIABETES HBA1C Q 6 MONTHS 07/23/2022 01/23/2022, INFLUENZA VACCINE (#1) 2024 03/17/2021 PNEUMOCOCCAL VACCINE 50+ YEARS Completed 01/11/2017 , 03/10/2013 Insurance MEDICARE PART A AND B [facility] [id number] Advance Directives For more information, please contact: [phone] Documents on File Type Date Recorded Patient Toll Gate Tender Expl anation Advance Directive POA 03/06/2022 1:23 PM Advance Directive POA 02/05/2022 5:34 PM A dvance Directive POA * Full Code (Latest Code Status on File) Date Activated Date Inactivated Comments 01/31/2022 11:26 PM 02/16/2022 2:22 PM
--- OUTSIDE RECORDS SUMMARY | 2024-12-04 10:23 | XMS_ITS | Encounter Summary ---
Author Organization [facility] Health Address [address] [facility] [place] [address] Care Team Providers Care Fuel Quality Tech Name Role Phone Clifford Ann MD Unavailable Samuel Huerta DO Primary Care Provider [phone] Encounter Details Date Type Department Care Team (Late st Contact Info) Description 08/05/2020 Lab Requisition [facility] DermPath Lab [address] [facility] [place] [address] Tian Dumont Jr., MD [address] [facility] [address] [place] [address] Social History Tobacco Use Types Packs/Day Years Used Date Smoking Tobacco: Never Comments Unknown Sex and Gender Information Value Date Recorded Sex Assigned at Not on file 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 Gender Identity Not on file Sexual Orientation Not on file documented as of this encounter Plan of Treatment Not on file documented as of this encounter Procedures Procedure Name Priority Date/Time Associated Diagnosis Comments DERMATOPATHOLOGY Routine 08/04/2020 12:0 0 AM CDT documented in this encounter Results * DERMATOPATHOLOGY (08/04/2020 12:00 AM CDT) Case Report Dermatopathology Report Case: [id number] Authorizing Provider: Tian Dumont Jr., MD Collected: 08/04/2020 12:00 AM Ordering Location: [facility] DermPath Lab Received: 08/05/2020 12:53 PM Pathologist: Monserrat Gonzalez MD Specimen: Skin, left clavicular skin 3:37 PM CDT DERMATOPATHOLOGY LABORATORY Final Diagnosis Specimen A. SKIN, left clavicular skin: BASAL CELL CARCINOMA (C44.519) APPROXIMATES MARGIN DERMAL SCAR (L90.5) (see microscopic description) 3:37 PM T DERMATOPATHOLOGY LABORATORY at 1537 CDT Clinical History Basal cell carcinoma. Check margins. . 3:37 PM CDT DERMATOPATHOLOGY LABORATORY Gross Description Specimen A: Received is one formalin filled container labeled with the patient's name and designated left clavicular skin.The specimen consists of an ellipse measuring 53l0v2ad and is oriented with the suture at [...] in cassettes 3-4. Jar 0. 3:37 PM T DERMATOPATHOLOGY LABORATORY Microscopic Description Specimen A. SKIN, [...] perpendicular to the skin surface. 3:37 PM T DERMATOPATHOLOGY LABORATORY Disclaimer An external and internal positive and negative controls are appropriate for the histochemical, immunohistochemical and immunofluorescence stain(s) in this case (if any), except where stated explicitly. The performance characteristics of the stain(s) cited in this report were developed and its performance characteristic determined by the Dermatopathology Laboratory at [facility], directed by Dr. Martin Gonzalez. These tests need not be, and therefore are not, approved by the [place] Food and Drug Administration. The tests are used for clinical purposes. Billing Codes Specimen Charges Stain Charges 96121 1 03/23/202 1 3:37 PM CDT DERMATOPATHOLOGY LABORATORY Embedded Images 1 3:37 PM CDT DERMATOPATHOLOGY LABORATORY Pathology/Cytolog y TISSUE SPECIMEN FROM SKIN / Unknown 08/04/2020 08/05/2020 12:53 PM CDT Tian Dumont Jr., MD LAB - PATHOLOGY/CYTOLOG Y ORDERABLES Final Result DERMATOPATHOLOGY LABORATORY [facility] - Department of Dermatology [facility] Medicine [address] [place] [address], [address] [phone] documented in this encounter Visit Diagnoses Not on filedocumented in this encounter Care Teams Fuel Quality Tech Relationship Specialty Start Date End Date Samuel Huerta DO [address] [place] [address] PCP - General Family Medicine 01/22/22 Clifford Ann MD Orthopedic Surgery 07/20/16 documented as of this encounter
--- OUTSIDE RECORDS SUMMARY | 2024-12-04 10:23 | XMS_ITS | Encounter Summary ---
Author Organization [facility] Address [address] [place] [address] Care Team Providers Care Automotive Wholesale Parts Advisor Name Role Phone Mary Dunne MD Unavailable [phone] Chava Mo MD Primary Care Provider Brenda Coronel MD Unavailable [phone] Sanchez Singleton MD Unavailable [phone] Dany Mason FIRE MARSHAL REFINERY Unavailable [phone] Florinda Galindo MD Unavailable Samuel Huerta DO Primary Care Provider [phone] Bel Trotter- Unavailable [phone] Reason for Visit * Reason Onset Date Comments Results 06/01/2021 HOLTER REPORT Encounter Details Date Type Department Care Team (Latest Contact Info) Description 06/01/2021 [facility] Documentation [facility] [address] [place] [id number] Abstract, Doc Prevea Results ( HOLTER REPORT) [...] often do you attend chur ch or mandaeism services? 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 Gender Identity Female 11/05/2019 5:43 AM [...] Total Score: 0 04/20/20 19 11:06 AM NUT PROCESS HELPER documented as of this encounter Care Teams Automotive Wholesale Parts Advisor Relationship Specialty Start Date End Date Chava Mo MD [address] [place] [address] PCP - General FAMILY PRACTICE 01/08/20 06/01/21 Samuel Huerta DO [address] [place] [address] PCP - General FAMILY PRACTICE 06/02/21 Mary Dunne MD Consulting Physician OBGYN 09/23/18 Brenda Coronel MD [address] [place] [address] Consulting Physician INTERNAL MEDICINE 06/17/20 Sanchez Singleton MD [address] [place] [address] Consulting Physician ENDOCRINOLOGY 06/17/20 Dany Mason [facility] [address] [place] [address] Nurse Practitioner Nurse Practitioner Family 06/21/20 Florinda Galindo MD [address] [place] [address] Consulting Physician CARDIOVASCULAR DISEASE 12/14/20 Bel Trotter FNP- [address] [place] [address] Nurse Practitioner NURSE PRACTITIONER 01/10/22 documented as of this encounter
[2024-12-04 10:41] LABS: Hematocrit 37.9 % (35.0-42.0); Hemoglobin 12.0 g/dL (11.7-13.8); Mean Corpuscular HGB Conc 31.7 g/dL (32-36); Mean Corpuscular Hemoglobin 29.6 pg (27.0-31.0); Mean Corpuscular Volume 93.3 fL (78.0-102.0); Platelet Count Result 188 K/mm3 (150-420); Red Blood Count 4.06 M/mm3 (4.20-5.40); White Blood Count 5.9 K/mm3 (4.8-10.8)
[2024-12-04 10:53] LABS: MALB Creatinine Ratio 32.4 mg/g (0-30)
[2024-12-04 11:30] LABS: Albumin Level 4.2 g/dL (3.5-5.1); Anion Gap 4 mmol/L (4-12); Blood Urea Nitrogen 25 mg/dL (7-17); Calcium 9.6 mg/dL (8.4-10.2); Carbon Dioxide 35 mmol/L (22-30); Chloride 100 mmol/L (98-107); Estimated Glomerular Filt Rate 48; Glucose 109 mg/dL (65-110); Osmolality Calculated 293 mOsm/kg (285-295); Potassium 5.0 mmol/L (3.4-5.0); Sodium 139 mmol/L (137-145)
== END 2024-12-04 10:17 | disposition home or self-care (01) ==
LOC: CHSLAB 10:20
PROVIDERS: PCP Family Medicine
DX: N18.2 Chronic kidney disease, stage 2 (mild) (principal)
CPT/HCPCS: 36415; 80069; 82043; 85027

== ENCOUNTER 2025-02-23 12:11 | Outpatient (CLI) | payer MEDICARE, SELFPAY ==
--- NOTE | ~2025-02-23 | XR_ITS ---
EXAMINATION: XR wrist LT min 3V, 02/23/2025 12:20 CDT HISTORY: M25.532 - Pain in left wrist COMPARISON: No comparisons available. Findings: No acute fracture or malalignment. Moderate to severe degenerative changes with chondrocalcinosis. Soft tissue swelling. Impression: No acute fracture or malalignment. Reviewed, dictated and finalized at location P. Impression: No acute fracture or malalignment.
--- NOTE | ~2025-02-23 | XR_ITS ---
EXAMINATION: XR lumbar spine 2-3V DATE: 02/23/2025 12:38 INDICATION: Lower back pain, unspecified TECHNIQUE: 3 images of the lumbar spine were obtained. COMPARISON: 11/11/2023 FINDINGS: There is bowel gas and stool projecting over the pelvis which limits evaluation. Bones appear osteopenic. Severe narrowing of the right hip joint, unchanged. Lumbar vertebral body heights are within normal limits. No convincing compression fracture in the lumbar spine. Severe intervertebral disc space narrowing throughout the lumbar spine most prominent at the L5-S1 level. Extensive degenerative change throughout the lumbar facet joints. Grade 1 anterolisthesis of L4 on L5, unchanged. IMPRESSION: 1. Severe degenerative change in the lumbar spine. 2. Grade 1 anterolisthesis of L4 on L5, unchanged. If symptoms persist or worsen, consider an MRI of the lumbar spine for further assessment. Reviewed, dictated and finalized at location Q.
--- OUTSIDE RECORDS SUMMARY | 2025-02-23 13:11 | XMS_ITS | Encounter Summary ---
Author Organization [facility] Address [address] [place] [address] Care Team Providers Care Maid Supervisor Name Role Phone Mateusz Gallegos MD Unavailable Unavailable Mary Dunne MD Unavailable [phone] Deonna Abbott MD Unavailable [phone] Chava Mo MD Primary Care Provider Brenda Coronel MD Unavailable [phone] Sanchez Singleton MD Unavailable [phone] Dany Mason AUTOMOTIVE PARTS ADVISOR Unavailable [phone] Florinda Galindo MD Unavailable Samuel Huerta DO Primary Care Provider [phone] Bel Trotter [facility]- Unavailable [phone] Reason for Visit * Reason Onset Date Comments Record Request 12/25/2019 asking if reques t for records was received Encounter Details Date Type Department Care Team (Late st Contact Info) Description 12/25/2019 Telephone [facility] Medical Group Multispecialty Care [facility] [address] [place] [address] [place] [address] [place] [address] Record Request (asking if request for [...] often do you attend chur ch or cheondoism services? 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 Said they have sent two requests but have not received the records. Please call back [phone] documented in this encounter Plan of Treatment Not on file documented as of this encounter Visit Diagnoses Not on filedocumented in this encounter Additional Health Concerns Infection Onset Date Last Indicated Resolved Time COVID-19 Rule Out 09/30/2020 09/30/2020 09/30/2020 7:46 PM CDT Assessment Noted Time PHQ-9 Depression Total Score: 0 04/20/20 19 11:06 AM TECHNICAL ACCOUNT MANAGER documented as of this encounter Care Teams Maid Supervisor Relationship Specialty Start Date End Date Deonna Abbott MD [facility] [place] [address] PCP - Med Group - MSSP Attributed Provider 05/20/15 05/19/21 [place] [address] PCP - General FAMILY PRACTICE 01/08/20 06/01/21 Samuel Huerta DO [address] [place] [address] PCP - General FAMILY PRACTICE 06/02/21 Mateusz Gallegos MD INTERVENTIONAL CARDIOLOGY 11/08/17 12/13/20 Mary Dunne MD Consulting Physician OBGYN 09/23/18 Brenda Coronel MD [address] [place] [address] Consulting Physician INTERNAL MEDICINE 06/17/20 Sanchez Singleton MD [address] [place] [address] Consulting Physician ENDOCRINOLOGY 06/17/20 Dany Mason FNP [address] [place] [address] Nurse Practitioner Nurse Practitioner Family 06/21/20 Florinda Galindo MD [address] [place] [address] Consulting Physician CARDIOVASCULAR DISEASE 12/14/20 Bel Trotter FNP-MATY [address] [place] [address] Nurse Practitioner NURSE PRACTITIONER 01/10/22 documented as of this encounter
--- OUTSIDE RECORDS SUMMARY | 2025-02-23 13:11 | XMS_ITS | Clinical Summary ---
Author Organization [facility] Address [address] [facility] [place] [address] Care Team Providers Care Acid Purifier Name Role Phone Clifford Ann MD Unavailable [phone] Samuel Huerta DO Primary Care Provider [phone] Source Comments [facility],non-owned Affiliates and Associated Physician Practices is amultiple site organization consisting of ambulatory clinics and hospital sitesin [place], [place], [place] and [place]. This disclosure is being madepursuant to the Care Everywhere program and may not contain all information available regarding this patient. 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 Gender Identity Not on file Sexual Orientation [...] yrs (1 - 1-dose 75+ series) 2014 DEPRESSION SCREENING 05/20/2024 11/20/2023 COVID-19 VACCINE (2024- season) 2025 11/24/2021, 03/07/2021, 08/03/2020, Additional history exists INFLUENZA VACCINE (#1) 2025 , 03/16/2019, 02/17/2018, [...] this topic Medical Devices Implanted Type Area Transfer Specialist Device Identifier Shelf Expiration Date Model / Serial / Lot 4.5mm Cortex Screws, 38mm Implanted:Qty: 1 on 01/23/2022 by Mikie Dillon MD at [facility] Left: Femur [employer] [id number] / / 5.7mm Cannulated Locking Screws, 80mm Implanted:Qty: 2 on 01/23/2022 by Mikie Dillon MD at [facility] Left: Femur [employer] [id number] / / 5.7mm Cannulated Locking Screws, 85mm Implanted:Qty: 1 on 01/23/2022 by Mikie Dillon MD at [facility] Left: Femur [employer] [id number] / / 4.5mm Distal Femur Plate, L 15h 306mm Implanted:Qty: 1 on 01/23/2022 by Mikie Dillon MD at [facility] Left: Femur [employer] [id number] / / 4.5mm Cortex Screws, 40mm Implanted:Qty: 1 on 01/23/2022 by Mikie Dillon MD at [facility] Left: Femur [employer] [id number] / / 4.5mm Cortex Screws, 42mm Implanted:Qty: 2 on 01/23/2022 by Mikie Dillon MD at [facility] Left: Femur [employer] [id number] / / 4.5mm Cortex Screws, 46mm Implanted:Qty: 1 on 01/23/2022 by Mikie Dillon MD at [facility] Left: Femur [id number] / / 4.5mm Locking Screws, 80mm Implanted:Qty: 1 on 01/23/2022 by Mikie Dillon MD at [facility] Left: Femur [employer] [id number] / / 6.7mm High Torque Screw, 70mm Implanted:Qty: 1 on 01/23/2022 by Mikie Dillon MD at [facility] Left: Femur [employer] [id number] / / 5.7mm Cannulated Locking Screws, 46mm Implanted:Qty: 1 on 01/23/2022 by Mikie Dillon MD at [facility] Left: Femur [employer] [id number] / / 5.7mm Cannulated Locking Screws, 48mm Implanted:Qty: 1 on 01/23/2022 by Mikie Dillon MD at [facility] Left: Femur [employer] [id number] / / Explanted Type Area Transfer Specialist Device Identifier Shelf Expiration Date Model / Serial / Lot Provisional Fixation Pins, 3.5mm Explanted:Qty: 1 on 01/23/2022 by Mikie Dillon MD at [facility] Left: Femur [employer] [id number] / / 2.0 Kwire X 350mm Explanted:Qty: 2 on 01/23/2022 by Mikie Dillon MD at [facility] Left: Femur [employer] [id number] / / Insurance [facility] MEDICARE MEDICARE AARP Advance Directives Documents on File Type Date Recorded Patient Store Planner Expl anation Adv Directive/Living Will/POA 02/05/2022 1:02 PM * Full Code (Latest Code Status on File) Date Activated Date Inactivated Comments 01/22/2022 6:45 PM 02/01/2022 12:17 AM Care Teams Acid Purifier Relationship Specialty Start Date End Date Samuel Huerta DO [address] [place] [address] PCP - General Family Medicine 01/22/22 Clifford Ann MD Orthopedic Surgery 07/20/16
--- OUTSIDE RECORDS SUMMARY | 2025-02-23 13:11 | XMS_ITS | Encounter Summary ---
Author Organization [facility] Address [address] [facility] [place] [address] Care Team Providers Care Physiological Chemist Name Role Phone Clifford Ann MD Unavailable Samuel Huerta DO Primary Care Provider Encounter Details Date Type Department Care Team (Late st Contact Info) Description 04/21/2020 Lab Requisition [facility] DermPath Lab [address] [facility], [place] [address] [place] [address] [place] [address] Social History Tobacco Use Types Packs/Day Years Used Date Smoking Tobacco: Never Comments Unknown Sex and Gender Information Value Date Recorded Sex Assigned at Not on file Legal Sex Female 6:06 AM INSURANCE ACCOUNT ASSISTANT Gender Identity Not on file Sexual Orientation Not on file documented as of this encounter Plan of Treatment Not on file documented as of this encounter Procedures Procedure Name Priority Date/Time Associated Diagnosis Comments DERMATOPATHOLOGY Routine 04/20/2020 12:0 0 AM INSURANCE ACCOUNT ASSISTANT documented in this encounter Results * DERMATOPATHOLOGY (04/20/2020 12:00 AM INSURANCE ACCOUNT ASSISTANT) Case Report Dermatopathology Report Case: [id number] Authorizing Provider: Myriam Garza MD Collected: 04/20/2020 12:00 AM Ordering Location: [facility] DermPath Lab Received: 04/21/2020 12:35 PM Pathologist: Monserrat Gonzalez MD Specimen: Skin, left clavicular skin 0 4:31 PM INSURANCE ACCOUNT ASSISTANT DERMATOPATHOLOGY LABORATORY Final Diagnosis Specimen A. SKIN, left clavicular skin: BASAL CELL CARCINOMA, NODULAR TYPE (C44.519) 0 4:31 PM INSURANCE ACCOUNT ASSISTANT DERMATOPATHOLOGY LABORATORY at 1631 INSURANCE ACCOUNT ASSISTANT Clinical History Scar vs basal cell carcinoma. . 0 4:31 PM INSURANCE ACCOUNT ASSISTANT DERMATOPATHOLOGY LABORATORY Gross Description Specimen A: Received is one formalin filled container labeled with the patient's name and designated left clavicular skin. The specimen consists of a shave biopsy measuring [id number]. Jar 0. 0 4:31 PM INSURANCE ACCOUNT ASSISTANT DERMATOPATHOLOGY LABORATORY Microscopic Description Specimen A. SKIN, left clavicular skin: Within the dermis there are aggregates of basaloid cells with a high nuclear to cytoplasmic ratio and peripheral palisading. 0 4:31 PM INSURANCE ACCOUNT ASSISTANT DERMATOPATHOLOGY LABORATORY Disclaimer An external and internal positive and negative controls are appropriate for the histochemical, immunohistochemical and immunofluorescence stain(s) in this case (if any), except where stated explicitly. The performance characteristics of the stain(s) cited in this report were developed and its performance characteristic determined by the Dermatopathology Laboratory at [facility], directed by Dr. Martin Gonzalez. These tests need not be, and therefore are not, approved by the [place] Food and Drug Administration. The tests are used for clinical purposes. Billing Codes Specimen Charges Stain Charges 42777 1 0 4:31 PM INSURANCE ACCOUNT ASSISTANT DERMATOPATHOLOGY LABORATORY Embedded Images 0 4:31 PM [facility] DERMATOPATHOLOGY LABORATORY Pathology/Cytolog y TISSUE SPECIMEN FROM SKIN / Unknown 04/20/2020 04/21/2020 12:35 PM INSURANCE ACCOUNT ASSISTANT us Myriam Garza MD LAB - PATHOLOGY/CYTOLOGY ORDERABLES Final Result DERMATOPATHOLOGY LABORATORY [facility] - Department of Dermatology [facility] Medicine [address] [place] [address], [address]rd [place] [address], [facility] [phone] documented in this encounter Visit Diagnoses Not on filedocumented in this encounter Care Teams Physiological Chemist Relationship Specialty Start Date End Date Samuel Huerta DO [address] [place] [address] PCP - General Family Medicine 01/22/22 Clifford Ann MD Orthopedic Surgery 07/20/16 documented as of this encounter
--- OUTSIDE RECORDS SUMMARY | 2025-02-23 13:11 | XMS_ITS | Encounter Summary ---
Author Organization [facility] Address [address] [place] [address] Care Team Providers Care Intake Man Name Role Phone Mateusz Gallegos MD Unavailable Unavailable Mary Dunne MD Unavailable [phone] Deonna Abbott MD Unavailable [phone] Chava Mo MD Primary Care Provider Brenda Coronel MD Unavailable [phone] Sanchez Singleton MD Unavailable [phone] Dany Mason PUMPING PLANT OPERATOR Unavailable [phone] Florinda Galindo MD Unavailable Samuel Huerta DO Primary Care Provider [phone] Bel Trotter PUMPING PLANT OPERATOR- Unavailable [phone] Encounter Details Date Type Department Care Team (Late st Contact Info) Description 09/29/2020 Prep for Procedure [employer] Property [employer] Pre/Post [address] [place] [address] Mateusz Gallegos MD Social History Tobacco Use [...] How often do you attend chur or restorationism services? More than 4 times per year 11/05/2019 Do you belong to any clubs o r organizations such as jew groups, unions, fraternal or athletic groups, or [...] Answer Date Recorded PHQ-2 Score 0 04/14/2019 [employer] [employer] [place] of Occupat ional Health - Occupational Stress [...] AM CDT Legal Sex Female 11:29 PM FIRE ADJUSTER Gender Identity Female 11/05/2019 5:43 AM CDT [...] Depression Total Score: 0 04/20/20 11:06 AM FIRE ADJUSTER documented as of this encounter Care Teams Intake Man Relationship Specialty Start Date End Date Deonna Abbott MD [address] [place] [address] PCP - Med Group - MSSP Attributed Provider 05/20/15 05/19/21 Chava Mo MD [address] [place] [address] PCP - General FAMILY PRACTICE 01/08/20 06/01/21 Samuel Huerta DO [address] [place] [address] PCP - General FAMILY PRACTICE 06/02/21 Mateusz Gallegos MD INTERVENTIONAL CARDIOLOGY 11/08/17 12/13/20 Mary Dunne MD Consulting Physician OBGYN 09/23/18 Brenda Coronel MD [address] [place] [address] Consulting Physician INTERNAL MEDICINE 06/17/20 Sanchez Singleton MD [address] [place] [address] Consulting Physician ENDOCRINOLOGY 06/17/20 Dany Mason FNP [address] [place] [address] Nurse Practitioner Nurse Practitioner [facility] 06/21/20 Florinda Galindo MD [address] [place] [address] Consulting Physician CARDIOVASCULAR DISEASE 12/14/20 Bel Trotter FNP-BC [address] [place] [phone] Nurse Practitioner NURSE PRACTITIONER 01/10/22 documented as of this encounter
--- OUTSIDE RECORDS SUMMARY | 2025-02-23 13:11 | XMS_ITS | Encounter Summary ---
Author Organization [facility] Address [address] [place] [address] Care Team Providers Care Shank Rander Name Role Phone Mateusz Gallegos MD Unavailable Unavailable Mary Dunne MD Unavailable [phone] Deonna Abbott MD Unavailable [phone] Annette Mock RN Unavailable [phone] Chava Mo MD Primary Care Provider Brenda Coronel MD Unavailable [phone] Sanchez Singleton MD Unavailable [phone] Dany Mason PHOTOGEOLOGIST Unavailable [phone] Florinda Galindo MD Unavailable Samuel Huerta DO Primary Care Provider [phone] Bel Trotter PHOTOGEOLOGIST- Unavailable [phone] Encounter Details Date Type Department Care Team (Late st Contact Info) Description 10/26/2019 Telephone [facility] Medical Group Multispecialty Care [address] [address] Deonna Abbott MD [address] [place] [address] Social History Tobacco Use Types Packs/Day Years Used Date Smoking Tobacco: Never Smokeless Tobacco: Never Alcohol Use Standard Drinks/Week Comments No 0 (1 standard drink = 0.6 oz pur e alcohol) PHQ-2 Answer Date Recorded PHQ-2 Score 0 04/14/2019 Comments Unknown Sex and Gender Information Value Date Recorded Sex Assigned at Female 11/05/2019 5:43 AM CDT Legal Sex Female 11:29 PM PARKS RECREATION COORDINATOR Gender Identity Female 11/05/2019 5:43 AM CDT [...] Total Score: 0 04/20/20 19 11:06 AM PARKS RECREATION COORDINATOR documented as of this encounter Care Teams Shank Rander Relationship Specialty Start Date End Date Deonna Abbott MD [address] [place] [address] PCP - Med Group - MSSP Attributed Provider 05/20/15 05/19/21 Chava Mo MD [address] [place] [address] PCP - General FAMILY PRACTICE 01/08/20 06/01/21 Samuel Huerta DO [address] [place] [address] PCP - General FAMILY PRACTICE 06/02/21 Mateusz Gallegos MD INTERVENTIONAL CARDIOLOGY 11/08/17 12/13/20 Mary Dunne MD Consulting Physician OBGYN 09/23/18 Annette Mock, RN [address] [place] [address] Pumping Station Supervisor (Ambulatory) REGISTERED NURSE 11/05/19 11/16/19 Brenda Coronel MD [address] [place] [address] Consulting Physician INTERNAL MEDICINE 06/17/20 Sanchez Singleton MD [address] [place] [address] Consulting Physician ENDOCRINOLOGY 06/17/20 Dany Mason FNP [address] [place] [address] Nurse Practitioner Nurse Practitioner Family 06/21/20 Florinda Galindo MD [address] [place] [address] Consulting Physician CARDIOVASCULAR DISEASE 12/14/20 Bel Trotter FNP-MATY [address] [place] [address] Nurse Practitioner NURSE PRACTITIONER 01/10/22 documented as of this encounter
--- OUTSIDE RECORDS SUMMARY | 2025-02-23 13:11 | XMS_ITS | Encounter Summary ---
Author Organization [facility] Address [address] [place] [address] Phone Care Team Providers Care Rider Ticket Worker Name Role Phone Samuel Huerta DO Primary Care Provider Encounter Details Date Type Department Care Team (Late st Contact Info) Description 04/05/[address] [facility] Dermatology [address] [facility] [address] [place] [phone] Christina Hayes RN Social History Tobacco Use Types Packs/Day Years Used Date Smoking Tobacco: Never Smokeless Tobacco: Never Comments No Sex and Gender Information Value Date Recorded Sex Assigned at Not on file Legal Sex Female 11:53 PM SQL SERVER DEVELOPER Gender Identity Not on file Sexual Orientation Not on file documented as of this encounter Plan of Treatment Not on file documented as of this encounter Visit Diagnoses Not on filedocumented in this encounter Additional Health Concerns Infection Onset Date Last Indicated Resolved Time 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
--- OUTSIDE RECORDS SUMMARY | 2025-02-23 13:11 | XMS_ITS | Encounter Summary ---
Author Organization [facility] Health Address [address] [facility] [place] [address] Care Team Providers Care Interactive Media Marketing Strategist Name Role Phone Clifford Ann MD Unavailable Samuel Huerta DO Primary Care Provider [phone] Encounter Details Date Type Department Care Team (Late st Contact Info) Description 07/12/2020 Lab Requisition [facility] DermPath Lab [address] [facility], [place] [address] Tian Dumont Jr., MD [address] [facility] [address] [place] [address] Social History Tobacco Use Types Packs/Day Years Used Date Smoking Tobacco: Never Comments Unknown Sex and Gender Information Value Date Recorded Sex Assigned at Not on file Legal Sex Female 6:06 AM INGREDIENT SPECIALIST Gender Identity Not on file Sexual Orientation Not on file documented as of this encounter Plan of Treatment Not on file documented as of this encounter Procedures Procedure Name Priority Date/Time Associated Diagnosis Comments DERMATOPATHOLOGY Routine 07/08/2020 12:0 0 AM INGREDIENT SPECIALIST documented in this encounter Results * DERMATOPATHOLOGY (07/08/2020 12:00 AM INGREDIENT SPECIALIST) Case Report Dermatopathology Report Case: [id number] Authorizing Provider: Tian Dumont Jr., MD Collected: 07/08/2020 12:00 AM Ordering Location: [facility] Care DermPath Lab Received: 07/12/2020 08:55 AM Pathologist: Gini Dyson MD Specimen: Skin, left central frontal scalp 4:50 PM [facility] DERMATOPATHOLOGY LABORATORY Final Diagnosis Specimen A. SKIN, left central frontal scalp: BENIGN VERRUCOUS KERATOSIS (L82.1) 4:50 PM [facility] DERMATOPATHOLOGY LABORATORY at 1650 INGREDIENT SPECIALIST Clinical History Inflamed seborrheic keratosis vs Squamous cell carcinoma vs verruca vulgaris. 4:50 PM [facility] DERMATOPATHOLOGY LABORATORY Gross Description Specimen A: Received is one formalin filled container labeled with the patient's name and designated left central frontal scalp. The specimen consists of a shave biopsy measuring 34g7w3gm. Jar 0+. 4:50 PM [facility] DERMATOPATHOLOGY LABORATORY Microscopic Description Specimen A. SKIN, left central frontal scalp: Sections show hyperkeratosis, papillomatosis, hypergranulosis, and acanthosis. These histological findings can be seen in a verruca vulgaris or a seborrheic keratosis. 4:50 PM [facility] DERMATOPATHOLOGY LABORATORY Disclaimer An external and internal positive and negative controls are appropriate for the histochemical, immunohistochemical and immunofluorescence stain(s) in this case (if any), except where stated explicitly. The performance characteristics of the stain(s) cited in this report were developed and its performance characteristic determined by the Dermatopathology Laboratory at [facility], directed by Dr. Martin Gonzalez. These tests need not be, and therefore are not, approved by the [place] Food and Drug Administration. The tests are used for clinical purposes. Billing Codes Specimen Charges Stain Charges 98874 1 4:50 PM [facility] DERMATOPATHOLOGY LABORATORY Embedded Images 4:50 PM [facility] DERMATOPATHOLOGY LABORATORY Pathology/Cytolog y TISSUE SPECIMEN FROM SKIN / Unknown 07/08/2020 07/12/2020 8:55 AM [facility] Tain Dumont Jr., MD LAB - PATHOLOGY/CYTOLOG Y ORDERABLES Final Result DERMATOPATHOLOGY LABORATORY [facility] - Department of Dermatology [address], [address] [phone] documented in this encounter Visit Diagnoses Not on filedocumented in this encounter Care Teams Interactive Media Marketing Strategist Relationship Specialty Start Date End Date Samuel Huerta DO [address] [place] [address] PCP - General Family Medicine 01/22/22 Clifford Ann MD Orthopedic Surgery 07/20/16 documented as of this encounter
--- OUTSIDE RECORDS SUMMARY | 2025-02-23 13:11 | XMS_ITS | Encounter Summary ---
Author Organization [facility] Health Address [address] [place] [address] Care Team Providers Care Supervisor Dimension Warehouse Name Role Phone Clifford Ann MD Unavailable Samuel Huerta DO Primary Care Provider [phone] Encounter Details Date Type Department Care Team (Late st Contact Info) Description 12/31/2023 Lab Requisition [facility] - DermPath Lab [address] [facility] [place] [phone] Tian Dumont Jr., MD [address] [facility] [address] [facility] [address] [place] [address] Social History Tobacco Use Types Packs/Day Years [...] on file Legal Sex Female 6:06 AM TRANSPORTATION COORDINATOR Gender Identity Not on file Sexual Orientation [...] AM CDT) Case Report Dermatopathology Report Case: [id number] Authorizing Provider: Tian Dumont Jr., MD Collected: 12/30/2023 12:00 AM Ordering Location: [facility] - Received: 12/31/2023 12:48 [...] determined by the Dermatopathology Laboratory at [facility], directed by Dr. Martin Gonzalez. These tests need not be, and therefore are not, approved by the [place] Food and Drug Administration. The tests are used for clinical purposes. Billing Codes Specimen Charges Stain Charges 85122 1 1:23 PM CDT DERMATOPATHOLOGY LABORATORY Embedded Images 1:23 PM CDT DERMATOPATHOLOGY LABORATORY Pathology/Cytolog y TISSUE SPECIMEN FROM SKIN / Unknown 12/30/2023 12/31/2023 12:48 PM CDT us Tian Dumont Jr., MD LAB - PATHOLOGY/CYTOLOG Y ORDERABLES Final Result DERMATOPATHOLOGY LABORATORY [facility] - Department of Dermatology [address], [address] [phone] documented in this encounter Visit Diagnoses Not on filedocumented in this encounter Care Teams Supervisor Dimension Warehouse Relationship Specialty Start Date End Date Samuel Huerta DO [address] [place] [address] PCP - General Family Medicine 01/22/22 Clifford Ann MD Orthopedic Surgery 07/20/16 documented as of this encounter
--- OUTSIDE RECORDS SUMMARY | 2025-02-23 13:11 | XMS_ITS | Clinical Summary ---
Author Organization [facility] 1 Address [address] [place] [address] Care Team Providers Care Ethanol Operator Name Role Phone Samuel Huerta DO [...] Ultra-Fine Mini Pen Needle 31 gauge x /16 needle 3 Active lactulose 0.67 gram/mL solution [...] on file Legal Sex Female 11:53 PM TOOL OPERATOR Gender Identity Not on file Sexual [...] Density Scan 07/30/2016 07/30/2014 Influenza Vaccine (#1) 2025 9, 02/17/2018, 03/08/2017, Additional history exists Pneumococcal vaccine 65+ Completed 01/11/2017, 02/18 Insurance [facility] MEDICARE [facility] MEDICARE [facility] Care Teams Ethanol Operator Relationship Specialty Start Date End Date Samuel Huerta DO [address] [place], [place] [id number] PCP - General Family Medicine 04/28/21
--- OUTSIDE RECORDS SUMMARY | 2025-02-23 13:11 | XMS_ITS | Clinical Summary ---
Author Organization [facility] Address [address] [place] [address] Phone Care Team Providers Care Marine Service Operator Name Role Phone Deonna Abbott MD Primary [...] (Adult) (1 - 1-dose 75+ series) 2014 Medicare Initial AWV [id number] 01/07/2020 Influenza Immunization (#1) 01/18/202502/18, 02/17/2016, 04/04/2006 SARS-COV-2 Immunization ( season) 2025 03/07/2021, 08/03/2020, 07/13/2020 Pneumococcal Immunization (5 0+ years) Completed 01/11/2017, [...] age to complete this topic Insurance MEDICARE [facility] Care Teams Marine Service Operator Relationship Specialty Start Date End Date Deonna Abbott MD [address] [place] [address] PCP - General Family Medicine 01/06/19
--- OUTSIDE RECORDS SUMMARY | 2025-02-23 13:11 | XMS_ITS | Clinical Summary ---
Author Organization [facility] Address Formerly [facility] [place] [address] Care Team Providers Care Information Technology Specialist Name Role Phone Mary Dunne MD Unavailable [phone] Brenda Coronel MD Unavailable [phone] Sanchez Singleton MD Unavailable [phone] Dany Mason ONLINE TRADER Unavailable Samuel Huerta DO Primary Care Provider [phone] Bel Trotter ONLINE TRADER- Unavailable [phone] Allergies Active Allergy Reactions Criticality Noted Date [...] (CMS/HCC HHS/HCC) 2021 Atrial fibrillation with RVR ([facility]) 0 10/06/2021 JUN (acute kidney injury) 09/27/2021 [...] Atypical chest pain 11/14/2017 Neurogenic orthostatic hypotension ([facility]) 11/14/2017 Type 2 diabetes mellitus wit h diabetic polyneuropathy, without long-term current use of insulin ([facility]) 11/14/2017 Chronic leg pain 11/08/2017 Exposure to [...] Cervical osteoarthritis 08/08/2014 Depression 08/08/2014 Diabetic neuropathy ([facility]) 08/08/2014 Overview (04/28/2018): Description: peripheral neuropathy since around 2009. Foot pain is controlled with Gabapentin. 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 More than 4 times per year [...] Answer Date Recorded PHQ-2 Score 0 04/14/2019 [facility] - Occupational [...] AM CDT Legal Sex Female 11:29 PM PROPERTY SITE MANAGER Gender Identity Female 11/05/2019 5:43 AM [...] Additional history exists COVID-19 Vaccine ( season) 2025 Influenza Adult (#1) 2025 03/16/2019, 02/17/2018, 03/08/2017, Additional history exists Dexa [...] Christine RN Medical Devices Implanted Type Area Structural Analysis Engineer Device Identifier Shelf Expiration Date Model / Serial / Lot Bilateral Knee Hardware Gynecare Tvt Abbrevo Continence System Implanted:Qty: 1 on 09/25/2018 by Mary Dunne MD at [facility] N/A: Bladder [employer] 01/17/2019 TVTOML / N/A / [id number] Description:MRI SAFE-NO META L Procedures Procedure Name Priority Date/Time Associated Diagnosis Comments HEMOGLOBIN, GLYCOSYLATED Routine 12/01/2021 8:40 AM CDT Type 2 diabetes mellitus with diabetic polyneuropathy, without long-term current use of insulin Coronary atherosclerosis of mcgrath coronary artery LIPID PANEL Routine 06/17/2020 10:58 AM PROPERTY SITE MANAGER TIA (transient ischemic attack) BONE DENSITY/DEXA Routine 07/30/2014 9:2 4 AM CDT from Last 3 Months or Most Recently Relevant to Health Maintenance Results * (ABNORMAL) HEMOGLOBIN, GLYCOSYLATED (12/01/2021 8:40 AM CDT) HGB A1C 6.4(H) <5.7 % 12/01/2021 4:40 PM CDT [facility] ESTIMATED AVG GLUCOSE 137(H) 74 - 114 MG/DL 12/01/2021 4:40 PM CDT [facility] 12/01/2021 8:40 AM CDT Aston Birmingham MD LABORATORY Final Result [facility] [address] [place] [address], * LIPID PANEL (06/17/2020 10:58 AM PROPERTY SITE MANAGER) CHOLESTEROL 157 MG/DL 06/17/2020 11:52 AM PROPERTY SITE MANAGER [facility] Comment:DESIRABLE: <200 TRIGLYCERIDES 73 MG/DL 06/17/2020 11:52 AM PROPERTY SITE MANAGER [facility] Comment:<150 NORMAL HDL 82 >49 MG/DL 06/17/2020 11:52 AM [facility] LDL (CALCULATED) 60 MG/DL 06/17/19 11:52 AM [facility] Comment:<100 OPTIMAL VLDL CALCULATION 15 MG/DL 06/17/19 11:52 AM [facility] Comment:REFERENCE RANGE NOT ESTABLISHED CHOL/HDL RATIO 1.9 06/17/2020 11:52 AM [facility] Comment:REFERENCE RANGE NOT ESTABLISHED LDL/HDL 0.7 06/17/2020 11:52 AM [facility] Comment:REFERENCE RANGE NOT ESTABLISHED NON HDL CHOLESTEROL 75 MG/DL 06/17/2020 11:52 AM [facility] Comment:REFERENCE RANGE NOT ESTABLISHED 06/17/2020 10:5 8 AM PROPERTY SITE MANAGER us Mateusz Gallegos MD LABORATORY Final Result [facility] [address] [place] [id number], [id number] * BONE DENSITY/DEXA (07/30/2014 9:24 AM CDT) Anatomical Region Laterality Modality Bone Bone Density 07/30/2014 9:24 AM CDT 07/30/2014 9:24 AM CDT Narrative 07/30/2014 1:48 PM CDT [facility] [address] [place] [address] Name: Hortencia Nettles Ordering MD: Michelle Spears Order Number: [id number] : 1940 Sex: F Performing Location: [facility] Procedure Code: Procedure: DA Bone Density Axial [...] Electronically Signed By: PARKER ODONNELL MD 07/30/14 134 Dictated On: 07/30/14 134 Interpreted By: PARKER ODONNELL MD Radiology image is available. Click on Image Link above. Procedure Note Michelle Spears MD - 03/12/2018 [facility] [address] [place] [address] Name: Hortencia Nettles Ordering MD: Michelle Spears Order Number: [id number] : 1940 Sex: F Performing Location: [facility] Procedure Code: Procedure: DA Bone Density Axial [...] Recently Relevant to Health Maintenance Insurance MEDICARE [facility] MEDICARE [employer] Advance Directives Documents on File Type Date Recorded Patient Roll Scale Man Expl anation Power of Suture Gauger 11/04/2021 5:43 PM [facility] 07/04/12 [...] 12:43 AM 11/07/2019 6:50 PM Care Teams Information Technology Specialist Relationship Specialty Start Date End Date Samuel Huerta DO [address] [place] [address] PCP - General FAMILY PRACTICE 06/02/21 Mary Dunne MD Consulting Physician OBGYN 09/23/18 Brenda Coronel MD Consulting Physician INTERNAL MEDICINE 06/17/20 Sanchez Singleton MD Consulting Physician ENDOCRINOLOGY 06/17/20 Dany Mason FNP Nurse Practitioner Nurse Practitioner [facility] 06/21/20 Bel Trotter FNP- [address] [place] [phone] Nurse Practitioner NURSE PRACTITIONER 01/10/22
--- OUTSIDE RECORDS SUMMARY | 2025-02-23 13:11 | XMS_ITS | Clinical Summary ---
Author Organization [facility] Address [address] [place] [address] Phone Care Team Providers Care Solar Project Engineer Name Role Phone Unavailable Primary Care [...] left femur, unspecified fracture morphology, initial encounter Take 1 Tablet (5 mg) by mouth every 6 hours as needed for Pain, Moderate. Max Daily Amount: 20 mg 60 Tablet 02/16/20 Active oxyCODONE (ROXICODONE) 10 mg tabletIndicatio ns:Closed fracture of distal end of left femur, unspecified fracture morphology, initial encounter Take 1 Tablet (10 mg) by mouth [...] 03/10/2013 Insurance MEDICARE PART A AND B [facility] [address] Advance Directives For more information, please contact: [phone] Documents on File Type Date Recorded Patient Manufacturers Representative Expl anation Advance Directive POA 03/06/2022 1:23 PM Advance Directive POA 02/05/2022 5:34 PM A dvance Directive POA * Full Code (Latest Code Status on File) Date Activated Date Inactivated Comments 01/31/2022 11:26 PM 02/16/2022 2:22 PM
--- OUTSIDE RECORDS SUMMARY | 2025-02-23 13:11 | XMS_ITS | Encounter Summary ---
Author Organization [facility] Health Address [address] [facility] [place] [address] Care Team Providers Care Business Editor Name Role Phone Clifford Ann MD Unavailable Samuel Huerta DO Primary Care Provider [phone] Encounter Details Date Type Department Care Team (Late st Contact Info) Description 08/05/2020 Lab Requisition [facility] DermPath Lab [address] [facility] [place] [address] Tian Dumont Jr., MD [address] [facility] [address] [place] [address] Social History Tobacco Use Types Packs/Day Years Used Date Smoking Tobacco: Never Comments Unknown Sex and Gender Information Value Date Recorded Sex Assigned at Not on file 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 Gender Identity Not on file Sexual Orientation Not on file documented as of this encounter Plan of Treatment Not on file documented as of this encounter Procedures Procedure Name Priority Date/Time Associated Diagnosis Comments DERMATOPATHOLOGY Routine 08/04/2020 12:0 0 AM CDT documented in this encounter Results * DERMATOPATHOLOGY (08/04/2020 12:00 AM CDT) Case Report Dermatopathology Report Case: [id number] Authorizing Provider: Tian Dumont Jr., MD Collected: 08/04/2020 12:00 AM Ordering Location: [facility] DermPath Lab Received: 08/05/2020 12:53 PM Pathologist: [...] skin.The specimen consists of an ellipse measuring 06t4w0um and is oriented with the suture at [...] characteristic determined by the Dermatopathology Laboratory at [facility], directed by Dr. Martin Gonzalez. These tests need not be, and therefore are not, approved by the [place] Food and Drug Administration. The tests are used for clinical purposes. Billing Codes Specimen Charges Stain Charges 30388 1 03/23/202 1 3:37 PM CDT DERMATOPATHOLOGY LABORATORY Embedded Images 1 3:37 PM CDT DERMATOPATHOLOGY LABORATORY Pathology/Cytolog y TISSUE SPECIMEN FROM SKIN / Unknown 08/04/2020 08/05/2020 12:53 PM CDT Tian Dumont Jr., MD LAB - PATHOLOGY/CYTOLOG Y ORDERABLES Final Result DERMATOPATHOLOGY LABORATORY [facility] - Department of Dermatology [facility] Medicine [address] [place] [address], [address] [phone] documented in this encounter Visit Diagnoses Not on filedocumented in this encounter Care Teams Business Editor Relationship Specialty Start Date End Date Samuel Huerta DO [address] [place] [address] PCP - General Family Medicine 01/22/22 Clifford Ann MD Orthopedic Surgery 07/20/16 documented as of this encounter
--- OUTSIDE RECORDS SUMMARY | 2025-02-23 13:11 | XMS_ITS | Encounter Summary ---
Author Organization [facility] Address [address] [place] [address] Care Team Providers Care Jacquard Plate Maker Name Role Phone Mary Dunne MD Unavailable [phone] Chava Mo MD Primary Care Provider Brenda Coronel MD Unavailable [phone] Sanchez Singleton MD Unavailable [phone] Dany Mason CONSUMER SAFETY INSPECTOR Unavailable [phone] Florinda Galindo MD Unavailable Samuel Huerta DO Primary Care Provider [phone] Bel Trotter- Unavailable [phone] Reason for Visit * Reason Onset Date Comments Results 06/01/2021 HOLTER REPORT Encounter Details Date Type Department Care Team (Latest Contact Info) Description 06/01/2021 [facility] Documentation [facility] [address] [place] [address] Abstract, Doc Prevea Results ( HOLTER REPORT) [...] often do you attend chur ch or christianity services? More than 4 times per year 11/05/2019 Do you belong to any clubs o r organizations such as amish groups, unions, fraternal or athletic groups, or [...] Answer Date Recorded PHQ-2 Score 0 04/14/2019 [facility] Occup[facility] Health - Occupational [...] AM CDT Legal Sex Female 11:29 PM LOFTER Gender Identity Female 11/05/2019 5:43 AM CDT [...] Total Score: 0 04/20/20 19 11:06 AM LOFTER documented as of this encounter Care Teams Jacquard Plate Maker Relationship Specialty Start Date End Date Chava Mo MD [address] [place] [address] PCP - General FAMILY PRACTICE 01/08/20 06/01/21 Samuel Huerta DO [address] [place] [address] PCP - General FAMILY PRACTICE 06/02/21 Mary Dunne MD Consulting Physician OBGYN 09/23/18 Brenda Coronel MD [address] [place] [address] Consulting Physician INTERNAL MEDICINE 06/17/20 Sanchez Singleton MD [address] [place] [address] Consulting Physician ENDOCRINOLOGY 06/17/20 Dany Mason [facility] [address] [place] [address] Nurse Practitioner Nurse Practitioner Family 06/21/20 Florinda Galindo MD [address] [place] [address] Consulting Physician CARDIOVASCULAR DISEASE 12/14/20 Bel Trotter FNP- [address] [place] [address] Nurse Practitioner NURSE PRACTITIONER 01/10/22 documented as of this encounter
== END 2025-02-23 12:12 | disposition home or self-care (01) ==
PROVIDERS: PCP Family Medicine; Visit Provider Nurse Practitioner Family
DX: M54.50 Low back pain, unspecified (principal); M25.532 Pain in left wrist; M43.06 Spondylolysis, lumbar region
CPT/HCPCS: 72100; 73110

== ENCOUNTER 2025-03-22 15:08 | Outpatient (CLI) | payer MEDICARE, SELFPAY ==
--- OUTSIDE RECORDS SUMMARY | 2025-03-22 15:32 | XMS_ITS | Encounter Summary ---
Author Organization [facility] Address [address] [place] [address] Phone Care Team Providers Care Fabric Worker Supervisor Name Role Phone Samuel Huerta DO Primary Care Provider Encounter Details Date Type Department Care Team (Late st Contact Info) Description 04/05/2022 Documentation [facility] Dermat[facility] [address] [facility] [address] [place] [phone] Christina Hayes RN Social History Tobacco Use Types Packs/Day Years Used Date Smoking Tobacco: Never Smokeless Tobacco: Never Comments No Sex and Gender Information Value Date Recorded Sex Assigned at Not on file 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
--- OUTSIDE RECORDS SUMMARY | 2025-03-22 15:33 | XMS_ITS | Encounter Summary ---
Author Organization [facility] Health Address [address] [place] [address] Care Team Providers Care Asset Protection Greeter Name Role Phone Clifford Ann MD Unavailable Samuel Huerta DO Primary Care Provider [phone] Encounter Details Date Type Department Care Team (Late st Contact Info) Description 12/31/2023 Lab Requisition [facility] - DermPath Lab [address] [facility], [place] [id number] Tian Dumont Jr., MD [address] [facility] [address] [place] [address] Social History Tobacco Use Types Packs/Day Years [...] on file 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 Martin Gonzalez. These tests need not be, and therefore are not, approved by the [place] Food and Drug Administration. The tests are used for clinical purposes. Billing Codes Specimen Charges Stain Charges 20397 1 1:23 PM CDT DERMATOPATHOLOGY LABORATORY Embedded Images 1:23 PM CDT DERMATOPATHOLOGY LABORATORY Pathology/Cytolog y TISSUE SPECIMEN FROM SKIN / Unknown 12/30/2023 12/31/2023 12:48 PM CDT us Tian Dumont Jr., MD LAB - PATHOLOGY/CYTOLOG Y ORDERABLES Final Result DERMATOPATHOLOGY LABORATORY [facility] - Department of Dermatology [address], [address] [phone] documented in this encounter Visit Diagnoses Not on filedocumented in this encounter Care Teams Asset Protection Greeter Relationship Specialty Start Date End Date Samuel Huerta DO [address] [place] [address] PCP - General Family Medicine 01/22/22 Clifford Ann MD Orthopedic Surgery 07/20/16 documented as of this encounter
--- OUTSIDE RECORDS SUMMARY | 2025-03-22 15:33 | XMS_ITS | Encounter Summary ---
Author Organization [facility] Address [address] [place] [address] Care Team Providers Care Explosive Ordnance Disposal Specialist Name Role Phone Mateusz Gallegos MD Unavailable Unavailable Mary Dunne MD Unavailable [phone] Deonna Abbott MD Unavailable [phone] Chava Mo MD Primary Care Provider Brenda Coronel MD Unavailable [phone] Sanchez Singleton MD Unavailable Unavailable Dany Mason MANAGER DAIRY Unavailable [phone] Florinda Galindo MD Unavailable Samuel Huerta DO Primary Care Provider [phone] Bel Trotter MANAGER DAIRY- Unavailable [phone] Encounter Details Date Type Department Care Team (Late st Contact Info) Description 09/29/2020 Prep for Procedure [facility] Client Service Supervisor Pre/Post [address] [place], [place] [address] Mateusz Gallegos MD Social History Tobacco Use [...] or ex-partner? No 11/05/2019 Social Connection and Isolation Panel Answer Date Recorded In a typical week, how many times do you talk on the phone with family, friends, or neighbors? More than three times a week 11/05/2019 How often do you get togethe r with friends or relatives? More than three times a week 11/05/2019 How often do you attend chur ch or mormonism services? More than 4 times per year 11/05/2019 Do you belong to any clubs o r organizations such as religion groups, unions, fraternal or athletic groups, or [...] Answer Date Recorded PHQ-2 Score 0 04/14/2019 [facility] [place] of Occupat ional Health - Occupational Stress [...] AM CDT Legal Sex Female 11:29 PM REGIONAL ACCOUNT MANAGER Gender Identity Female 11/05/2019 5:43 [...] Depression Total Score: 0 04/20/20 11:06 AM REGIONAL ACCOUNT MANAGER documented as of this encounter Care Teams Explosive Ordnance Disposal Specialist Relationship Specialty Start Date End Date Deonna Abbott MD [address] [place] [address] PCP - Med Group - [facility] Attributed Provider 05/20/15 05/19/21 Chava Mo MD [address] [place] [address] PCP - General FAMILY PRACTICE 01/08/20 06/01/21 Samuel Huerta DO [address] [place] [address] PCP - General FAMILY PRACTICE 06/02/21 Mateusz Gallegos MD INTERVENTIONAL CARDIOLOGY 11/08/17 12/13/20 Mary Dunne MD Consulting Physician OBGYN 09/23/18 Brenda Coronel MD [address] [place] [address] Consulting Physician INTERNAL MEDICINE 06/17/20 Sanchez Singleton MD [address] [place] [address] Consulting Physician ENDOCRINOLOGY 06/17/20 Dany Mason FNP [address] [place] [address] Nurse Practitioner Nurse Practitioner [facility] 06/21/20 Florinda Galindo MD [address] [place] [address] Consulting Physician CARDIOVASCULAR DISEASE 12/14/20 Bel Trotter FNP- [address] [place] [address] Nurse Practitioner NURSE PRACTITIONER 01/10/22 documented as of this encounter
--- OUTSIDE RECORDS SUMMARY | 2025-03-22 15:33 | XMS_ITS | Encounter Summary ---
Author Organization [facility] Health Address [address] [facility] [place] [address] Care Team Providers Care Sheet Cutting Operator Name Role Phone Clifford Ann MD Unavailable Samuel Huerta DO Primary Care Provider [phone] Encounter Details Date Type Department Care Team (Late st Contact Info) Description 08/05/2020 Lab Requisition [facility] DermPath Lab [address] [facility] [place] [address] Tian Dumont Jr., MD [address] [facility] [address] [place] [address] Social History Tobacco Use Types Packs/Day Years Used Date Smoking Tobacco: Never Comments Unknown Sex and Gender Information Value Date Recorded Sex Assigned at Not on file Legal Sex Female 6:06 AM PONY TRIMMER Gender Identity Not on file Sexual Orientation Not on file documented as of this encounter Plan of Treatment Not on file documented as of this encounter Procedures Procedure Name Priority Date/Time Associated Diagnosis Comments DERMATOPATHOLOGY Routine 08/04/2020 12:0 0 AM CDT documented in this encounter Results * DERMATOPATHOLOGY (08/04/2020 12:00 AM CDT) Case Report Dermatopathology Report Case: [id number] Authorizing Provider: Tian Dumont Jr., MD Collected: 08/04/2020 12:00 AM Ordering Location: [facility] DermPath Lab Received: 08/05/2020 12:53 PM [...] skin.The specimen consists of an ellipse measuring [id number] and is oriented with the suture at [...] characteristic determined by the Dermatopathology Laboratory at [facility], directed by Dr. Martin Gonzalez. These tests need not be, and therefore are not, approved by the [place] Food and Drug Administration. The tests are used for clinical purposes. Billing Codes Specimen Charges Stain Charges 85906 1 03/23/202 1 3:37 PM CDT DERMATOPATHOLOGY LABORATORY Embedded Images 1 3:37 PM CDT DERMATOPATHOLOGY LABORATORY Pathology/Cytolog y TISSUE SPECIMEN FROM SKIN / Unknown 08/04/2020 08/05/2020 12:53 PM CDT Tian Dumont Jr., MD LAB - PATHOLOGY/CYTOLOG Y ORDERABLES Final Result DERMATOPATHOLOGY LABORATORY [facility] - Department of Dermatology [facility] Medicine [address] [place] [address], [address] [phone] documented in this encounter Visit Diagnoses Not on filedocumented in this encounter Care Teams Sheet Cutting Operator Relationship Specialty Start Date End Date Samuel Huerta DO [address] [place] [address] PCP - General Family Medicine 01/22/22 Clifford Ann MD Orthopedic Surgery 07/20/16 documented as of this encounter
--- OUTSIDE RECORDS SUMMARY | 2025-03-22 15:33 | XMS_ITS | Encounter Summary ---
Author Organization [facility] Health Address [address] [facility] [place] [address] Care Team Providers Care Sheet Catcher Name Role Phone Clifford Ann MD Unavailable Samuel Huerta DO Primary Care Provider [phone] Encounter Details Date Type Department Care Team (Late st Contact Info) Description 04/21/2020 Lab Requisition [facility] DermPath Lab [address] [facility], [place] [address] [place] [address] [place] [address] Social History Tobacco Use Types Packs/Day Years Used Date Smoking Tobacco: Never Comments Unknown Sex and Gender Information Value Date Recorded Sex Assigned at Not on file Legal Sex Female 6:06 AM POLICE PATROL LIEUTENANT Gender Identity Not on file Sexual Orientation Not on file documented as of this encounter Plan of Treatment Not on file documented as of this encounter Procedures Procedure Name Priority Date/Time Associated Diagnosis Comments DERMATOPATHOLOGY Routine 04/20/2020 12:0 0 AM POLICE PATROL LIEUTENANT documented in this encounter Results * DERMATOPATHOLOGY (04/20/2020 12:00 AM POLICE PATROL LIEUTENANT) Case Report Dermatopathology Report Case: [id number] Authorizing Provider: Myriam Garza MD Collected: 04/20/2020 12:00 AM Ordering Location: [facility] DermPath Lab Received: 04/21/2020 12:35 PM Pathologist: Monserrat Gonzalez MD Specimen: Skin, left clavicular skin 0 4:31 PM POLICE PATROL LIEUTENANT DERMATOPATHOLOGY LABORATORY Final Diagnosis Specimen A. 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 . 0 4:31 PM POLICE PATROL LIEUTENANT DERMATOPATHOLOGY LABORATORY Gross Description Specimen A: Received is one formalin filled container labeled with the patient's name and designated left clavicular skin. The specimen consists of a shave biopsy measuring [id number]. Jar 0. 0 4:31 PM POLICE PATROL LIEUTENANT DERMATOPATHOLOGY LABORATORY Microscopic Description Specimen A. SKIN, left clavicular skin: Within the dermis there are aggregates of basaloid cells with a high nuclear to cytoplasmic ratio and peripheral palisading. 0 4:31 PM POLICE PATROL LIEUTENANT DERMATOPATHOLOGY LABORATORY Disclaimer An external and internal positive and negative controls are appropriate for the histochemical, immunohistochemical and immunofluorescence stain(s) in this case (if any), except where stated explicitly. The performance characteristics of the stain(s) cited in this report were developed and its performance characteristic determined by the Dermatopathology Laboratory at [facility], directed by Dr. Martin Gonzalez. These tests need not be, and therefore are not, approved by the [place] Food and Drug Administration. The tests are used for clinical purposes. Billing Codes Specimen Charges Stain Charges 74800 1 0 4:31 PM POLICE PATROL LIEUTENANT DERMATOPATHOLOGY LABORATORY Embedded Images 0 4:31 PM [facility] DERMATOPATHOLOGY LABORATORY Pathology/Cytolog y TISSUE SPECIMEN FROM SKIN / Unknown 04/20/2020 04/21/2020 12:35 PM POLICE PATROL LIEUTENANT us Myriam Garza MD LAB - PATHOLOGY/CYTOLOGY ORDERABLES Final Result DERMATOPATHOLOGY LABORATORY [facility] - Department of Dermatology [facility] Medicine [address] [place] [address], [address]rd [place] [address], [facility] [phone] documented in this encounter Visit Diagnoses Not on filedocumented in this encounter Care Teams Sheet Catcher Relationship Specialty Start Date End Date Samuel Huerta DO [address] [place] [address] PCP - General Family Medicine 01/22/22 Clifford Ann MD Orthopedic Surgery 07/20/16 documented as of this encounter
--- OUTSIDE RECORDS SUMMARY | 2025-03-22 15:33 | XMS_ITS | Clinical Summary ---
Author Organization [facility] Address [address] [place] [address] Care Team Providers Care Cook Soup Name Role Phone Mary Dunne MD Unavailable [phone] Brenda Coronel MD Unavailable [phone] Sanchez Singleton MD Unavailable Unavailable Dany Mason DIRECTOR LIFE SALES Unavailable Samuel Huerta DO Primary Care Provider [phone] Bel Trotter DIRECTOR LIFE SALES- Unavailable Allergies Active Allergy Reactions Criticality Noted Date [...] branch block (RBBB) 10/11/2021 Diastolic heart failure 10/08/2021 Atrial fibrillation with RVR 10/06/2021 JUN (acute kidney injury) 09/27/2021 UTI (urinary tract infection) 09/25/2021 Abnormal cardiovascular stress test 09/08/2020 Raynaud's disease without gangrene 08/25/2020 TIA (transient ischemic attack) 06/17/2020 Frequent ventricular premature beats 06/17/2020 Dysfunction of right eustachian tube 05/27/2020 Acute kidney injury (JUN) with acute tubular nec rosis (ATN) 11/05/2019 Post-operative state 09/25/2018 Uterine prolapse 05/03/2018 Palpitations 12/27/2017 Atypical chest pain 11/14/2017 Neurogenic orthostatic hypotension 11/14/2017 Type 2 diabetes mellitus wit h diabetic polyneuropathy, without long-term current use of insulin 11/14/2017 Chronic leg pain 11/08/2017 Exposure to [...] Cervical osteoarthritis 08/08/2014 Depression 08/08/2014 Diabetic neuropathy 08/08/2014 Overview (04/28/2018): Description: peripheral neuropathy since around 2009. Foot pain is controlled with Gabapentin. 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 [...] cell carcinoma of floor of mouth 2005 Resolved Problems Problem Noted Date Diagnosed Date [...] often do you attend chur ch or muslim services? More than 4 times per year [...] Answer Date Recorded PHQ-2 Score 0 04/14/2019 [facility] [place] of Occupat ional Health - Occupational Stress [...] AM CDT Legal Sex Female 11:29 PM GUEST ASSOCIATE Gender Identity Female 11/05/2019 5:43 AM CDT [...] Health Maintenance Due Date Last Done Comments Diabetes: Retinopathy Eye Exam 1958 DTaP, Tdap [...] Pneumococcal Vaccine: 50+ Years Completed 01/11/2017, 03/10/2013 Hepatitis A Vaccines Aged Out No long er eligible based on patient's age to complete this topic Meningococcal B Vaccine Aged Out No l [...] Christine RN Medical Devices Implanted Type Area Pharmacognosy Teacher Device Identifier Shelf Expiration Date Model / Serial / Lot Bilateral Knee Hardware Gynecare Tvt Abbrevo Continence System Implanted:Qty: 1 on 09/25/2018 by Mary Dunne MD at [facility] N/A: Bladder [employer] 01/17/2019 TVTOML / N/A / [id number] Description:MRI SAFE-NO META L Procedures Procedure Name Priority Date/Time Associated Diagnosis Comments HEMOGLOBIN, GLYCOSYLATED Routine 12/01/2021 8:40 AM CDT Type 2 diabetes mellitus with diabetic polyneuropathy, without long-term current use of insulin Coronary atherosclerosis of [place] coronary artery LIPID PANEL Routine 06/17/2020 10:58 AM GUEST ASSOCIATE TIA (transient ischemic attack) BONE DENSITY/DEXA Routine 07/30/2014 9:2 4 AM CDT from Last 3 Months or Most Recently Relevant to Health Maintenance Results * (ABNORMAL) HEMOGLOBIN, GLYCOSYLATED (12/01/2021 8:40 AM CDT) HGB A1C 6.4(H) <5.7 % 12/01/2021 4:40 PM CDT [facility] ESTIMATED AVG GLUCOSE 137(H) 74 - 114 MG/DL 12/01/2021 4:40 PM CDT [facility] 12/01/2021 8:40 AM CDT Aston Birmingham MD LABORATORY Final Result [facility] [address] [place] [address], * LIPID PANEL (06/17/2020 10:58 AM GUEST ASSOCIATE) CHOLESTEROL 157 MG/DL 06/17/2020 11:52 AM GUEST ASSOCIATE [facility] Comment:DESIRABLE: <200 TRIGLYCERIDES 73 MG/DL 06/17/2020 11:52 AM GUEST ASSOCIATE [facility] Comment:<150 NORMAL HDL 82 >49 MG/DL 06/17/2020 11:52 AM GUEST ASSOCIATE [facility] LDL (CALCULATED) 60 MG/DL 06/17/19 11:52 AM GUEST ASSOCIATE [facility] Comment:<100 OPTIMAL VLDL CALCULATION 15 MG/DL 06/17/19 11:52 AM GUEST ASSOCIATE [facility] Comment:REFERENCE RANGE NOT ESTABLISHED CHOL/HDL RATIO 1.9 06/17/2020 11:52 AM GUEST ASSOCIATE [facility] Comment:REFERENCE RANGE NOT ESTABLISHED LDL/HDL 0.7 06/17/2020 11:52 AM GUEST ASSOCIATE [facility] Comment:REFERENCE RANGE NOT ESTABLISHED NON HDL CHOLESTEROL 75 MG/DL 06/17/2020 11:52 AM GUEST ASSOCIATE [facility] Comment:REFERENCE RANGE NOT ESTABLISHED 06/17/2020 10:5 8 AM GUEST ASSOCIATE us Mateusz Gallegos MD LABORATORY Final Result Performing Organization Address City/State/[facility] Co de Phone Number [facility] [address] [place] [address], [id number] * BONE DENSITY/DEXA (07/30/2014 9:24 AM CDT) Anatomical Region Laterality Modality Bone Bone Density 07/30/2014 9:24 AM CDT 07/30/2014 9:24 AM CDT Narrative 07/30/2014 1:48 PM CDT [facility] [address] [place] [address] Name: Hortencia Nettles Ordering MD: Michelle Spears Order Number: [id number] : 1940 Sex: F Performing Location: [facility] Procedure Code: Procedure: DA Bone [...] [facility] [address] [place] [address] Name: Hortencia Nettles MD: Michelle Spears Order Number: [id number] : 1940 Sex: F Performing Location: [facility] Procedure Code: Procedure: DA Bone [...] Electronically Signed By: PARKER ODONNELL MD 07/30/14 [id number] Dictated On: 07/30/14 134 Interpreted By: PARKER ODONNELL MD Radiology image is available. Click on Image Link above. us Michelle Spears MD DEXA Final Result from Last 3 Months or Most Recently Relevant to Health Maintenance Insurance MEDICARE [facility] MEDICARE [facility] Advance Directives Documents on File Type Date Recorded Patient Sludge Filtration Attendant Expl anation Power of Executive Kitchen Manager 11/04/2021 5:43 PM HEALT H CARE 07/04/12 [...] 12:43 AM 11/07/2019 6:50 PM Care Teams Cook Soup Relationship Specialty Start Date End Date Samuel Huerta DO [address] [place] [id number] PCP - General FAMILY PRACTICE 06/02/21 Mary Dunne MD Consulting Physician OBGYN 09/23/18 Brenda Coronel MD Consulting Physician INTERNAL MEDICINE 06/17/20 Sanchez Singleton MD Consulting Physician ENDOCRINOLOGY 06/17/20 Dany Mason, DIRECTOR LIFE SALES Nurse Practitioner Nurse Practitioner [facility] 06/21/20 Bel Trotter FNP- [address] [place] [address] Nurse Practitioner NURSE PRACTITIONER 01/10/22
--- OUTSIDE RECORDS SUMMARY | 2025-03-22 15:33 | XMS_ITS | Clinical Summary ---
Author Organization [facility] 1 Address [address] [place] [address] Care Team Providers Care Pulmonology Technician Name Role Phone Samuel Huerta DO [...] on file Legal Sex Female 11:53 PM GLUE COOK Gender Identity Not on file Sexual Orientation [...] Pneumococcal vaccine 65+ Completed 01/11/2017, 02/18 Insurance [facility] MEDICARE [facility] MEDICARE [facility] Care Teams Pulmonology Technician Relationship Specialty Start Date End Date Samuel Huerta DO [address] [place], [place] [id number] PCP - General Family Medicine 04/28/21
--- OUTSIDE RECORDS SUMMARY | 2025-03-22 15:33 | XMS_ITS | Clinical Summary ---
[facility] Organization [facility] Address [address] [place] [address] Phone Care Team Providers Care Warehouse Logistics Manager Name Role Phone Unavailable Primary Care Provider [...] 03/10/2013 Insurance MEDICARE PART A AND B [facility] [id number] Advance Directives For more information, please contact: [phone] Documents on File Type Date Recorded Patient De Alcoholizer Expl anation Advance Directive POA 03/06/2022 1:23 PM Advance Directive POA 02/05/2022 5:34 PM A dvance Directive POA * Full Code (Latest Code Status on File) Date Activated Date Inactivated Comments 01/31/2022 11:26 PM 02/16/2022 2:22 PM
--- OUTSIDE RECORDS SUMMARY | 2025-03-22 15:33 | XMS_ITS | Encounter Summary ---
Author Organization [facility] Address [address] [place] [address] Care Team Providers Care Entry Specialist Name Role Phone Mateusz Gallegos MD Unavailable Unavailable Mary Dunne MD Unavailable [phone] Deonna Abbott MD Unavailable [phone] Annette Mock RN Unavailable [phone] Chava Mo MD Primary Care Provider Brenda Coronel MD Unavailable [phone] Sanchez Singleton MD Unavailable Unavailable Dany Mason SERVICE VEHICLE OPERATOR Unavailable [phone] Florinda Galindo MD Unavailable Samuel Huerta DO Primary Care Provider [phone] Bel Trotter SERVICE VEHICLE OPERATOR- Unavailable [phone] Encounter Details Date Type Department Care Team (Late st Contact Info) Description 10/26/2019 Telephone [facility] [place] [address] [place] [phone] Deonna Abbott MD [address] [place] [address] Social History Tobacco Use Types Packs/Day Years Used Date Smoking Tobacco: Never Smokeless Tobacco: Never Alcohol Use Standard Drinks/Week Comments No 0 (1 standard drink = 0.6 oz pur e alcohol) PHQ-2 Answer Date Recorded PHQ-2 Score 0 04/14/2019 Comments Unknown Sex and Gender Information Value Date Recorded Sex Assigned at Female 11/05/2019 5:43 AM CDT Legal Sex Female 11:29 PM FILE CONVERSION OPERATOR Gender Identity Female 11/05/2019 5:43 AM CDT [...] Total Score: 0 04/20/20 19 11:06 AM FILE CONVERSION OPERATOR documented as of this encounter Care Teams Entry Specialist Relationship Specialty Start Date End Date Deonna Abbott MD [address] [place] [address] PCP - Med Group - [facility] Attributed Provider 05/20/15 05/19/21 Chava Mo MD [address] [place] [address] PCP - General FAMILY PRACTICE 01/08/20 06/01/21 Samuel Huerta DO [address] [place] [address] PCP - General FAMILY PRACTICE 06/02/21 Mateusz Gallegos MD INTERVENTIONAL CARDIOLOGY 11/08/17 12/13/20 Mary Dunne MD Consulting Physician OBGYN 09/23/18 Annette Mock, RN [address] [place] [address] [employer] Fruit [employer] Nut Crops Farmer (Ambulatory) REGISTERED NURSE 11/05/19 11/16/19 Brenda Coronel MD [address] [place] [address] Consulting Physician INTERNAL MEDICINE 06/17/20 Sanchez Singleton MD [address] [place] [address] Consulting Physician ENDOCRINOLOGY 06/17/20 Dany Mason, [facility] [address] [place] [address] Nurse Practitioner Nurse Practitioner Family 06/21/20 Florinda Galindo MD [address] [place] [address] Consulting Physician CARDIOVASCULAR DISEASE 12/14/20 Bel Trotter FNP- [address] [place] [address] Nurse Practitioner NURSE PRACTITIONER 01/10/22 documented as of this encounter
--- OUTSIDE RECORDS SUMMARY | 2025-03-22 15:33 | XMS_ITS | Encounter Summary ---
Author Organization [facility] Address [address] [place] [address] Care Team Providers Care Gas Operation Manager Name Role Phone Clifford Ann MD Unavailable Samuel Huerta DO Primary Care Provider [phone] Encounter Details Date Type Department Care Team (Late st Contact Info) Description 07/12/2020 Lab Requisition [facility] DermPath Lab [address] [place] [address] Tian Dumont Jr., MD [address] [place] [address] Social History Tobacco Use Types Packs/Day Years Used Date Smoking Tobacco: Never Comments Unknown Sex and Gender Information Value Date Recorded Sex Assigned at Not on file Legal Sex Female 6:06 AM SIGNAL ENGINEER Gender Identity Not on file Sexual Orientation Not on file documented as of this encounter Plan of Treatment Not on file documented as of this encounter Procedures Procedure Name Priority Date/Time Associated Diagnosis Comments DERMATOPATHOLOGY Routine 07/08/2020 12:0 0 AM SIGNAL ENGINEER documented in this encounter Results * DERMATOPATHOLOGY (07/08/2020 12:00 AM SIGNAL ENGINEER) Case Report Dermatopathology Report Case: [id number] Authorizing Provider: Tian Dumont Jr., MD Collected: 07/08/2020 12:00 AM Ordering Location: [facility] Care DermPath Lab Received: 07/12/2020 08:55 AM Pathologist: Gini Dyson MD Specimen: Skin, left central frontal scalp 4:50 PM [facility] DERMATOPATHOLOGY LABORATORY Final Diagnosis Specimen A. SKIN, left central frontal scalp: BENIGN VERRUCOUS KERATOSIS (L82.1) 4:50 PM [facility] DERMATOPATHOLOGY LABORATORY at 1650 SIGNAL ENGINEER Clinical History Inflamed seborrheic keratosis vs Squamous cell carcinoma vs verruca vulgaris. 4:50 PM [facility] DERMATOPATHOLOGY LABORATORY Gross Description Specimen A: Received is one formalin filled container labeled with the patient's name and designated left central frontal scalp. The specimen consists of a shave biopsy measuring [id number]. Jar 0+. 4:50 PM [facility] DERMATOPATHOLOGY LABORATORY Microscopic Description Specimen A. SKIN, left central frontal scalp: Sections show hyperkeratosis, papillomatosis, hypergranulosis, and acanthosis. These histological findings can be seen in a verruca vulgaris or a seborrheic keratosis. 4:50 PM [facility] DERMATOPATHOLOGY LABORATORY Disclaimer An external and internal positive and negative controls are appropriate for the histochemical, immunohistochemical and immunofluorescence stain(s) in this case (if any), except where stated explicitly. The performance characteristics of the stain(s) cited in this report were developed and its performance characteristic determined by the Dermatopathology Laboratory at [facility], directed by Dr. Martin Gonzalez. These tests need not be, and therefore are not, approved by the [place] Food and Drug Administration. The tests are used for clinical purposes. Billing Codes Specimen Charges Stain Charges 07642 1 4:50 PM [facility] DERMATOPATHOLOGY LABORATORY Embedded Images 4:50 PM [facility] DERMATOPATHOLOGY LABORATORY Pathology/Cytolog y TISSUE SPECIMEN FROM SKIN / Unknown 07/08/2020 07/12/2020 8:55 AM [facility] Tian Dumont Jr., MD LAB - PATHOLOGY/CYTOLOG Y ORDERABLES Final Result DERMATOPATHOLOGY LABORATORY [facility] - Department of Dermatology [address], [address] [phone] documented in this encounter Visit Diagnoses Not on filedocumented in this encounter Care Teams Gas Operation Manager Relationship Specialty Start Date End Date Samuel Huerta DO [address] [place] [address] PCP - General Family Medicine 01/22/22 Clifford Ann MD Orthopedic Surgery 07/20/16 documented as of this encounter
--- OUTSIDE RECORDS SUMMARY | 2025-03-22 15:33 | XMS_ITS | Encounter Summary ---
Author Organization [facility] Address [address] [place] [address] Care Team Providers Care Animal Attendant Name Role Phone Mateusz Gallegos MD Unavailable Unavailable Mayr Dunne MD Unavailable [phone] Deonna Abbott MD Unavailable [phone] Chava Mo MD Primary Care Provider Brenda Coronel MD Unavailable [phone] Sanchez Singleton MD Unavailable Unavailable Dany Mason PLASTIC EYE TECHNICIAN Unavailable [phone] Florinda Galindo MD Unavailable Samuel Huerta DO Primary Care Provider [phone] Bel Trotter PLASTIC EYE TECHNICIAN- Unavailable [phone] Reason for Visit * Reason Onset Date Comments Record Request 12/25/2019 asking if reques t for records was received Encounter Details Date Type Department Care Team (Late st Contact Info) Description 12/25/2019 Telephone [facility] [address] [address] Deonna Abbott MD [address] [place] [address] Record Request (asking if request [...] often do you attend chur ch or taoism services? More than 4 times per year 11/05/2019 Do you belong to any clubs o r organizations such as jain groups, unions, fraternal or athletic groups, or [...] Recorded PHQ-2 Score 0 04/14/2019 [facility] of Occupat ional Health - Occupational Stress [...] AM CDT Legal Sex Female 11:29 PM B2B ACCOUNT EXECUTIVE Gender Identity Female 11/05/2019 5:43 AM CDT [...] request of records from new physician in [place], [place]. Said they have sent two requests but have not received the records. Please call back [phone] documented in this encounter Plan of Treatment Not on file documented as of this encounter Visit Diagnoses Not on filedocumented in this encounter Additional Health Concerns Infection Onset Date Last Indicated Resolved Time COVID-19 Rule Out 09/30/2020 09/30/2020 09/30/2020 7:46 PM CDT Assessment Noted Time PHQ-9 Depression Total Score: 0 04/20/20 19 11:06 AM B2B ACCOUNT EXECUTIVE documented as of this encounter Care Teams Animal Attendant Relationship Specialty Start Date End Date Deonna Abbott MD [address] [place] [address] PCP - Med Group - [facility] Attributed Provider 05/20/15 05/19/21 Chava Mo MD [address] [place], [place] [id number] PCP - General FAMILY PRACTICE 01/08/20 06/01/21 Samuel Huerta DO [address] [place] [address] PCP - General FAMILY PRACTICE 06/02/21 Mateusz Gallegos MD INTERVENTIONAL CARDIOLOGY 11/08/17 12/13/20 Mary Dunne MD Consulting Physician OBGYN 09/23/18 Brenda Coronel MD [address] [place] [address] Consulting Physician INTERNAL MEDICINE 06/17/20 Sanchez Singleton MD [address] [place] [address] Consulting Physician ENDOCRINOLOGY 06/17/20 Dany Mason, [facility] [address] [place] [address] Nurse Practitioner Nurse Practitioner Family 06/21/20 Florinda Galindo MD [address] [place] [address] Consulting Physician CARDIOVASCULAR DISEASE 12/14/20 Bel Trotter FNP- [address] [place] [address] Nurse Practitioner NURSE PRACTITIONER 01/10/22 documented as of this encounter
--- OUTSIDE RECORDS SUMMARY | 2025-03-22 15:33 | XMS_ITS | Encounter Summary ---
Author Organization [facility] Address [facility] [place] [address] Care Team Providers Care Bpm Architect Name Role Phone Mary Dunne MD Unavailable [phone] Chava Mo MD Primary Care Provider Brenda Coronel MD Unavailable [phone] Sanchez Singleton MD Unavailable Unavailable Dany Mason HAND PAINT MIXER Unavailable [phone] Florinda Galindo MD Unavailable Samuel Huerta DO Primary Care Provider [phone] Bel Trotter HAND PAINT MIXER- Unavailable [phone] Reason for Visit * Reason Onset Date Comments Results 06/01/2021 [facility] REPORT Encounter Details Date Type Department Care Team (Latest Contact Info) Description 06/01/2021 [facility] [address] [place] [address] Abstract, Doc [facility] Results ( [facility] REPORT) [...] any clubs o r organizations such as christianity groups, unions, fraternal or athletic groups, or [...] Answer Date Recorded PHQ-2 Score 0 04/14/2019 [facility] of Occupat ional Health - Occupational Stress [...] AM CDT Legal Sex Female 11:29 PM FURNITURE PACKER Gender Identity Female 11/05/2019 5:43 AM CDT [...] 5:56 AM WILLEMT Patricia Marino RN Active documented as of this encounter Mental Status * Because of a physical, mental, or emotional condition, do you have serious difficulty concentrating, remembering, or making decisions? Answer Entry Date Author Status Yes 11/05/2019 5:56 AM WILLEMT Patricia Marino RN Active documented in this encounter Plan of Treatment Not on file documented as of this encounter Visit Diagnoses Not on filedocumented in this encounter Additional Health Concerns Assessment Noted Time PHQ-9 Depression Total Score: 0 04/20/20 19 11:06 AM FURNITURE PACKER documented as of this encounter Care Teams Bpm Architect Relationship Specialty Start Date End Date Chava Mo MD [address] [place] [address] PCP - General FAMILY PRACTICE 01/08/20 06/01/21 Samuel Hureta DO [address] [place] [address] PCP - General FAMILY PRACTICE 06/02/21 Mary Dunne MD Consulting Physician OBGYN 09/23/18 Brenda Coronel MD [address] [place] [address] Consulting Physician INTERNAL MEDICINE 06/17/20 Sanchez Singleton MD [address] [place] [address] Consulting Physician ENDOCRINOLOGY 06/17/20 Dany Mason FNP [address] [place] [address] Nurse Practitioner Nurse Practitioner Family 06/21/20 Florinda Galindo MD [address] [place] [address] Consulting Physician CARDIOVASCULAR DISEASE 12/14/20 Bel Trotter FNP-MATY [address] [place] [address] Nurse Practitioner NURSE PRACTITIONER 01/10/22 documented as of this encounter
--- OUTSIDE RECORDS SUMMARY | 2025-03-22 15:33 | XMS_ITS | Clinical Summary ---
Author Organization [facility] Address [address] [place] [address] Care Team Providers Care Ice Hockey Coach Name Role Phone Clifford Ann MD Unavailable [phone] Samuel Huerta DO Primary Care Provider [phone] Source Comments [facility],non-owned Affiliates and Associated Physician Practices is amultiple site organization consisting of ambulatory clinics and hospital sitesin [place], [place], [place] and [place]. This disclosure is being madepursuant to the Care Everywhere program and may not contain all information available regarding this patient. Last updated 18.[facility] Yipit Allergies Active Allergy Reactions Criticality Noted Date Comments Amiodarone MEAL GRINDER TENDER Dysfunction High 01/23/2022 Meperidine GI Discomfort 01/22/2022 [...] on file Legal Sex Female 6:06 AM HAND VIOLIN MAKER Gender Identity Not on file Sexual Orientation [...] this topic Medical Devices Implanted Type Area Taker Off Drying Kiln Device Identifier Shelf Expiration Date Model / Serial / Lot 4.5mm Cortex Screws, 38mm Implanted:Qty: 1 on 01/23/2022 by Mikie Dillon MD at [facility] Left: Femur [employer] [id number] / / 5.7mm Cannulated Locking Screws, 80mm Implanted:Qty: 2 on 01/23/2022 by Mikie Dillon MD at [facility] Left: Femur [employer] [id number] / / 5.7mm Cannulated Locking Screws, 85mm Implanted:Qty: 1 on 01/23/2022 by Mikie Dillon MD at [facility] Left: Femur [employer] [id number] / / 4.5mm Distal Femur Plate, L 15h 306mm Implanted:Qty: 1 on 01/23/2022 by Mikie Dillon MD at [facility] Left: Femur [employer] [id number] / / 4.5mm Cortex Screws, 40mm Implanted:Qty: 1 on 01/23/2022 by Mikie Dillon MD at [facility] Left: Femur [employer] [id number] / / 4.5mm Cortex Screws, 42mm Implanted:Qty: 2 on 01/23/2022 by Mikie Dillon MD at [facility] Left: Femur [employer] [id number] / / 4.5mm Cortex Screws, 46mm Implanted:Qty: 1 on 01/23/2022 by Mikie Dillon MD at [facility] Left: Femur [id number] / / 4.5mm Locking Screws, 80mm Implanted:Qty: 1 on 01/23/2022 by Mikie Dillon MD at [facility] Left: Femur [employer] [id number] / / 6.7mm High Torque Screw, 70mm Implanted:Qty: 1 on 01/23/2022 by Mikie Dillon MD at [facility] Left: Femur [employer] [id number] / / 5.7mm Cannulated Locking Screws, 46mm Implanted:Qty: 1 on 01/23/2022 by Mikie Dillon MD at [facility] Left: Femur [employer] [id number] / / 5.7mm Cannulated Locking Screws, 48mm Implanted:Qty: 1 on 01/23/2022 by Mikie Dillon MD at [facility] Left: Femur [employer] [id number] / / Explanted Type Area Taker Off Drying Kiln Device Identifier Shelf Expiration Date Model / Serial / Lot Provisional Fixation Pins, 3.5mm Explanted:Qty: 1 on 01/23/2022 by Mikie Dillon MD at [facility] Left: Femur [employer] [id number] / / 2.0 Kwire X 350mm Explanted:Qty: 2 on 01/23/2022 by Mikie Dillon MD at [facility] Left: Femur [employer] [id number] / / Insurance [facility] MEDICARE MEDICARE AARP Advance Directives Documents on File Type Date Recorded Patient Retail Cosmetics Sales Counter Manager Expl anation Adv Directive/Living Will/POA 02/05/2022 1:02 PM * Full Code (Latest Code Status on File) Date Activated Date Inactivated Comments 01/22/2022 6:45 PM 02/01/2022 12:17 AM Care Teams Ice Hockey Coach Relationship Specialty Start Date End Date Samuel Huerta DO [address] [place] [address] PCP - General Family Medicine 01/22/22 Clifford Ann MD Orthopedic Surgery 07/20/16
[2025-03-22 16:53] LABS: Thyroid Stimulating Hormone Reflex 1.090 uIU/mL (0.465-4.68)
== END 2025-03-22 15:09 | disposition home or self-care (01) ==
LOC: CHSLAB 15:12
PROVIDERS: PCP Family Medicine
DX: E03.9 Hypothyroidism, unspecified (principal)
CPT/HCPCS: 36415; 84443

== ENCOUNTER 2025-05-03 13:25 | Outpatient (CLI) | payer MEDICARE, SELFPAY ==
[2025-05-03 14:00] LABS: Add Urine Microscopic? YES; Appearance Urine Sl Cloudy (Clear); Glucose Urine UA Negative (Negative); Leukocyte Esterase Ur 3+ LEU/UL (Negative); Nitrate Urine Negative (Negative); Specific Grav Ur <= 1.005 (1.010-1.020)
== END 2025-05-03 13:26 | disposition home or self-care (01) ==
LOC: CHSLAB 13:27
PROVIDERS: PCP Nurse Practitioner Family; Visit Provider Nurse Practitioner Family
DX: N39.0 Urinary tract infection, site not specified (principal); R82.90 Unspecified abnormal findings in urine
CPT/HCPCS: 81001; 87086; 87186

== ENCOUNTER 2025-05-15 13:44 | Outpatient (CLI) | payer MEDICARE, SELFPAY ==
[2025-05-15 14:29] LABS: Add Urine Microscopic? YES; Appearance Urine Clear (Clear); Glucose Urine UA Negative (Negative); Leukocyte Esterase Ur 2+ LEU/UL (Negative); Nitrate Urine Negative (Negative); Specific Grav Ur 1.010 (1.010-1.020)
== END 2025-05-15 13:45 | disposition home or self-care (01) ==
PROVIDERS: PCP Family Medicine; Visit Provider Nurse Practitioner Family
DX: R39.9 Unspecified symptoms and signs involving the genitourinary system (principal); R82.90 Unspecified abnormal findings in urine
CPT/HCPCS: 81001; 87086; 87186